=== PATIENT | female | born 1955 | race African-American/Black ===

== ENCOUNTER 2018-05-25 02:52 | Inpatient (IN) | payer OTHER ==
[2018-05-25] MEDS ORDERED: ZOFRAN IV ONE (04:35)
[2018-05-25] MEDS ORDERED: NACL 0.9% 1000 ML 1,000 ML IV ONE (04:35)
[2018-05-25 04:56] LABS: Bacteria,Urine 1+ /HPF (Negative); Bilirubin,Urine NEG (Negative); Blood,Urine SM (Negative); Color,Urine Yellow (Yellow); Mucus,Urine FEW /HPF; Urobilinogen,Urine < 2.0 mg/dL (<2.0)
[2018-05-25 05:40] LABS: Alanine Aminotransferase 21 units/L (7-56); Albumin 4.6 g/dL (3.9-5); BUN/Creatinine Ratio 38; Blood Urea Nitrogen 19 mg/dL (7-17); Calcium 9.1 mg/dL (8.4-10.2); Hemolysis Index 6
[2018-05-25 05:42] LABS: Basophils % (Auto) 0.2 % (0.0-1.8); Hematocrit 43.4 % (30.3-42.9); Hemoglobin 14.4 gm/dl (10.1-14.3); Mean Corpuscular HGB Conc 33 % (30-34); Mean Corpuscular Volume 92 fl (79-97); Monocytes # (Auto) 0.4 K/mm3 (0.0-0.8); Monocytes % (Auto) 4.5 % (0.0-7.3); Platelet Count 312 K/mm3 (140-440); Red Blood Count 4.73 M/mm3 (3.65-5.03); Red Cell Distribution Width 13.9 % (13.2-15.2)
[2018-05-25] MEDS ORDERED: NACL 0.9% 500 ML 500 ML IV ONE (06:35)
[2018-05-25] MEDS ORDERED: SUBLIMAZE IV ONE ×2 (06:35→09:30)
--- NOTE | 2018-05-25 06:36 | Emergency Department Report ---
ED General Adult HPI - General Chief complaint: Abdominal Pain Stated complaint: ABDOMINAL PAIN Time Seen by Provider: 05/25/18 06:29 Source: patient, RN notes reviewed, old records reviewed Mode of arrival: Ambulatory Limitations: No Limitations - History of Present Illness Initial comments: Primary care Dr.: Dr. Mal Hatfield This is a 63-year-old female with a history of laparotomy, small bowel obstruction, lysis of adhesions, hysterectomy, presenting to the emergency room with a complaint of abdominal pain. The abdominal pain started at 4:00 PM ye sterday. It is intermittent. It is achy. It increases with palpation. It decreases with rest. There is mild nausea. There is some vomiting. Patient denies urinary symptoms. Denies fevers, chills, other complaints. -: Gradual Radiation: abdomen Severity scale (0 -10): 10 Quality: aching Consistency: intermittent Improves with: other Worsens with: other Associated Symptoms: loss of appetite, malaise, nausea/vomiting, weakness. denies: confusion, chest pain, cough, diaphoresis, fever/chills, headaches, rash, seizure, shortness of breath, syncope - Related Data Home Medications Medication Instructions Recorded Confirmed Last Taken Alendronate Sodium 1 tab PO QWEEK 01/05/14 03/31/18 03/29/18 Mv,Francisco,Min/Iron/Folic Acid/Lut 1 tab PO DAILY 01/05/14 03/31/18 03/29/18 [Complete Multi Tablet] [place]-3 Fatty Acids/Fish Oil [Fish 1 cap PO DAILY 01/05/14 03/31/18 03/29/18 Oil] Omeprazole 1 cap PO DAILY 01/05/14 03/31/18 03/29/18 Allergies Allergy/AdvReac Type Severity Reaction Status Date / Time venlafaxine Allergy Vomiting Verified 01/05/14 09:57 ED Review of Systems ROS: Stated complaint: ABDOMINAL PAIN Other details as noted in HPI Constitutional: denies: fever Eyes: denies: vision change ENT: denies: epistaxis Respiratory: denies: cough Cardiovascular: denies: chest pain Gastrointestinal: abdominal pain, nausea, vomiting Genitourinary: denies: urgency, dysuria Musculoskeletal: denies: back pain Skin: denies: lesions Neurological: weakness Psychiatric: anxiety ED Past Medical Hx - Past Medical History Hx Arthritis: No Hx Asthma: No Hx COPD: No Hx HIV: No Additional medical history: Decreased Bone Density, Hypotension, - Surgical History Hx Appendectomy: Yes Additional Surgical History: Bilateral Mastectomy, Hysterectomy, Lumbar surgery. Small Bowel Resection, Lysis of Adhesions ([facility] 09/2016) - Social History Smoking Status: Never Smoker Substance Use Type: None - Medications Home Medications: Home Medications Medication Instructions Recorded Confirmed Last Taken Type Alendronate Sodium 1 tab PO QWEEK 01/05/14 03/31/18 03/29/18 History Mv,Francisco,Min/Iron/Folic Acid/Lut 1 tab PO DAILY 01/05/14 03/31/18 03/29/18 History [Complete Multi Tablet] [place]-3 Fatty Acids/Fish Oil [Fish 1 cap PO DAILY 01/05/14 03/31/18 03/29/18 History Oil] Omeprazole 1 cap PO DAILY 01/05/14 03/31/18 03/29/18 History ED Physical Exam - General Limitations: No Limitations General appearance: alert, in no apparent distress - Head Head exam: Present: atraumatic, normocephalic - Eye Eye exam: Present: normal appearance, EOMI. Absent: nystagmus - ENT ENT exam: Present: normal exam, normal orophraynx, mucous membranes moist, normal external ear exam - Neck Neck exam: Present: normal inspection, full ROM. Absent: tenderness, meningismus - Respiratory Respiratory exam: Present: normal lung sounds bilaterally. Absent: respiratory distress, chest wall tenderness, accessory muscle use, decreased breath sounds, prolonged expiratory - Cardiovascular Cardiovascular Exam: Present: regular rate, normal rhythm, normal heart sounds. Absent: bradycardia, tachycardia, irregular rhythm, systolic murmur, diastolic murmur, rubs, gallop - GI/Abdominal GI/Abdominal exam: Present: soft, distended. Absent: tenderness, guarding, rebound, rigid, pulsatile mass - Extremities Exam Extremities exam: Present: normal inspection, full ROM, other (2+ pulses noted in the bilateral upper, lower extremities. Compartments soft. No long bony tenderness. The pelvis is stable.). Absent: pedal edema, joint swelling, calf tenderness - Back Exam Back exam: Present: normal inspection, full ROM. Absent: tenderness, CVA tenderness (R), paraspinal tenderness, vertebral tenderness - Neurological Exam Neurological exam: Present: alert, CN II-XII intact, normal gait, other (Extraocular movements intact. Tongue midline. No facial droop. Facial sensation intact to light touch in the V1, V2, V3 distribution bilaterally. 5 and 5 strength in 4 extremities.. Sensation is intact to light touch in 4 extremities.). Absent: motor sensory deficit - Psychiatric Psychiatric exam: Present: anxious - Skin Skin exam: Present: warm, dry, intact, normal color. Absent: rash ED Course Vital Signs 05/25/18 05/25/18 05/25/18 03:04 04:17 04:30 Temperature 97.7 F Pulse Rate 78 Respiratory 14 Rate Blood Pressure 155/75 119/60 O2 Sat by Pulse 99 93 99 Oximetry 05/25/18 05/25/18 05/25/18 04:45 05:00 05:15 Temperature Pulse Rate Respiratory Rate Blood Pressure 115/51 120/59 128/65 O2 Sat by Pulse 100 100 100 Oximetry 05/25/18 05/25/18 05/25/18 05:30 05:45 06:00 Temperature Pulse Rate Respiratory Rate Blood Pressure 120/65 118/68 115/58 O2 Sat by Pulse 99 99 100 Oximetry 05/25/18 05/25/18 05/25/18 06:15 06:30 07:05 Temperature Pulse Rate Respiratory 20 Rate Blood Pressure 113/60 117/61 O2 Sat by Pulse 99 99 98 Oximetry - Reevaluation(s) Reevaluation #1: 05/25/18 08:16 Differential diagnosis, including not limited to: Colitis, diverticulitis, ileus, constipation, urinary tract infection, renal colic, bowel obstruction Assessment and plan: 63-year-old female with left-sided abdominal pain, no tachycardia, no hypoxia, question distended abdomen, we will treat her symptoms, obtain CT scan of the abdomen and pelvis with IV contrast, and then reassess after her CT scan has resulted. Reevaluation #2: 05/25/18 09:32 CT scan suggests recurrent small bowel obstruction. Nasogastric tube ordered. Gen. surgery consultation requested. Hospital physician, Dr. Sullivan to admit the patient to the medical service. - Consultations Consultation #1: 05/25/18 09:37 Discussed with general surgeon, Dr. Pineda, who will follow in consultation. ED Medical Decision Making - Lab Data Result diagrams: 05/25/18 03:44 05/25/18 03:44 Vital Signs 05/25/18 05/25/18 05/25/18 03:04 04:17 04:30 Temperature 97.7 F Pulse Rate 78 Respiratory 14 Rate Blood Pressure 155/75 119/60 O2 Sat by Pulse 99 93 99 Oximetry 05/25/18 05/25/18 05/25/18 04:45 05:00 05:15 Temperature Pulse Rate Respiratory Rate Blood Pressure 115/51 120/59 128/65 O2 Sat by Pulse 100 100 100 Oximetry 05/25/18 05/25/18 05/25/18 05:30 05:45 06:00 Temperature Pulse Rate Respiratory Rate Blood Pressure 120/65 118/68 115/58 O2 Sat by Pulse 99 99 100 Oximetry 05/25/18 05/25/18 05/25/18 06:15 06:30 07:05 Temperature Pulse Rate Respiratory 20 Rate Blood Pressure 113/60 117/61 O2 Sat by Pulse 99 99 98 Oximetry Lab Results 05/25/18 05/25/18 05/25/18 Range/Units 03:44 03:44 03:44 WBC 9.8 (4.5-11.0) K/mm3 RBC 4.73 (3.65-5.03) M/mm3 Hgb 14.4 H (10.1-14.3) gm/dl Hct 43.4 H (30.3-42.9) % MCV 92 (79-97) fl MCH 30 (28-32) pg MCHC 33 (30-34) % RDW 13.9 (13.2-15.2) % Plt Count 312 (140-440) K/mm3 Lymph % (Auto) 10.0 L (13.4-35.0) % Garza % (Auto) 4.5 (0.0-7.3) % Eos % (Auto) 0.0 (0.0-4.3) % Baso % (Auto) 0.2 (0.0-1.8) % Lymph # 1.0 L (1.2-5.4) K/mm3 Garza # 0.4 (0.0-0.8) K/mm3 Eos # 0.0 (0.0-0.4) K/mm3 Baso # 0.0 (0.0-0.1) K/mm3 Seg Neutrophils % 85.3 H (40.0-70.0) % Seg Neutrophils # 8.4 H (1.8-7.7) K/mm3 Sodium 142 (137-145) mmol/L Potassium 3.4 L (3.6-5.0) mmol/L Chloride 99.5 (98-107) mmol/L Carbon Dioxide 29 (22-30) mmol/L Anion Gap 17 mmol/L BUN 19 H (7-17) mg/dL Creatinine 0.5 L (0.7-1.2) mg/dL Estimated GFR > 60 ml/min BUN/Creatinine Ratio 38 % Glucose 125 H (65-100) mg/dL Lactic Acid (0.7-2.0) mmol/L Calcium 9.1 (8.4-10.2) mg/dL Magnesium 1.90 (1.7-2.3) mg/dL Total Bilirubin 0.80 (0.1-1.2) mg/dL AST 29 (5-40) units/L ALT 21 (7-56) units/L Alkaline Phosphatase 67 (35-129) units/L Total Creatine Kinase 99 (30-135) units/L Total Protein 7.2 (6.3-8.2) g/dL Albumin 4.6 (3.9-5) g/dL Albumin/Globulin Ratio 1.8 % Lipase 33 (13-60) units/L Urine Color (Yellow) Urine Turbidity (Clear) Urine pH (5.0-7.0) Ur Specific [place] (1.003-1.030) Urine Protein (Negative) mg/dL Urine Glucose (UA) (Negative) mg/dL Urine Ketones (Negative) mg/dL Urine Blood (Negative) Urine Nitrite (Negative) Urine Bilirubin (Negative) Urine Urobilinogen (<2.0) mg/dL Ur Leukocyte Esterase (Negative) Urine WBC (Auto) (0.0-6.0) /HPF Urine RBC (Auto) (0.0-6.0) /HPF Urine Bacteria (Auto) (Negative) /HPF Urine Mucus /HPF 05/25/18 05/25/18 Range/Units 04:00 07:04 WBC (4.5-11.0) K/mm3 RBC (3.65-5.03) M/mm3 Hgb (10.1-14.3) gm/dl Hct (30.3-42.9) % MCV (79-97) fl MCH (28-32) pg MCHC (30-34) % RDW (13.2-15.2) % Plt Count (140-440) K/mm3 Lymph % (Auto) (13.4-35.0) % Garza % (Auto) (0.0-7.3) % Eos % (Auto) (0.0-4.3) % Baso % (Auto) (0.0-1.8) % Lymph # (1.2-5.4) K/mm3 Garza # (0.0-0.8) K/mm3 Eos # (0.0-0.4) K/mm3 Baso # (0.0-0.1) K/mm3 Seg Neutrophils % (40.0-70.0) % Seg Neutrophils # (1.8-7.7) K/mm3 Sodium (137-145) mmol/L Potassium (3.6-5.0) mmol/L Chloride (98-107) mmol/L Carbon Dioxide (22-30) mmol/L Anion Gap mmol/L BUN (7-17) mg/dL Creatinine (0.7-1.2) mg/dL Estimated GFR ml/min BUN/Creatinine Ratio % Glucose (65-100) mg/dL Lactic Acid 1.20 (0.7-2.0) mmol/L Calcium (8.4-10.2) mg/dL Magnesium (1.7-2.3) mg/dL Total Bilirubin (0.1-1.2) mg/dL AST (5-40) units/L ALT (7-56) units/L Alkaline Phosphatase (35-129) units/L Total Creatine Kinase (30-135) units/L Total Protein (6.3-8.2) g/dL Albumin (3.9-5) g/dL Albumin/Globulin Ratio % Lipase (13-60) units/L Urine Color Yellow (Yellow) Urine Turbidity Slightly-cloudy (Clear) Urine pH 7.0 (5.0-7.0) Ur Specific [place] 1.025 (1.003-1.030) Urine Protein 100 mg/dl (Negative) mg/dL Urine Glucose (UA) Neg (Negative) mg/dL Urine Ketones 20 (Negative) mg/dL Urine Blood Sm (Negative) Urine Nitrite Neg (Negative) Urine Bilirubin Neg (Negative) Urine Urobilinogen < 2.0 (<2.0) mg/dL Ur Leukocyte Esterase Neg (Negative) Urine WBC (Auto) 4.0 (0.0-6.0) /HPF Urine RBC (Auto) 47.0 (0.0-6.0) /HPF Urine Bacteria (Auto) 1+ (Negative) /HPF Urine Mucus Few /HPF - Radiology Data Radiology results: pending, report reviewed, image reviewed Print Report Referring Physician: OBED BRUNNER Patient Name: OSCAR DEGROOT Date of : 1955 Sex: Female Report Date: 2018-05-25 Report Status: Finalized Findings [facility] [address] [place] [address] Cat Scan Report Signed Patient: OSCAR DEGROOT MR#: [id number] : 1955 Acct:[id number] Age/Sex: 63 / F ADM Date: 05/25/18 Loc: ED Attending Dr: Ordering Physician: OBED BRUNNER MD Date of Service: 05/25/18 Procedure(s): CT abdomen pelvis w con Accession Number(s): [id number] cc: OBED BRUNNER MD CT ABDOMEN PELVIS WITH CONTRAST: HISTORY: Nausea vomiting abdominal pain. COMPARISON: The 03/31/18. TECHNIQUE: Helical CT in 1.25mm intervals following IV contrast. Sagittal and coronal reconstructions. FINDINGS: Lung bases: Normal. Calcified granuloma at the right lung base is noted. Liver: Normal. Biliary system: Normal. Pancreas: Normal. Spleen: Normal. Kidneys/ureters/bladder: There are a few scattered small cysts in both kidneys. The largest cyst measures 1.5 cm in the mid left kidney. No evidence for mass or hydronephrosis. The ureters and bladder are unremarkable. Adrenal glands: Normal. Aorta: Normal. Intestines: There are a few moderately dilated loops of small bowel in the left abdomen measuring up to 4 cm in diameter. The distal small bowel loops and colon are decompressed. Appendix: Not confidently identified, correlate with surgical history. Pelvic viscera: Hysterectomy changes are suspected. Ascites: Small pelvic ascites Adenopathy: None. Musculoskeletal: Osteopenia is suspected. Mild degenerative changes in the spine. No fracture or suspicious bony lesion. IMPRESSION: Findings consistent with a partial small bowel obstruction. Surgical changes as described. Transcribed By: TTR Dictated By: LUCA BOWLES JR, MD Electronically Authenticated By: LUCA BOWLES JR, MD Signed Date/Time: 05/25/18912 DD/ 8 TD/TT: 05/25/18912 Critical care attestation.: If time is entered above; I have spent that time in minutes in the direct care of this critically ill patient, excluding procedure time. ED Disposition Clinical Impression: Small bowel obstruction Disposition: OP ADMIT IP TO THIS HOSP Is pt being admited?: Yes Condition: Good Instructions: Abdominal Pain (ED) Referrals: YELENA VASQUEZ MD [Primary Care Provider] - 3-5 Days
[2018-05-25] MEDS: KCL 10MEQ/100ML 10 MEQ/100 ML BAG IV SCH ×2 (08:00→09:50)
--- NOTE | 2018-05-25 09:16 | Cat Scan Report ---
CT ABDOMEN PELVIS WITH CONTRAST: HISTORY: Nausea vomiting abdominal pain. COMPARISON: The 03/31/18. TECHNIQUE: Helical CT in 1.25mm intervals following IV contrast. Sagittal and coronal reconstructions. FINDINGS: Lung bases: Normal. Calcified granuloma at the right lung base is noted. Liver: Normal. Biliary system: Normal. Pancreas: Normal. Spleen: Normal. Kidneys/ureters/bladder: There are a few scattered small cysts in both kidneys. The largest cyst measures 1.5 cm in the mid left kidney. No evidence for mass or hydronephrosis. The ureters and bladder are unremarkable. Adrenal glands: Normal. Aorta: Normal. Intestines: There are a few moderately dilated loops of small bowel in the left abdomen measuring up to 4 cm in diameter. The distal small bowel loops and colon are decompressed. Appendix: Not confidently identified, correlate with surgical history. Pelvic viscera: Hysterectomy changes are suspected. Ascites: Small pelvic ascites Adenopathy: None. Musculoskeletal: Osteopenia is suspected. Mild degenerative changes in the spine. No fracture or suspicious bony lesion. IMPRESSION: Findings consistent with a partial small bowel obstruction. Surgical changes as described.
[2018-05-25] MEDS ORDERED: LIDOCAINE VISCOUS 2% PO ONE (09:30)
[2018-05-25] MEDS ORDERED: XYLOCAINE TOPICAL 4% TP ONE (09:30)
[2018-05-25] MEDS ORDERED: SUBLIMAZE ONE (10:30)
--- NOTE | 2018-05-25 13:31 | Progress Note ---
Assessment and Plan Full consult dictated. Pt was seen previously approximately 2 months ago with symptoms of sbo vs fecal impaction. Rx with NG suction and resolved. was doing very well until this am when experienced + N&V Abd - 2+ distended (especially lower abd) but non tender CT consistent with partial sbo rec NPO Mineral oil per NG IVF hydration f/u abd series in am will follow Selected Entries 05/25/18 12:11 Temperature 98.5 F Pulse Rate 72 Respiratory 18 Rate Blood Pressure 119/62 Laboratory Tests 05/25/18 05/25/18 03:44 03:44 WBC 9.8 Hgb 14.4 H Hct 43.4 H Sodium 142 Potassium 3.4 L Chloride 99.5 Carbon Dioxide 29 Anion Gap 17 BUN 19 H Creatinine 0.5 L Total Bilirubin 0.80 AST 29 ALT 21 Alkaline Phosphatase 67 Lipase 33 Objective Vital Signs - 12hr 05/25/18 05/25/18 05/25/18 03:04 04:17 04:30 Temperature 97.7 F Pulse Rate 78 Respiratory 14 Rate Blood Pressure 155/75 119/60 O2 Sat by Pulse 99 93 99 Oximetry 05/25/18 05/25/18 05/25/18 04:45 05:00 05:15 Temperature Pulse Rate Respiratory Rate Blood Pressure 115/51 120/59 128/65 O2 Sat by Pulse 100 100 100 Oximetry 05/25/18 05/25/18 05/25/18 05:30 05:45 06:00 Temperature Pulse Rate Respiratory Rate Blood Pressure 120/65 118/68 115/58 O2 Sat by Pulse 99 99 100 Oximetry 05/25/18 05/25/18 05/25/18 06:15 06:30 07:05 Temperature Pulse Rate Respiratory 20 Rate Blood Pressure 113/60 117/61 O2 Sat by Pulse 99 99 98 Oximetry 05/25/18 05/25/18 05/25/18 07:49 08:00 08:15 Temperature Pulse Rate 68 66 Respiratory 12 13 Rate Blood Pressure 117/61 129/70 121/67 O2 Sat by Pulse 100 99 100 Oximetry 05/25/18 05/25/18 05/25/18 08:30 08:45 09:00 Temperature Pulse Rate 67 66 66 Respiratory 13 12 12 Rate Blood Pressure 127/66 121/65 117/67 O2 Sat by Pulse 100 98 100 Oximetry 05/25/18 05/25/18 05/25/18 09:15 09:47 10:00 Temperature Pulse Rate 75 74 67 Respiratory 15 23 13 Rate Blood Pressure 125/69 125/69 105/62 O2 Sat by Pulse 99 100 100 Oximetry 05/25/18 05/25/18 05/25/18 10:15 10:30 10:45 Temperature Pulse Rate 66 79 73 Respiratory 12 15 14 Rate Blood Pressure 122/66 121/70 119/67 O2 Sat by Pulse 100 99 99 Oximetry 05/25/18 05/25/18 05/25/18 11:00 11:11 11:21 Temperature Pulse Rate 75 74 74 Respiratory 12 13 12 Rate Blood Pressure 119/67 123/73 122/63 O2 Sat by Pulse 99 98 98 Oximetry 05/25/18 05/25/18 05/25/18 11:30 11:41 11:50 Temperature Pulse Rate 69 69 78 Respiratory 12 12 20 Rate Blood Pressure 114/62 114/62 121/62 O2 Sat by Pulse 99 99 Oximetry 05/25/18 12:11 Temperature 98.5 F Pulse Rate 72 Respiratory 18 Rate Blood Pressure 119/62 O2 Sat by Pulse 100 Oximetry - Labs 05/25/18 03:44 05/25/18 03:44 Diabetes panel 05/25/18 Range/Units 03:44 Sodium 142 (137-145) mmol/L Potassium 3.4 L (3.6-5.0) mmol/L Chloride 99.5 (98-107) mmol/L Carbon Dioxide 29 (22-30) mmol/L BUN 19 H (7-17) mg/dL Creatinine 0.5 L (0.7-1.2) mg/dL Glucose 125 H (65-100) mg/dL Calcium 9.1 (8.4-10.2) mg/dL AST 29 (5-40) units/L ALT 21 (7-56) units/L Alkaline Phosphatase 67 (35-129) units/L Total Protein 7.2 (6.3-8.2) g/dL Albumin 4.6 (3.9-5) g/dL Calcium panel 05/25/18 Range/Units 03:44 Calcium 9.1 (8.4-10.2) mg/dL Albumin 4.6 (3.9-5) g/dL Pituitary panel 05/25/18 Range/Units 03:44 Sodium 142 (137-145) mmol/L Potassium 3.4 L (3.6-5.0) mmol/L Chloride 99.5 (98-107) mmol/L Carbon Dioxide 29 (22-30) mmol/L BUN 19 H (7-17) mg/dL Creatinine 0.5 L (0.7-1.2) mg/dL Glucose 125 H (65-100) mg/dL Calcium 9.1 (8.4-10.2) mg/dL Adrenal panel 05/25/18 Range/Units 03:44 Sodium 142 (137-145) mmol/L Potassium 3.4 L (3.6-5.0) mmol/L Chloride 99.5 (98-107) mmol/L Carbon Dioxide 29 (22-30) mmol/L BUN 19 H (7-17) mg/dL Creatinine 0.5 L (0.7-1.2) mg/dL Glucose 125 H (65-100) mg/dL Calcium 9.1 (8.4-10.2) mg/dL Total Bilirubin 0.80 (0.1-1.2) mg/dL AST 29 (5-40) units/L ALT 21 (7-56) units/L Alkaline Phosphatase 67 (35-129) units/L Total Protein 7.2 (6.3-8.2) g/dL Albumin 4.6 (3.9-5) g/dL
[2018-05-25] MEDS ORDERED: MORPHINE IV PRN (13:45)
[2018-05-25] MEDS ORDERED: TYLENOL PO PRN (13:45)
[2018-05-25] MEDS ORDERED: ZOFRAN IV PRN (13:45)
[2018-05-25] MEDS ORDERED: SODIUM CHLORIDE FLUSH SYRINGE 10 ML IV PRN (13:45)
--- NOTE | 2018-05-25 13:53 | History and Physical Report ---
History of Present Illness Date of examination: 05/25/18 Date of admission: 05/25/18 09:33 Chief complaint: Worsening abdominal pain since yesterday History of present illness: 63-year-old partially Thai-speaking [place] female with history of osteoporosis presented to the ED with complaints of worsening abdominal pain since yesterday evening, and associated with nausea and vomiting 2. She denies any constipation diarrhea or melena. She denies any fever or chills. Denies any chest pain or shortness of breath. Patient the was noted to have partial sm all bowel obstruction, CT of the abdomen and pelvis and she is being admitted for further management Past History Past Medical History: cancer (breast cancer), other (osteoporosis) Past Surgical History: hysterectomy, mastectomy ((), Other (every 2-4 laminectomy and laparotomy) Social history: no significant social history Family history: no significant family history Medications and Allergies Allergies Allergy/AdvReac Type Severity Reaction Status Date / Time venlafaxine Allergy Vomiting Verified 01/05/14 09:57 Home Medications Medication Instructions Recorded Confirmed Last Taken Type Alendronate Sodium 1 tab PO QWEEK 01/05/14 05/25/18 03/29/18 History Active Meds: Active Medications Acetaminophen (Tylenol) 650 mg PO Q4H PRN PRN Reason: Pain MILD(1-3)/Fever >100.5/LONG Famotidine (Pepcid) 20 mg IV BID [facility] Potassium Chloride/Dextrose/Sod Cl (D5w/0.45% Nacl/Kcl 20 Meq) 20 meq in 1,000 mls @ 125 mls/hr IV DIRECT SILVIANO Mineral Oil (Mineral Oil) 30 ml FEEDTUBE Q4H [facility] Morphine Sulfate (Morphine) 1 mg IV Q4H PRN PRN Reason: Pain, Moderate (4-6) Ondansetron HCl (Zofran) 4 mg IV Q8H PRN PRN Reason: Nausea And Vomiting Sodium Chloride (Sodium Chloride Flush Syringe 10 Ml) 10 ml IV BID SILVIANO Sodium Chloride (Sodium Chloride Flush Syringe 10 Ml) 10 ml IV PRN PRN PRN Reason: LINE FLUSH Review of Systems Constitutional: no weight loss, no fever, no chills, no fatigue Ears, nose, mouth and throat: no ear pain, no nasal congestion, no sore throat Cardiovascular: no chest pain, no syncope, no shortness of breath Respiratory: no cough, no shortness of breath Gastrointestinal: abdominal pain, nausea, vomiting, no diarrhea, no constipation, no melena Genitourinary Female: no dysuria Menstruation: postmenopausal Rectal: no pain Musculoskeletal: no neck stiffness, no neck pain Integumentary: no rash Neurological: no vertigo, no headaches Psychiatric: no anxiety, no depression Exam - Constitutional Vitals: Temp Pulse Resp BP Pulse Ox 98.5 F 72 18 119/62 100 05/25/18 12:11 05/25/18 12:11 05/25/18 12:11 05/25/18 12:11 05/25/18 12:11 General appearance: Present: no acute distress, well-nourished - EENT Eyes: Present: PERRL, EOM intact ENT: hearing intact - Neck Neck: Present: supple, normal ROM - Respiratory Respiratory effort: normal Respiratory: bilateral: CTA - Cardiovascular Rhythm: regular Heart Sounds: Present: S1 & S2 - Extremities Extremities: No edema - Abdominal General gastrointestinal: Present: soft, tender (mild tenderness in the epigastric area and mid abdomen). Absent: hepatomegaly, splenomegaly - Rectal Rectal Exam: deferred - Musculoskeletal Musculoskeletal: strength equal bilaterally - Psychiatric Psychiatric: appropriate mood/affect - Neurologic Neurologic: no focal deficits Results - Labs CBC & Chem 7: 05/25/18 03:44 05/25/18 03:44 Labs: Abnormal lab results 05/25/18 05/25/18 Range/Units 03:44 03:44 Hgb 14.4 H (10.1-14.3) gm/dl Hct 43.4 H (30.3-42.9) % Lymph % (Auto) 10.0 L (13.4-35.0) % Lymph # 1.0 L (1.2-5.4) K/mm3 Seg Neutrophils % 85.3 H (40.0-70.0) % Seg Neutrophils # 8.4 H (1.8-7.7) K/mm3 Potassium 3.4 L (3.6-5.0) mmol/L BUN 19 H (7-17) mg/dL Creatinine 0.5 L (0.7-1.2) mg/dL Glucose 125 H (65-100) mg/dL Assessment and Plan - Patient Problems (1) Small bowel obstruction Current Visit: Yes Status: Acute Plan to address problem: Admit patient to medical floor Keep patient nothing by mouth IV fluids NG tube with low intermittent suction Pain control Gen. surgery note reviewed and appreciated (2) Hypokalemia Current Visit: Yes Status: Acute Plan to address problem: IV potassium supplement Monitor electrolytes
[2018-05-25] MEDS ORDERED: CHLORASEPTIC MM PRN (13:54)
[2018-05-25] MEDS ORDERED: D5W/0.45% NACL/KCL 20 MEQ 20 MEQ/1,000 ML BAG IV SCH (14:00)
[2018-05-25] MEDS: MINERAL OIL FEEDTUBE SCH ×3 (15:47→22:02)
[2018-05-25] MEDS: PEPCID IV SCH ×2 (15:48→22:02)
[2018-05-25] MEDS: D5W/0.45% NACL/KCL 30 MEQ 30 MEQ/1,000 ML BAG IV SCH (16:59)
[2018-05-25] MEDS: CEPACOL X STRENGTH MM PRN (17:00)
--- NOTE | 2018-05-25 17:04 | Consultation ---
REASON FOR CONSULTATION: Rule out partial small bowel obstruction. HISTORY OF PRESENT ILLNESS: The patient is a very pleasant 63-year-old female who I actually last saw here at the hospital approximately 2 months ago. At that time, the patient was admitted with symptoms of possible fecal impaction versus partial small-bowel obstruction. The patient was treated with NG suction and IV fluid hydration and her symptoms completely resolved. She has been doing well ever since. She was actually seen in my office approximately a week or two after her discharge and was doing fine and discharged from our care back to her PCP. As mentioned previously, the patient was doing quite well until this morning when she began experiencing episodes of nausea and vomiting. PAST MEDICAL AND SURGICAL HISTORY: Pertinent for multiple previous surgeries including modified radical mastectomies and lumbar laminectomy. From an abdominal perspective, she also had a diagnostic laparoscopy and lysis of adhesions and also subsequent exploratory laparotomy and small bowel resection, which appeared to have been done at [facility] back in 2017. PHYSICAL EXAMINATION: GENERAL: At this time reveals the patient to be awake, alert, cooperative, in no acute distress. VITAL SIGNS: Show her to be afebrile with a temperature 98.5, blood pressure 119/62, pulse is 72, respirations of 18. ABDOMEN: Examination of the abdomen reveals some 2+ distention, especially more so in the lower abdomen. The abdomen itself, however, is nontender. Bowel sounds are hypoactive. LABORATORY DATA: Lab work at present includes a CBC, which shows a white count of 9.8, H and H are 14 and 43. Electrolytes are essentially normal except for slightly low potassium of 3.4. Glucose is 125. LFTs were all essentially normal including total bilirubin of 0.8, AST of 29, ALT of 21, alkaline phosphatase of 67 and total bilirubin is 0.8. DIAGNOSTIC DATA: A CT scan of the abdomen has been performed, which is consistent with a partial small-bowel obstruction. IMPRESSION: At this time is that of a 63-year-old female, rule out partial small-bowel obstruction. RECOMMENDATIONS: At this time is to keep the patient n.p.o., on IV fluid hydration. We will also begin mineral oil insertion through the NG tube and repeat the abdominal series in the morning. I will follow closely with you. Thank you very much for consultation. JOB# [id number] FP/NTS
[2018-05-25] MEDS: SODIUM CHLORIDE FLUSH SYRINGE 10 ML IV SCH (22:03)
[2018-05-26] MEDS: D5W/0.45% NACL/KCL 30 MEQ 30 MEQ/1,000 ML BAG IV SCH ×3 (01:28→23:54)
[2018-05-26] MEDS: MINERAL OIL FEEDTUBE SCH ×6 (01:28→22:40)
[2018-05-26 06:44] LABS: Basophils % (Auto) 0.5 % (0.0-1.8); Eosinophils # (Auto) 0.1 K/mm3 (0.0-0.4); Eosinophils % (Auto) 1.6 % (0.0-4.3); Hematocrit 38.2 % (30.3-42.9); Hemoglobin 12.7 gm/dl (10.1-14.3); Lymphocytes # (Auto) 1.2 K/mm3 (1.2-5.4); Lymphocytes % (Auto) 17.9 % (13.4-35.0); Mean Corpuscular HGB Conc 33 % (30-34); Mean Corpuscular Volume 92 fl (79-97); Monocytes # (Auto) 0.7 K/mm3 (0.0-0.8); Monocytes % (Auto) 10.2 % (0.0-7.3); Platelet Count 250 K/mm3 (140-440); Red Blood Count 4.17 M/mm3 (3.65-5.03); Red Cell Distribution Width 13.9 % (13.2-15.2)
[2018-05-26 06:59] LABS: BUN/Creatinine Ratio 13; Blood Urea Nitrogen 4 mg/dL (7-17); Calcium 8.4 mg/dL (8.4-10.2); Hemolysis Index 4
--- NOTE | 2018-05-26 10:17 | XRay Report ---
ABDOMINAL SERIES: History: SBO. Erect chest film shows hyperinflated lungs and borderline heart size. A nasogastric tube is coiled in the fundus of the stomach. There is no evidence of free air beneath the diaphragms. The gas pattern within the abdomen is unremarkable. There is no evidence of bowel dilatation, significant air-fluid levels, or masses. Organ shadows are unremarkable. IMPRESSION: Abdominal series within normal limits.
--- NOTE | 2018-05-26 11:00 | Progress Note ---
Assessment and Plan Assessment and plan: --Possible small bowel obstruction; Surgery following, abdominal series is no evidence of obstruction Intermittent suction, continue nothing by mouth status Scheduled for small bowel series tomorrow Consider clear liquids if significant improvement --Hypokalemia; corrected --DVT prophylaxis; SCDs, Lovenox Closely monitor the patient and adjust the management as needed Follow-up surgery evaluation and recommendations Plan of care reviewed with the patient her and the nurse History Interval history: Patient was admitted with small bowel obstruction, nothing by mouth status NG tube intermittent suction, surgical evaluation and recommendations noted Patient feels slightly better, had flatus no bowel movements Vital signs reviewed No new complaints Hospitalist Physical - Constitutional Vitals: Temp Pulse Resp BP Pulse Ox 97.8 F 62 20 112/62 98 05/26/18 04:25 05/26/18 04:25 05/26/18 04:25 05/26/18 04:25 05/26/18 04:25 General appearance: Present: no acute distress, well-nourished - EENT Eyes: Present: PERRL, EOM intact - Neck Neck: Present: supple, normal ROM - Respiratory Respiratory effort: normal Respiratory: bilateral: diminished, rales, negative: rhonchi, wheezing - Cardiovascular Rhythm: regular Heart Sounds: Present: S1 & S2 - Extremities Extremities: no ischemia, No edema - Abdominal General gastrointestinal: soft, non-tender, distended (mild), normal bowel sounds - Integumentary Integumentary: Present: clear, warm - Psychiatric Psychiatric: appropriate mood/affect, cooperative - Neurologic Neurologic: CNII-XII intact, moves all extremities Results - Labs CBC & Chem 7: 05/26/18 05:55 05/26/18 05:55 Labs: Laboratory Last Values WBC 6.8 K/mm3 (4.5-11.0) 05/26/18 05:55 RBC 4.17 M/mm3 (3.65-5.03) 05/26/18 05:55 Hgb 12.7 gm/dl (10.1-14.3) 05/26/18 05:55 Hct 38.2 % (30.3-42.9) 05/26/18 05:55 MCV 92 fl (79-97) 05/26/18 05:55 MCH 30 pg (28-32) 05/26/18 05:55 MCHC 33 % (30-34) 05/26/18 05:55 RDW 13.9 % (13.2-15.2) 05/26/18 05:55 Plt Count 250 K/mm3 (140-440) 05/26/18 05:55 Lymph % (Auto) 17.9 % (13.4-35.0) 05/26/18 05:55 [place] % (Auto) 10.2 % (0.0-7.3) H 05/26/18 05:55 Eos % (Auto) 1.6 % (0.0-4.3) 05/26/18 05:55 Baso % (Auto) 0.5 % (0.0-1.8) 05/26/18 05:55 Lymph # 1.2 K/mm3 (1.2-5.4) 05/26/18 05:55 [place] # 0.7 K/mm3 (0.0-0.8) 05/26/18 05:55 Eos # 0.1 K/mm3 (0.0-0.4) 05/26/18 05:55 Baso # 0.0 K/mm3 (0.0-0.1) 05/26/18 05:55 Seg Neutrophils % 69.8 % (40.0-70.0) 05/26/18 05:55 Seg Neutrophils # 4.7 K/mm3 (1.8-7.7) 05/26/18 05:55 Sodium 142 mmol/L (137-145) 05/26/18 05:55 Potassium 4.1 mmol/L (3.6-5.0) D 05/26/18 05:55 Chloride 107.3 mmol/L (98-107) H 05/26/18 05:55 Carbon Dioxide 28 mmol/L (22-30) 05/26/18 05:55 Anion Gap 11 mmol/L 05/26/18 05:55 BUN 4 mg/dL (7-17) L 05/26/18 05:55 Creatinine 0.3 mg/dL (0.7-1.2) L 05/26/18 05:55 Estimated GFR > 60 ml/min 05/26/18 05:55 BUN/Creatinine Ratio 13 % 05/26/18 05:55 Glucose 109 mg/dL (65-100) H 05/26/18 05:55 Lactic Acid 1.20 mmol/L (0.7-2.0) 05/25/18 07:04 Calcium 8.4 mg/dL (8.4-10.2) 05/26/18 05:55 Magnesium 1.90 mg/dL (1.7-2.3) 05/25/18 03:44 Total Bilirubin 0.80 mg/dL (0.1-1.2) 05/25/18 03:44 AST 29 units/L (5-40) 05/25/18 03:44 ALT 21 units/L (7-56) 05/25/18 03:44 Alkaline Phosphatase 67 units/L (35-129) 05/25/18 03:44 Total Creatine Kinase 99 units/L (30-135) 05/25/18 03:44 Total Protein 7.2 g/dL (6.3-8.2) 05/25/18 03:44 Albumin 4.6 g/dL (3.9-5) 05/25/18 03:44 Albumin/Globulin Ratio 1.8 % 05/25/18 03:44 Lipase 33 units/L (13-60) 05/25/18 03:44 Urine Color Yellow (Yellow) 05/25/18 04:00 Urine Turbidity Slightly-cloudy (Clear) 05/25/18 04:00 Urine pH 7.0 (5.0-7.0) 05/25/18 04:00 Ur Specific [place] 1.025 (1.003-1.030) 05/25/18 04:00 Urine Protein 100 mg/dl mg/dL (Negative) 05/25/18 04:00 Urine Glucose (UA) Neg mg/dL (Negative) 05/25/18 04:00 Urine Ketones 20 mg/dL (Negative) 05/25/18 04:00 Urine Blood Sm (Negative) 05/25/18 04:00 Urine Nitrite Neg (Negative) 05/25/18 04:00 Urine Bilirubin Neg (Negative) 05/25/18 04:00 Urine Urobilinogen < 2.0 mg/dL (<2.0) 05/25/18 04:00 Ur Leukocyte Esterase Neg (Negative) 05/25/18 04:00 Urine WBC (Auto) 4.0 /HPF (0.0-6.0) 05/25/18 04:00 Urine RBC (Auto) 47.0 /HPF (0.0-6.0) 05/25/18 04:00 Urine Bacteria (Auto) 1+ /HPF (Negative) 05/25/18 04:00 Urine Mucus Few /HPF 05/25/18 04:00
[2018-05-26] MEDS: SODIUM CHLORIDE FLUSH SYRINGE 10 ML IV SCH ×2 (12:06→22:41)
[2018-05-26] MEDS: PEPCID IV SCH ×2 (12:20→22:41)
--- NOTE | 2018-05-26 14:15 | Progress Note ---
Assessment and Plan Pt feeling well + flatus Abd soft, non tender. + BS Abd series - wnl resolving partial sbo SBFT study in am d/c ng in am and begin cl liq if SBFT study wnl Selected Entries 05/26/18 11:57 Temperature 99.0 F Pulse Rate 64 Respiratory 16 Rate Blood Pressure 108/64 Laboratory Tests 05/26/18 05/26/18 05:55 05:55 WBC 6.8 Hgb 12.7 Hct 38.2 Sodium 142 Potassium 4.1 D Chloride 107.3 H Carbon Dioxide 28 Anion Gap 11 BUN 4 L Creatinine 0.3 L Glucose 109 H Objective Vital Signs - 12hr 05/26/18 05/26/18 04:25 11:57 Temperature 97.8 F 99.0 F Pulse Rate 62 64 Respiratory 20 16 Rate Blood Pressure 112/62 108/64 O2 Sat by Pulse 98 98 Oximetry - Labs 05/26/18 05:55 05/26/18 05:55 Diabetes panel 05/26/18 Range/Units 05:55 Sodium 142 (137-145) mmol/L Potassium 4.1 D (3.6-5.0) mmol/L Chloride 107.3 H (98-107) mmol/L Carbon Dioxide 28 (22-30) mmol/L BUN 4 L (7-17) mg/dL Creatinine 0.3 L (0.7-1.2) mg/dL Glucose 109 H (65-100) mg/dL Calcium 8.4 (8.4-10.2) mg/dL Calcium panel 05/26/18 Range/Units 05:55 Calcium 8.4 (8.4-10.2) mg/dL Pituitary panel 05/26/18 Range/Units 05:55 Sodium 142 (137-145) mmol/L Potassium 4.1 D (3.6-5.0) mmol/L Chloride 107.3 H (98-107) mmol/L Carbon Dioxide 28 (22-30) mmol/L BUN 4 L (7-17) mg/dL Creatinine 0.3 L (0.7-1.2) mg/dL Glucose 109 H (65-100) mg/dL Calcium 8.4 (8.4-10.2) mg/dL Adrenal panel 05/26/18 Range/Units 05:55 Sodium 142 (137-145) mmol/L Potassium 4.1 D (3.6-5.0) mmol/L Chloride 107.3 H (98-107) mmol/L Carbon Dioxide 28 (22-30) mmol/L BUN 4 L (7-17) mg/dL Creatinine 0.3 L (0.7-1.2) mg/dL Glucose 109 H (65-100) mg/dL Calcium 8.4 (8.4-10.2) mg/dL
[2018-05-26] MEDS: CEPACOL X STRENGTH MM PRN (18:18)
[2018-05-26] MEDS: LOVENOX SUB-Q SCH (22:39)
[2018-05-27] MEDS: MINERAL OIL FEEDTUBE SCH ×2 (02:07→06:03)
[2018-05-27] MEDS: CEPACOL X STRENGTH MM PRN (06:03)
[2018-05-27] MEDS: D5W/0.45% NACL/KCL 30 MEQ 30 MEQ/1,000 ML BAG IV SCH ×2 (10:34→22:06)
[2018-05-27] MEDS: PEPCID IV SCH ×2 (12:19→22:05)
[2018-05-27] MEDS: SODIUM CHLORIDE FLUSH SYRINGE 10 ML IV SCH ×2 (12:20→22:05)
--- NOTE | 2018-05-27 13:03 | Fluoroscopy Report ---
SMALL BOWEL SERIES: History: Partial small bowel obstruction. Barium passes through the small bowel in a normal transit time. There is a normal mucosal pattern with no contour abnormalities identified. IMPRESSION: Normal study.
--- NOTE | 2018-05-27 18:31 | Progress Note ---
Assessment and Plan Assessment and plan: --Possible small bowel obstruction; resolved Small bowel series, no acute abnormality, normal study Dobbhoff removed, clear liquids advance as tolerated Surgery following --Hypokalemia; corrected --Tgkh-is-ocofeoav malnutrition; BMI 16.6 Nutrition supplements, nutrition consult --DVT prophylaxis; SCDs, Lovenox Closely monitor the patient and adjust the management as needed Advance the diet as tolerated Possible discharge tomorrow if stable and cleared by surgery Plan of care reviewed with the patient her and the nurse History Interval history: Patient seen and examined medical records reviewed Patient feels better Dobbhoff tube is removed Started on clear liquids, patient had BM No new complaints Vital signs noted Hospitalist Physical - Constitutional Vitals: Temp Pulse Resp BP Pulse Ox 98.6 F 76 20 122/90 99 05/27/18 16:20 05/27/18 16:15 05/27/18 16:20 05/27/18 16:20 05/27/18 16:15 General appearance: Present: no acute distress, well-nourished - EENT Eyes: Present: PERRL, EOM intact - Neck Neck: Present: supple, normal ROM - Respiratory Respiratory effort: normal Respiratory: bilateral: diminished, negative: rales, rhonchi, wheezing - Cardiovascular Rhythm: regular Heart Sounds: Present: S1 & S2 - Extremities Extremities: no ischemia, No edema - Abdominal General gastrointestinal: soft, non-tender, non-distended, normal bowel sounds - Integumentary Integumentary: Present: clear, warm - Psychiatric Psychiatric: appropriate mood/affect, cooperative - Neurologic Neurologic: CNII-XII intact, moves all extremities Results - Labs CBC & Chem 7: 05/26/18 05:55 05/26/18 05:55 Labs: Laboratory Last Values WBC 6.8 K/mm3 (4.5-11.0) 05/26/18 05:55 RBC 4.17 M/mm3 (3.65-5.03) 05/26/18 05:55 Hgb 12.7 gm/dl (10.1-14.3) 05/26/18 05:55 Hct 38.2 % (30.3-42.9) 05/26/18 05:55 MCV 92 fl (79-97) 05/26/18 05:55 MCH 30 pg (28-32) 05/26/18 05:55 MCHC 33 % (30-34) 05/26/18 05:55 RDW 13.9 % (13.2-15.2) 05/26/18 05:55 Plt Count 250 K/mm3 (140-440) 05/26/18 05:55 Lymph % (Auto) 17.9 % (13.4-35.0) 05/26/18 05:55 [place] % (Auto) 10.2 % (0.0-7.3) H 05/26/18 05:55 Eos % (Auto) 1.6 % (0.0-4.3) 05/26/18 05:55 Baso % (Auto) 0.5 % (0.0-1.8) 05/26/18 05:55 Lymph # 1.2 K/mm3 (1.2-5.4) 05/26/18 05:55 [place] # 0.7 K/mm3 (0.0-0.8) 05/26/18 05:55 Eos # 0.1 K/mm3 (0.0-0.4) 05/26/18 05:55 Baso # 0.0 K/mm3 (0.0-0.1) 05/26/18 05:55 Seg Neutrophils % 69.8 % (40.0-70.0) 05/26/18 05:55 Seg Neutrophils # 4.7 K/mm3 (1.8-7.7) 05/26/18 05:55 Sodium 142 mmol/L (137-145) 05/26/18 05:55 Potassium 4.1 mmol/L (3.6-5.0) D 05/26/18 05:55 Chloride 107.3 mmol/L (98-107) H 05/26/18 05:55 Carbon Dioxide 28 mmol/L (22-30) 05/26/18 05:55 Anion Gap 11 mmol/L 05/26/18 05:55 BUN 4 mg/dL (7-17) L 05/26/18 05:55 Creatinine 0.3 mg/dL (0.7-1.2) L 05/26/18 05:55 Estimated GFR > 60 ml/min 05/26/18 05:55 BUN/Creatinine Ratio 13 % 05/26/18 05:55 Glucose 109 mg/dL (65-100) H 05/26/18 05:55 Lactic Acid 1.20 mmol/L (0.7-2.0) 05/25/18 07:04 Calcium 8.4 mg/dL (8.4-10.2) 05/26/18 05:55 Magnesium 1.90 mg/dL (1.7-2.3) 05/25/18 03:44 Total Bilirubin 0.80 mg/dL (0.1-1.2) 05/25/18 03:44 AST 29 units/L (5-40) 05/25/18 03:44 ALT 21 units/L (7-56) 05/25/18 03:44 Alkaline Phosphatase 67 units/L (35-129) 05/25/18 03:44 Total Creatine Kinase 99 units/L (30-135) 05/25/18 03:44 Total Protein 7.2 g/dL (6.3-8.2) 05/25/18 03:44 Albumin 4.6 g/dL (3.9-5) 05/25/18 03:44 Albumin/Globulin Ratio 1.8 % 05/25/18 03:44 Lipase 33 units/L (13-60) 05/25/18 03:44 Urine Color Yellow (Yellow) 05/25/18 04:00 Urine Turbidity Slightly-cloudy (Clear) 05/25/18 04:00 Urine pH 7.0 (5.0-7.0) 05/25/18 04:00 Ur Specific [place] 1.025 (1.003-1.030) 05/25/18 04:00 Urine Protein 100 mg/dl mg/dL (Negative) 05/25/18 04:00 Urine Glucose (UA) Neg mg/dL (Negative) 05/25/18 04:00 Urine Ketones 20 mg/dL (Negative) 05/25/18 04:00 Urine Blood Sm (Negative) 05/25/18 04:00 Urine Nitrite Neg (Negative) 05/25/18 04:00 Urine Bilirubin Neg (Negative) 05/25/18 04:00 Urine Urobilinogen < 2.0 mg/dL (<2.0) 05/25/18 04:00 Ur Leukocyte Esterase Neg (Negative) 05/25/18 04:00 Urine WBC (Auto) 4.0 /HPF (0.0-6.0) 05/25/18 04:00 Urine RBC (Auto) 47.0 /HPF (0.0-6.0) 05/25/18 04:00 Urine Bacteria (Auto) 1+ /HPF (Negative) 05/25/18 04:00 Urine Mucus Few /HPF 05/25/18 04:00 Nutrition/Malnutrition Assess - Dietary Evaluation Nutrition/Malnutrition Findings: Nutrition Notes Start: 05/26/18 12:40 Freq: Status: Active Protocol: Document 05/26/18 12:40 SA (Rec: 05/26/18 13:25 SA [id number]) Co-Sign 05/26/18 12:40 RM Nutrition Notes Need for Assessment generated from: Low BMI Initial or Follow up Assessment Current Diagnosis Small Bowel Obstruction Other Pertinent Diagnosis Osteoporosis, hx: breast cancer, hysterectomy, mastectomy, hypokalemia Current Diet NPO Labs/Tests BUN: 4 Cr: 0.3 Glu: 109 Pertinent Medications Reviewed Height 4 ft 8 in Weight 35.2 kg [place] Body Weight (kg) 36.36 BMI 17.4 Weight Status Underweight Subjective/Other Information Screened for low BMI. Patient states always been small. NG tube placed and performed low intermitted suction yesterday. Per patient nurse, doctor waiting to feed patient. Patient shows no physical signs of malnutrition. Burn Absent Trauma Absent #1 Nutrition Diagnosis Inadequate oral intake Etiology SBO and NG tube As Evidenced by Signs and Symptoms NPO Is patient on ventilator? No Is Patient Ambulatory and/or Out of Bed Yes REE-([place]-St. Jeor-ambulatory/OOB) [ 988.000 NUTR.[id number]] Kcal/Kg value to use for calculation 40 Approximate Energy Requirements Using 1408 kcal/Kg Calculation Used for Recommendations Kcal/kg Additional Notes Protein: 35-42 g (1-1.2 g/kg) Fluid: 1 ml/kcal Nutrition Intervention Change Diet Order: Advance as medically feasible Add Supplement/Snack (indicate name/kcal Ensure Clear one daily (once /protein ) diet advanced) Provides kCal: 240 Provides Protein (gm) 8 Goal #1 diet advancement Anticipated Discharge Needs: Unable to determine at this time Follow-Up By: 05/29/18 Additional Comments F/U: diet advancement
--- NOTE | 2018-05-27 19:29 | Progress Note ---
Assessment and Plan Pt feeling well without compl + BM's Abd soft, non tender + BS SBFT - wnl d/c ng begin cl liq diet f/u abd series in am july d/c from surg perspective tomorrow if carlyle cl liq and abd series wnl continue on cl liq no carbonated x 48 hrs. rto this Fri Objective Vital Signs - 12hr 05/27/18 05/27/18 16:15 16:20 Temperature 98.1 F 98.6 F Pulse Rate 76 Respiratory 18 20 Rate Blood Pressure 109/57 122/90 O2 Sat by Pulse 99 Oximetry - Labs 05/26/18 05:55 05/26/18 05:55
[2018-05-27] MEDS: LOVENOX SUB-Q SCH (22:05)
[2018-05-28] MEDS: D5W/0.45% NACL/KCL 30 MEQ 30 MEQ/1,000 ML BAG IV SCH (05:26)
[2018-05-28] MEDS: PEPCID IV SCH (09:33)
[2018-05-28] MEDS: SODIUM CHLORIDE FLUSH SYRINGE 10 ML IV SCH (09:34)
--- NOTE | 2018-05-28 11:00 | XRay Report ---
ABDOMINAL SERIES: History: Small bowel obstruction. Erect chest film shows no acute or significant changes involving the heart or lung [place]. There is no evidence of free air beneath the diaphragms. The gas pattern within the abdomen is unremarkable. Oral contrast from recent small bowel series has passed into the colon. There is no evidence of bowel dilatation, significant air-fluid levels, or masses. Organ shadows are unremarkable. IMPRESSION: Abdominal series within normal limits.
[2018-05-28 12:36] VITALS: BP 117/56
--- NOTE | 2018-05-28 13:08 | Progress Note ---
Assessment and Plan Pt sitting up by bedside. carlyle cl liq. feeling well Abd soft, non tender Abd series this am - wnl surgically stable may d/c today on cl liq and po Ensure supplementation rto in am Selected Entries 05/27/18 05/27/18 05/28/18 16:15 16:20 12:35 Temperature 98.6 F 97.5 F L Pulse Rate 76 61 Respiratory 20 20 Rate Blood Pressure 122/90 117/56 Objective Vital Signs - 12hr 05/28/18 12:35 Temperature 97.5 F L Pulse Rate 61 Respiratory 20 Rate Blood Pressure 117/56 O2 Sat by Pulse 100 Oximetry - Labs 05/26/18 05:55 05/26/18 05:55
--- NOTE | 2018-05-28 15:03 | Discharge Summary ---
Providers - Providers Date of Admission: 05/25/18 09:33 Date of discharge: 05/28/18 Attending physician: GAMALIEL MAXWELL 05/25/18 09:30 Consult to Physician [CONS] Urgent Comment: Consulting Provider: EASTON CHERRY Physician Instructions: Reason For Exam: sbo 05/27/18 18:31 Consult to Dietitian/Nutrition [CONS] Routine Physician Instructions: Reason For Exam: Reason for Consult: Malnutrition [facility] Reason for admission: abdominal pain/small bowel obstruction Condition: Good Pertinent studies: CT abdomen and pelvis; consistent with partial small bowel obstruction surgical changes noted Abdominal series; within normal limits Small bowel series; normal study Abdominal series; 05/28/2018; normal study Hospital course: 63-year-old female patient was admitted through emergency room with worsening abdominal pain of one-day duration Patient was initially evaluated and noted to have small bowel obstruction,Evaluated by surgery, admitted to the hospital, placed NG tube intermittent suction, Nothing by mouth status, serial abdominal x-rays were taken Small bowel obstruction slowly but gradually improved, surgery followed the patient throughout the hospital stay Diet was started with clear liquids and advanced as tolerated, Today patient is comfortable NG tube is removed patient had bowel movement, tolerating a full liquid diet, electrolyte abnormalities corrected Vital signs stable physical exam unremarkable, Surgical history for discharge and follow up with him in the office for further evaluation and management Patient is hemodynamically and clinically stable at discharge Discharge diagnosis; --Possible small bowel obstruction; resolved Small bowel series, no acute abnormality, normal study Dobbhoff removed, clear liquids advance as tolerated Surgery following --Hypokalemia; corrected --Pzug-ll-wgtthkyg malnutrition; BMI 16.6 Nutrition supplements, nutrition consult Disposition: - TO HOME OR SELFCARE Time spent for discharge: 32 min Core Measure Documentation - Palliative Care Palliative Care/ Comfort Measures: Not Applicable - Core Measures Any of the following diagnoses?: none Exam - Constitutional Vitals: Temp Pulse Resp BP Pulse Ox 97.5 F L 61 20 117/56 100 05/28/18 12:35 05/28/18 12:35 05/28/18 12:35 05/28/18 12:35 05/28/18 12:35 General appearance: Present: no acute distress, well-nourished - EENT Eyes: Present: PERRL, EOM intact - Neck Neck: Present: supple, normal ROM - Respiratory Respiratory effort: normal Respiratory: bilateral: diminished, negative: rales, rhonchi, wheezing - Cardiovascular Rhythm: regular Heart Sounds: Present: S1 & S2 - Extremities Extremities: no ischemia, No edema - Abdominal General gastrointestinal: Present: soft, non-tender, non-distended, normal bowel sounds - Integumentary Integumentary: Present: clear, warm - Musculoskeletal Musculoskeletal: strength equal bilaterally - Psychiatric Psychiatric: appropriate mood/affect, cooperative - Neurologic Neurologic: CNII-XII intact, moves all extremities Plan Activity: advance as tolerated Diet: clear liquids Additional Instructions: Ensure Plus 1 can 3 times a day Follow up with: EASTON CHERRY MD [Staff Physician] - 05/29/18 10:30 am AU TRAIN YELENA STOKES MD [Primary Care Provider] - 3-5 Days Prescriptions: Famotidine [Pepcid] 10 mg PO BID #30 tablet
== END 2018-05-28 16:00 | disposition home or self-care (01) | DRG 389 ==
LOC: ED 02:52 → 3A 09:33
PROVIDERS: ADMIT Internal Medicine; ATTEND Internal Medicine
PROC: 0D9670Z Drainage of Stomach with Drainage Device, Via Natural or Artificial Opening (ICD-10-PCS; principal; 2018-05-25)
DX: K56.600 Partial intestinal obstruction, unspecified as to cause (principal); Z68.1 Body mass index [BMI] 19.9 or less, adult; E44.1 Mild protein-calorie malnutrition; E87.6 Hypokalemia; Z90.710 Acquired absence of both cervix and uterus; Z88.8 Allergy status to other drugs, medicaments and biological substances; Z90.13 Acquired absence of bilateral breasts and nipples
CPT/HCPCS: 36415; 74022; 74177; 74250; 80048; 80053; 81001; 82140; 82550; 83690; 83735; 85025; G0378; J1650; J2270; J2405; J3010; J3480; J7030; Q9963; Q9967

== ENCOUNTER 2018-06-26 09:16 | Inpatient (IN) | payer OTHER ==
[2018-06-26 10:00] LABS: Basophils % (Auto) 0.3 % (0.0-1.8); Hematocrit 44.1 % (30.3-42.9); Hemoglobin 14.7 gm/dl (10.1-14.3); Lymphocytes # (Auto) 0.6 K/mm3 (1.2-5.4); Lymphocytes % (Auto) 5.9 % (13.4-35.0); Mean Corpuscular HGB Conc 33 % (30-34); Mean Corpuscular Volume 92 fl (79-97); Monocytes # (Auto) 0.6 K/mm3 (0.0-0.8); Monocytes % (Auto) 5.4 % (0.0-7.3); Platelet Count 260 K/mm3 (140-440); Red Blood Count 4.83 M/mm3 (3.65-5.03); Red Cell Distribution Width 13.9 % (13.2-15.2)
[2018-06-26 10:16] LABS: Alanine Aminotransferase 21 units/L (7-56); Albumin 4.6 g/dL (3.9-5); BUN/Creatinine Ratio 45; Blood Urea Nitrogen 18 mg/dL (7-17); Calcium 9.5 mg/dL (8.4-10.2); Hemolysis Index 13
[2018-06-26 10:18] LABS: Bilirubin,Urine NEG (Negative); Blood,Urine SM (Negative); Color,Urine Yellow (Yellow); Mucus,Urine FEW /HPF; Urobilinogen,Urine < 2.0 mg/dL (<2.0)
[2018-06-26] MEDS ORDERED: ZOFRAN IV ONE (12:50)
[2018-06-26] MEDS ORDERED: TORADOL IV ONE (12:50)
[2018-06-26] MEDS ORDERED: NACL 0.9% 1000 ML 1,000 ML IV ONE (12:50)
--- NOTE | 2018-06-26 13:29 | Emergency Department Report ---
ED Abdominal Pain HPI - General Chief Complaint: Abdominal Pain Stated Complaint: STOMACH PAIN Time Seen by Provider: 06/26/18 12:33 Source: patient Mode of arrival: Ambulatory Limitations: No Limitations - History of Present Illness Initial Comments: 63-year-old female presents to the ED with abdominal pain since last night. Patient states pain is located in the periumbilical region. Reports 2 episodes of emesis since yesterday. States had a bowel movement at 4 AM this morning. Denies fever, urinary symptoms. History of small bowel obstruction and bowel resection in the past. Patient states pain is much improved from last night. MD Complaint: abdominal pain -: Last night Location: periumbilical Radiation: none Migration to: no migration Severity: moderate Severity scale (0 -10): 8 Quality: sharp Consistency: intermittent Improves With: nothing Worsens With: nothing Associated Symptoms: nausea, vomiting. denies: diarrhea, fever, constipation - Related Data Home Medications Medication Instructions Recorded Confirmed Last Taken Alendronate Sodium 1 tab PO QWEEK 01/05/14 05/25/18 03/29/18 Previous Rx's Medication Instructions Recorded Last Taken Type Famotidine [Pepcid] 10 mg PO BID #30 tablet 05/28/18 Unknown Rx Allergies Allergy/AdvReac Type Severity Reaction Status Date / Time venlafaxine Allergy Vomiting Verified 06/26/18 09:17 ED Review of Systems ROS: Stated complaint: STOMACH PAIN Other details as noted in HPI Comment: All other systems reviewed and negative Constitutional: denies: chills, fever Gastrointestinal: abdominal pain, nausea, vomiting. denies: diarrhea, constipation Genitourinary: denies: dysuria, frequency ED Past Medical Hx - Past Medical History Hx Arthritis: No Hx Asthma: No Hx COPD: No Hx HIV: No Additional medical history: Decreased Bone Density, Hypotension, - Surgical History Hx Appendectomy: Yes Additional Surgical History: Bilateral Mastectomy, Hysterectomy, Lumbar surgery. Small Bowel Resection, Lysis of Adhesions ([facility] 09/2016) - Social History Smoking Status: Never Smoker Substance Use Type: None - Medications Home Medications: Home Medications Medication Instructions Recorded Confirmed Last Taken Type Alendronate Sodium 1 tab PO QWEEK 01/05/14 05/25/18 03/29/18 History Famotidine [Pepcid] 10 mg PO BID #30 tablet 05/28/18 Unknown Rx ED Physical Exam - General Limitations: No Limitations General appearance: alert, in no apparent distress - Head Head exam: Present: atraumatic, normocephalic - Eye Eye exam: Present: normal appearance - ENT ENT exam: Present: mucous membranes moist - Neck Neck exam: Present: normal inspection - Respiratory Respiratory exam: Present: normal lung sounds bilaterally. Absent: respiratory distress - Cardiovascular Cardiovascular Exam: Present: regular rate, normal rhythm - GI/Abdominal GI/Abdominal exam: Present: soft, tenderness (mild periumbilical tenderness), other (midline suprapubic scar present). Absent: distended - Extremities Exam Extremities exam: Present: normal inspection - Neurological Exam Neurological exam: Present: alert, oriented X3 - Psychiatric Psychiatric exam: Present: normal affect, normal mood - Skin Skin exam: Present: warm, dry, intact, normal color ED Course Vital Signs 06/26/18 09:25 Temperature 97.9 F Pulse Rate 14 L Respiratory 14 Rate Blood Pressure 123/65 O2 Sat by Pulse 97 Oximetry - Consultations Consultation #1: 06/26/18 17:01 Spoke w/ Dr Cherry. IV fluids, NPO, NG tube ED Medical Decision Making - Lab Data Result diagrams: 06/26/18 09:49 06/26/18 09:49 - Radiology Data Radiology results: report reviewed, image reviewed - Medical Decision Making - CT consistent w/ partial SBO, NGT ordered - labs normal - vitals stable - Dr Cherry aware of pt - spoke w/ hospitalist, Dr Spangler, for admission - Differential Diagnosis bowel obstruction, UTI, diverticulitis Critical care attestation.: If time is entered above; I have spent that time in minutes in the direct care of this critically ill patient, excluding procedure time. ED Disposition Clinical Impression: Small bowel obstruction Disposition: OP ADMIT IP TO THIS HOSP Is pt being admited?: Yes Condition: Stable Instructions: Abdominal Pain (ED) Referrals: EASTON CHERRY MD [Primary Care Provider] - 3-5 Days Time of Disposition: 17:17
--- NOTE | 2018-06-26 16:44 | Cat Scan Report ---
PROCEDURE: CT ABDOMEN PELVIS W CON TECHNIQUE: Computerized axial tomography of the abdomen and pelvis was performed after the IV inject ion of iodinated nonionic contrast. Coronal and sagittal reconstruction was also performed. CONTRAST: 100 mL Isovue 300 given IV. Readi-Cat given as oral. CT DOSE LENGTH PRODUCT: 380.7 mGycm HISTORY: abd pain COMPARISONS: CT A/P 03/31/2018 . FINDINGS: There are dilated fluid-filled loops of proximal small bowel. This measures up to 3.5 cm in diameter. The distal small bowel is collapsed. No definite transition zone, mass, or inflammatory change is id entified. No wall thickening or pneumatosis is seen. Ascites is noted in the abdomen or pelvis. Findi ngs were seen on the prior study. Within the abdomen, the liver, spleen, pancreas, gallbladder, adrenal glands, and right kidney are un remarkable. There is a upper pole peripelvic cyst in the left kidney measuring 1.3 cm, stable. No chance dence for retroperitoneal or pelvic lymphadenopathy is seen. No soft tissue mass, loculated fluid col lection, inflammatory change, or free air is seen within the abdomen or pelvis. Within the pelvis, the bladder is unremarkable. The uterus has been surgically removed. No evidence f or mass or lymphadenopathy is seen in the pelvis. Images through the upper abdomen include the lung bases which are expanded and clear. Calcified granu christopher in the right base is seen. Bony structures show significant hypertrophic facet joint changes at L4-L5. Prior laminectomy at L1 a nd L2 is seen. IMPRESSION: Findings consistent with with recurrent partial small bowel obstruction in a similar distribution to the prior study. No definite etiology is identified. This document is electronically signed by Radha Carpio MD., June 26 2018 04:42:55 PM ET
--- NOTE | 2018-06-26 20:44 | History and Physical Report ---
History of Present Illness Date of examination: 06/26/18 Date of admission: 06/26/18 17:19 Chief complaint: Abd pain since last night History of present illness: 63-year-old female presents to the ED with abdominal pain since last night. Patient states pain is located in the periumbilical region. Reports 2 episodes of emesis since yesterday. States had a bowel movement at 4 AM this morning. Denies fever, urinary symptoms. History of small bowel obstruction and bowel resection in the past. Patient states pain is much improved from last night. Past Medical History Decreased Bone Density, Hypotension, Surgical History Appendectomy: Yes Bilateral Mastectomy, Hysterectomy, Lumbar surgery. Small Bowel Resection, Lysis of Adhesions ([facility] 09/2016) Social History Smoking Status: Never Smoker Substance Use Type: None Medications Home Medications: Home Medications Medication Instructions Recorded Confirmed Last Taken Type Alendronate Sodium 1 tab PO QWEEK 01/05/14 05/25/18 03/29/18 History Famotidine [Pepcid] 10 mg PO BID #30 tablet 05/28/18 Unknown Rx Review of Systems ROS: Stated complaint: STOMACH PAIN Other details as noted in HPI Comment: All other systems reviewed and negative Constitutional: denies: chills, fever Gastrointestinal: abdominal pain, nausea, vomiting. denies: diarrhea, constipation Genitourinary: denies: dysuria, frequency Medications and Allergies Allergies Allergy/AdvReac Type Severity Reaction Status Date / Time venlafaxine Allergy Vomiting Verified 06/26/18 09:17 Home Medications Medication Instructions Recorded Confirmed Last Taken Type Alendronate Sodium 1 tab PO QWEEK 01/05/14 05/25/18 03/29/18 History Famotidine [Pepcid] 10 mg PO BID #30 tablet 05/28/18 Unknown Rx Exam - Constitutional Vitals: Temp Pulse Resp BP Pulse Ox 98.7 F 62 16 113/61 97 06/26/18 19:34 06/26/18 19:34 06/26/18 19:34 06/26/18 19:34 06/26/18 19:34 General appearance: Present: no acute distress, well-nourished - EENT Eyes: Present: PERRL ENT: hearing intact, clear oral mucosa - Neck Neck: Present: supple, normal ROM - Respiratory Respiratory effort: normal Respiratory: bilateral: CTA - Cardiovascular Heart rate: 80 Rhythm: regular Heart Sounds: Present: S1 & S2. Absent: rub, click - Extremities Extremities: pulses symmetrical, No edema Peripheral Pulses: within normal limits - Abdominal General gastrointestinal: Present: soft, tender, distended, hypoactive bowel sounds Localized gastrointestinal: tender: diffuse Female genitourinary: Present: normal - Rectal Rectal Exam: deferred - Integumentary Integumentary: Present: clear, warm, dry - Musculoskeletal Musculoskeletal: gait normal, strength equal bilaterally - Psychiatric Psychiatric: appropriate mood/affect, intact judgment & insight - Neurologic Neurologic: CNII-XII intact, moves all extremities - Allied Health Allied health notes reviewed: nursing, case management Results - Labs CBC & Chem 7: 06/27/18 05:16 06/26/18 09:49 Labs: Laboratory Last Values WBC 10.7 K/mm3 (4.5-11.0) 06/26/18 09:49 RBC 4.83 M/mm3 (3.65-5.03) 06/26/18 09:49 Hgb 14.7 gm/dl (10.1-14.3) H 06/26/18 09:49 Hct 44.1 % (30.3-42.9) H 06/26/18 09:49 MCV 92 fl (79-97) 06/26/18 09:49 MCH 31 pg (28-32) 06/26/18 09:49 MCHC 33 % (30-34) 06/26/18 09:49 RDW 13.9 % (13.2-15.2) 06/26/18 09:49 Plt Count 260 K/mm3 (140-440) 06/26/18 09:49 Lymph % (Auto) 5.9 % (13.4-35.0) L 06/26/18 09:49 Parker % (Auto) 5.4 % (0.0-7.3) 06/26/18 09:49 Eos % (Auto) 0.0 % (0.0-4.3) 06/26/18 09:49 Baso % (Auto) 0.3 % (0.0-1.8) 06/26/18 09:49 Lymph # 0.6 K/mm3 (1.2-5.4) L 06/26/18 09:49 Parker # 0.6 K/mm3 (0.0-0.8) 06/26/18 09:49 Eos # 0.0 K/mm3 (0.0-0.4) 06/26/18 09:49 Baso # 0.0 K/mm3 (0.0-0.1) 06/26/18 09:49 Seg Neutrophils % 88.4 % (40.0-70.0) H 06/26/18 09:49 Seg Neutrophils # 9.5 K/mm3 (1.8-7.7) H 06/26/18 09:49 Sodium 142 mmol/L (137-145) 06/26/18 09:49 Potassium 3.8 mmol/L (3.6-5.0) 06/26/18 09:49 Chloride 102.1 mmol/L (98-107) 06/26/18 09:49 Carbon Dioxide 30 mmol/L (22-30) 06/26/18 09:49 Anion Gap 14 mmol/L 06/26/18 09:49 BUN 18 mg/dL (7-17) H 06/26/18 09:49 Creatinine 0.4 mg/dL (0.7-1.2) L 06/26/18 09:49 Estimated GFR > 60 ml/min 06/26/18 09:49 BUN/Creatinine Ratio 45 % 06/26/18 09:49 Glucose 115 mg/dL (65-100) H 06/26/18 09:49 Calcium 9.5 mg/dL (8.4-10.2) 06/26/18 09:49 Total Bilirubin 0.70 mg/dL (0.1-1.2) 06/26/18 09:49 AST 29 units/L (5-40) 06/26/18 09:49 ALT 21 units/L (7-56) 06/26/18 09:49 Alkaline Phosphatase 59 units/L (35-129) 06/26/18 09:49 Total Protein 7.5 g/dL (6.3-8.2) 06/26/18 09:49 Albumin 4.6 g/dL (3.9-5) 06/26/18 09:49 Albumin/Globulin Ratio 1.6 % 06/26/18 09:49 Urine Color Yellow (Yellow) 06/26/18 09:59 Urine Turbidity Slightly-cloudy (Clear) 06/26/18 09:59 Urine pH 7.0 (5.0-7.0) 06/26/18 09:59 Ur Specific [place] 1.026 (1.003-1.030) 06/26/18 09:59 Urine Protein 30 mg/dl mg/dL (Negative) 06/26/18 09:59 Urine Glucose (UA) Neg mg/dL (Negative) 06/26/18 09:59 Urine Ketones 20 mg/dL (Negative) 06/26/18 09:59 Urine Blood Sm (Negative) 06/26/18 09:59 Urine Nitrite Neg (Negative) 06/26/18 09:59 Urine Bilirubin Neg (Negative) 06/26/18 09:59 Urine Urobilinogen < 2.0 mg/dL (<2.0) 06/26/18 09:59 Ur Leukocyte Esterase Neg (Negative) 06/26/18 09:59 Urine WBC (Auto) 3.0 /HPF (0.0-6.0) 06/26/18 09:59 Urine RBC (Auto) 43.0 /HPF (0.0-6.0) 06/26/18 09:59 Urine Mucus Few /HPF 06/26/18 09:59 - Imaging and Cardiology EKG: report reviewed Imaging and Cardiology: Abd CT IMPRESSION: Findings consistent with with recurrent partial small bowel obstruction in a similar distribution to the prior study. No definite etiology is identified. Assessment and Plan Advance Directives: Yes (FC) VTE prophylaxis?: Chemical Plan of care discussed with patient/family: Yes - Patient Problems (1) Small bowel obstruction Current Visit: Yes Status: Acute Plan to address problem: Patient has Adhesions in the past NGT tube for now Low suction Surgery consult requested (2) Hypokalemia Current Visit: No Status: Acute Plan to address problem: Supplemented (3) Age related osteoporosis Current Visit: Yes Status: Chronic Plan to address problem: Hold Fosamax (4) DVT prophylaxis Current Visit: Yes Status: Acute Plan to address problem: On Lovenox and GI rophylaxis
[2018-06-27] MEDS ORDERED: ZOFRAN IV PRN (01:16)
[2018-06-27] MEDS ORDERED: DILAUDID IV PRN (01:16)
[2018-06-27] MEDS ORDERED: SODIUM CHLORIDE FLUSH SYRINGE 10 ML IV PRN (01:16)
[2018-06-27] MEDS ORDERED: TYLENOL PO PRN (01:16)
[2018-06-27] MEDS ORDERED: MORPHINE IV PRN (01:16)
[2018-06-27] MEDS: D5NS 1,000 ML IV SCH ×2 (01:51→12:38)
[2018-06-27] MEDS: PEPCID IV SCH ×3 (01:51→21:56)
[2018-06-27 06:38] LABS: Basophils % (Auto) 0.4 % (0.0-1.8); Eosinophils # (Auto) 0.1 K/mm3 (0.0-0.4); Hemoglobin 12.3 gm/dl (10.1-14.3); Lymphocytes # (Auto) 0.9 K/mm3 (1.2-5.4); Lymphocytes % (Auto) 14.4 % (13.4-35.0); Mean Corpuscular HGB Conc 33 % (30-34); Mean Corpuscular Volume 92 fl (79-97); Monocytes # (Auto) 0.5 K/mm3 (0.0-0.8); Monocytes % (Auto) 7.8 % (0.0-7.3); Platelet Count 213 K/mm3 (140-440); Red Blood Count 4.02 M/mm3 (3.65-5.03)
[2018-06-27 06:56] LABS: Alanine Aminotransferase 18 units/L (7-56); Albumin 3.5 g/dL (3.9-5); BUN/Creatinine Ratio 45; Blood Urea Nitrogen 18 mg/dL (7-17); Calcium 8.3 mg/dL (8.4-10.2); Hemolysis Index 7
[2018-06-27] MEDS: KCL 10MEQ/100ML 10 MEQ/100 ML BAG IV SCH ×3 (10:08→12:38)
--- NOTE | 2018-06-27 10:10 | XRay Report ---
PROCEDURE: XR ABD SERIES W CXR 1V TECHNIQUE: Acute abdominal series including chest and 2 views of the abdomen HISTORY: small bowel obstruction. COMPARISON: 05/28/2018 FINDINGS: Chest radiograph demonstrates no acute infiltrate or pleural effusion. There is a calcified granuloma lower right lung. There is no vascular vascular congestion or pneumothorax. The gas pattern is nonspecific and nonobstructive. There is air and stool in nondilated colon. There is some nonspecific calcification in the right side of the abdomen unenhanced etiology is no re nal calculi were seen on recent CT. IMPRESSION: Nonspecific, nonobstructive gas pattern. Previously seen findings of bowel obstruction ar e not evident. This document is electronically signed by Yumiko Chávez MD., June 27 2018 10:08:40 AM ET
[2018-06-27] MEDS: SODIUM CHLORIDE FLUSH SYRINGE 10 ML IV SCH ×2 (10:33→21:58)
--- NOTE | 2018-06-27 11:06 | Progress Note ---
Assessment and Plan Full consult dictated Pt well known to me. Very pleasant 63 y/o female admitted last month with partial sbo which resolved with NG suction. Pt was doing well, without compl, until yesterday when began experiencing vomiting and abd distention. Admitted yest evening thru ER. has passed "a lot" of gas since. Abd soft, non tender this am. + BS Abd series this am - wnl d/c ng attempt cl liqs no carbonated. will follow Selected Entries 06/27/18 05:55 Temperature 98.9 F Pulse Rate 70 Respiratory 16 Rate Blood Pressure 95/53 Laboratory Tests 06/26/18 06/27/18 06/27/18 09:49 05:16 05:16 WBC 10.7 5.9 Hgb 12.3 Hct 37.0 D Sodium 145 Potassium 3.3 L Chloride 109.6 H BUN 18 H Creatinine 0.4 L Glucose 91 Objective Vital Signs - 12hr 06/27/18 06/27/18 06/27/18 00:14 01:52 02:22 Temperature 98.8 F Pulse Rate 70 Respiratory 15 17 17 Rate Blood Pressure 113/61 O2 Sat by Pulse 97 Oximetry 06/27/18 05:55 Temperature 98.9 F Pulse Rate 70 Respiratory 16 Rate Blood Pressure 95/53 O2 Sat by Pulse 97 Oximetry - Labs 06/27/18 05:16 06/27/18 05:16 Diabetes panel 06/27/18 Range/Units 05:16 Sodium 145 (137-145) mmol/L Potassium 3.3 L (3.6-5.0) mmol/L Chloride 109.6 H (98-107) mmol/L Carbon Dioxide 27 (22-30) mmol/L BUN 18 H (7-17) mg/dL Creatinine 0.4 L (0.7-1.2) mg/dL Glucose 91 (65-100) mg/dL Calcium 8.3 L (8.4-10.2) mg/dL AST 21 (5-40) units/L ALT 18 (7-56) units/L Alkaline Phosphatase 50 (35-129) units/L Total Protein 5.5 L D (6.3-8.2) g/dL Albumin 3.5 L (3.9-5) g/dL Calcium panel 06/27/18 Range/Units 05:16 Calcium 8.3 L (8.4-10.2) mg/dL Albumin 3.5 L (3.9-5) g/dL Pituitary panel 06/27/18 Range/Units 05:16 Sodium 145 (137-145) mmol/L Potassium 3.3 L (3.6-5.0) mmol/L Chloride 109.6 H (98-107) mmol/L Carbon Dioxide 27 (22-30) mmol/L BUN 18 H (7-17) mg/dL Creatinine 0.4 L (0.7-1.2) mg/dL Glucose 91 (65-100) mg/dL Calcium 8.3 L (8.4-10.2) mg/dL Adrenal panel 06/27/18 Range/Units 05:16 Sodium 145 (137-145) mmol/L Potassium 3.3 L (3.6-5.0) mmol/L Chloride 109.6 H (98-107) mmol/L Carbon Dioxide 27 (22-30) mmol/L BUN 18 H (7-17) mg/dL Creatinine 0.4 L (0.7-1.2) mg/dL Glucose 91 (65-100) mg/dL Calcium 8.3 L (8.4-10.2) mg/dL Total Bilirubin 1.00 (0.1-1.2) mg/dL AST 21 (5-40) units/L ALT 18 (7-56) units/L Alkaline Phosphatase 50 (35-129) units/L Total Protein 5.5 L D (6.3-8.2) g/dL Albumin 3.5 L (3.9-5) g/dL
--- NOTE | 2018-06-27 12:06 | Consultation ---
REASON FOR CONSULTATION: Recurrent partial small bowel obstruction. HISTORY OF PRESENT ILLNESS: The patient is a very pleasant 63-year-old female who was last admitted here last month with a partial small bowel obstruction. PAST SURGICAL HISTORY: Pertinent for a hysterectomy as well as small bowel resection, lysis of adhesions back in 2013. Last admission, the patient was admitted with abdominal distention, nausea, and a partial small bowel obstruction. The small bowel obstruction resolved with NG suction, IV fluid hydration. The patient eventually was started on a diet and discharged. The patient states she has been doing fine without any complaints since her discharge until yesterday. At that point, the patient began experiencing some abdominal cramps and distention as well as an episode of vomiting. The patient was then seen in the ER where a CT scan was performed and was consistent with a recurrent partial small bowel obstruction. The patient since then has passed lot of gas. Her NG tube is in place and had put out around 350 mL since its insertion, but very little over this morning. Her abdomen is soft and nontender. Bowel sounds are present and normal. Abdominal series repeated this morning is essentially within normal limits. IMPRESSION: At this time is that of a resolving recurrent partial small bowel obstruction. RECOMMENDATION: We will discontinue the patient's NG tube and attempt a trial of clear liquid diet with no carbonated drinks. We will monitor closely with you. Thank you very much for the consultation. JOB# [id number] CELINE/BEHZAD
--- NOTE | 2018-06-27 15:06 | Progress Note ---
Assessment and Plan Assessment and plan: Patient is a 63 yo Bel[place]ian speaking American woman with a history of GERD, Breast Cancer s/p mastectomy, Osteoporosis and SBO who was just discharged from here on 05/28/2018 with the same presentation of abdominal caused by SBO. Small bowel obstruction, partial, resolving after with NGT suctioning: GS is following, bowel rest, NGT removal Hypokalemia, severe: replete and monitor bmp closely Severe Malnutrition, bmi only 16.4: consult Cigarette Maker after starting diet, use IVF Age related osteoporosis: hold Fosamax GERD: use iv ppi if needed DVT prophylaxis reviewed History Interval history: Patient was seen and examined. Follow-up on current diagnosis of SBO. Overnight uneventful. Patient denies any chest pain, shortness breath, nausea/vomiting or severe headaches. Imaging, nursing note, chart, labs and old chart reviewed. Discussed with patient. Hospitalist Physical - Physical exam Narrative exam: GEN: thin frail, bmi 16.4, NAD, Awake, Alert, Orientated HEENT: NCAT, EOMI, PERRL, OP Clear NECK: supple, no adenopathy, no thyromegaly, no JVD CVS/HEART: RRR, normal S1S2, pulses present bilaterally CHEST/LUNGS: CTA B, Symmetrical chest expansion, good air entry bilaterally GI/Abdomen: soft, NTND, good bowel sounds, no guarding or rebound /Bladder: no suprapubic tenderness, no CVA or paraspinal tenderness EXT/Skin: no c/c/e, no obvious rash MSK: FROM x 4 Neuro: CN 2-12 grossly intact, no new focal deficits Psych: calm - Constitutional Vitals: Temp Pulse Resp BP Pulse Ox 97.9 F 75 20 100/62 99 06/27/18 12:39 06/27/18 12:39 06/27/18 12:39 06/27/18 12:39 06/27/18 12:39 General appearance: Present: no acute distress, well-nourished Results - Labs CBC & Chem 7: 06/27/18 05:16 06/27/18 05:16 Labs: Laboratory Last Values WBC 5.9 K/mm3 (4.5-11.0) 06/27/18 05:16 RBC 4.02 M/mm3 (3.65-5.03) 06/27/18 05:16 Hgb 12.3 gm/dl (10.1-14.3) 06/27/18 05:16 Hct 37.0 % (30.3-42.9) D 06/27/18 05:16 MCV 92 fl (79-97) 06/27/18 05:16 MCH 31 pg (28-32) 06/27/18 05:16 MCHC 33 % (30-34) 06/27/18 05:16 RDW 14.0 % (13.2-15.2) 06/27/18 05:16 Plt Count 213 K/mm3 (140-440) 06/27/18 05:16 Lymph % (Auto) 14.4 % (13.4-35.0) 06/27/18 05:16 [place] % (Auto) 7.8 % (0.0-7.3) H 06/27/18 05:16 Eos % (Auto) 1.0 % (0.0-4.3) 06/27/18 05:16 Baso % (Auto) 0.4 % (0.0-1.8) 06/27/18 05:16 Lymph # 0.9 K/mm3 (1.2-5.4) L 06/27/18 05:16 [place] # 0.5 K/mm3 (0.0-0.8) 06/27/18 05:16 Eos # 0.1 K/mm3 (0.0-0.4) 06/27/18 05:16 Baso # 0.0 K/mm3 (0.0-0.1) 06/27/18 05:16 Seg Neutrophils % 76.4 % (40.0-70.0) H 06/27/18 05:16 Seg Neutrophils # 4.5 K/mm3 (1.8-7.7) 06/27/18 05:16 Sodium 145 mmol/L (137-145) 06/27/18 05:16 Potassium 3.3 mmol/L (3.6-5.0) L 06/27/18 05:16 Chloride 109.6 mmol/L (98-107) H 06/27/18 05:16 Carbon Dioxide 27 mmol/L (22-30) 06/27/18 05:16 Anion Gap 12 mmol/L 06/27/18 05:16 BUN 18 mg/dL (7-17) H 06/27/18 05:16 Creatinine 0.4 mg/dL (0.7-1.2) L 06/27/18 05:16 Estimated GFR > 60 ml/min 06/27/18 05:16 BUN/Creatinine Ratio 45 % 06/27/18 05:16 Glucose 91 mg/dL (65-100) 06/27/18 05:16 Calcium 8.3 mg/dL (8.4-10.2) L 06/27/18 05:16 Total Bilirubin 1.00 mg/dL (0.1-1.2) 06/27/18 05:16 AST 21 units/L (5-40) 06/27/18 05:16 ALT 18 units/L (7-56) 06/27/18 05:16 Alkaline Phosphatase 50 units/L (35-129) 06/27/18 05:16 Total Protein 5.5 g/dL (6.3-8.2) L D 06/27/18 05:16 Albumin 3.5 g/dL (3.9-5) L 06/27/18 05:16 Albumin/Globulin Ratio 1.8 % 06/27/18 05:16 Urine Color Yellow (Yellow) 06/26/18 09:59 Urine Turbidity Slightly-cloudy (Clear) 06/26/18 09:59 Urine pH 7.0 (5.0-7.0) 06/26/18 09:59 Ur Specific [place] 1.026 (1.003-1.030) 06/26/18 09:59 Urine Protein 30 mg/dl mg/dL (Negative) 06/26/18 09:59 Urine Glucose (UA) Neg mg/dL (Negative) 06/26/18 09:59 Urine Ketones 20 mg/dL (Negative) 06/26/18 09:59 Urine Blood Sm (Negative) 06/26/18 09:59 Urine Nitrite Neg (Negative) 06/26/18 09:59 Urine Bilirubin Neg (Negative) 06/26/18 09:59 Urine Urobilinogen < 2.0 mg/dL (<2.0) 06/26/18 09:59 Ur Leukocyte Esterase Neg (Negative) 06/26/18 09:59 Urine WBC (Auto) 3.0 /HPF (0.0-6.0) 06/26/18 09:59 Urine RBC (Auto) 43.0 /HPF (0.0-6.0) 06/26/18 09:59 Urine Mucus Few /HPF 06/26/18 09:59 Active Medications - Current Medications Current Medications: Generic Name Dose Route Start Last Admin Trade Name Freq PRN Reason Stop Dose Admin Acetaminophen 650 mg 06/27/18 01:16 Tylenol PO Q4H PRN Pain MILD(1-3)/Fever >100.5/LONG Enoxaparin Sodium 40 mg 06/27/18 22:00 Lovenox SUB-Q QDAY@2200 SILVIANO Famotidine 10 mg 06/27/18 02:00 06/27/18 10:27 Pepcid IV 10 mg BID SILVIANO Administration Hydromorphone HCl 0.5 mg 06/27/18 01:16 06/27/18 01:52 Dilaudid IV 0.5 mg Q3H PRN Administration Pain , Severe (7-10) Dextrose/Sodium Chloride 1,000 mls @ 100 mls/hr 06/27/18 02:00 06/27/18 12:38 D5ns IV 100 mls/hr DIRECT SILVIANO Administration Morphine Sulfate 2 mg 06/27/18 01:16 Morphine IV Q4H PRN Pain, Moderate (4-6) Ondansetron HCl 4 mg 06/27/18 01:16 Zofran IV Q8H PRN Nausea And Vomiting Sodium Chloride 10 ml 06/27/18 10:00 06/27/18 10:33 Sodium Chloride Flush Syringe 10 Ml IV 10 ml BID SILVIANO Administration Sodium Chloride 10 ml 06/27/18 01:16 06/27/18 01:56 Sodium Chloride Flush Syringe 10 Ml IV 10 ml PRN PRN Administration LINE FLUSH Nutrition/Malnutrition Assess - Dietary Evaluation Nutrition/Malnutrition Findings: Nutrition Notes Start: 06/27/18 13:52 Freq: Status: Active Protocol: Document 06/27/18 13:52 OL (Rec: 06/27/18 13:56 OL [id number]) Nutrition Notes Need for Assessment generated from: loss control consultant,MST Initial or Follow up Assessment Current Diagnosis Small Bowel Obstruction Current Diet Clear liquid Labs/Tests K 3.3 BUN 18 Cr 0.4 Pertinent Medications KCl Height 4 ft 8 in Weight 33.2 kg [place] Body Weight (kg) 36.36 BMI 16.4 Subjective/Other Information RD screen for malnutrition risk. Pt. admitted with partial SBO. Diet advanced to clear liquids today. Pt. with UBW of 78# 3 months ago. She has been drinking Ensure 2-3 times daily at home. #1 Nutrition Diagnosis Altered GI function Etiology partial SBO As Evidenced by Signs and Symptoms 6.4% body wt. loss in three months, decrease PO tolerance Is patient on ventilator? No Is Patient Ambulatory and/or Out of Bed No REE-([facility]-confined to bed) 893.748 Kcal/Kg value to use for calculation 40 Approximate Energy Requirements Using 1328 kcal/Kg Calculation Used for Recommendations Kcal/kg Additional Notes protein (1.2-1.5gm/kg): 40-50g fluid: 1mL/kcal or per MD Nutrition Intervention Change Diet Order: Continue clear, advance as tolerated Add Supplement/Snack (indicate name/kcal Ensure Clear daily /protein ) Provides kCal: 240 Provides Protein (gm) 8 Goal #1 PO tolerance Follow-Up By: 06/29/18 Additional Comments f/u: PO tolerance, intakes
[2018-06-27] MEDS: D5NS IV SCH (18:04)
[2018-06-27] MEDS: KCL IV SCH (18:04)
[2018-06-27] MEDS: LOVENOX SUB-Q SCH (21:54)
[2018-06-28] MEDS: D5NS IV SCH ×2 (04:14→15:07)
[2018-06-28] MEDS: KCL IV SCH ×2 (04:14→15:07)
[2018-06-28 06:16] LABS: BUN/Creatinine Ratio 13; Blood Urea Nitrogen 5 mg/dL (7-17); Calcium 8.1 mg/dL (8.4-10.2); Hemolysis Index 3
--- NOTE | 2018-06-28 10:23 | Progress Note ---
Assessment and Plan Pt c/o "bloating" +BM Abd now 1+ distended. non tender. very hypoactive BS recurring partial sbo NPO ambulation SBFT study in am Selected Entries 06/28/18 05:28 Temperature 98.2 F Pulse Rate 65 Respiratory 16 Rate Blood Pressure 95/54 Laboratory Tests 06/28/18 05:22 Potassium 4.1 D Objective Vital Signs - 12hr 06/27/18 06/28/18 23:21 05:28 Temperature 98.4 F 98.2 F Pulse Rate 65 65 Respiratory 16 16 Rate Blood Pressure 90/53 95/54 O2 Sat by Pulse 98 98 Oximetry - Labs 06/27/18 05:16 06/28/18 05:22 Diabetes panel 06/28/18 Range/Units 05:22 Sodium 143 (137-145) mmol/L Potassium 4.1 D (3.6-5.0) mmol/L Chloride 112.8 H (98-107) mmol/L Carbon Dioxide 26 (22-30) mmol/L BUN 5 L (7-17) mg/dL Creatinine 0.4 L (0.7-1.2) mg/dL Glucose 98 (65-100) mg/dL Calcium 8.1 L (8.4-10.2) mg/dL Calcium panel 06/28/18 Range/Units 05:22 Calcium 8.1 L (8.4-10.2) mg/dL Pituitary panel 06/28/18 Range/Units 05:22 Sodium 143 (137-145) mmol/L Potassium 4.1 D (3.6-5.0) mmol/L Chloride 112.8 H (98-107) mmol/L Carbon Dioxide 26 (22-30) mmol/L BUN 5 L (7-17) mg/dL Creatinine 0.4 L (0.7-1.2) mg/dL Glucose 98 (65-100) mg/dL Calcium 8.1 L (8.4-10.2) mg/dL Adrenal panel 06/28/18 Range/Units 05:22 Sodium 143 (137-145) mmol/L Potassium 4.1 D (3.6-5.0) mmol/L Chloride 112.8 H (98-107) mmol/L Carbon Dioxide 26 (22-30) mmol/L BUN 5 L (7-17) mg/dL Creatinine 0.4 L (0.7-1.2) mg/dL Glucose 98 (65-100) mg/dL Calcium 8.1 L (8.4-10.2) mg/dL
[2018-06-28] MEDS: PEPCID IV SCH ×2 (11:52→21:31)
--- NOTE | 2018-06-28 11:56 | Progress Note ---
Assessment and Plan Assessment and plan: Patient is a 63 yo Welsh speaking [place] woman with a history of GERD, Breast Cancer s/p mastectomy, Osteoporosis and SBO who was just discharged from here on 05/28/2018 with the same presentation of abdominal caused by SBO. Small bowel obstruction, partial, resolving after with NGT suctioning: GS is following, bowel rest, NGT removal, +bm this morning 06/28/2018 Hypokalemia, severe: replete and monitor bmp closely Severe Malnutrition, bmi only 16.4: consult Food Scientist after starting diet, use IVF Age related osteoporosis: hold Fosamax GERD: use iv ppi if needed DVT prophylaxis reviewed still npo, SBFT tomorrow History Interval history: Patient was seen and examined. Follow-up on current diagnosis of SBO. Overnight uneventful. Patient denies any chest pain, shortness breath, nausea/vomiting or severe headaches. Imaging, nursing note, chart, labs and old chart reviewed. Discussed with patient. Hospitalist Physical - Physical exam Narrative exam: GEN: thin frail, bmi 16.4, NAD, Awake, Alert, Orientated HEENT: NCAT, EOMI, PERRL, OP Clear NECK: supple, no adenopathy, no thyromegaly, no JVD CVS/HEART: RRR, normal S1S2, pulses present bilaterally CHEST/LUNGS: CTA B, Symmetrical chest expansion, good air entry bilaterally GI/Abdomen: soft, NTND, good bowel sounds, no guarding or rebound /Bladder: no suprapubic tenderness, no CVA or paraspinal tenderness EXT/Skin: no c/c/e, no obvious rash MSK: FROM x 4 Neuro: CN 2-12 grossly intact, no new focal deficits Psych: calm - Constitutional Vitals: Temp Pulse Resp BP Pulse Ox 97.4 F L 60 16 117/51 99 06/28/18 11:46 06/28/18 11:46 06/28/18 11:46 06/28/18 11:46 06/28/18 11:46 General appearance: Present: no acute distress, well-nourished Results - Labs CBC & Chem 7: 06/27/18 05:16 06/28/18 05:22 Labs: Laboratory Last Values WBC 5.9 K/mm3 (4.5-11.0) 06/27/18 05:16 RBC 4.02 M/mm3 (3.65-5.03) 06/27/18 05:16 Hgb 12.3 gm/dl (10.1-14.3) 06/27/18 05:16 Hct 37.0 % (30.3-42.9) D 06/27/18 05:16 MCV 92 fl (79-97) 06/27/18 05:16 MCH 31 pg (28-32) 06/27/18 05:16 MCHC 33 % (30-34) 06/27/18 05:16 RDW 14.0 % (13.2-15.2) 06/27/18 05:16 Plt Count 213 K/mm3 (140-440) 06/27/18 05:16 Lymph % (Auto) 14.4 % (13.4-35.0) 06/27/18 05:16 [place] % (Auto) 7.8 % (0.0-7.3) H 06/27/18 05:16 Eos % (Auto) 1.0 % (0.0-4.3) 06/27/18 05:16 Baso % (Auto) 0.4 % (0.0-1.8) 06/27/18 05:16 Lymph # 0.9 K/mm3 (1.2-5.4) L 06/27/18 05:16 [place] # 0.5 K/mm3 (0.0-0.8) 06/27/18 05:16 Eos # 0.1 K/mm3 (0.0-0.4) 06/27/18 05:16 Baso # 0.0 K/mm3 (0.0-0.1) 06/27/18 05:16 Seg Neutrophils % 76.4 % (40.0-70.0) H 06/27/18 05:16 Seg Neutrophils # 4.5 K/mm3 (1.8-7.7) 06/27/18 05:16 Sodium 143 mmol/L (137-145) 06/28/18 05:22 Potassium 4.1 mmol/L (3.6-5.0) D 06/28/18 05:22 Chloride 112.8 mmol/L (98-107) H 06/28/18 05:22 Carbon Dioxide 26 mmol/L (22-30) 06/28/18 05:22 Anion Gap 8 mmol/L 06/28/18 05:22 BUN 5 mg/dL (7-17) L 06/28/18 05:22 Creatinine 0.4 mg/dL (0.7-1.2) L 06/28/18 05:22 Estimated GFR > 60 ml/min 06/28/18 05:22 BUN/Creatinine Ratio 13 % 06/28/18 05:22 Glucose 98 mg/dL (65-100) 06/28/18 05:22 Calcium 8.1 mg/dL (8.4-10.2) L 06/28/18 05:22 Magnesium 1.90 mg/dL (1.7-2.3) 06/28/18 05:22 Total Bilirubin 1.00 mg/dL (0.1-1.2) 06/27/18 05:16 AST 21 units/L (5-40) 06/27/18 05:16 ALT 18 units/L (7-56) 06/27/18 05:16 Alkaline Phosphatase 50 units/L (35-129) 06/27/18 05:16 Total Protein 5.5 g/dL (6.3-8.2) L D 06/27/18 05:16 Albumin 3.5 g/dL (3.9-5) L 06/27/18 05:16 Albumin/Globulin Ratio 1.8 % 06/27/18 05:16 Urine Color Yellow (Yellow) 06/26/18 09:59 Urine Turbidity Slightly-cloudy (Clear) 06/26/18 09:59 Urine pH 7.0 (5.0-7.0) 06/26/18 09:59 Ur Specific [place] 1.026 (1.003-1.030) 06/26/18 09:59 Urine Protein 30 mg/dl mg/dL (Negative) 06/26/18 09:59 Urine Glucose (UA) Neg mg/dL (Negative) 06/26/18 09:59 Urine Ketones 20 mg/dL (Negative) 06/26/18 09:59 Urine Blood Sm (Negative) 06/26/18 09:59 Urine Nitrite Neg (Negative) 06/26/18 09:59 Urine Bilirubin Neg (Negative) 06/26/18 09:59 Urine Urobilinogen < 2.0 mg/dL (<2.0) 06/26/18 09:59 Ur Leukocyte Esterase Neg (Negative) 06/26/18 09:59 Urine WBC (Auto) 3.0 /HPF (0.0-6.0) 06/26/18 09:59 Urine RBC (Auto) 43.0 /HPF (0.0-6.0) 06/26/18 09:59 Urine Mucus Few /HPF 06/26/18 09:59 Active Medications - Current Medications Current Medications: Generic Name Dose Route Start Last Admin Trade Name Freq PRN Reason Stop Dose Admin Acetaminophen 650 mg 06/27/18 01:16 Tylenol PO Q4H PRN Pain MILD(1-3)/Fever >100.5/LONG Enoxaparin Sodium 40 mg 06/27/18 22:00 06/27/18 21:54 Lovenox SUB-Q 40 mg QDAY@2200 SILVIANO Administration Famotidine 10 mg 06/27/18 02:00 06/28/18 11:52 Pepcid IV 10 mg BID SILVIANO Administration Hydromorphone HCl 0.5 mg 06/27/18 01:16 06/27/18 01:52 Dilaudid IV 0.5 mg Q3H PRN Administration Pain , Severe (7-10) Potassium Chloride 40 meq/ 1,020 mls @ 100 mls/hr 06/27/18 15:07 06/28/18 04:14 Dextrose/Sodium Chloride IV 100 mls/hr DIRECT SILVIANO Administration Morphine Sulfate 2 mg 06/27/18 01:16 Morphine IV Q4H PRN Pain, Moderate (4-6) Ondansetron HCl 4 mg 06/27/18 01:16 Zofran IV Q8H PRN Nausea And Vomiting Sodium Chloride 10 ml 06/27/18 10:00 06/27/18 21:58 Sodium Chloride Flush Syringe 10 Ml IV 10 ml BID SILVIANO Administration Sodium Chloride 10 ml 06/27/18 01:16 06/27/18 01:56 Sodium Chloride Flush Syringe 10 Ml IV 10 ml PRN PRN Administration LINE FLUSH Nutrition/Malnutrition Assess - Dietary Evaluation Nutrition/Malnutrition Findings: Nutrition Notes Start: 06/27/18 13:52 Freq: Status: Active Protocol: Document 06/27/18 13:52 OL (Rec: 06/27/18 13:56 OL [id number]) Nutrition Notes Need for Assessment generated from: electronics maintenance technician,MST Initial or Follow up Assessment Current Diagnosis Small Bowel Obstruction Current Diet Clear liquid Labs/Tests K 3.3 BUN 18 Cr 0.4 Pertinent Medications KCl Height 4 ft 8 in Weight 33.2 kg [place] Body Weight (kg) 36.36 BMI 16.4 Subjective/Other Information RD screen for malnutrition risk. Pt. admitted with partial SBO. Diet advanced to clear liquids today. Pt. with UBW of 78# 3 months ago. She has been drinking Ensure 2-3 times daily at home. #1 Nutrition Diagnosis Altered GI function Etiology partial SBO As Evidenced by Signs and Symptoms 6.4% body wt. loss in three months, decrease PO tolerance Is patient on ventilator? No Is Patient Ambulatory and/or Out of Bed No REE-([facility]-confined to bed) 893.748 Kcal/Kg value to use for calculation 40 Approximate Energy Requirements Using 1328 kcal/Kg Calculation Used for Recommendations Kcal/kg Additional Notes protein (1.2-1.5gm/kg): 40-50g fluid: 1mL/kcal or per MD Nutrition Intervention Change Diet Order: Continue clear, advance as tolerated Add Supplement/Snack (indicate name/kcal [place] Clear daily /protein ) Provides kCal: 240 Provides Protein (gm) 8 Goal #1 PO tolerance Follow-Up By: 06/29/18 Additional Comments f/u: PO tolerance, intakes
[2018-06-28] MEDS: SODIUM CHLORIDE FLUSH SYRINGE 10 ML IV SCH ×2 (13:28→21:32)
[2018-06-28] MEDS: LOVENOX SUB-Q SCH (21:31)
[2018-06-29] MEDS: D5NS IV SCH (02:29)
[2018-06-29] MEDS: KCL IV SCH (02:29)
[2018-06-29] MEDS ORDERED: TYLENOL PR PRN (02:34)
[2018-06-29 07:51] LABS: Hematocrit 38.5 % (30.3-42.9); Hemoglobin 12.8 gm/dl (10.1-14.3); Mean Corpuscular HGB Conc 33 % (30-34); Mean Corpuscular Volume 91 fl (79-97); Platelet Count 252 K/mm3 (140-440); Red Blood Count 4.26 M/mm3 (3.65-5.03); Red Cell Distribution Width 13.8 % (13.2-15.2)
[2018-06-29 08:05] LABS: BUN/Creatinine Ratio 8; Blood Urea Nitrogen 3 mg/dL (7-17); Calcium 8.6 mg/dL (8.4-10.2); Hemolysis Index 7
--- NOTE | 2018-06-29 11:09 | Progress Note ---
Assessment and Plan Pt feeling well this am. Abd flat, soft, non tender. +BS SBFT - wnl. transit time around 1 hr "from mouth to anus" stable resolved partial sbo attempt re-attempt cl liq diet no carbonated may d/c in am on cl liq and Ensure supplementation if diet carlyle over next 24 hrs. will f/u in office this Fri Selected Entries 06/29/18 05:13 Temperature 99.6 F Pulse Rate 71 Blood Pressure 107/56 Laboratory Tests 06/29/18 06:00 Potassium 3.7 Objective Vital Signs - 12hr 06/29/18 05:13 Temperature 99.6 F Pulse Rate 71 Respiratory 16 Rate Blood Pressure 107/56 O2 Sat by Pulse 97 Oximetry - Labs 06/29/18 06:00 06/29/18 06:00 Diabetes panel 06/29/18 Range/Units 06:00 Sodium 144 (137-145) mmol/L Potassium 3.7 (3.6-5.0) mmol/L Chloride 106.0 (98-107) mmol/L Carbon Dioxide 29 (22-30) mmol/L BUN 3 L (7-17) mg/dL Creatinine 0.4 L (0.7-1.2) mg/dL Glucose 97 (65-100) mg/dL Calcium 8.6 (8.4-10.2) mg/dL Calcium panel 06/29/18 Range/Units 06:00 Calcium 8.6 (8.4-10.2) mg/dL Pituitary panel 06/29/18 Range/Units 06:00 Sodium 144 (137-145) mmol/L Potassium 3.7 (3.6-5.0) mmol/L Chloride 106.0 (98-107) mmol/L Carbon Dioxide 29 (22-30) mmol/L BUN 3 L (7-17) mg/dL Creatinine 0.4 L (0.7-1.2) mg/dL Glucose 97 (65-100) mg/dL Calcium 8.6 (8.4-10.2) mg/dL Adrenal panel 06/29/18 Range/Units 06:00 Sodium 144 (137-145) mmol/L Potassium 3.7 (3.6-5.0) mmol/L Chloride 106.0 (98-107) mmol/L Carbon Dioxide 29 (22-30) mmol/L BUN 3 L (7-17) mg/dL Creatinine 0.4 L (0.7-1.2) mg/dL Glucose 97 (65-100) mg/dL Calcium 8.6 (8.4-10.2) mg/dL
[2018-06-29] MEDS: PEPCID IV SCH ×2 (11:43→22:09)
[2018-06-29] MEDS: SODIUM CHLORIDE FLUSH SYRINGE 10 ML IV SCH ×2 (11:44→22:12)
[2018-06-29] MEDS ORDERED: KCL 40 MEQ in D5NS 1,000 ML IV SCH (12:00)
[2018-06-29] MEDS: D5W/NS W/KCL 40MEQ 40 MEQ/1,000 ML BAG IV SCH ×2 (12:10→22:11)
--- NOTE | 2018-06-29 13:40 | Progress Note ---
Assessment and Plan Assessment and plan: Patient is a 63 yo Croatian speaking [place] woman with a history of GERD, Breast Cancer s/p mastectomy, Osteoporosis and SBO who was just discharged from here on 05/28/2018 with the same presentation of abdominal caused by SBO. Small bowel obstruction, partial, resolving after with NGT suctioning: GS is following, bowel rest, NGT removal, +bm this morning 06/28/2018 Hypokalemia, severe: replete and monitor bmp closely Severe Malnutrition, bmi only 16.4: consult Saxophone Teacher after starting diet, use IVF Age related osteoporosis: hold Fosamax GERD: use iv ppi if needed DVT prophylaxis reviewed SBFT normal, advance diet today and if tolerates then d/c in am per GS, Dr. Pineda History Interval history: Patient was seen and examined. Follow-up on current diagnosis of SBO. Overnight uneventful. Patient denies any chest pain, shortness breath, nausea/vomiting or severe headaches. Imaging, nursing note, chart, labs and old chart reviewed. Discussed with patient. Hospitalist Physical - Physical exam Narrative exam: GEN: thin frail, bmi 16.4, NAD, Awake, Alert, Orientated HEENT: NCAT, EOMI, PERRL, OP Clear NECK: supple, no adenopathy, no thyromegaly, no JVD CVS/HEART: RRR, normal S1S2, pulses present bilaterally CHEST/LUNGS: CTA B, Symmetrical chest expansion, good air entry bilaterally GI/Abdomen: soft, NTND, good bowel sounds, no guarding or rebound /Bladder: no suprapubic tenderness, no CVA or paraspinal tenderness EXT/Skin: no c/c/e, no obvious rash MSK: FROM x 4 Neuro: CN 2-12 grossly intact, no new focal deficits Psych: calm - Constitutional Vitals: Temp Pulse Resp BP Pulse Ox 98.7 F 79 16 118/60 91 06/29/18 12:10 06/29/18 12:10 06/29/18 12:10 06/29/18 12:10 06/29/18 12:10 General appearance: Present: no acute distress, well-nourished Results - Labs CBC & Chem 7: 06/29/18 06:00 06/29/18 06:00 Labs: Laboratory Last Values WBC 5.0 K/mm3 (4.5-11.0) 06/29/18 06:00 RBC 4.26 M/mm3 (3.65-5.03) 06/29/18 06:00 Hgb 12.8 gm/dl (10.1-14.3) 06/29/18 06:00 Hct 38.5 % (30.3-42.9) 06/29/18 06:00 MCV 91 fl (79-97) 06/29/18 06:00 MCH 30 pg (28-32) 06/29/18 06:00 MCHC 33 % (30-34) 06/29/18 06:00 RDW 13.8 % (13.2-15.2) 06/29/18 06:00 Plt Count 252 K/mm3 (140-440) 06/29/18 06:00 Lymph % (Auto) 14.4 % (13.4-35.0) 06/27/18 05:16 [place] % (Auto) 7.8 % (0.0-7.3) H 06/27/18 05:16 Eos % (Auto) 1.0 % (0.0-4.3) 06/27/18 05:16 Baso % (Auto) 0.4 % (0.0-1.8) 06/27/18 05:16 Lymph # 0.9 K/mm3 (1.2-5.4) L 06/27/18 05:16 [place] # 0.5 K/mm3 (0.0-0.8) 06/27/18 05:16 Eos # 0.1 K/mm3 (0.0-0.4) 06/27/18 05:16 Baso # 0.0 K/mm3 (0.0-0.1) 06/27/18 05:16 Seg Neutrophils % 76.4 % (40.0-70.0) H 06/27/18 05:16 Seg Neutrophils # 4.5 K/mm3 (1.8-7.7) 06/27/18 05:16 Sodium 144 mmol/L (137-145) 06/29/18 06:00 Potassium 3.7 mmol/L (3.6-5.0) 06/29/18 06:00 Chloride 106.0 mmol/L (98-107) 06/29/18 06:00 Carbon Dioxide 29 mmol/L (22-30) 06/29/18 06:00 Anion Gap 13 mmol/L 06/29/18 06:00 BUN 3 mg/dL (7-17) L 06/29/18 06:00 Creatinine 0.4 mg/dL (0.7-1.2) L 06/29/18 06:00 Estimated GFR > 60 ml/min 06/29/18 06:00 BUN/Creatinine Ratio 8 % 06/29/18 06:00 Glucose 97 mg/dL (65-100) 06/29/18 06:00 Calcium 8.6 mg/dL (8.4-10.2) 06/29/18 06:00 Magnesium 1.90 mg/dL (1.7-2.3) 06/28/18 05:22 Total Bilirubin 1.00 mg/dL (0.1-1.2) 06/27/18 05:16 AST 21 units/L (5-40) 06/27/18 05:16 ALT 18 units/L (7-56) 06/27/18 05:16 Alkaline Phosphatase 50 units/L (35-129) 06/27/18 05:16 Total Protein 5.5 g/dL (6.3-8.2) L D 06/27/18 05:16 Albumin 3.5 g/dL (3.9-5) L 06/27/18 05:16 Albumin/Globulin Ratio 1.8 % 06/27/18 05:16 Urine Color Yellow (Yellow) 06/26/18 09:59 Urine Turbidity Slightly-cloudy (Clear) 06/26/18 09:59 Urine pH 7.0 (5.0-7.0) 06/26/18 09:59 Ur Specific [place] 1.026 (1.003-1.030) 06/26/18 09:59 Urine Protein 30 mg/dl mg/dL (Negative) 06/26/18 09:59 Urine Glucose (UA) Neg mg/dL (Negative) 06/26/18 09:59 Urine Ketones 20 mg/dL (Negative) 06/26/18 09:59 Urine Blood Sm (Negative) 06/26/18 09:59 Urine Nitrite Neg (Negative) 06/26/18 09:59 Urine Bilirubin Neg (Negative) 06/26/18 09:59 Urine Urobilinogen < 2.0 mg/dL (<2.0) 06/26/18 09:59 Ur Leukocyte Esterase Neg (Negative) 06/26/18 09:59 Urine WBC (Auto) 3.0 /HPF (0.0-6.0) 06/26/18 09:59 Urine RBC (Auto) 43.0 /HPF (0.0-6.0) 06/26/18 09:59 Urine Mucus Few /HPF 06/26/18 09:59 Active Medications - Current Medications Current Medications: Generic Name Dose Route Start Last Admin Trade Name Freq PRN Reason Stop Dose Admin Acetaminophen 650 mg 06/27/18 01:16 Tylenol PO Q4H PRN Pain MILD(1-3)/Fever >100.5/LONG Acetaminophen 650 mg 06/29/18 02:34 06/29/18 02:46 Tylenol WI 650 mg Q4H PRN Administration Pain, Mild (1-3) Enoxaparin Sodium 40 mg 06/27/18 22:00 06/28/18 21:31 Lovenox SUB-Q 40 mg QDAY@2200 SILVIANO Administration Famotidine 10 mg 06/27/18 02:00 06/29/18 11:43 Pepcid IV 10 mg BID SILVIANO Administration Hydromorphone HCl 0.5 mg 06/27/18 01:16 06/27/18 01:52 Dilaudid IV 0.5 mg Q3H PRN Administration Pain , Severe (7-10) Potassium Chloride/Dextrose/Sod Cl 40 meq in 1,000 mls @ 100 mls/hr 06/29/18 12:00 06/29/18 12:10 D5w/Ns W/Kcl 40meq IV 100 mls/hr DIRECT SILVIANO Administration Morphine Sulfate 2 mg 06/27/18 01:16 Morphine IV Q4H PRN Pain, Moderate (4-6) Ondansetron HCl 4 mg 06/27/18 01:16 Zofran IV Q8H PRN Nausea And Vomiting Sodium Chloride 10 ml 06/27/18 10:00 06/29/18 11:44 Sodium Chloride Flush Syringe 10 Ml IV 10 ml BID SILVIANO Administration Sodium Chloride 10 ml 06/27/18 01:16 06/27/18 01:56 Sodium Chloride Flush Syringe 10 Ml IV 10 ml PRN PRN Administration LINE FLUSH Nutrition/Malnutrition Assess - Dietary Evaluation Nutrition/Malnutrition Findings: Nutrition Notes Start: 06/27/18 13:52 Freq: Status: Active Protocol: Document 06/27/18 13:52 OL (Rec: 06/27/18 13:56 OL [id number]) Nutrition Notes Need for Assessment generated from: net maker,MST Initial or Follow up Assessment Current Diagnosis Small Bowel Obstruction Current Diet Clear liquid Labs/Tests K 3.3 BUN 18 Cr 0.4 Pertinent Medications KCl Height 4 ft 8 in Weight 33.2 kg Boomer Body Weight (kg) 36.36 BMI 16.4 Subjective/Other Information RD screen for malnutrition risk. Pt. admitted with partial SBO. Diet advanced to clear liquids today. Pt. with UBW of 78# 3 months ago. She has been drinking Ensure 2-3 times daily at home. #1 Nutrition Diagnosis Altered GI function Etiology partial SBO As Evidenced by Signs and Symptoms 6.4% body wt. loss in three months, decrease PO tolerance Is patient on ventilator? No Is Patient Ambulatory and/or Out of Bed No REE-([facility]-confined to bed) 893.748 Kcal/Kg value to use for calculation 40 Approximate Energy Requirements Using 1328 kcal/Kg Calculation Used for Recommendations Kcal/kg Additional Notes protein (1.2-1.5gm/kg): 40-50g fluid: 1mL/kcal or per MD Nutrition Intervention Change Diet Order: Continue clear, advance as tolerated Add Supplement/Snack (indicate name/kcal Ensure Clear daily /protein ) Provides kCal: 240 Provides Protein (gm) 8 Goal #1 PO tolerance Follow-Up By: 06/29/18 Additional Comments f/u: PO tolerance, intakes
[2018-06-29] MEDS: LOVENOX SUB-Q SCH (22:10)
[2018-06-30] MEDS: D5W/NS W/KCL 40MEQ 40 MEQ/1,000 ML BAG IV SCH (07:51)
[2018-06-30 09:53] LABS: Hemoglobin 12.9 gm/dl (10.1-14.3); Mean Corpuscular HGB Conc 33 % (30-34); Mean Corpuscular Volume 91 fl (79-97); Platelet Count 209 K/mm3 (140-440); Red Blood Count 4.27 M/mm3 (3.65-5.03); Red Cell Distribution Width 13.8 % (13.2-15.2)
[2018-06-30] MEDS: PEPCID IV SCH (10:09)
[2018-06-30] MEDS: SODIUM CHLORIDE FLUSH SYRINGE 10 ML IV SCH (10:09)
[2018-06-30 10:12] LABS: BUN/Creatinine Ratio 10; Blood Urea Nitrogen 4 mg/dL (7-17); Calcium 8.5 mg/dL (8.4-10.2); Hemolysis Index 27
[2018-06-30 11:54] VITALS: BP 110/60
--- NOTE | 2018-06-30 13:08 | Progress Note ---
Assessment and Plan Pt feeling well without compl. carlyle cl liq diet Abd soft, non tender surgically stable may d/c on cl liq and protein shakes from surg perspective rto this Fri Selected Entries 06/30/18 11:16 Temperature 98.6 F Pulse Rate 69 Respiratory 16 Rate Blood Pressure 110/60 Laboratory Tests 06/30/18 06/30/18 09:24 09:24 WBC 5.1 Hgb 12.9 Hct 39.0 Sodium 141 Potassium 4.1 Chloride 105.1 Carbon Dioxide 25 Anion Gap 15 BUN 4 L Creatinine 0.4 L Objective Vital Signs - 12hr 06/30/18 06/30/18 06:31 11:16 Temperature 97.9 F 98.6 F Pulse Rate 79 69 Respiratory 18 16 Rate Blood Pressure 112/63 110/60 O2 Sat by Pulse 99 100 Oximetry - Labs 06/30/18 09:24 06/30/18 09:24 Diabetes panel 06/30/18 Range/Units 09:24 Sodium 141 (137-145) mmol/L Potassium 4.1 (3.6-5.0) mmol/L Chloride 105.1 (98-107) mmol/L Carbon Dioxide 25 (22-30) mmol/L BUN 4 L (7-17) mg/dL Creatinine 0.4 L (0.7-1.2) mg/dL Glucose 99 (65-100) mg/dL Calcium 8.5 (8.4-10.2) mg/dL Calcium panel 06/30/18 Range/Units 09:24 Calcium 8.5 (8.4-10.2) mg/dL Pituitary panel 06/30/18 Range/Units 09:24 Sodium 141 (137-145) mmol/L Potassium 4.1 (3.6-5.0) mmol/L Chloride 105.1 (98-107) mmol/L Carbon Dioxide 25 (22-30) mmol/L BUN 4 L (7-17) mg/dL Creatinine 0.4 L (0.7-1.2) mg/dL Glucose 99 (65-100) mg/dL Calcium 8.5 (8.4-10.2) mg/dL Adrenal panel 06/30/18 Range/Units 09:24 Sodium 141 (137-145) mmol/L Potassium 4.1 (3.6-5.0) mmol/L Chloride 105.1 (98-107) mmol/L Carbon Dioxide 25 (22-30) mmol/L BUN 4 L (7-17) mg/dL Creatinine 0.4 L (0.7-1.2) mg/dL Glucose 99 (65-100) mg/dL Calcium 8.5 (8.4-10.2) mg/dL
--- NOTE | 2018-06-30 15:46 | Discharge Summary ---
Providers - Providers Date of Admission: 06/26/18 17:19 Date of discharge: 06/30/18 Attending physician: SHAHNAZ DOUGLAS 06/26/18 17:01 Consult to Physician [CONS] Stat Comment: DR CHERRY NOTIFIED 1700 Consulting Provider: EASTON CHERRY Physician Instructions: Reason For Exam: SBO Primary care physician: EASTON CHERRY Hospitalization Condition: Stable Pertinent studies: Abdomen/pelvis CT Abdomen xry Small bowel XR Hospital course: Brief history: Patient is a 63 yo Dominican speaking [place] woman with a history of GERD, Breast Cancer s/p mastectomy, Osteoporosis and SBO who was just discharged from here on 05/28/2018 with the same presentation of abdominal caused by SBO, r eadmitted again this time for partial SB obstruction. Discharge diagnosis and management: /Small bowel obstruction, partial, resolved after with NGT suctioning: GS was following, s/p bowel rest, NGT removal, +bm since 06/28/2018, tolerating clear liquid, GS cleared for discharge, will f/u GS outpt /Hypokalemia, severe: repleted and monitored bmp closely /Severe Malnutrition, BMI only 16.4: provided dietary recommendation /Age related osteoporosis: held Fosamax, will do outpt follow up /GERD: used iv ppi if needed /DVT prophylaxis reviewed Hospitalist Physical GEN: thin frail, bmi 16.4, NAD, Awake, Alert, Orientated HEENT: NCAT, EOMI, PERRL, OP Clear NECK: supple, no adenopathy, no thyromegaly, no JVD CVS/HEART: RRR, normal S1S2, pulses present bilaterally CHEST/LUNGS: CTA B, Symmetrical chest expansion, good air entry bilaterally GI/Abdomen: soft, NTND, good bowel sounds, no guarding or rebound /Bladder: no suprapubic tenderness, no CVA or paraspinal tenderness EXT/Skin: no c/c/e, no obvious rash MSK: FROM x 4 Neuro: CN 2-12 grossly intact, no new focal deficits Psych: calm Disposition: DC-01 TO HOME OR SELFCARE Time spent for discharge: 34 minutes Core Measure Documentation - Palliative Care Palliative Care/ Comfort Measures: Not Applicable - Core Measures Any of the following diagnoses?: none Exam - Constitutional Vitals: Temp Pulse Resp BP Pulse Ox 98.6 F 69 16 110/60 100 06/30/18 11:16 06/30/18 11:16 06/30/18 11:16 06/30/18 11:16 06/30/18 11:16 Plan Activity: advance as tolerated Weight Bearing Status: Weight Bear as Tolerated Diet: clear liquids (with nutrition boost) Additional Instructions: Clear liquid diet till f/u with GS Follow up with: EASTON CHERRY MD [Primary Care Provider] - 07/03/18 Prescriptions: Ondansetron (Nf) [Zofran TAB] 8 mg PO Q8HR PRN #10 tablet PRN Reason: Nausea
== END 2018-06-30 17:00 | disposition home or self-care (01) | DRG 388 ==
LOC: ED 09:16 → 3A 17:19
PROVIDERS: ADMIT Internal Medicine; ATTEND Internal Medicine
PROC: 0D9670Z Drainage of Stomach with Drainage Device, Via Natural or Artificial Opening (ICD-10-PCS; principal; 2018-06-26)
DX: K56.600 Partial intestinal obstruction, unspecified as to cause (principal); E43 Unspecified severe protein-calorie malnutrition; Z68.1 Body mass index [BMI] 19.9 or less, adult; K21.9 Gastro-esophageal reflux disease without esophagitis; M81.0 Age-related osteoporosis without current pathological fracture; E87.6 Hypokalemia; Z90.13 Acquired absence of bilateral breasts and nipples; Z90.49 Acquired absence of other specified parts of digestive tract; Z90.710 Acquired absence of both cervix and uterus
CPT/HCPCS: 36415; 74022; 74177; 74250; 80048; 80053; 81001; 83735; 85025; 85027; 96361; 96374; 96375; G0378; J1170; J1650; J1885; J2405; J3480; J7030; J7042; Q9963; Q9967

== ENCOUNTER 2018-08-09 17:30 | Inpatient (IN) | payer OTHER ==
--- NOTE | 2018-08-09 17:50 | Emergency Department Report ---
Chief Complaint: Abdominal Pain Stated Complaint: BELLY PAIN TOO MUCH Time Seen by Provider: 08/09/18 17:47 - HPI History of Present Illness: pt presents with epigastric abd pain that began at 11 AM no diarrhea, vomiting +nausea no fever allergy to venlafaxine PMHx of SBO non drinker non smoker no drug use MSE screening note: Focused history and physical exam performed. Due to findings the following was ordered: labs, UA ED Disposition for MSE Condition: Stable Instructions: Abdominal Pain (ED)
[2018-08-09] MEDS ORDERED: DILAUDID IV ONE ×2 (18:08→20:39)
[2018-08-09] MEDS ORDERED: NACL 0.9% 1000 ML 1,000 ML IV ONE (18:08)
[2018-08-09] MEDS ORDERED: ZOFRAN IV ONE (18:08)
[2018-08-09 18:43] LABS: Bilirubin,Urine NEG (Negative); Blood,Urine MOD (Negative); Color,Urine Yellow (Yellow); Mucus,Urine FEW /HPF; Protein,Urine <15 mg/dL mg/dL (Negative); Urobilinogen,Urine < 2.0 mg/dL (<2.0)
[2018-08-09 18:45] LABS: Hematocrit 42.8 % (30.3-42.9); Hemoglobin 14.2 gm/dl (10.1-14.3); Mean Corpuscular HGB Conc 33 % (30-34); Mean Corpuscular Volume 91 fl (79-97); Platelet Count 305 K/mm3 (140-440); Red Cell Distribution Width 14.4 % (13.2-15.2)
--- NOTE | 2018-08-09 18:52 | Emergency Department Report ---
ED Abdominal Pain HPI - General Chief Complaint: Abdominal Pain Stated Complaint: BELLY PAIN TOO MUCH Time Seen by Provider: 08/09/18 17:47 Source: patient Mode of arrival: Ambulatory Limitations: No Limitations - History of Present Illness Initial Comments: 63-year-old female with past medical history of small bowel obstruction, adhesions, appendectomy, hysterectomy, and breast cancer treated with bilateral mastectomy for breast cancer complains of epigastric pain that started about noon today. Last bowel movement was 3 hours prior to arrival. Patient had nausea and vomiting. No complaints of fever. Recently Admitted here over the last 2 months for recurrent bowel obstruction. Severity scale (0 -10): 5 - Related Data Previous Rx's Medication Instructions Recorded Last Taken Type Famotidine [Pepcid] 10 mg PO BID #30 tablet 05/28/18 Unknown Rx Ondansetron (Nf) [Zofran TAB] 8 mg PO Q8HR PRN #10 tablet 06/30/18 Unknown Rx Allergies Allergy/AdvReac Type Severity Reaction Status Date / Time venlafaxine Allergy Vomiting Verified 06/26/18 09:17 ED Review of Systems ROS: Stated complaint: BELLY PAIN TOO MUCH Other details as noted in HPI Comment: All other systems reviewed and negative ED Past Medical Hx - Past Medical History Previous Medical History?: Yes Hx Arthritis: No Hx Asthma: No Hx COPD: No Hx HIV: No Additional medical history: Decreased Bone Density, Hypotension, SBO - Surgical History Past Surgical History?: Yes Hx Appendectomy: Yes Additional Surgical History: Bilateral Mastectomy, Hysterectomy, Lumbar surgery. Small Bowel Resection, Lysis of Adhesions ([facility] 09/2016) - Social History Smoking Status: Never Smoker Substance Use Type: Prescribed - Medications Home Medications: Home Medications Medication Instructions Recorded Confirmed Last Taken Type Famotidine [Pepcid] 10 mg PO BID #30 tablet 05/28/18 06/29/18 Unknown Rx Ondansetron (Nf) [Zofran TAB] 8 mg PO Q8HR PRN #10 tablet 06/30/18 Unknown Rx ED Physical Exam - General Limitations: No Limitations - Other Other exam information: General: No limitations, patient is alert in no acute distress Head exam: Atraumatic, normocephalic Eyes exam: Normal appearance, nonicteric sclera ENT: Moist mucous membrane Neck exam: Normal inspection, full range of motion, no meningismus nontender Respiratory exam: Clear to auscultation bilateral, no wheezes, rales, crackles Cardiovascular: Normal rate and rhythm, normal heart sounds Abdomen: Soft, nondistended, epigastric tenderness, with normal bowel sounds, no rebound, or guarding. Lower midline vertical abdominal scar Extremity: Full range of motion normal inspection no deformity Back: Normal Inspection, full range of motion, no tenderness Neurologic: Alert, oriented x3, cranial nerves intact, no motor or sensory def icit Psychiatric: normal affect, normal mood Skin: Warm, dry, intact ED Course Vital Signs 08/09/18 08/09/18 08/09/18 17:50 18:10 18:11 Temperature 97.9 F 97.8 F Pulse Rate 67 66 Respiratory 16 14 14 Rate Blood Pressure 113/69 Blood Pressure 142/68 [Left] O2 Sat by Pulse 97 100 100 Oximetry 08/09/18 08/09/18 08/09/18 18:15 20:00 21:16 Temperature Pulse Rate 64 55 L 70 Respiratory 18 14 15 Rate Blood Pressure Blood Pressure 123/66 115/83 113/59 [Left] O2 Sat by Pulse 98 97 97 Oximetry - Consultations Consultation #1: 08/09/18 22:16 case d/w Dr castillo, Requests abd series in am, npo, ivf, will consult ED Medical Decision Making - Lab Data Result diagrams: 08/09/18 17:55 08/09/18 17:55 Lab Results 08/09/18 08/09/18 08/09/18 Range/Units 17:55 17:55 18:25 WBC 9.8 (4.5-11.0) K/mm3 RBC 4.70 (3.65-5.03) M/mm3 Hgb 14.2 (10.1-14.3) gm/dl Hct 42.8 (30.3-42.9) % MCV 91 (79-97) fl MCH 30 (28-32) pg MCHC 33 (30-34) % RDW 14.4 (13.2-15.2) % Plt Count 305 (140-440) K/mm3 Lymph % (Auto) Ui Developer With [employer] [place] % (Auto) Ui Developer With [employer] Eos % (Auto) Ui Developer With [employer] Baso % (Auto) Ui Developer With [employer] Lymph # Ui Developer With [employer] [place] # Ui Developer With [employer] Eos # Ui Developer With [employer] Baso # Ui Developer With [employer] Seg Neutrophils % Ui Developer With [employer] Seg Neutrophils # Ui Developer With [employer] Sodium 146 H (137-145) mmol/L Potassium 3.8 (3.6-5.0) mmol/L Chloride 102.2 (98-107) mmol/L Carbon Dioxide 29 (22-30) mmol/L Anion Gap 19 mmol/L BUN 21 H (7-17) mg/dL Creatinine 0.4 L (0.7-1.2) mg/dL Estimated GFR > 60 ml/min BUN/Creatinine Ratio 53 % Glucose 130 H (65-100) mg/dL Calcium 9.5 (8.4-10.2) mg/dL Total Bilirubin 0.80 (0.1-1.2) mg/dL AST 34 (5-40) units/L ALT 24 (7-56) units/L Alkaline Phosphatase 48 (35-129) units/L Total Protein 6.9 (6.3-8.2) g/dL Albumin 4.5 (3.9-5) g/dL Albumin/Globulin Ratio 1.9 % Lipase 22 (13-60) units/L Urine Color Yellow (Yellow) Urine Turbidity Cloudy (Clear) Urine pH 7.0 (5.0-7.0) Ur Specific [place] 1.015 (1.003-1.030) Urine Protein <15 mg/dl (Negative) mg/dL Urine Glucose (UA) Neg (Negative) mg/dL Urine Ketones 20 (Negative) mg/dL Urine Blood Mod (Negative) Urine Nitrite Neg (Negative) Urine Bilirubin Neg (Negative) Urine Urobilinogen < 2.0 (<2.0) mg/dL Ur Leukocyte Esterase Neg (Negative) Urine WBC (Auto) 1.0 (0.0-6.0) /HPF Urine RBC (Auto) 29.0 (0.0-6.0) /HPF Urine Mucus Few /HPF Urine Yeast (Budding) 3+ /HPF - Radiology Data Radiology results: report reviewed PROCEDURE: XR ABD SERIES W CXR 1V TECHNIQUE: 3 views HISTORY: abd pain hx of sbo COMPARISONS: 06/27/2018 FINDINGS: Right lower lobe calcified granuloma reidentified. No infiltrate, pleural effusion, or pneumothorax seen. The cardiomediastinal silhouette is normal. No free air or air-fluid levels. No abno rmal bowel dilatation. Mild gas seen in the bowel. IMPRESSION: No acute intrath oracic abnormality. Nonspecific, nonobstructive bowel gas pattern.. PROCEDURE: CT ABDOMEN PELVIS W CON TECHNIQUE: Following administration of GI and IV contrast axial helical imaging was performed through the abdomen and pelvis with sagittal and coronal reformatted images obtained. Delayed axial helical imaging was also performed to the abdomen and pelvis. HISTORY: epigastric abd pain, SBO in May 2018 COMPARISONS: X-ray abdomen also performed today and CT abdomen and pelvis dated June 26, 2018. FINDINGS: The stomach is normal caliber and contains GI contrast. The duodenum and proximal jejunum are normal caliber. Again noted is a long segment of distended (3.6 cm) of small bowel with air- fluid levels that appears to be a segment of distal jejunum or proximal ileum. There appears to be a transition at either end of this long segment of distended small bowel. The caliber of the small bowel proximal to the distended segment measures 1.3 cm in the caliber of the small bowel distal to the distended segment measures 0.9 cm. The remainder of the small bowel is normal caliber to decompressed. The colon is normal caliber to decompressed and contains some stool. A small amount of free fluid is demonstrated in the abdomen and pelvis. There is no evidence of pneumoperitoneum. There is evidence of fatty infiltrati on of the liver. The spleen, pancreas, kidneys and adrenal glands are unremarkable. The gallbladder is moderately distended and unremarkable. The abdominal aorta is normal caliber. The urinary bladder is moderately distended and unremarkable. The bony structures are notable for previous multiple level lumbar spine laminectomy in the upper and mid lumbar spine. The heart appears to be enlarged. IMPRESSION: 1. Findings suggestive of a closed loop small bowel obstruction in the region of the distal jejunum or proximal ileum. This is similar in appearance to the previous CT abdomen and pelvis dated June 26, 2018. This finding was discussed with Dr. Cheatham at 9:55 PM August 09, 2018. 2. Free fluid is demonstrated in the abdomen and pelvis. 3. Fatty infiltration of the liver. 4. Multiple level lumbar spine laminectomy. 5. Cardiomegaly. - Medical Decision Making CT shows recurrent bowel obstruction. NG tube, pain medications, and IV fluids the ED. Surgery consultation. Hospitalist informed for admission. - Differential Diagnosis obstruction, adhesions, diverticulitis, infectious, PUD Critical Care Time: No Critical care attestation.: If time is entered above; I have spent that time in minutes in the direct care of this critically ill patient, excluding procedure time. ED Disposition Clinical Impression: Small bowel obstruction Disposition: DC-09 OP ADMIT IP TO THIS HOSP Is pt being admited?: Yes Condition: Stable Time of Disposition: 22:18 (Dr Cook/hosp)
[2018-08-09 19:03] LABS: Alanine Aminotransferase 24 units/L (7-56); Albumin 4.5 g/dL (3.9-5); BUN/Creatinine Ratio 53; Blood Urea Nitrogen 21 mg/dL (7-17); Calcium 9.5 mg/dL (8.4-10.2); Hemolysis Index 7
--- NOTE | 2018-08-09 19:38 | XRay Report ---
PROCEDURE: XR ABD SERIES W CXR 1V TECHNIQUE: 3 views HISTORY: abd pain hx of sbo COMPARISONS: 06/27/2018 FINDINGS: Right lower lobe calcified granuloma reidentified. No infiltrate, pleural effusion, or pneumothorax seen. The cardiomediastinal silhouette is normal. No free air or air-fluid levels. No abnormal bowel dilatation. Mild gas seen in the bowel. IMPRESSION: No acute intrathoracic abnormality. Nonspecific, nonobstructive bowel gas pattern.. This document is electronically signed by Jamaal Vazquez MD., Aug 09 2018 07:36:05 PM ET
[2018-08-09] MEDS ORDERED: LIDOCAINE VISCOUS 2% PO ONE (21:55)
--- NOTE | 2018-08-09 22:01 | Cat Scan Report ---
PROCEDURE: CT ABDOMEN PELVIS W CON TECHNIQUE: Following administration of GI and IV contrast axial helical imaging was performed throug h the abdomen and pelvis with sagittal and coronal reformatted images obtained. Delayed axial helical imaging was also performed to the abdomen and pelvis. HISTORY: epigastric abd pain, SBO in May 2018 COMPARISONS: X-ray abdomen also performed today and CT abdomen and pelvis dated June 26, 2018. FINDINGS: The stomach is normal caliber and contains GI contrast. The duodenum and proximal jejunum are normal caliber. Again noted is a long segment of distended (3.6 cm) of small bowel with air-fluid levels that appears to be a segment of distal jejunum or proximal ileum. There appears to be a transition at either end of this long segment of distended small bowel. The keven iber of the small bowel proximal to the distended segment measures 1.3 cm in the caliber of the small bowel distal to the distended segment measures 0.9 cm. The remainder of the small bowel is normal caliber to decompressed. The colon is normal caliber to decompressed and contains some stool. A small amount of free fluid is demonstrated in the abdomen and pelvis. There is no evidence of pneumoperitoneum. There is evidence of fatty infiltration of the liver. The spleen, pancreas, kidneys and adrenal glands are unremarkable. The gallbladder is moderately distended and unremarkable. The abdominal aorta is normal caliber. The urinary bladder is moderately distended and unremarkable. The bony structures are notable for previous multiple level lumbar spine laminectomy in the upper and mid lumbar spine. The heart appears to be enlarged. IMPRESSION: 1. Findings suggestive of a closed loop small bowel obstruction in the region of the distal jejunum o r proximal ileum. This is similar in appearance to the previous CT abdomen and pelvis dated June 26, 2018. This finding was discussed with Dr. Cheatham at 9:55 PM August 09, 2018. 2. Free fluid is demonstrated in the abdomen and pelvis. 3. Fatty infiltration of the liver. 4. Multiple level lumbar spine laminectomy. 5. Cardiomegaly. This document is electronically signed by Jessica Stevenson MD., Aug 09 2018 09:59:22 PM ET
[2018-08-09] MEDS ORDERED: DILAUDID IV PRN (23:03)
[2018-08-09] MEDS ORDERED: TYLENOL PR PRN (23:07)
[2018-08-09] MEDS ORDERED: FLAGYL 500 MG/100 ML 500 MG/100 ML BAG IV ONE (23:38)
[2018-08-09] MEDS: FLAGYL 500 MG/100 ML 500 MG/100 ML BAG IV SCH (23:38)
--- NOTE | 2018-08-09 23:40 | XRay Report ---
PROCEDURE: XR CHEST 1V AP TECHNIQUE: Frontal portable view of the chest HISTORY: NG tube placement COMPARISONS: Chest x-ray performed earlier today at 6:30 PM FINDINGS: There has been interval placement of an esophagogastric tube. The tip is not included in the field-of -view but is well below the level of the diaphragm. There is no evidence of focal infiltrate, pneumothorax or pleural fluid collection. There is a calcified granuloma in the right lung base. The cardiac silhouette is enlarged. The thoracic aorta is mildly tortuous. The bony structures are notable for levocurvature of the thoracic spine. IMPRESSION: 1. The tip of the esophagogastric tube is not included in the [id number] but is well below the lev el of the diaphragm. 2. Otherwise no significant change since chest x-ray performed earlier in the day. This document is electronically signed by Jessica Stevenson MD., Aug 09 2018 11:38:50 PM ET
[2018-08-10] MEDS: NACL 0.9% 1000 ML 1,000 ML IV SCH ×2 (05:10→20:27)
[2018-08-10] MEDS: FLAGYL 500 MG/100 ML 500 MG/100 ML BAG IV SCH (05:10)
[2018-08-10] MEDS: ZOFRAN IV PRN ×2 (05:25→22:14)
[2018-08-10] MEDS: DILAUDID IV PRN ×2 (05:26→22:13)
--- NOTE | 2018-08-10 06:42 | History and Physical Report ---
CHIEF COMPLAINT: Abdominal pain. HISTORY OF PRESENT ILLNESS: The patient is a 63-year-old female who has had recurrent bowel obstruction in the past presenting with abdominal pain. The pain is in the epigastric area and started on 08/09/2018 in the noontime. The patient's last bowel movement was 3 hours prior to arrival and there is associated history of nausea and vomiting but no history of fever. The patient was admitted about 2 months ago for same problem and had bowel obstruction then. There is no known history of constipation. PAST MEDICAL HISTORY: Pertinent for bowel obstruction and hypotension. PAST SURGICAL HISTORY: Pertinent for appendectomy, bilateral mastectomy, hysterectomy, lumbar surgery, small bowel obstruction, small bowel resection, lysis of adhesion. FAMILY HISTORY: Noncontributory. SOCIAL HISTORY: The patient does not smoke, does not drink alcohol and does not use illicit drugs. MEDICATIONS: The patient is on Pepcid 10 mg by mouth twice daily, Zofran 8 mg by mouth every 8 hours as needed for nausea and vomiting. ALLERGIES: The patient is allergic to VENLAFAXINE. REVIEW OF SYSTEMS: CONSTITUTIONAL: There is no fever, no chills, no diaphoresis. HEENT: There is no headache or sore throat. CARDIOVASCULAR SYSTEM: There is no chest pain or orthopnea. RESPIRATORY SYSTEM: There is no shortness of breath or cough. GASTROINTESTINAL SYSTEM: Abdominal pain present. Nausea and vomiting present. No diarrhea. No constipation. No melena, hematemesis, or hematochezia. NEUROLOGICAL SYSTEM: There is no numbness, no dizziness, no altered mental status. MUSCULOSKELETAL SYSTEM: There is no joint pain or swelling. DERMATOLOGICAL SYSTEM: There is no skin rash or itching. GENITOURINARY SYSTEM: There is no dysuria, hematuria, or flank pain. Rest of system review is normal. PHYSICAL EXAMINATION: GENERAL: At the time of exam, the patient was found to be alert, oriented x 3 and not in acute distress. VITAL SIGNS: At the initial time of presentation showed temperature of 97.9 degrees Fahrenheit, pulse of 67, respirations 16, blood pressure 113/69, O2 sat of 97% on room air. HEENT: Showed pupils to be equal, round, reactive to light and accommodation. Extraocular motions are intact. NECK: Supple with no JVD or carotid bruit. CARDIOVASCULAR SYSTEM: Showed normal first and second heart sounds with no gallops or murmurs. RESPIRATORY SYSTEM: Showed good air entry on both sides of the lung with no abnormal breath sounds. GASTROINTESTINAL SYSTEM: Showed abdomen to be soft with tenderness in the epigastric area with no rebound tenderness, no rigidity, and no organomegaly was elicited. MUSCULOSKELETAL SYSTEM: Showed no joint swelling or tenderness. DERMATOLOGICAL SYSTEM: Showed no skin rash. GENITOURINARY SYSTEM: Showed no costovertebral angle tenderness. PERTINENT LABORATORY AND IMAGING STUDIES: The patient had an abdominal series done that shows no acute intrathoracic abnormality with nonspecific, nonobstructing bowel gas pattern seen. The patient has CT of the abdomen and pelvis with contrast done that shows findings suggestive of closed loop bowel obstruction in the region of the distal jejunum or proximal ileum and the radiologist said that this is similar in appearance to the previous CT abdomen and pelvis dated 06/26/2018. There is also finding of multiple level lumbar spine laminectomy. There is finding by cardiology of fatty infiltrate of the liver Lab results: The patient had CBC done that came back unremarkable. Chemistry shows slight increase in sodium level of 146 with rest of chemistry being unremarkable. Urinalysis was unremarkable except for moderate urine blood and elevated urine rbc done as well as 3+ yeast found in urine. DIAGNOSES: 1. Small bowel obstruction. 2. Yeast infection in the urine. PLAN OF CARE: 1. The patient will be admitted to medical floor. 2. The patient will continue nasogastric tube low wall suctioning intermittently started in the Emergency Room. 3. The patient will continue surgical consult with Dr. Pineda and will remain n.p.o. until seen by the surgeon. 4. The patient will be on empiric IV Levaquin 750 mg daily and will be on IV metronidazole 500 mg every 8 hours. The patient will be on IV normal saline at 75 mL an hour. 5. The patient will be on IV Dilaudid 0.5 mg every 4 hours as needed for pain. 6. The patient will be on IV Zofran 4 mg every 8 hours as needed for nausea and vomiting. 7. The patient will be on Tylenol 650 mg rectally every 4 hours as needed for fever and headache. JOB# [id number] OCN/NTS MTDD
[2018-08-10] MEDS ORDERED: LEVAQUIN 750MG/150ML 750 MG/150 ML BAG IV SCH (10:00)
--- NOTE | 2018-08-10 10:33 | XRay Report ---
ABDOMEN, 2 views: History: Small bowel obstruction. A nasogastric tube is been inserted since 08/09/18 exam. The distal tip of the feeding tube is coiled upon itself terminating near the GE junction. Mildly dilated loops of small bowel with air fluid levels are again noted in the lower abdomen which appear unchanged. There is trace gas in the proximal colon. No free air is appreciated. IMPRESSION: Findings suggestive of a partial distal small bowel obstruction.
--- NOTE | 2018-08-10 11:33 | Progress Note ---
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, history of appendectomy, hysterectomy and breast cancer that was treated with bilateral mastectomy CT abdomen and pelvis showed closed loop small bowel obstruction in the region of the distal jejunum and proximal ileum Labs reveal mild hyponatremia, sodium of 146 Diagnoses/plan small bowel obstruction Bowel rest and NG tube to suction, management per general surgery, IV fluids Antiemetics and pain medications as needed Hypernatremia/dehydration Continue IV fluids DVT prophylaxis with Lovenox History Interval history: Review of systems Constitutional: No fevers, no malaise, no joint pains CVS: No chest pain, no orthopnea, no dyspnea on exertion, no pedal edema GI: Abdominal pain Is improved, it is in the epigastrium, currently 2 out of 10, no vomiting, no constipation Respiratory: no wheezing, no coughing Hospitalist Physical - Physical exam Narrative exam: General.: Appears well, no distress, nontoxic HEENT: Moist mucous membranes, extraocular muscles intact, no lymphadenopathy Neck: supple Cardiac: S1-S2 heard Lungs: clear to auscultation bilaterally Abdomen: soft , nontender, nondistended, bowel sounds positive Extremities: no edema clubbing or cyanosis Skin: no rash or lesions Neurologic: no gross focal deficits Psych: calm, and cooperative - Constitutional Vitals: Temp Pulse Resp BP Pulse Ox 97.9 F 60 18 106/56 96 08/10/18 07:40 08/10/18 07:40 08/10/18 07:40 08/10/18 07:40 08/10/18 07:40 Results - Labs CBC & Chem 7: 08/09/18 17:55 08/09/18 17:55 Labs: Laboratory Last Values WBC 9.8 K/mm3 (4.5-11.0) 08/09/18 17:55 RBC 4.70 M/mm3 (3.65-5.03) 08/09/18 17:55 Hgb 14.2 gm/dl (10.1-14.3) 08/09/18 17:55 Hct 42.8 % (30.3-42.9) 08/09/18 17:55 MCV 91 fl (79-97) 08/09/18 17:55 MCH 30 pg (28-32) 08/09/18 17:55 MCHC 33 % (30-34) 08/09/18 17:55 RDW 14.4 % (13.2-15.2) 08/09/18 17:55 Plt Count 305 K/mm3 (140-440) 08/09/18 17:55 Lymph % (Auto) Wood Milling Machine Hand 08/09/18 17:55 [place] % (Auto) [employer]illing Machine Hand 08/09/18 17:55 Eos % (Auto) [employer]illing Machine Hand 08/09/18 17:55 Baso % (Auto) [employer]illing Machine Hand 08/09/18 17:55 Lymph # [employer] Machine Hand 08/09/18 17:55 [place] # [employer] Machine Hand 08/09/18 17:55 Eos # [employer] Milling Machine Hand 08/09/18 17:55 Baso # [employer] Milling Machine Hand 08/09/18 17:55 Seg Neutrophils % [employer] Milling Machine Hand 08/09/18 17:55 Seg Neutrophils # [employer] Milling Machine Hand 08/09/18 17:55 Sodium 146 mmol/L (137-145) H 08/09/18 17:55 Potassium 3.8 mmol/L (3.6-5.0) 08/09/18 17:55 Chloride 102.2 mmol/L (98-107) 08/09/18 17:55 Carbon Dioxide 29 mmol/L (22-30) 08/09/18 17:55 19 mmol/L 08/09/18 17:55 BUN 21 mg/dL (7-17) H 08/09/18 17:55 0.4 mg/dL (0.7-1.2) L 08/09/18 17:55 Estimated GFR > 60 ml/min 08/09/18 17:55 53 % 08/09/18 17:55 Glucose 130 mg/dL (65-100) H 08/09/18 17:55 Calcium 9.5 mg/dL (8.4-10.2) 08/09/18 17:55 0.80 mg/dL (0.1-1.2) 08/09/18 17:55 AST 34 units/L (5-40) 08/09/18 17:55 ALT 24 units/L (7-56) 08/09/18 17:55 48 units/L (35-129) 08/09/18 17:55 6.9 g/dL (6.3-8.2) 08/09/18 17:55 4.5 g/dL (3.9-5) 08/09/18 17:55 1.9 % 08/09/18 17:55 22 units/L (13-60) 08/09/18 17:55 Yellow (Yellow) 08/09/18 18:25 Cloudy (Clear) 08/09/18 18:25 7.0 (5.0-7.0) 08/09/18 18:25 Ur Specific [place] 1.015 (1.003-1.030) 08/09/18 18:25 <15 mg/dl mg/dL (Negative) 08/09/18 18:25 Neg mg/dL (Negative) 08/09/18 18:25 20 mg/dL (Negative) 08/09/18 18:25 Mod (Negative) 08/09/18 18:25 Neg (Negative) 08/09/18 18:25 Neg (Negative) 08/09/18 18:25 < 2.0 mg/dL (<2.0) 08/09/18 18:25 Ur Leukocyte Esterase Neg (Negative) 08/09/18 18:25 1.0 /HPF (0.0-6.0) 08/09/18 18:25 29.0 /HPF (0.0-6.0) 08/09/18 18:25 Few /HPF 08/09/18 18:25 3+ /HPF 08/09/18 18:25 Active Medications - Current Medications Current Medications: Generic Name Dose Route Start Last Admin Trade Name Freq PRN Reason Stop Dose Admin Acetaminophen 650 mg 08/09/18 23:07 Tylenol [place] Q4H PRN Fever >101 Enoxaparin Sodium 40 mg 08/10/18 22:00 Lovenox SUB-Q QDAY@2200 SILVIANO Hydromorphone HCl 0.5 mg 08/10/18 04:07 08/10/18 05:26 Dilaudid IV 0.5 mg Q4H PRN Administration Pain , Severe (7-10) Sodium Chloride 1,000 mls @ 75 mls/hr 08/09/18 23:45 08/10/18 05:10 Nacl 0.9% 1000 Ml IV 75 mls/hr DIRECT SILVIANO Administration Ondansetron HCl 4 mg 08/09/18 23:05 08/10/18 05:25 Zofran IV 4 mg Q8H PRN Administration Nausea And Vomiting
--- NOTE | 2018-08-10 13:37 | Progress Note ---
Assessment and Plan Pt well known to me. Admitted with partial sbo in the past. CT yesterday pm. recurrent sbo today feeling better. Abd minimally distended, non tender. + BS Abd series - gas noted throughout transverse colon. pt vomited twice this am. very small 12 fr ng tube NG replaced with size 16 fr keep npo ng suction IV fluid hydration. insert mineral oil per ng f/u abd series in am continue present care will follow Selected Entries 08/10/18 12:00 Temperature 98 F Pulse Rate 63 Respiratory 16 Rate Blood Pressure 104/54 [Left] Laboratory Tests 08/09/18 08/09/18 17:55 17:55 WBC 9.8 Hgb 14.2 Hct 42.8 Sodium 146 H Potassium 3.8 Chloride 102.2 Carbon Dioxide 29 BUN 21 H Creatinine 0.4 L Objective Vital Signs - 12hr 08/10/18 08/10/18 08/10/18 05:11 07:08 07:40 Temperature 98.5 F 97.9 F 97.9 F Pulse Rate 62 60 Respiratory 16 18 18 Rate Blood Pressure 115/62 106/56 Blood Pressure 106/56 [Left] O2 Sat by Pulse 96 96 Oximetry 08/10/18 12:00 Temperature 98 F Pulse Rate 63 Respiratory 16 Rate Blood Pressure Blood Pressure 104/54 [Left] O2 Sat by Pulse Oximetry - Labs 08/09/18 17:55 08/09/18 17:55 Diabetes panel 08/09/18 Range/Units 17:55 Sodium 146 H (137-145) mmol/L Potassium 3.8 (3.6-5.0) mmol/L Chloride 102.2 (98-107) mmol/L Carbon Dioxide 29 (22-30) mmol/L BUN 21 H (7-17) mg/dL Creatinine 0.4 L (0.7-1.2) mg/dL Glucose 130 H (65-100) mg/dL Calcium 9.5 (8.4-10.2) mg/dL AST 34 (5-40) units/L ALT 24 (7-56) units/L Alkaline Phosphatase 48 (35-129) units/L Total Protein 6.9 (6.3-8.2) g/dL Albumin 4.5 (3.9-5) g/dL Calcium panel 08/09/18 Range/Units 17:55 Calcium 9.5 (8.4-10.2) mg/dL Albumin 4.5 (3.9-5) g/dL Pituitary panel 08/09/18 Range/Units 17:55 Sodium 146 H (137-145) mmol/L Potassium 3.8 (3.6-5.0) mmol/L Chloride 102.2 (98-107) mmol/L Carbon Dioxide 29 (22-30) mmol/L BUN 21 H (7-17) mg/dL Creatinine 0.4 L (0.7-1.2) mg/dL Glucose 130 H (65-100) mg/dL Calcium 9.5 (8.4-10.2) mg/dL Adrenal panel 08/09/18 Range/Units 17:55 Sodium 146 H (137-145) mmol/L Potassium 3.8 (3.6-5.0) mmol/L Chloride 102.2 (98-107) mmol/L Carbon Dioxide 29 (22-30) mmol/L BUN 21 H (7-17) mg/dL Creatinine 0.4 L (0.7-1.2) mg/dL Glucose 130 H (65-100) mg/dL Calcium 9.5 (8.4-10.2) mg/dL Total Bilirubin 0.80 (0.1-1.2) mg/dL AST 34 (5-40) units/L ALT 24 (7-56) units/L Alkaline Phosphatase 48 (35-129) units/L Total Protein 6.9 (6.3-8.2) g/dL Albumin 4.5 (3.9-5) g/dL
[2018-08-10] MEDS: PEPCID IV SCH ×2 (16:26→22:06)
[2018-08-10] MEDS: MINERAL OIL PO SCH (20:25)
[2018-08-10] MEDS: LOVENOX SUB-Q SCH (22:06)
[2018-08-11] MEDS: MINERAL OIL PO SCH ×6 (00:39→21:07)
[2018-08-11] MEDS: DILAUDID IV PRN (03:47)
--- NOTE | 2018-08-11 08:22 | XRay Report ---
ABDOMINAL SERIES: History: Small bowel obstruction. Moderately dilated loops of proximal small bowel in the upper abdomen are unchanged since yesterday's examination. There is a small amount of gas identified in the colon. No evidence for free air. The nasogastric tube has been retracted slightly but still terminates in the fundus of the stomach. Vicarious excretion of contrast agent into the gallbladder is noted. The lungs are hyperinflated but clear. Borderline cardiomegaly is stable. IMPRESSION: No change.
[2018-08-11] MEDS: PEPCID IV SCH ×2 (09:06→21:08)
[2018-08-11 09:59] LABS: Hematocrit 39.6 % (30.3-42.9); Hemoglobin 12.9 gm/dl (10.1-14.3); Mean Corpuscular HGB Conc 33 % (30-34); Mean Corpuscular Volume 93 fl (79-97); Platelet Count 269 K/mm3 (140-440); Red Blood Count 4.26 M/mm3 (3.65-5.03); Red Cell Distribution Width 14.8 % (13.2-15.2)
[2018-08-11 10:22] LABS: BUN/Creatinine Ratio 50; Blood Urea Nitrogen 20 mg/dL (7-17); Calcium 8.4 mg/dL (8.4-10.2); Hemolysis Index 164
[2018-08-11 10:49] LABS: Total Cells Counted 100
[2018-08-11 10:50] LABS: Basophils % (Manual) 0 % (0.0-1.8); Eosinophils % (Manual) 0 % (0.0-4.3)
[2018-08-11 10:51] LABS: Anisocytosis Few; Large Platelets Rare; Platelet Estimate Consistent w Auto
[2018-08-11] MEDS: NACL 0.9% 1000 ML 1,000 ML IV SCH (10:54)
--- NOTE | 2018-08-11 11:17 | Progress Note ---
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, history of appendectomy, hysterectomy and breast cancer that was treated with bilateral mastectomy CT abdomen and pelvis showed closed loop small bowel obstruction in the region of the distal jejunum and proximal ileum Labs reveal mild hyponatremia, sodium of 146 Diagnoses/plan small bowel obstruction Bowel rest and NG tube to suction, mineral oil per ngt, management per general surgery, IV fluids Antiemetics and pain medications as needed Hypernatremia/dehydration Continue IV fluids DVT prophylaxis with Lovenox History Interval history: Review of systems Constitutional: No fevers, no malaise, no joint pains CVS: No chest pain, no orthopnea, no dyspnea on exertion, no pedal edema GI: Abdominal pain Is improved, it is in the epigastrium, currently 2 out of 10, no vomiting, no constipation Respiratory: no wheezing, no coughing Hospitalist Physical - Physical exam Narrative exam: General.: Appears well, no distress, nontoxic HEENT: Moist mucous membranes, extraocular muscles intact, no lymphadenopathy Neck: supple Cardiac: S1-S2 heard Lungs: clear to auscultation bilaterally Abdomen: soft , nontender, nondistended, bowel sounds positive Extremities: no edema clubbing or cyanosis Skin: no rash or lesions Neurologic: no gross focal deficits Psych: calm, and cooperative - Constitutional Vitals: Temp Pulse Resp BP Pulse Ox 97.7 F 52 L 18 111/54 95 08/11/18 08:23 08/11/18 08:24 08/11/18 08:23 08/11/18 08:23 08/11/18 08:24 Results - Labs CBC & Chem 7: 08/11/18 09:35 08/11/18 09:35 Labs: Laboratory Last Values WBC 8.8 K/mm3 (4.5-11.0) 08/11/18 09:35 RBC 4.26 M/mm3 (3.65-5.03) 08/11/18 09:35 Hgb 12.9 gm/dl (10.1-14.3) 08/11/18 09:35 Hct 39.6 % (30.3-42.9) 08/11/18 09:35 MCV 93 fl (79-97) 08/11/18 09:35 MCH 30 pg (28-32) 08/11/18 09:35 MCHC 33 % (30-34) 08/11/18 09:35 RDW 14.8 % (13.2-15.2) 08/11/18 09:35 Plt Count 269 K/mm3 (140-440) 08/11/18 09:35 Lymph % (Auto) Pipe Line Inspector 08/09/18 17:55 [place] % (Auto) Pipe Line Inspector 08/09/18 17:55 Eos % (Auto) Pipe Line Inspector 08/09/18 17:55 Baso % (Auto) Pipe Line Inspector 08/09/18 17:55 Lymph # Pipe Line Inspector 08/09/18 17:55 [place] # Pipe Line Inspector 08/09/18 17:55 Eos # Pipe Line Inspector 08/09/18 17:55 Baso # Pipe Line Inspector 08/09/18 17:55 Add Manual Diff Complete 08/11/18 09:35 Total Counted 100 08/11/18 09:35 Seg Neutrophils % Pipe Line Inspector 08/09/18 17:55 Seg Neuts % (Manual) 84.0 % (40.0-70.0) H 08/11/18 09:35 0 % 08/11/18 09:35 13.0 % (13.4-35.0) L 08/11/18 09:35 Reactive Lymphs % (Man) 0 % 08/11/18 09:35 3.0 % (0.0-7.3) 08/11/18 09:35 0 % (0.0-4.3) 08/11/18 09:35 0 % (0.0-1.8) 08/11/18 09:35 0 % 08/11/18 09:35 0 % 08/11/18 09:35 0 % 08/11/18 09:35 0 % 08/11/18 09:35 Nucleated RBC % Not Reportable 08/11/18 09:35 Seg Neutrophils # Pipe Line Inspector 08/09/18 17:55 Seg Neutrophils # Man 7.4 K/mm3 (1.8-7.7) 08/11/18 09:35 Band Neutrophils # 0.0 K/mm3 08/11/18 09:35 1.1 K/mm3 (1.2-5.4) L 08/11/18 09:35 Abs React Lymphs (Man) 0.0 K/mm3 08/11/18 09:35 0.3 K/mm3 (0.0-0.8) 08/11/18 09:35 0.0 K/mm3 (0.0-0.4) 08/11/18 09:35 0.0 K/mm3 (0.0-0.1) 08/11/18 09:35 0.0 K/mm3 08/11/18 09:35 0.0 K/mm3 08/11/18 09:35 0.0 K/mm3 08/11/18 09:35 Blast Cells # 0.0 K/mm3 08/11/18 09:35 WBC Morphology Not Reportable 08/11/18 09:35 Hypersegmented Neuts Not Reportable 08/11/18 09:35 Hyposegmented Neuts Not Reportable 08/11/18 09:35 Hypogranular Neuts Not Reportable 08/11/18 09:35 Not Reportable 08/11/18 09:35 Not Reportable 08/11/18 09:35 Not Reportable 08/11/18 09:35 Not Reportable 08/11/18 09:35 Not Reportable 08/11/18 09:35 Not Reportable 08/11/18 09:35 Consistent w auto 08/11/18 09:35 Not Reportable 08/11/18 09:35 Plt Clumps, EDTA Not Reportable 08/11/18 09:35 Rare 08/11/18 09:35 Not Reportable 08/11/18 09:35 Not Reportable 08/11/18 09:35 Plt Morphology Comment Not Reportable 08/11/18 09:35 RBC Morphology Not Reportable 08/11/18 09:35 Dimorphic RBCs Not Reportable 08/11/18 09:35 Not Reportable 08/11/18 09:35 Not Reportable 08/11/18 09:35 Not Reportable 08/11/18 09:35 Few 08/11/18 09:35 Not Reportable 08/11/18 09:35 Not Reportable 08/11/18 09:35 Not Reportable 08/11/18 09:35 Not Reportable 08/11/18 09:35 Not Reportable 08/11/18 09:35 Not Reportable 08/11/18 09:35 Not Reportable 08/11/18 09:35 Not Reportable 08/11/18 09:35 Not Reportable 08/11/18 09:35 Not Reportable 08/11/18 09:35 Not Reportable 08/11/18 09:35 Not Reportable 08/11/18 09:35 Not Reportable 08/11/18 09:35 Not Reportable 08/11/18 09:35 Not Reportable 08/11/18 09:35 Acanthocytes (Spur) Not Reportable 08/11/18 09:35 Rouleaux Not Reportable 08/11/18 09:35 Not Reportable 08/11/18 09:35 Not Reportable 08/11/18 09:35 Not Reportable 08/11/18 09:35 Not Reportable 08/11/18 09:35 Hem Pathologist Commnt No 08/11/18 09:35 Sodium 146 mmol/L (137-145) H 08/11/18 09:35 Potassium 4.7 mmol/L (3.6-5.0) D 08/11/18 09:35 Chloride 109.0 mmol/L (98-107) H 08/11/18 09:35 Carbon Dioxide 26 mmol/L (22-30) 08/11/18 09:35 16 mmol/L 08/11/18 09:35 BUN 20 mg/dL (7-17) H 08/11/18 09:35 0.4 mg/dL (0.7-1.2) L 08/11/18 09:35 Estimated GFR > 60 ml/min 08/11/18 09:35 50 % 08/11/18 09:35 Glucose 103 mg/dL (65-100) H 08/11/18 09:35 Calcium 8.4 mg/dL (8.4-10.2) 08/11/18 09:35 0.80 mg/dL (0.1-1.2) 08/09/18 17:55 AST 34 units/L (5-40) 08/09/18 17:55 ALT 24 units/L (7-56) 08/09/18 17:55 48 units/L (35-129) 08/09/18 17:55 6.9 g/dL (6.3-8.2) 08/09/18 17:55 4.5 g/dL (3.9-5) 08/09/18 17:55 1.9 % 08/09/18 17:55 22 units/L (13-60) 08/09/18 17:55 Yellow (Yellow) 08/09/18 18:25 Cloudy (Clear) 08/09/18 18:25 7.0 (5.0-7.0) 08/09/18 18:25 Ur Specific [place] 1.015 (1.003-1.030) 08/09/18 18:25 <15 mg/dl mg/dL (Negative) 08/09/18 18:25 Neg mg/dL (Negative) 08/09/18 18:25 20 mg/dL (Negative) 08/09/18 18:25 Mod (Negative) 08/09/18 18:25 Neg (Negative) 08/09/18 18:25 Neg (Negative) 08/09/18 18:25 < 2.0 mg/dL (<2.0) 08/09/18 18:25 Ur Leukocyte Esterase Neg (Negative) 08/09/18 18:25 1.0 /HPF (0.0-6.0) 08/09/18 18:25 29.0 /HPF (0.0-6.0) 08/09/18 18:25 Few /HPF 08/09/18 18:25 3+ /HPF 08/09/18 18:25 Active Medications - Current Medications Current Medications: Generic Name Dose Route Start Last Admin Trade Name Freq PRN Reason Stop Dose Admin Acetaminophen 650 mg 08/09/18 23:07 Tylenol ID Q4H PRN Fever >101 Enoxaparin Sodium 40 mg 08/10/18 22:00 08/10/18 22:06 Lovenox SUB-Q 40 mg QDAY@2200 SILVIANO Administration Famotidine 20 mg 08/10/18 15:00 08/11/18 09:06 Pepcid IV 20 mg BID SILVIANO Administration Hydromorphone HCl 0.5 mg 08/10/18 04:07 08/11/18 03:47 Dilaudid IV 0.5 mg Q4H PRN Administration Pain , Severe (7-10) Mineral Oil 30 ml 08/10/18 20:00 08/11/18 08:30 Mineral Oil PO 30 ml Q4H SILVIANO Administration Ondansetron HCl 4 mg 08/09/18 23:05 08/10/18 22:14 Zofran IV 4 mg Q8H PRN Administration Nausea And Vomiting Phenol 1 spray 08/10/18 13:38 Chloraseptic MM PRN PRN Sore Throat Nutrition/Malnutrition Assess - Dietary Evaluation Nutrition/Malnutrition Findings: Nutrition Notes Start: 08/10/18 16:30 Freq: Status: Active Protocol: Document 08/10/18 16:30 OH (Rec: 08/10/18 16:44 OH [id number]) Nutrition Notes Need for Assessment generated from: Low BMI Initial or Follow up Assessment Other Pertinent Diagnosis small bowel obstruction Current Diet NPO Labs/Tests GLU 130 ALB 4.5 Na 146 k+ 3.8 Pertinent Medications Lovenox Height 4 ft 8 in Weight 33.5 kg [place] Body Weight (kg) 36.36 BMI 16.5 Intake Prior to Admission Poor Weight Status Underweight Subjective/Other Information Referred for low BMI. Pt. walking halls when I went to speak w/her. Pt. indicated she weighed around 72# which as recorded in EMR. Pt. has nasogastric tube. She does have a hx of small bowel obstruction. Pt. on NPO for bowel rest per MD. Percent of energy/protein needs met: 0/0 Burn Absent Trauma Absent Current % PO Negligible #2 Nutrition Diagnosis Altered GI function Etiology inability to take in adequate kcals/PRO to meet nutritional needs As Evidenced by Signs and Symptoms low bmi #1 Nutrition Diagnosis Inadequate oral intake Etiology pain associated w/small bowel obstruction As Evidenced by Signs and Symptoms n/v; unable to keep anything down Is patient on ventilator? No Is Patient Ambulatory and/or Out of Bed Yes REE-([facility]-ambulatory/OOB) [ 965.900 NUTR.[id number]] Kcal/Kg value to use for calculation 40 Approximate Energy Requirements Using 1340 kcal/Kg Calculation Used for Recommendations Kcal/kg Additional Notes FLUID: 1 ml/kcal PRO: 0.8-1.2 G/KG/IBW 30-44 g /day Nutrition Intervention Change Diet Order: advance diet per MD Goal #1 monitor for diet advancement/ TF-TPN MD referral Anticipated Discharge Needs: unable to determine at this time Follow-Up By: 08/12/18 Additional Comments diet advancement; TF/TPN MD referral
--- NOTE | 2018-08-11 11:31 | Consultation ---
REASON FOR CONSULTATION: Recurrent partial bowel obstruction. HISTORY OF PRESENT ILLNESS: The patient is very pleasant 63-year-old female well known to me. She has been admitted here in the past for previous episodes of partial small-bowel obstruction, which have fortunately resolved with NG suction. At this time, the patient once again was noted to be complaining of some abdominal pain and distention as well as vomiting. On arrival to the ER and evaluation revealed a CT scan consistent with partial small-bowel obstruction. Vital signs essentially were normal. Lab work also was normal including a white count of 9.8, H and H of 14.2 and 42.8. Electrolytes are essentially within normal limits as well as LFTs. Lipase was normal at 22. PAST MEDICAL HISTORY: Please review previous admission. PAST SURGICAL HISTORY: Please review previous admission. PHYSICAL EXAMINATION: GENERAL APPERANCE: This morning the patient is feeling better. She has passed some gas and states she has less abdominal distention. She did, however, have 2 episodes of small emesis this morning. The patient is awake, alert, cooperative and resting comfortably. VITAL SIGNS: This a.m. showed to be stable with a temperature of 98, blood pressure 104/54, pulse of 63, respirations 16. GASTROINTESTINAL: A very small NG is noted to be in place approximately 12-Micronesian. I went ahead and replaced this NG with a 16-Micronesian. Examination of the abdomen reveals it to be minimally distended and nontender at present. Bowel sounds are audible, but slightly hypoactive. LABORATORY DATA: Includes a CBC, which shows white count of 9.8 and electrolytes as mentioned were essentially normal. Abdominal series this morning shows improvement of this small bowel obstructive pattern. Gas is noted throughout the transverse colon. IMPRESSION: At this time is a 63-year-old female, rule out recurrent partial small bowel obstruction. PLAN: Plan is to replace NG tube to larger Micronesian size, which I have done. I will continue present care of n.p.o., NG suction and IV fluid hydration. Also, we will begin inserting mineral oil through the NG tube q.4h. I have ordered repeat labs in the morning as well as a followup abdominal series. We will follow closely with you. Thank you very much for consultation. JOB# [id number] FP/NTS
[2018-08-11] MEDS: ZOFRAN IV PRN (12:23)
--- NOTE | 2018-08-11 14:41 | Progress Note ---
Assessment and Plan Pt status quo. minimal flatus Abd exam - unchanged Abd series - unchanged partial sbo. clinically stable but minimal improvement will Rx I more day with ng suction and repeat abd series in am proceed with expl lap, lysis of adhesions, possible bowel resection in am if no improvement. already discussed with pt Selected Entries 08/11/18 08/11/18 08:23 08:24 Temperature 97.7 F Pulse Rate 52 L Respiratory 18 Rate O2 Sat by Pulse 95 Oximetry Laboratory Tests 08/09/18 08/11/18 08/11/18 17:55 09:35 09:35 WBC 9.8 8.8 Sodium 146 H Potassium 4.7 D Chloride 109.0 H Carbon Dioxide 26 BUN 20 H Creatinine 0.4 L Objective Vital Signs - 12hr 08/11/18 08/11/18 08/11/18 04:33 08:23 08:24 Temperature 98.7 F 97.7 F Pulse Rate 53 L 54 L 52 L Respiratory 16 18 Rate Blood Pressure 112/57 111/54 O2 Sat by Pulse 95 95 95 Oximetry - Labs 08/11/18 09:35 08/11/18 09:35 Diabetes panel 08/11/18 Range/Units 09:35 Sodium 146 H (137-145) mmol/L Potassium 4.7 D (3.6-5.0) mmol/L Chloride 109.0 H (98-107) mmol/L Carbon Dioxide 26 (22-30) mmol/L BUN 20 H (7-17) mg/dL Creatinine 0.4 L (0.7-1.2) mg/dL Glucose 103 H (65-100) mg/dL Calcium 8.4 (8.4-10.2) mg/dL Calcium panel 08/11/18 Range/Units 09:35 Calcium 8.4 (8.4-10.2) mg/dL Pituitary panel 08/11/18 Range/Units 09:35 Sodium 146 H (137-145) mmol/L Potassium 4.7 D (3.6-5.0) mmol/L Chloride 109.0 H (98-107) mmol/L Carbon Dioxide 26 (22-30) mmol/L BUN 20 H (7-17) mg/dL Creatinine 0.4 L (0.7-1.2) mg/dL Glucose 103 H (65-100) mg/dL Calcium 8.4 (8.4-10.2) mg/dL Adrenal panel 08/11/18 Range/Units 09:35 Sodium 146 H (137-145) mmol/L Potassium 4.7 D (3.6-5.0) mmol/L Chloride 109.0 H (98-107) mmol/L Carbon Dioxide 26 (22-30) mmol/L BUN 20 H (7-17) mg/dL Creatinine 0.4 L (0.7-1.2) mg/dL Glucose 103 H (65-100) mg/dL Calcium 8.4 (8.4-10.2) mg/dL
[2018-08-11] MEDS: CHLORASEPTIC MM PRN (16:08)
[2018-08-11] MEDS: NACL 0.45% 1000 ML 1,000 ML IV SCH (16:10)
[2018-08-11] MEDS: LOVENOX SUB-Q SCH (21:14)
[2018-08-12] MEDS: MINERAL OIL PO SCH ×2 (01:51→05:40)
[2018-08-12] MEDS: NACL 0.45% 1000 ML 1,000 ML IV SCH ×3 (01:51→18:13)
--- NOTE | 2018-08-12 08:50 | XRay Report ---
ABDOMINAL SERIES: History: Small bowel obstruction. A few moderately dilated loops of small bowel with large air-fluid levels are essentially unchanged over the past 2 examinations. There is trace gas in the colon and rectum. No free air is identified. GI tube terminates in the distal stomach. The lungs are clear. IMPRESSION: No change.
[2018-08-12] MEDS ORDERED: SUBLIMAZE ONE (09:31)
[2018-08-12] MEDS ORDERED: DIPRIVAN 10 MG/ML IV ONE (09:32)
[2018-08-12] MEDS ORDERED: LACTATED RINGERS 1,000 ML ONE (10:00)
[2018-08-12] MEDS ORDERED: ANCEF/STERILE WATER 2 GM/20 ML 2 GM/20 ML SYRINGE IV ONE (10:07)
[2018-08-12] MEDS ORDERED: ANCEF/STERILE WATER 2 GM/20 ML IV NR (10:30)
[2018-08-12] MEDS ORDERED: DECADRON ONE (10:35)
[2018-08-12] MEDS ORDERED: ROBINUL ONE (10:35)
[2018-08-12] MEDS ORDERED: BLOXIVERZ ONE (10:35)
[2018-08-12] MEDS ORDERED: VERSED ONE (10:42)
[2018-08-12] MEDS ORDERED: DILAUDID ONE ×2 (11:00→16:22)
[2018-08-12] MEDS ORDERED: NACL 0.9% IR ONE ×2 (11:02)
[2018-08-12] MEDS ORDERED: FLAGYL 500 MG/100 ML 500 MG/100 ML BAG IV ONE (11:34)
[2018-08-12] MEDS ORDERED: NACL 0.9% 500 ML 500 ML IV NR (12:44)
[2018-08-12] MEDS ORDERED: WATER FOR IRRIG STERILE IR ONE (13:11)
--- NOTE | 2018-08-12 13:29 | Progress Note ---
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, history of appendectomy, hysterectomy and breast cancer that was treated with bilateral mastectomy CT abdomen and pelvis showed closed loop small bowel obstruction in the region of the distal jejunum and proximal ileum Labs reveal mild hyponatremia, sodium of 146 Diagnoses/plan small bowel obstruction Conservative measures did not lead to resolution, she is going to or for exploratory laparoscopy later today Severe malnutrition We'll obtain dietitian consult on patient is no longer nothing by mouth Hypernatremia/dehydration Continue IV fluids DVT prophylaxis with Lovenox History Interval history: Review of systems Constitutional: No fevers, no malaise, no joint pains CVS: No chest pain, no orthopnea, no dyspnea on exertion, no pedal edema GI: Abdominal pain Is improved, it is in the epigastrium, currently 2 out of 10, no vomiting, no constipation Respiratory: no wheezing, no coughing Hospitalist Physical - Physical exam Narrative exam: General.: Appears well, no distress, nontoxic HEENT: Moist mucous membranes, extraocular muscles intact, no lymphadenopathy Neck: supple Cardiac: S1-S2 heard Lungs: clear to auscultation bilaterally Abdomen: soft , nontender, nondistended, bowel sounds positive Extremities: no edema clubbing or cyanosis Skin: no rash or lesions Neurologic: no gross focal deficits Psych: calm, and cooperative - Constitutional Vitals: Temp Pulse Resp BP Pulse Ox 98.8 F 58 L 14 119/52 99 08/12/18 10:16 08/12/18 10:16 08/12/18 10:16 08/12/18 10:16 08/12/18 10:16 Results - Labs CBC & Chem 7: 08/13/18 06:02 08/13/18 06:02 Labs: Laboratory Last Values WBC 8.8 K/mm3 (4.5-11.0) 08/11/18 09:35 RBC 4.26 M/mm3 (3.65-5.03) 08/11/18 09:35 Hgb 12.9 gm/dl (10.1-14.3) 08/11/18 09:35 Hct 39.6 % (30.3-42.9) 08/11/18 09:35 MCV 93 fl (79-97) 08/11/18 09:35 MCH 30 pg (28-32) 08/11/18 09:35 MCHC 33 % (30-34) 08/11/18 09:35 RDW 14.8 % (13.2-15.2) 08/11/18 09:35 Plt Count 269 K/mm3 (140-440) 08/11/18 09:35 Lymph % (Auto) [employer] 08/09/18 17:55 [place] % (Auto) [employer] 08/09/18 17:55 Eos % (Auto) [employer] 08/09/18 17:55 Baso % (Auto) [employer] 08/09/18 17:55 Lymph # [employer] 08/09/18 17:55 [place] # [employer] 08/09/18 17:55 Eos # [employer] 08/09/18 17:55 Baso # [employer] 08/09/18 17:55 Add Manual Diff Complete 08/11/18 09:35 Total Counted 100 08/11/18 09:35 Seg Neutrophils % [employer] 08/09/18 17:55 Seg Neuts % (Manual) 84.0 % (40.0-70.0) H 08/11/18 09:35 0 % 08/11/18 09:35 13.0 % (13.4-35.0) L 08/11/18 09:35 Reactive Lymphs % (Man) 0 % 08/11/18 09:35 3.0 % (0.0-7.3) 08/11/18 09:35 0 % (0.0-4.3) 08/11/18 09:35 0 % (0.0-1.8) 08/11/18 09:35 0 % 08/11/18 09:35 0 % 08/11/18 09:35 0 % 08/11/18 09:35 0 % 08/11/18 09:35 Nucleated RBC % Not Reportable 08/11/18 09:35 Seg Neutrophils # [employer] 08/09/18 17:55 Seg Neutrophils # Man 7.4 K/mm3 (1.8-7.7) 08/11/18 09:35 Band Neutrophils # 0.0 K/mm3 08/11/18 09:35 1.1 K/mm3 (1.2-5.4) L 08/11/18 09:35 Abs React Lymphs (Man) 0.0 K/mm3 08/11/18 09:35 0.3 K/mm3 (0.0-0.8) 08/11/18 09:35 0.0 K/mm3 (0.0-0.4) 08/11/18 09:35 0.0 K/mm3 (0.0-0.1) 08/11/18 09:35 0.0 K/mm3 08/11/18 09:35 0.0 K/mm3 08/11/18 09:35 0.0 K/mm3 08/11/18 09:35 Blast Cells # 0.0 K/mm3 08/11/18 09:35 WBC Morphology Not Reportable 08/11/18 09:35 Hypersegmented Neuts Not Reportable 08/11/18 09:35 Hyposegmented Neuts Not Reportable 08/11/18 09:35 Hypogranular Neuts Not Reportable 08/11/18 09:35 Not Reportable 08/11/18 09:35 Not Reportable 08/11/18 09:35 Not Reportable 08/11/18 09:35 Not Reportable 08/11/18 09:35 Not Reportable 08/11/18 09:35 Not Reportable 08/11/18 09:35 Consistent w auto 08/11/18 09:35 Not Reportable 08/11/18 09:35 Plt Clumps, EDTA Not Reportable 08/11/18 09:35 Rare 08/11/18 09:35 Not Reportable 08/11/18 09:35 Not Reportable 08/11/18 09:35 Plt Morphology Comment Not Reportable 08/11/18 09:35 RBC Morphology Not Reportable 08/11/18 09:35 Dimorphic RBCs Not Reportable 08/11/18 09:35 Not Reportable 08/11/18 09:35 Not Reportable 08/11/18 09:35 Not Reportable 08/11/18 09:35 Few 08/11/18 09:35 Not Reportable 08/11/18 09:35 Not Reportable 08/11/18 09:35 Not Reportable 08/11/18 09:35 Not Reportable 08/11/18 09:35 Not Reportable 08/11/18 09:35 Not Reportable 08/11/18 09:35 Not Reportable 08/11/18 09:35 Not Reportable 08/11/18 09:35 Not Reportable 08/11/18 09:35 Not Reportable 08/11/18 09:35 Not Reportable 08/11/18 09:35 Not Reportable 08/11/18 09:35 Not Reportable 08/11/18 09:35 Not Reportable 08/11/18 09:35 Not Reportable 08/11/18 09:35 Acanthocytes (Spur) Not Reportable 08/11/18 09:35 Rouleaux Not Reportable 08/11/18 09:35 Not Reportable 08/11/18 09:35 Not Reportable 08/11/18 09:35 Not Reportable 08/11/18 09:35 Not Reportable 08/11/18 09:35 Hem Pathologist Commnt No 08/11/18 09:35 Sodium 146 mmol/L (137-145) H 08/11/18 09:35 Potassium 4.7 mmol/L (3.6-5.0) D 08/11/18 09:35 Chloride 109.0 mmol/L (98-107) H 08/11/18 09:35 Carbon Dioxide 26 mmol/L (22-30) 08/11/18 09:35 16 mmol/L 08/11/18 09:35 BUN 20 mg/dL (7-17) H 08/11/18 09:35 0.4 mg/dL (0.7-1.2) L 08/11/18 09:35 Estimated GFR > 60 ml/min 08/11/18 09:35 50 % 08/11/18 09:35 Glucose 103 mg/dL (65-100) H 08/11/18 09:35 Calcium 8.4 mg/dL (8.4-10.2) 08/11/18 09:35 Magnesium 2.10 mg/dL (1.7-2.3) 08/11/18 09:35 0.80 mg/dL (0.1-1.2) 08/09/18 17:55 AST 34 units/L (5-40) 08/09/18 17:55 ALT 24 units/L (7-56) 08/09/18 17:55 48 units/L (35-129) 08/09/18 17:55 6.9 g/dL (6.3-8.2) 08/09/18 17:55 4.5 g/dL (3.9-5) 08/09/18 17:55 1.9 % 08/09/18 17:55 22 units/L (13-60) 08/09/18 17:55 Yellow (Yellow) 08/09/18 18:25 Cloudy (Clear) 08/09/18 18:25 7.0 (5.0-7.0) 08/09/18 18:25 Ur Specific [place] 1.015 (1.003-1.030) 08/09/18 18:25 <15 mg/dl mg/dL (Negative) 08/09/18 18:25 Neg mg/dL (Negative) 08/09/18 18:25 20 mg/dL (Negative) 08/09/18 18:25 Mod (Negative) 08/09/18 18:25 Neg (Negative) 08/09/18 18:25 Neg (Negative) 08/09/18 18:25 < 2.0 mg/dL (<2.0) 08/09/18 18:25 Ur Leukocyte Esterase Neg (Negative) 08/09/18 18:25 1.0 /HPF (0.0-6.0) 08/09/18 18:25 29.0 /HPF (0.0-6.0) 08/09/18 18:25 Few /HPF 08/09/18 18:25 3+ /HPF 08/09/18 18:25 Active Medications - Current Medications Current Medications: Generic Name Dose Route Start Last Admin Trade Name Freq PRN Reason Stop Dose Admin Acetaminophen 650 mg 08/09/18 23:07 Tylenol ME Q4H PRN Fever >101 Cefazolin Sodium 2 gm 08/12/18 10:30 Ancef/Sterile Water 2 Gm/20 Ml IV 08/12/18 15:00 PREOP NR Enoxaparin Sodium 40 mg 08/10/18 22:00 08/11/18 21:14 Lovenox SUB-Q Not Given QDAY@2200 SILVIANO Famotidine 20 mg 08/10/18 15:00 08/11/18 21:08 Pepcid IV 20 mg BID SILVIANO Administration Hydromorphone HCl 0.5 mg 08/10/18 04:07 08/11/18 03:47 Dilaudid IV 0.5 mg Q4H PRN Administration Pain , Severe (7-10) Sodium Chloride 1,000 mls @ 125 mls/hr 08/11/18 12:00 08/12/18 05:39 Nacl 0.45% 1000 Ml IV 125 mls/hr DIRECT SILVIANO Administration Sodium Chloride 500 mls @ 0 mls/hr 08/12/18 12:44 Nacl 0.9% 500 Ml IV 08/12/18 23:59 ONCE NR As Directed Mineral Oil 30 ml 08/10/18 20:00 08/12/18 05:40 Mineral Oil PO 30 ml Q4H SILVIANO Administration Ondansetron HCl 4 mg 08/09/18 23:05 08/11/18 12:23 Zofran IV 4 mg Q8H PRN Administration Nausea And Vomiting Phenol 1 spray 08/10/18 13:38 08/11/18 16:08 Chloraseptic MM 1 spray PRN PRN Administration Sore Throat Nutrition/Malnutrition Assess - Dietary Evaluation Nutrition/Malnutrition Findings: Nutrition Notes Start: 08/10/18 16:30 Freq: Status: Active Protocol: Document 08/12/18 08:48 ALEXI (Rec: 08/12/18 08:52 ALEXI [id number] [email or web address]) Nutrition Notes Initial or Follow up Reassessment Other Pertinent Diagnosis Partial SBO Current Diet NPO Labs/Tests Reviewed Pertinent Medications Pepcid, Mineral oil, 1/2NS at 125ml/hr Height 4 ft 8 in Weight 33.5 kg [place] Body Weight (kg) 36.36 BMI 16.5 Subjective/Other Information Pt remains NPO (Day 4) with NGT to LIS. She may undergo exp lap with lysis of adhesions and possible bowel resection if no improvement. Burn Absent Trauma Absent #2 Nutrition Diagnosis Altered GI function Etiology partial bowel obstruction As Evidenced by Signs and Symptoms pt is NPO #1 Nutrition Diagnosis Inadequate oral intake Etiology partial bowel obstruction As Evidenced by Signs and Symptoms pt is NPO Is patient on ventilator? No Is Patient Ambulatory and/or Out of Bed Yes [facility] [ 965.900 NUTR.MSJOOB] Kcal/Kg value to use for calculation 40 Approximate Energy Requirements Using 1340 kcal/Kg Calculation Used for Recommendations Kcal/kg Additional Notes Pro needs 1.2-1.5g/k-50g/ day Fluid needs 1ml/kcal Nutrition Intervention Change Diet Order: Diet advancement when medically feasible Goal #1 Either diet advancement or initiation of PN to meet nutrient needs Goal #2 Wt maintenance and/or gain Follow-Up By: 08/14/18 Additional Comments F/U: diet advancement, POC
[2018-08-12] MEDS ORDERED: GELFOAM TP ONE (13:49)
[2018-08-12 14:26] LABS: Hematocrit 42.1 % (30.3-42.9); Hemoglobin 13.8 gm/dl (10.1-14.3); Mean Corpuscular HGB Conc 33 % (30-34); Mean Corpuscular Volume 92 fl (79-97); Red Blood Count 4.58 M/mm3 (3.65-5.03); Red Cell Distribution Width 14.8 % (13.2-15.2)
[2018-08-12 15:43] LABS: Basophils % (Manual) 0 % (0.0-1.8); Eosinophils % (Manual) 0 % (0.0-4.3); Total Cells Counted 50
[2018-08-12 15:45] LABS: Hematocrit 32.7 % (30.3-42.9); Hemoglobin 10.7 gm/dl (10.1-14.3); Mean Corpuscular HGB Conc 33 % (30-34); Mean Corpuscular Volume 93 fl (79-97); Platelet Count 191 K/mm3 (140-440); Red Blood Count 3.51 M/mm3 (3.65-5.03); Red Cell Distribution Width 14.3 % (13.2-15.2)
[2018-08-12 15:45] LABS: Platelet Estimate Consistent w Auto
[2018-08-12 15:46] LABS: Anisocytosis Few; Platelet Clumps Rare; Poikilocytosis Few
[2018-08-12 15:47] LABS: Platelet Count 275 K/mm3 (140-440)
[2018-08-12] MEDS ORDERED: ZOFRAN IV PRN (16:00)
[2018-08-12] MEDS ORDERED: DILAUDID IV PRN (16:00)
[2018-08-12 16:04] LABS: Alanine Aminotransferase 11 units/L (7-56); Albumin 1.7 g/dL (3.9-5); BUN/Creatinine Ratio 53; Blood Urea Nitrogen 21 mg/dL (7-17); Calcium 6.1 mg/dL (8.4-10.2); Hemolysis Index 2
[2018-08-12 16:24] LABS: Basophils % (Manual) 0 % (0.0-1.8); Eosinophils % (Manual) 0 % (0.0-4.3); Total Cells Counted 100
[2018-08-12 16:25] LABS: Anisocytosis Few; Large Platelets Few; Platelet Estimate Consistent w Auto; Poikilocytosis Few
--- NOTE | 2018-08-12 16:34 | XRay Report ---
PROCEDURE: XR CHEST 1V AP TECHNIQUE: Chest radiograph single view. HISTORY: post central line placement COMPARISONS: Chest x-ray August 09, 2018 . FINDINGS: Right internal jugular line with tip SVC. No pneumothorax. NG tube with tip below diaphragm Stable cardiomegaly. Trachea midline No sizable effusion or acute airspace disease Old granulomatous disease IMPRESSION: Right internal jugular line placed with tip SVC. No pneumothorax.. This document is electronically signed by Amor Limon MD., Aug 12 2018 04:32:41 PM ET
--- NOTE | 2018-08-12 16:59 | Anesthesia Consultation ---
Anesthesia Consult and Med Hx - Airway Anesthetic Teeth Evaluation: Poor ROM Head & Neck: Adequate Mental/Hyoid Distance: Adequate Mallampati Class: Class II Intubation Access Assessment: Good - Pulmonary Exam CTA: Yes - Cardiac Exam Cardiac Exam: RRR - Pre-Operative Health Status ASA Pre-Surgery Classification: ASA4 Proposed Anesthetic Plan: General (Acute abdomen for GA) - Pulmonary Hx Smoking: No Hx Asthma: No COPD: No Hx Pneumonia: No Hx Sleep Apnea: No - Cardiovascular System Hx Valvular Heart Disease: Yes (MVP) - Central Nervous System Hx Psychiatric Problems: No - Hematic Hx Anemia: No - Other Systems Hx Alcohol Use: No Hx Substance Use: No Hx Cancer: Yes (breast s/p mastectomy)
[2018-08-12] MEDS ORDERED: KCL 40 MEQ in NACL 0.45% 500 ML IV SCH (17:00)
--- NOTE | 2018-08-12 17:00 | Anesthesia Day of Surgery ---
Anesthesia Day of Surgery - Day of Surgery Patient Examined: Yes Patient H&P Reviewed: Yes Patient is NPO: Yes
--- NOTE | 2018-08-12 17:01 | Post Anesthesia Evaluation ---
- Post Anesthesia Evaluation Patient Participated: Yes Airway Patent: Yes Stable Respiratory Function: Yes Nausea/Vomiting: No Temp > 96.8F: Yes Pain Manageable: Yes Adequeate Hydration: Yes Anesthesia Complications: No Block Receding Appropriately: Not Applicable Patient on Ventilator: No
--- NOTE | 2018-08-12 17:25 | Operative Report ---
PREOPERATIVE DIAGNOSIS: Small-bowel obstruction. POSTOPERATIVE DIAGNOSES: Small-bowel obstruction with extensive intra-abdominal adhesions. PROCEDURES: 1. Exploratory laparotomy. 2. Lysis of extensive intraabdominal adhesions. 3. Segmental small bowel resection with primary anastomosis. SURGEON: Jared Pineda MD THERMOSTAT REPAIRER: Dr. Hughes. ANESTHESIA: General. ESTIMATED BLOOD LOSS: 300 mL. DRAINS: None. COMPLICATIONS: None. PROCEDURE IN DETAIL: The patient is a pleasant 63-year-old female who has been admitted here multiple times previously with partial small-bowel obstruction, which resolved with NG suction. At this time, unfortunately she did not clinically resolve and thus required exploratory laparotomy. The patient was taken to the operating room, prepped and draped in usual sterile fashion. Midline incision was made and abdomen entered. Upon entrance into the abdomen, extensive and very thick adhesions were noted throughout the entire small bowel. The small bowel was also plastered to the peritoneal surface, undersurface and also adhered to the pelvis. Very extensive slow and tedious dissection had to be carried out to free the small bowel, especially from the area where it was adhered to the pelvic floor. Some of the small bowel was noted to be denuded and thus required resection. Dissection was carried out along the entire small bowel until it was freed and anatomically able to be identified. The area of the distal ileum was identified entering the cecum. The area of dilatation transition to collapsed bowel was noted in the region where the bowel was adhered to the pelvic floor. This entire area was mobilized and resected. A primary end-to-end anastomosis was performed with a MELANIE and a TA-55. Area was irrigated copiously and dried. Checked for hemostasis and noted to be dry. Some oozing was noted in the pelvic floor. This was controlled with [id number] sutures, but again oozing continued. No real bleeding site was able to be identified. Kena was used throughout the pelvic floor. Lovenox has also been discontinued. The entire small bowel was then once again run and more adhesions lysed. No other source of a transition point was noted. No enterotomies noted. The anastomoses were noted to be intact. The entire abdomen was then copiously irrigated and suctioned dry. Checked for hemostasis and noted to be dry. The fascia was closed with interrupted #1 Vicryl suture. Subcutaneous tissues irrigated and skin closed loosely with asher. A Betadine with Telfa mushtaq were also applied. Abdominal binder will also be placed. The patient tolerated the procedure well, but is in guarded condition. I will transfer to ICU for further resuscitation and management. The patient will probably be n.p.o. for quite a while due to the extensive dissection and adhesions as well as bowel resection. Anesthesia will insert a central line. Again, we will transfer the patient to the unit. JOB# [id number] FP/NTS
[2018-08-12] MEDS: LEVAQUIN 500MG/100ML 500 MG/100 ML BAG IV SCH (18:12)
[2018-08-12] MEDS: PEPCID IV SCH (21:57)
[2018-08-12] MEDS: FLAGYL 500 MG/100 ML 500 MG/100 ML BAG IV SCH (21:57)
[2018-08-13 06:14] LABS: Hematocrit 37.9 % (30.3-42.9); Hemoglobin 12.4 gm/dl (10.1-14.3); Mean Corpuscular HGB Conc 33 % (30-34); Mean Corpuscular Volume 93 fl (79-97); Platelet Count 174 K/mm3 (140-440); Red Blood Count 4.07 M/mm3 (3.65-5.03); Red Cell Distribution Width 14.3 % (13.2-15.2)
[2018-08-13] MEDS: FLAGYL 500 MG/100 ML 500 MG/100 ML BAG IV SCH ×3 (06:21→22:18)
[2018-08-13] MEDS: NACL 0.45% 1000 ML 1,000 ML IV SCH ×3 (06:22→20:13)
[2018-08-13 06:28] LABS: Monocytes # (Auto) 0.4 K/mm3 (0.0-0.8); Monocytes % (Auto) 4.9 % (0.0-7.3)
[2018-08-13 06:41] LABS: Alanine Aminotransferase 13 units/L (7-56); Albumin 1.8 g/dL (3.9-5); BUN/Creatinine Ratio 60; Blood Urea Nitrogen 24 mg/dL (7-17); Hemolysis Index 57
[2018-08-13 08:31] LABS: Eosinophils % (Manual) 0 % (0.0-4.3); Myelocytes # (Manual) 0.1 K/mm3; Total Cells Counted 100
[2018-08-13 08:33] LABS: Anisocytosis Few; Dohle Bodies Few; Large Platelets Rare; Platelet Estimate Cons; Poikilocytosis Few
[2018-08-13] MEDS ORDERED: KCL 40 MEQ in NACL 0.45% 500 ML IV SCH (09:00)
[2018-08-13] MEDS ORDERED: MAGNESIUM SULFATE 3 GM in NACL 0.9% 100 ML IV ONE (09:00)
[2018-08-13] MEDS: PEPCID IV SCH ×3 (09:01→22:18)
[2018-08-13] MEDS: MINERAL OIL PO SCH (09:11)
[2018-08-13] MEDS: LEVAQUIN 500MG/100ML 500 MG/100 ML BAG IV SCH (09:55)
--- NOTE | 2018-08-13 12:10 | Progress Note ---
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, history of appendectomy, hysterectomy and breast cancer that was treated with bilateral mastectomy CT abdomen and pelvis showed closed loop small bowel obstruction in the region of the distal jejunum and proximal ileum Labs reveal mild hyponatremia, sodium of 146 Diagnoses/plan small bowel obstruction Conservative measures did not lead to resolution, -08/12 exploratory laparoscopy with lysis of adhesions, segmental small bowel resection with primary anastomosis, -08/13 started on TPN per Severe malnutrition cont TPN, label drier consult appreciated Hypernatremia/dehydration Continue IV fluids Hypokalemia/hypomagnesemia -repleted IV DVT prophylaxis with Lovenox History Interval history: Review of systems Constitutional: No fevers, no malaise, no joint pains CVS: No chest pain, no orthopnea, no dyspnea on exertion, no pedal edema GI: Abdominal pain Is improved, it is in the epigastrium, currently 2 out of 10, no vomiting, no constipation Respiratory: no wheezing, no coughing Hospitalist Physical - Physical exam Narrative exam: General.: Appears well, no distress, nontoxic HEENT: Moist mucous membranes, extraocular muscles intact, no lymphadenopathy Neck: supple Cardiac: S1-S2 heard Lungs: clear to auscultation bilaterally Abdomen: soft , nontender, nondistended, bowel sounds positive Extremities: no edema clubbing or cyanosis Skin: no rash or lesions Neurologic: no gross focal deficits Psych: calm, and cooperative - Constitutional Vitals: Temp Pulse Resp BP Pulse Ox 98.0 F 73 11 L 120/56 100 08/13/18 08:00 08/13/18 08:51 08/13/18 08:51 08/13/18 08:51 08/13/18 08:51 Results - Labs CBC & Chem 7: 08/14/18 06:50 08/14/18 06:50 Labs: Laboratory Last Values WBC 9.2 K/mm3 (4.5-11.0) 08/13/18 06:02 RBC 4.07 M/mm3 (3.65-5.03) 08/13/18 06:02 Hgb 12.4 gm/dl (10.1-14.3) 08/13/18 06:02 POC Hgb 14.3 (12-17) 08/12/18 14:37 Hct 37.9 % (30.3-42.9) 08/13/18 06:02 POC Hct 42 (38-51) 08/12/18 14:37 MCV 93 fl (79-97) 08/13/18 06:02 MCH 31 pg (28-32) 08/13/18 06:02 MCHC 33 % (30-34) 08/13/18 06:02 RDW 14.3 % (13.2-15.2) 08/13/18 06:02 Plt Count 174 K/mm3 (140-440) 08/13/18 06:02 Lymph % (Auto) [employer] 08/09/18 17:55 [place] % (Auto) 4.9 % (0.0-7.3) 08/13/18 06:02 Eos % (Auto) 0.0 % (0.0-4.3) 08/13/18 06:02 Baso % (Auto) [employer] 08/09/18 17:55 Lymph # Store Clerk 08/09/18 17:55 [place] # 0.4 K/mm3 (0.0-0.8) 08/13/18 06:02 Eos # 0.0 K/mm3 (0.0-0.4) 08/13/18 06:02 Baso # 0.0 K/mm3 (0.0-0.1) 08/13/18 06:02 Add Manual Diff Complete 08/13/18 06:02 Total Counted 100 08/13/18 06:02 Seg Neutrophils % Store Clerk 08/09/18 17:55 Seg Neuts % (Manual) 93.0 % (40.0-70.0) H 08/13/18 06:02 0 % 08/13/18 06:02 3.0 % (13.4-35.0) L 08/13/18 06:02 Reactive Lymphs % (Man) 0 % 08/13/18 06:02 2.0 % (0.0-7.3) 08/13/18 06:02 0 % (0.0-4.3) 08/13/18 06:02 1.0 % (0.0-1.8) 08/13/18 06:02 0 % 08/13/18 06:02 1.0 % 08/13/18 06:02 0 % 08/13/18 06:02 0 % 08/13/18 06:02 Nucleated RBC % Not Reportable 08/13/18 06:02 Seg Neutrophils # 8.4 K/mm3 (1.8-7.7) H 08/13/18 06:02 Seg Neutrophils # Man 8.6 K/mm3 (1.8-7.7) H 08/13/18 06:02 Band Neutrophils # 0.0 K/mm3 08/13/18 06:02 0.3 K/mm3 (1.2-5.4) L 08/13/18 06:02 Abs React Lymphs (Man) 0.0 K/mm3 08/13/18 06:02 0.2 K/mm3 (0.0-0.8) 08/13/18 06:02 0.0 K/mm3 (0.0-0.4) 08/13/18 06:02 0.1 K/mm3 (0.0-0.1) 08/13/18 06:02 0.0 K/mm3 08/13/18 06:02 0.1 K/mm3 08/13/18 06:02 0.0 K/mm3 08/13/18 06:02 Blast Cells # 0.0 K/mm3 08/13/18 06:02 WBC Morphology Not Reportable 08/13/18 06:02 Hypersegmented Neuts Not Reportable 08/13/18 06:02 Hyposegmented Neuts Not Reportable 08/13/18 06:02 Hypogranular Neuts Not Reportable 08/13/18 06:02 Not Reportable 08/13/18 06:02 Not Reportable 08/13/18 06:02 Not Reportable 08/13/18 06:02 Few 08/13/18 06:02 Not Reportable 08/13/18 06:02 Not Reportable 08/13/18 06:02 Cons 08/13/18 06:02 Not Reportable 08/13/18 06:02 Plt Clumps, EDTA Not Reportable 08/13/18 06:02 Rare 08/13/18 06:02 Not Reportable 08/13/18 06:02 Not Reportable 08/13/18 06:02 Plt Morphology Comment Not Reportable 08/13/18 06:02 RBC Morphology Not Reportable 08/13/18 06:02 Dimorphic RBCs Not Reportable 08/13/18 06:02 Not Reportable 08/13/18 06:02 Not Reportable 08/13/18 06:02 Few 08/13/18 06:02 Few 08/13/18 06:02 Not Reportable 08/13/18 06:02 Not Reportable 08/13/18 06:02 Not Reportable 08/13/18 06:02 Not Reportable 08/13/18 06:02 Not Reportable 08/13/18 06:02 Not Reportable 08/13/18 06:02 Not Reportable 08/13/18 06:02 Not Reportable 08/13/18 06:02 Not Reportable 08/13/18 06:02 Not Reportable 08/13/18 06:02 Not Reportable 08/13/18 06:02 Not Reportable 08/13/18 06:02 Not Reportable 08/13/18 06:02 Not Reportable 08/13/18 06:02 Not Reportable 08/13/18 06:02 Acanthocytes (Spur) Not Reportable 08/13/18 06:02 Rouleaux Not Reportable 08/13/18 06:02 Not Reportable 08/13/18 06:02 Not Reportable 08/13/18 06:02 Not Reportable 08/13/18 06:02 Not Reportable 08/13/18 06:02 Hem Pathologist Commnt No 08/13/18 06:02 POC Sodium 135 mmol/L (138-146) L 08/12/18 14:37 POC Chloride 105 (98-109) 08/12/18 14:37 Sodium 138 mmol/L (137-145) 08/13/18 06:02 Potassium 3.3 mmol/L (3.6-5.0) L 08/13/18 06:02 Chloride 104.6 mmol/L (98-107) 08/13/18 06:02 Carbon Dioxide 20 mmol/L (22-30) L 08/13/18 06:02 17 mmol/L 08/13/18 06:02 POC BUN 30 mg/dl (8-26) H 08/12/18 14:37 BUN 24 mg/dL (7-17) H 08/13/18 06:02 0.4 mg/dL (0.7-1.2) L 08/13/18 06:02 Estimated GFR > 60 ml/min 08/13/18 06:02 60 % 08/13/18 06:02 Glucose 100 mg/dL (65-100) 08/13/18 06:02 POC Glucose 103 (70-105) 08/12/18 14:37 Calcium 7.0 mg/dL (8.4-10.2) L 08/13/18 06:02 Magnesium 1.50 mg/dL (1.7-2.3) L 08/13/18 06:02 0.80 mg/dL (0.1-1.2) 08/13/18 06:02 AST 28 units/L (5-40) 08/13/18 06:02 ALT 13 units/L (7-56) 08/13/18 06:02 24 units/L (35-129) L 08/13/18 06:02 3.5 g/dL (6.3-8.2) L D 08/13/18 06:02 1.8 g/dL (3.9-5) L 08/13/18 06:02 1.1 % 08/13/18 06:02 22 units/L (13-60) 08/09/18 17:55 Yellow (Yellow) 08/09/18 18:25 Cloudy (Clear) 08/09/18 18:25 7.0 (5.0-7.0) 08/09/18 18:25 Ur Specific [place] 1.015 (1.003-1.030) 08/09/18 18:25 <15 mg/dl mg/dL (Negative) 08/09/18 18:25 Neg mg/dL (Negative) 08/09/18 18:25 20 mg/dL (Negative) 08/09/18 18:25 Mod (Negative) 08/09/18 18:25 Neg (Negative) 08/09/18 18:25 Neg (Negative) 08/09/18 18:25 < 2.0 mg/dL (<2.0) 08/09/18 18:25 Ur Leukocyte Esterase Neg (Negative) 08/09/18 18:25 1.0 /HPF (0.0-6.0) 08/09/18 18:25 29.0 /HPF (0.0-6.0) 08/09/18 18:25 Few /HPF 08/09/18 18:25 3+ /HPF 08/09/18 18:25 Blood Type O POSITIVE 08/12/18 15:00 Antibody Screen Negative 08/12/18 15:00 Crossmatch See Detail 08/12/18 15:00 Active Medications - Current Medications Current Medications: Generic Name Dose Route Start Last Admin Trade Name Freq PRN Reason Stop Dose Admin Acetaminophen 650 mg 08/09/18 23:07 Tylenol NE Q4H PRN Fever >101 Famotidine 20 mg 08/10/18 15:00 08/13/18 09:55 Pepcid IV 20 mg BID SILVIANO Administration Hydromorphone HCl 0.5 mg 08/10/18 04:07 08/11/18 03:47 Dilaudid IV 0.5 mg Q4H PRN Administration Pain , Severe (7-10) Sodium Chloride 1,000 mls @ 125 mls/hr 08/11/18 12:00 08/13/18 10:17 Nacl 0.45% 1000 Ml IV 125 mls/hr DIRECT SILVIANO Administration Levofloxacin/Dextrose 500 mg in 100 mls @ 100 mls/hr 08/12/18 15:00 08/13/18 09:55 Levaquin 500mg/100ml IV 08/17/18 14:59 100 mls/hr Q24HR SILVIANO Administration Protocol Metronidazole 500 mg in 100 mls @ 100 mls/hr 08/12/18 22:00 08/13/18 06:21 Flagyl 500 Mg/100 Ml IV 08/17/18 21:59 100 mls/hr Q8HR SILVIANO Administration Protocol Potassium Chloride 40 meq/ 520 mls @ 125 mls/hr 08/13/18 09:00 08/13/18 09:22 Sodium Chloride IV 08/13/18 13:10 125 mls/hr DIRECT SILVIANO Administration Ondansetron HCl 4 mg 08/09/18 23:05 08/11/18 12:23 Zofran IV 4 mg Q8H PRN Administration Nausea And Vomiting Phenol 1 spray 08/10/18 13:38 08/11/18 16:08 Chloraseptic MM 1 spray PRN PRN Administration Sore Throat Nutrition/Malnutrition Assess - Dietary Evaluation Nutrition/Malnutrition Findings: Nutrition Notes Start: 08/10/18 16:30 Freq: Status: Active Protocol: Document 08/12/18 08:48 ALEXI (Rec: 08/12/18 08:52 ALEXI [id number] [email or web address]) Nutrition Notes Initial or Follow up Reassessment Other Pertinent Diagnosis Partial SBO Current Diet NPO Labs/Tests Reviewed Pertinent Medications Pepcid, Mineral oil, 1/2NS at 125ml/hr Height 4 ft 8 in Weight 33.5 kg [place] Body Weight (kg) 36.36 BMI 16.5 Subjective/Other Information Pt remains NPO (Day 4) with NGT to LIS. She may undergo exp lap with lysis of adhesions and possible bowel resection if no improvement. Burn Absent Trauma Absent #2 Nutrition Diagnosis Altered GI function Etiology partial bowel obstruction As Evidenced by Signs and Symptoms pt is NPO #1 Nutrition Diagnosis Inadequate oral intake Etiology partial bowel obstruction As Evidenced by Signs and Symptoms pt is NPO Is patient on ventilator? No Is Patient Ambulatory and/or Out of Bed Yes REE-([place]-[facility]-ambulatory/OOB) [ 965.900 NUTR.MSJOOB] Kcal/Kg value to use for calculation 40 Approximate Energy Requirements Using 1340 kcal/Kg Calculation Used for Recommendations Kcal/kg Additional Notes Pro needs 1.2-1.5g/k-50g/ day Fluid needs 1ml/kcal Nutrition Intervention Change Diet Order: Diet advancement when medically feasible Goal #1 Either diet advancement or initiation of PN to meet nutrient needs Goal #2 Wt maintenance and/or gain Follow-Up By: 08/14/18 Additional Comments F/U: diet advancement, POC
--- NOTE | 2018-08-13 12:48 | Progress Note ---
Assessment and Plan POD # 1 Pt awake and alert. comfortable Abd soft. non tender wbc back up? h/h stable surgically stable will begin TPN f/u labs in am Selected Entries 08/13/18 08/13/18 08/13/18 08:40 08:51 12:00 Temperature 97.9 F Pulse Rate 73 Respiratory 13 Rate Blood Pressure 120/56 Laboratory Tests 08/13/18 08/13/18 06:02 06:02 WBC 9.2 Hgb 12.4 Hct 37.9 Sodium 138 Potassium 3.3 L Chloride 104.6 Carbon Dioxide 20 L Anion Gap 17 BUN 24 H Creatinine 0.4 L Objective Vital Signs - 12hr 08/13/18 08/13/18 08/13/18 00:51 01:00 01:11 Temperature Pulse Rate 84 82 85 Respiratory 12 12 12 Rate Blood Pressure 98/60 100/61 103/64 O2 Sat by Pulse 100 100 100 Oximetry 08/13/18 08/13/18 08/13/18 01:21 01:30 01:41 Temperature Pulse Rate 91 H 81 96 H Respiratory 11 L 11 L 13 Rate Blood Pressure 103/64 110/60 100/61 O2 Sat by Pulse 100 100 100 Oximetry 08/13/18 08/13/18 08/13/18 01:50 02:00 02:11 Temperature Pulse Rate 87 81 81 Respiratory 12 11 L 10 L Rate Blood Pressure 110/60 105/64 110/60 O2 Sat by Pulse 100 100 100 Oximetry 08/13/18 08/13/18 08/13/18 02:21 02:30 02:40 Temperature Pulse Rate 79 83 92 H Respiratory 12 13 15 Rate Blood Pressure 110/60 109/66 109/66 O2 Sat by Pulse 100 100 100 Oximetry 08/13/18 08/13/18 08/13/18 02:51 03:00 03:11 Temperature Pulse Rate 76 76 79 Respiratory 11 L 11 L 12 Rate Blood Pressure 105/64 112/65 112/65 O2 Sat by Pulse 100 100 100 Oximetry 08/13/18 08/13/18 08/13/18 03:21 03:30 03:41 Temperature Pulse Rate 88 78 78 Respiratory 15 12 12 Rate Blood Pressure 109/66 111/64 111/64 O2 Sat by Pulse 100 100 100 Oximetry 08/13/18 08/13/18 08/13/18 03:50 04:00 04:10 Temperature 98.0 F Pulse Rate 88 82 77 Respiratory 19 18 12 Rate Blood Pressure 111/64 109/64 109/64 O2 Sat by Pulse 100 100 100 Oximetry 08/13/18 08/13/18 08/13/18 04:21 04:30 04:41 Temperature Pulse Rate 82 79 75 Respiratory 17 17 12 Rate Blood Pressure 109/64 113/65 113/65 O2 Sat by Pulse 100 100 100 Oximetry 08/13/18 08/13/18 08/13/18 04:51 05:00 05:11 Temperature Pulse Rate 76 72 75 Respiratory 11 L 12 13 Rate Blood Pressure 109/64 120/61 120/61 O2 Sat by Pulse 100 100 100 Oximetry 08/13/18 08/13/18 08/13/18 05:21 05:30 05:41 Temperature Pulse Rate 74 84 71 Respiratory 12 17 12 Rate Blood Pressure 120/61 115/61 115/61 O2 Sat by Pulse 100 100 100 Oximetry 08/13/18 08/13/18 08/13/18 05:51 06:01 06:11 Temperature Pulse Rate 72 81 75 Respiratory 12 16 12 Rate Blood Pressure 115/61 98/60 98/60 O2 Sat by Pulse 100 100 100 Oximetry 08/13/18 08/13/18 08/13/18 06:21 06:31 06:41 Temperature Pulse Rate 70 69 72 Respiratory 12 11 L 12 Rate Blood Pressure 98/60 117/57 117/57 O2 Sat by Pulse 100 100 100 Oximetry 08/13/18 08/13/18 08/13/18 06:51 07:00 07:11 Temperature Pulse Rate 80 77 78 Respiratory 15 12 12 Rate Blood Pressure 117/57 116/61 116/61 O2 Sat by Pulse 100 100 100 Oximetry 08/13/18 08/13/18 08/13/18 07:21 07:30 07:40 Temperature Pulse Rate 75 72 72 Respiratory 12 12 13 Rate Blood Pressure 116/61 118/58 118/58 O2 Sat by Pulse 100 100 100 Oximetry 08/13/18 08/13/18 08/13/18 07:51 08:00 08:11 Temperature 98.0 F Pulse Rate 82 72 70 Respiratory 14 12 12 Rate Blood Pressure 118/58 111/59 111/59 O2 Sat by Pulse 100 100 100 Oximetry 05/16/19 05/16/19 05/16/19 08:20 08:30 08:40 Temperature Pulse Rate 73 71 74 Respiratory 12 12 13 Rate Blood Pressure 111/59 120/56 120/56 O2 Sat by Pulse 100 100 100 Oximetry 08/13/18 08/13/18 08:51 12:00 Temperature 97.9 F Pulse Rate 73 Respiratory 11 L Rate Blood Pressure 120/56 O2 Sat by Pulse 100 Oximetry - Labs 08/13/18 06:02 08/13/18 06:02 Diabetes panel 08/12/18 08/13/18 Range/Units 15:00 06:02 Sodium 139 138 (137-145) mmol/L Potassium 3.0 L D 3.3 L (3.6-5.0) mmol/L Chloride 104.8 104.6 (98-107) mmol/L Carbon Dioxide 21 L 20 L (22-30) mmol/L BUN 21 H 24 H (7-17) mg/dL Creatinine 0.4 L 0.4 L (0.7-1.2) mg/dL Glucose 117 H 100 (65-100) mg/dL Calcium 6.1 L D 7.0 L (8.4-10.2) mg/dL AST 17 28 (5-40) units/L ALT 11 13 (7-56) units/L Alkaline Phosphatase 23 L 24 L (35-129) units/L Total Protein 2.6 L D 3.5 L D (6.3-8.2) g/dL Albumin 1.7 L 1.8 L (3.9-5) g/dL Calcium panel 08/12/18 08/13/18 Range/Units 15:00 06:02 Calcium 6.1 L D 7.0 L (8.4-10.2) mg/dL Albumin 1.7 L 1.8 L (3.9-5) g/dL Pituitary panel 08/12/18 08/13/18 Range/Units 15:00 06:02 Sodium 139 138 (137-145) mmol/L Potassium 3.0 L D 3.3 L (3.6-5.0) mmol/L Chloride 104.8 104.6 (98-107) mmol/L Carbon Dioxide 21 L 20 L (22-30) mmol/L BUN 21 H 24 H (7-17) mg/dL Creatinine 0.4 L 0.4 L (0.7-1.2) mg/dL Glucose 117 H 100 (65-100) mg/dL Calcium 6.1 L D 7.0 L (8.4-10.2) mg/dL Adrenal panel 08/12/18 08/13/18 Range/Units 15:00 06:02 Sodium 139 138 (137-145) mmol/L Potassium 3.0 L D 3.3 L (3.6-5.0) mmol/L Chloride 104.8 104.6 (98-107) mmol/L Carbon Dioxide 21 L 20 L (22-30) mmol/L BUN 21 H 24 H (7-17) mg/dL Creatinine 0.4 L 0.4 L (0.7-1.2) mg/dL Glucose 117 H 100 (65-100) mg/dL Calcium 6.1 L D 7.0 L (8.4-10.2) mg/dL Total Bilirubin 0.60 0.80 (0.1-1.2) mg/dL AST 17 28 (5-40) units/L ALT 11 13 (7-56) units/L Alkaline Phosphatase 23 L 24 L (35-129) units/L Total Protein 2.6 L D 3.5 L D (6.3-8.2) g/dL Albumin 1.7 L 1.8 L (3.9-5) g/dL
--- NOTE | 2018-08-13 13:51 | Consultation ---
History of Present Illness Consult date: 08/13/18 Requesting physician: PEBBLES MANNING Reason for consult: other (SBO s/p Ex-lap and adhesiolysis) History of present illness: PULMONARY/CCM CONSULT NOTE (Full dictation # [id number]) Please see dictated notes for full details Medications and Allergies Allergies Allergy/AdvReac Type Severity Reaction Status Date / Time venlafaxine Allergy Vomiting Verified 06/26/18 09:17 Home Medications Medication Instructions Recorded Confirmed Last Taken Type Famotidine [Pepcid] 10 mg PO BID #30 tablet 05/28/18 08/11/18 Unknown Rx Ondansetron (Nf) [Zofran TAB] 8 mg PO Q8HR PRN #10 tablet 06/30/18 08/11/18 Unknown Rx Active Meds: Active Medications Acetaminophen (Tylenol) 650 mg [place] Q4H PRN PRN Reason: Fever >101 Famotidine (Pepcid) 20 mg IV BID SILVIANO Last Admin: 08/13/18 09:55 Dose: 20 mg Documented by: Hydromorphone HCl (Dilaudid) 0.5 mg IV Q4H PRN PRN Reason: Pain , Severe (7-10) Last Admin: 08/11/18 03:47 Dose: 0.5 mg Documented by: Sodium Chloride (Nacl 0.45% 1000 Ml) 1,000 mls @ 125 mls/hr IV DIRECT SILVIANO Last Admin: 08/13/18 10:17 Dose: 125 mls/hr Documented by: Levofloxacin/Dextrose (Levaquin 500mg/100ml) 500 mg in 100 mls @ 100 mls/hr IV Q24HR SILVIANO; Protocol Stop: 08/17/18 14:59 Last Admin: 08/13/18 09:55 Dose: 100 mls/hr Documented by: Metronidazole (Flagyl 500 Mg/100 Ml) 500 mg in 100 mls @ 100 mls/hr IV Q8HR SILVIANO; Protocol Stop: 08/17/18 21:59 Last Admin: 08/13/18 06:21 Dose: 100 mls/hr Documented by: Ondansetron HCl (Zofran) 4 mg IV Q8H PRN PRN Reason: Nausea And Vomiting Last Admin: 08/11/18 12:23 Dose: 4 mg Documented by: Phenol (Chloraseptic) 1 spray MM PRN PRN PRN Reason: Sore Throat Last Admin: 08/11/18 16:08 Dose: 1 spray Documented by: Physical Examination Vital signs: Vital Signs Temp Pulse Resp BP Pulse Ox 97.9 F 67 16 113/69 97 08/09/18 17:50 08/09/18 17:50 08/09/18 17:50 08/09/18 17:50 08/09/18 17:50 Results - Laboratory Findings CBC and BMP: 08/13/18 06:02 08/13/18 06:02 Abnormal lab findings: Abnormal Labs 08/09/18 08/11/18 08/11/18 17:55 09:35 09:35 WBC RBC Seg Neuts % (Manual) 84.0 H Lymphocytes % (Manual) 13.0 L Seg Neutrophils # Seg Neutrophils # Man Lymphocytes # (Manual) 1.1 L POC Sodium Sodium 146 H 146 H Potassium Chloride 109.0 H Carbon Dioxide POC BUN BUN 21 H 20 H Creatinine 0.4 L 0.4 L Glucose 130 H 103 H Calcium Magnesium Alkaline Phosphatase Total Protein Albumin Crossmatch 08/12/18 08/12/18 08/12/18 14:05 14:37 15:00 WBC 1.9 L* RBC Seg Neuts % (Manual) 72.0 H Lymphocytes % (Manual) Seg Neutrophils # Seg Neutrophils # Man 1.4 L Lymphocytes # (Manual) 0.4 L POC Sodium 135 L Sodium Potassium Chloride Carbon Dioxide POC BUN 30 H BUN Creatinine Glucose Calcium Magnesium Alkaline Phosphatase Total Protein Albumin Crossmatch See Detail 08/12/18 08/12/18 08/13/18 15:00 15:00 06:02 WBC 1.8 L* RBC 3.51 L Seg Neuts % (Manual) 81.0 H 93.0 H Lymphocytes % (Manual) 3.0 L Seg Neutrophils # 8.4 H Seg Neutrophils # Man 1.5 L 8.6 H Lymphocytes # (Manual) 0.3 L 0.3 L POC Sodium Sodium Potassium 3.0 L D Chloride Carbon Dioxide 21 L POC BUN BUN 21 H Creatinine 0.4 L Glucose 117 H Calcium 6.1 L D Magnesium Alkaline Phosphatase 23 L Total Protein 2.6 L D Albumin 1.7 L Crossmatch 08/13/18 06:02 WBC RBC Seg Neuts % (Manual) Lymphocytes % (Manual) Seg Neutrophils # Seg Neutrophils # Man Lymphocytes # (Manual) POC Sodium Sodium Potassium 3.3 L Chloride Carbon Dioxide 20 L POC BUN BUN 24 H Creatinine 0.4 L Glucose Calcium 7.0 L Magnesium 1.50 L Alkaline Phosphatase 24 L Total Protein 3.5 L D Albumin 1.8 L Crossmatch
[2018-08-13] MEDS: CHLORASEPTIC MM PRN (14:18)
--- NOTE | 2018-08-14 00:03 | Consultation ---
PULMONARY CRITICAL CARE CONSULT NOTE CONSULTING PHYSICIAN: Lluvia Baca MD REASON FOR CONSULTATION: Critical care management. CHIEF COMPLAINT AND HISTORY OF PRESENT ILLNESS: As follows: The patient is a 63-year-old female with past medical history apparently significant for a diagnosis of bowel obstruction. I believe she might have had some intra-abdominal surgery in the past. She has had a history of recurrent bowel obstruction, came into the Emergency Room complaining of epigastric pain started about a couple of days before she arrived. Last bowel movement was just a few hours prior to coming over here. She did have some nausea and vomiting. Denied any overt aspiration. Denied any fevers. She was evaluated in the Emergency Room. Repeat imaging did confirm small-bowel obstruction and Surgery evaluation was requested. After evaluation, it seems like the initial plan was conservative management; however, she did not improve, so yesterday, she was taken into the OR and she did have exploratory laparotomy with segmental small bowel resection and lysis of extensive adhesions and then primary anastomosis. Post-procedure, she was brought into the Intensive Care Unit for close monitoring. I do not have any history of significant blood loss during surgery. When I stopped by to see her, she was resting in bed, complaining mostly of thirst and pain from the nasogastric tube, but overall feeling much better. The patient denies any history of tobacco use or abuse whatsoever. That really is as much of the history of presentation as I have. PAST MEDICAL HISTORY: History of osteoporosis, history of recurrent small-bowel obstruction. PAST SURGICAL HISTORY: She has had an appendectomy. She has had bilateral mastectomy. She has had a hysterectomy and lumbar surgery as well as lysis of adhesions in 09/2016. MEDICATIONS: She was on at the time I stopped by to see her were reviewed, pertinent medications included the following: Tylenol 650 mg per rectum q. 4 hours p.r.n. fever greater than 101, Pepcid 20 mg IV b.i.d., Dilaudid 0.5 mg IV q. 4 hours p.r.n. severe pain, Levaquin 500 mg IV daily, Flagyl 500 mg IV q. 8 hours, Zofran 4 mg IV q. 8 hours p.r.n. nausea and vomiting, p.r.n. Chloraseptic Throat [place] for sore throat, half NS at 125 mL per hour. ALLERGIES: EFFEXOR. Nature of this allergy is unknown. DIET: Thin lady. She has lost a little bit of weight prior to coming into the hospital. FAMILY AND SOCIAL HISTORY: Otherwise unknown. Denies any history of tobacco, alcohol or illicit drug use or abuse. REVIEW OF SYSTEMS: No loss of consciousness. No new onset seizures. No new onset focal weakness. No gross hematochezia or melena. No gross hematuria. She had the abdominal pain at presentation. She denies any dysuria. No hematemesis. She did have the emesis at presentation. Denies polydipsia or polyuria. Denies heat or cold intolerance. Denies palpitations. Complete 13-system review of systems obtained. Pertinent positives and/or negatives as in the body of history above, otherwise, noncontributory. PHYSICAL EXAMINATION: VITAL SIGNS: At presentation, she was afebrile, temperature 97.9 degrees Fahrenheit with a pulse of 67, respiratory rate of 16, blood pressure 113/69, O2 sats were 97%. At presentation, inspired oxygen concentration at that time was not recorded. She has remained really afebrile postop with good blood pressures. Current vital signs, temperature 97.9 degrees Fahrenheit with a blood pressure of 120/56 and 100% O2 sats on 3 liters nasal cannula. GENERAL: She is a petite elderly looking female, normocephalic, atraumatic, talking to me in slightly interrupted sentences, mostly from non-respiratory distress in particular related to the nasogastric tube. HEAD, EYES, EARS, NOSE AND THROAT: She is anicteric. No conjunctival erythema. Oropharynx is moist, she is a Mallampati #2 oropharynx. NG tube is in the right nostril. No gross jugular venous distention, no thyromegaly. Grossly, no palpable lymph nodes in the supraclavicular or submandibular lymph node chains. LUNGS: Auscultation of both lung [place] unremarkable. Lungs are clear bilaterally with good bilateral air movement. HEART: Heart sounds 1 and 2 are heard at the time of my evaluation. Regular rate and rhythm without rubs or murmurs. ABDOMEN: Soft, full, bowel sounds are positive, but hypoactive. Tender around the incision site I believe, but she does have a binder in place. No obvious palpable hepatosplenomegaly. EXTREMITIES: Without overt digital clubbing or cyanosis and no pedal edema. Pedal pulses are palpable and strong bilaterally. NEUROLOGIC: Pupils are equal, round, about 4 mm, reactive to light. Extraocular muscle movements are intact. She moves all 4 extremities spontaneously. The skin is of normal turgor without overt cellulitis or rash. She does have the abdominal incision postop. LABORATORY DATA: From my review are as follows: Admission white cell count was 9800 with hemoglobin of 14.2, hematocrit of 42.8, and platelet count of 305. No band forms were reported. Serum sodium at presentation was 146, potassium 3.8, chloride 102, bicarbonate 29, BUN 21, creatinine 0.4. Glucose was 130. Liver function tests within normal limits. Urinalysis was negative for nitrites and leukocyte esterase and unremarkable. I do feel they did have some 3+ budding yeast. Serum potassium is 3.3 today, BUN 24, creatinine 0.4. Albumin is low at 1.5. Magnesium low at 1.5. White cell count is 9200. I do not have any microbiology studies for review. I do have a chest x-ray from yesterday. The chest x-ray shows that really does show cardiomegaly. She has a right IJ central line. The tip is in the distal SVC. No overt pulmonary edema, perhaps mild interstitial edema. Nasogastric tube is seen coursing through the mediastinum. No gross pneumothorax, no gross bony fractures. As mentioned, a CT of the abdomen and pelvis was done at presentation and that was reported as closed loop small-bowel obstruction in the region of the distal jejunum or proximal ileum. ASSESSMENT AND PLAN: 1. Acute small-bowel obstruction, status post resection. 2. Abdominal pain, improved. 3. Cardiomegaly. 4. History of osteoporosis. 5. [id number] protein-calorie malnutrition. PLAN: She has been hemodynamically stable since she has been in the ICU. She is progressing appropriately. I have discussed with the surgeon. The plan will be to transfer her out to step-down unit, especially if we need a bed acutely. Otherwise, aspiration precautions will be maintained. We should avoid over hydration. It is unclear what her ejection fraction is, but I do note the cardiomegaly. I have reviewed old records and I do not see any 2D echo. She will remain n.p.o. until cleared by the surgeon. P.r.n. analgesia will be continued while watching her mental status to ensure that there is no significant hypoventilation. Incentive spirometry will be ordered and the hope will be to prevent significant atelectasis, especially in her lung bases. She is appropriately on GI prophylaxis, DVT prophylaxis with SCDs. Flu and pneumonia vaccination will be addressed per protocol. Thank you very much for the consult. We will follow along and make further recommendations as picture progresses/becomes clearer. Hopefully, she can transfer to the step-down unit today. JOB# [id number] DILIP/BEHZAD HARRIS
[2018-08-14 07:21] LABS: Hematocrit 28.4 % (30.3-42.9); Hemoglobin 9.5 gm/dl (10.1-14.3); Mean Corpuscular HGB Conc 33 % (30-34); Mean Corpuscular Volume 91 fl (79-97); Platelet Count 193 K/mm3 (140-440); Red Blood Count 3.12 M/mm3 (3.65-5.03); Red Cell Distribution Width 14.4 % (13.2-15.2)
[2018-08-14 08:14] LABS: BUN/Creatinine Ratio 37; Blood Urea Nitrogen 11 mg/dL (7-17); Calcium 7.1 mg/dL (8.4-10.2); Hemolysis Index 5
[2018-08-14 08:19] LABS: Anisocytosis Few; Basophils % (Manual) 0 % (0.0-1.8); Eosinophils % (Manual) 0 % (0.0-4.3); Monocytes % (Manual) 0 % (0.0-7.3); Platelet Estimate Consistent w Auto; Poikilocytosis Few; Total Cells Counted 100
[2018-08-14] MEDS: LEVAQUIN 500MG/100ML 500 MG/100 ML BAG IV SCH (09:22)
[2018-08-14] MEDS: PEPCID IV SCH ×2 (09:22→22:40)
[2018-08-14] MEDS ORDERED: MAGNESIUM SULFATE 2GM/50ML 2 GM/50 ML BAG IV ONE (09:30)
[2018-08-14] MEDS ORDERED: KPHOS 45 MMOL in NACL 0.9% 500 ML 500 ML IV ONE ×2 (09:30→16:00)
[2018-08-14] MEDS ORDERED: KCL 40 MEQ in NACL 0.45% 500 ML IV SCH (10:00)
[2018-08-14] MEDS ORDERED: NACL 0.9% 500 ML 500 ML IV ONE (10:40)
--- NOTE | 2018-08-14 10:52 | Progress Note ---
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, history of appendectomy, hysterectomy and breast cancer that was treated with bilateral mastectomy CT abdomen and pelvis showed closed loop small bowel obstruction in the region of the distal jejunum and proximal ileum Labs reveal mild hyponatremia, sodium of 146 Diagnoses/plan small bowel obstruction Conservative measures did not lead to resolution, -08/12 exploratory laparoscopy with lysis of adhesions, segmental small bowel resection with primary anastomosis, -08/13 started on TPN per GS, keep NPO Severe malnutrition cont TPN, internet marketing assistant consult appreciated Hypernatremia/dehydration Continue IV fluids Hypokalemia/hypomagnesemia/hypophosphatemia -repleted IV DVT prophylaxis with Lovenox History Interval history: Review of systems Constitutional: No fevers, no malaise, no joint pains CVS: No chest pain, no orthopnea, no dyspnea on exertion, no pedal edema GI: Abdominal pain Is improved, it is in the epigastrium, currently 2 out of 10, no vomiting, no constipation Respiratory: no wheezing, no coughing Hospitalist Physical - Physical exam Narrative exam: General.: Appears well, no distress, nontoxic HEENT: Moist mucous membranes, extraocular muscles intact, no lymphadenopathy Neck: supple Cardiac: S1-S2 heard Lungs: clear to auscultation bilaterally Abdomen: soft , nontender, nondistended, bowel sounds positive Extremities: no edema clubbing or cyanosis Skin: no rash or lesions Neurologic: no gross focal deficits Psych: calm, and cooperative - Constitutional Vitals: Temp Pulse Resp BP Pulse Ox 98.0 F 82 18 103/61 100 08/14/18 08:00 08/14/18 08:00 08/14/18 08:00 08/14/18 08:00 08/14/18 08:00 Results - Labs CBC & Chem 7: 08/14/18 06:50 08/14/18 06:50 Labs: Laboratory Last Values WBC 13.1 K/mm3 (4.5-11.0) H 08/14/18 06:50 RBC 3.12 M/mm3 (3.65-5.03) L 08/14/18 06:50 Hgb 9.5 gm/dl (10.1-14.3) L 08/14/18 06:50 POC Hgb 14.3 (12-17) 08/12/18 14:37 Hct 28.4 % (30.3-42.9) L D 08/14/18 06:50 POC Hct 42 (38-51) 08/12/18 14:37 MCV 91 fl (79-97) 08/14/18 06:50 MCH 30 pg (28-32) 08/14/18 06:50 MCHC 33 % (30-34) 08/14/18 06:50 RDW 14.4 % (13.2-15.2) 08/14/18 06:50 Plt Count 193 K/mm3 (140-440) 08/14/18 06:50 Lymph % (Auto) Supervisor Testing 08/09/18 17:55 [place] % (Auto) 4.9 % (0.0-7.3) 08/13/18 06:02 Eos % (Auto) 0.0 % (0.0-4.3) 08/13/18 06:02 Baso % (Auto) Supervisor Testing 08/09/18 17:55 Lymph # Supervisor Testing 08/09/18 17:55 [place] # 0.4 K/mm3 (0.0-0.8) 08/13/18 06:02 Eos # 0.0 K/mm3 (0.0-0.4) 08/13/18 06:02 Baso # 0.0 K/mm3 (0.0-0.1) 08/13/18 06:02 Add Manual Diff Complete 08/14/18 06:50 Total Counted 100 08/14/18 06:50 Seg Neutrophils % Supervisor Testing 08/14/18 06:50 Seg Neuts % (Manual) 98.0 % (40.0-70.0) H 08/14/18 06:50 0 % 08/14/18 06:50 2.0 % (13.4-35.0) L 08/14/18 06:50 Reactive Lymphs % (Man) 0 % 08/14/18 06:50 0 % (0.0-7.3) 08/14/18 06:50 0 % (0.0-4.3) 08/14/18 06:50 0 % (0.0-1.8) 08/14/18 06:50 0 % 08/14/18 06:50 0 % 08/14/18 06:50 0 % 08/14/18 06:50 0 % 08/14/18 06:50 Nucleated RBC % Not Reportable 08/14/18 06:50 Seg Neutrophils # 8.4 K/mm3 (1.8-7.7) H 08/13/18 06:02 Seg Neutrophils # Man 12.8 K/mm3 (1.8-7.7) H 08/14/18 06:50 Band Neutrophils # 0.0 K/mm3 08/14/18 06:50 0.3 K/mm3 (1.2-5.4) L 08/14/18 06:50 Abs React Lymphs (Man) 0.0 K/mm3 08/14/18 06:50 0.0 K/mm3 (0.0-0.8) 08/14/18 06:50 0.0 K/mm3 (0.0-0.4) 08/14/18 06:50 0.0 K/mm3 (0.0-0.1) 08/14/18 06:50 0.0 K/mm3 08/14/18 06:50 0.0 K/mm3 08/14/18 06:50 0.0 K/mm3 08/14/18 06:50 Blast Cells # 0.0 K/mm3 08/14/18 06:50 WBC Morphology Not Reportable 08/14/18 06:50 Hypersegmented Neuts Not Reportable 08/14/18 06:50 Hyposegmented Neuts Not Reportable 08/14/18 06:50 Hypogranular Neuts Not Reportable 08/14/18 06:50 Not Reportable 08/14/18 06:50 Not Reportable 08/14/18 06:50 Not Reportable 08/14/18 06:50 Not Reportable 08/14/18 06:50 Not Reportable 08/14/18 06:50 Not Reportable 08/14/18 06:50 Consistent w auto 08/14/18 06:50 Not Reportable 08/14/18 06:50 Plt Clumps, EDTA Not Reportable 08/14/18 06:50 Not Reportable 08/14/18 06:50 Not Reportable 08/14/18 06:50 Not Reportable 08/14/18 06:50 Plt Morphology Comment Not Reportable 08/14/18 06:50 RBC Morphology Not Reportable 08/14/18 06:50 Dimorphic RBCs Not Reportable 08/14/18 06:50 Not Reportable 08/14/18 06:50 Not Reportable 08/14/18 06:50 Few 08/14/18 06:50 Few 08/14/18 06:50 Not Reportable 08/14/18 06:50 Not Reportable 08/14/18 06:50 Not Reportable 08/14/18 06:50 Not Reportable 08/14/18 06:50 Not Reportable 08/14/18 06:50 Not Reportable 08/14/18 06:50 Not Reportable 08/14/18 06:50 Not Reportable 08/14/18 06:50 Not Reportable 08/14/18 06:50 Not Reportable 08/14/18 06:50 Not Reportable 08/14/18 06:50 Not Reportable 08/14/18 06:50 Not Reportable 08/14/18 06:50 Not Reportable 08/14/18 06:50 Not Reportable 08/14/18 06:50 Acanthocytes (Spur) Not Reportable 08/14/18 06:50 Rouleaux Not Reportable 08/14/18 06:50 Not Reportable 08/14/18 06:50 Not Reportable 08/14/18 06:50 Not Reportable 08/14/18 06:50 Not Reportable 08/14/18 06:50 Hem Pathologist Commnt No 08/14/18 06:50 POC Sodium 135 mmol/L (138-146) L 08/12/18 14:37 POC Chloride 105 (98-109) 08/12/18 14:37 Sodium 137 mmol/L (137-145) 08/14/18 06:50 Potassium 2.3 mmol/L (3.6-5.0) L* D 08/14/18 06:50 Chloride 99.9 mmol/L (98-107) 08/14/18 06:50 Carbon Dioxide 21 mmol/L (22-30) L 08/14/18 06:50 18 mmol/L 08/14/18 06:50 POC BUN 30 mg/dl (8-26) H 08/12/18 14:37 BUN 11 mg/dL (7-17) 08/14/18 06:50 0.3 mg/dL (0.7-1.2) L 08/14/18 06:50 Estimated GFR > 60 ml/min 08/14/18 06:50 37 % 08/14/18 06:50 Glucose 65 mg/dL (65-100) 08/14/18 06:50 POC Glucose 103 (70-105) 08/12/18 14:37 Calcium 7.1 mg/dL (8.4-10.2) L 08/14/18 06:50 Phosphorus 1.60 mg/dL (2.5-4.5) L 08/14/18 06:50 Magnesium 1.70 mg/dL (1.7-2.3) 08/14/18 06:50 0.80 mg/dL (0.1-1.2) 08/13/18 06:02 AST 28 units/L (5-40) 08/13/18 06:02 ALT 13 units/L (7-56) 08/13/18 06:02 24 units/L (35-129) L 08/13/18 06:02 3.5 g/dL (6.3-8.2) L D 08/13/18 06:02 1.8 g/dL (3.9-5) L 08/13/18 06:02 1.1 % 08/13/18 06:02 22 units/L (13-60) 08/09/18 17:55 Yellow (Yellow) 08/09/18 18:25 Cloudy (Clear) 08/09/18 18:25 7.0 (5.0-7.0) 08/09/18 18:25 Ur Specific [place] 1.015 (1.003-1.030) 08/09/18 18:25 <15 mg/dl mg/dL (Negative) 08/09/18 18:25 Neg mg/dL (Negative) 08/09/18 18:25 20 mg/dL (Negative) 08/09/18 18:25 Mod (Negative) 08/09/18 18:25 Neg (Negative) 08/09/18 18:25 Neg (Negative) 08/09/18 18:25 < 2.0 mg/dL (<2.0) 08/09/18 18:25 Ur Leukocyte Esterase Neg (Negative) 08/09/18 18:25 1.0 /HPF (0.0-6.0) 08/09/18 18:25 29.0 /HPF (0.0-6.0) 08/09/18 18:25 Few /HPF 08/09/18 18:25 3+ /HPF 08/09/18 18:25 Blood Type O POSITIVE 08/12/18 15:00 Antibody Screen Negative 08/12/18 15:00 Crossmatch See Detail 08/12/18 15:00 Active Medications - Current Medications Current Medications: Generic Name Dose Route Start Last Admin Trade Name Freq PRN Reason Stop Dose Admin Acetaminophen 650 mg 08/09/18 23:07 Tylenol [place] Q4H PRN Fever >101 Famotidine 20 mg 08/10/18 15:00 08/14/18 09:22 Pepcid IV 20 mg BID SILVIANO Administration Hydromorphone HCl 0.5 mg 08/10/18 04:07 08/11/18 03:47 Dilaudid IV 0.5 mg Q4H PRN Administration Pain , Severe (7-10) Sodium Chloride 1,000 mls @ 125 mls/hr 08/11/18 12:00 08/13/18 20:13 Nacl 0.45% 1000 Ml IV 125 mls/hr DIRECT SILVIANO Administration Levofloxacin/Dextrose 500 mg in 100 mls @ 100 mls/hr 08/12/18 15:00 08/14/18 09:22 Levaquin 500mg/100ml IV 08/17/18 14:59 100 mls/hr Q24HR SILVIANO Administration Protocol Metronidazole 500 mg in 100 mls @ 100 mls/hr 08/12/18 22:00 08/13/18 22:18 Flagyl 500 Mg/100 Ml IV 08/17/18 21:59 100 mls/hr Q8HR SILVIANO Administration Protocol Potassium Phosphate 45 mmol/ 515 mls @ 85 mls/hr 08/14/18 09:30 08/14/18 10:02 Sodium Chloride IV 08/14/18 15:33 85 mls/hr ONCE ONE Administration Potassium Chloride 40 meq/ 520 mls @ 125 mls/hr 08/14/18 10:00 Sodium Chloride IV 08/16/18 14:10 DIRECT SILVIANO Magnesium Sulfate 2 gm in 50 mls @ 25 mls/hr 08/14/18 09:30 08/14/18 10:28 Magnesium Sulfate 2gm/50ml IV 08/14/18 11:29 25 mls/hr ONCE ONE Administration Ondansetron HCl 4 mg 08/09/18 23:05 08/11/18 12:23 Zofran IV 4 mg Q8H PRN Administration Nausea And Vomiting Phenol 1 spray 08/10/18 13:38 08/13/18 14:18 Chloraseptic MM 1 spray PRN PRN Administration Sore Throat Nutrition/Malnutrition Assess - Dietary Evaluation Nutrition/Malnutrition Findings: Nutrition Notes Start: 08/10/18 16:30 Freq: Status: Active Protocol: Document 08/13/18 15:58 RM (Rec: 08/13/18 16:06 RM [id number]) Nutrition Notes Initial or Follow up Reassessment Other Pertinent Diagnosis Partial SBO Current Diet NPO Labs/Tests K 3.3 Pertinent Medications Reviewed Height 4 ft 8 in Weight 33.5 kg [place] Body Weight (kg) 36.36 BMI 16.5 Subjective/Other Information Consulted for TPN. Will start TPN tomorrow. Not appropriate to order Clinimix d/t low potassium. Burn Absent Trauma Absent #2 Nutrition Diagnosis Altered GI function Diagnosis Progress(for reassessment Continues documentation) #1 Nutrition Diagnosis Inadequate oral intake Diagnosis Progress(for reassessment Continues documentation) Is patient on ventilator? No Is Patient Ambulatory and/or Out of Bed Yes REE-([place]-ambulatory/OOB) [ 965.900 [id number]] Kcal/Kg value to use for calculation 40 Approximate Energy Requirements Using 1340 kcal/Kg Calculation Used for Recommendations Kcal/kg Additional Notes Pro needs 1.2-2g/k-67g/ day Fluid needs 1ml/kcal Nutrition Intervention Goal #1 Will start TPN tomorrow. Follow-Up By: 08/14/18 Additional Comments Follow for labs in am: BMP, Mag, Phos
--- NOTE | 2018-08-14 11:07 | Progress Note ---
Assessment and Plan POD # 2 Pt feeling well Abd soft, dressings dry lowering h/h very low K OOB as carlyle transf I unit prbc's replenish K begin TPN post transfusion f/u cbc & K begin local wd care as per ETN d/c fito today Selected Entries 08/14/18 08:00 Temperature 98.0 F Pulse Rate 75 Respiratory 17 Rate Blood Pressure 103/61 Laboratory Tests 08/13/18 08/14/18 08/14/18 06:02 06:50 06:50 WBC 13.1 H Hgb 12.4 9.5 L Hct 37.9 28.4 L D Potassium 2.3 L* D Objective Vital Signs - 12hr 08/13/18 08/13/18 08/13/18 23:11 23:21 23:30 Temperature Pulse Rate 80 82 81 Pulse Rate [ From Monitor] Respiratory 13 16 14 Rate Blood Pressure 102/49 102/49 103/55 O2 Sat by Pulse 100 100 100 Oximetry 08/13/18 08/13/18 08/14/18 23:41 23:51 00:00 Temperature Pulse Rate 77 75 79 Pulse Rate [ From Monitor] Respiratory 12 12 12 Rate Blood Pressure 103/55 102/49 109/55 O2 Sat by Pulse 100 100 100 Oximetry 08/14/18 08/14/18 08/14/18 00:11 00:21 00:30 Temperature Pulse Rate 77 80 76 Pulse Rate [ From Monitor] Respiratory 13 12 13 Rate Blood Pressure 109/55 109/55 111/52 O2 Sat by Pulse 100 100 100 Oximetry 08/14/18 08/14/18 08/14/18 00:41 00:50 01:00 Temperature Pulse Rate 92 H 82 87 Pulse Rate [ From Monitor] Respiratory 14 14 17 Rate Blood Pressure 111/52 111/52 109/56 O2 Sat by Pulse 100 100 100 Oximetry 08/14/18 08/14/18 08/14/18 01:11 01:21 01:31 Temperature Pulse Rate 84 84 83 Pulse Rate [ From Monitor] Respiratory 17 17 13 Rate Blood Pressure 109/56 109/56 92/45 O2 Sat by Pulse 100 100 100 Oximetry 08/14/18 08/14/18 08/14/18 01:41 01:51 02:00 Temperature Pulse Rate 81 82 81 Pulse Rate [ From Monitor] Respiratory 13 14 13 Rate Blood Pressure 92/45 92/45 93/48 O2 Sat by Pulse 100 99 100 Oximetry 08/14/18 08/14/18 08/14/18 02:11 02:21 02:30 Temperature Pulse Rate 85 94 H 77 Pulse Rate [ From Monitor] Respiratory 14 15 14 Rate Blood Pressure 93/48 93/48 106/55 O2 Sat by Pulse 100 100 100 Oximetry 08/14/18 08/14/18 08/14/18 02:41 02:51 03:00 Temperature Pulse Rate 80 78 77 Pulse Rate [ From Monitor] Respiratory 12 11 L 12 Rate Blood Pressure 106/55 106/55 110/54 O2 Sat by Pulse 100 100 99 Oximetry 08/14/18 08/14/18 08/14/18 03:11 03:21 03:30 Temperature Pulse Rate 79 84 77 Pulse Rate [ From Monitor] Respiratory 12 12 12 Rate Blood Pressure 110/54 110/54 113/53 O2 Sat by Pulse 100 99 99 Oximetry 08/14/18 08/14/18 08/14/18 03:31 03:41 03:51 Temperature 98.8 F Pulse Rate 86 82 Pulse Rate [ From Monitor] Respiratory 15 12 Rate Blood Pressure 113/53 113/53 O2 Sat by Pulse 99 100 Oximetry 08/14/18 08/14/18 08/14/18 04:00 04:11 04:21 Temperature Pulse Rate 87 75 79 Pulse Rate [ From Monitor] Respiratory 15 13 12 Rate Blood Pressure 101/62 101/62 101/62 O2 Sat by Pulse 100 100 100 Oximetry 08/14/18 08/14/18 08/14/18 04:30 04:41 04:51 Temperature Pulse Rate 77 76 77 Pulse Rate [ From Monitor] Respiratory 12 12 12 Rate Blood Pressure 119/54 119/54 119/54 O2 Sat by Pulse 99 99 100 Oximetry 08/14/18 08/14/18 08/14/18 05:00 05:11 05:21 Temperature Pulse Rate 79 78 77 Pulse Rate [ From Monitor] Respiratory 12 13 12 Rate Blood Pressure 111/57 111/57 111/57 O2 Sat by Pulse 100 100 100 Oximetry 08/14/18 08/14/18 08/14/18 05:31 05:41 05:51 Temperature Pulse Rate 82 86 95 H Pulse Rate [ From Monitor] Respiratory 15 22 22 Rate Blood Pressure 111/57 111/57 111/57 O2 Sat by Pulse 100 100 99 Oximetry 08/14/18 08/14/18 08/14/18 06:00 06:11 06:21 Temperature Pulse Rate 88 75 76 Pulse Rate [ From Monitor] Respiratory 35 H 16 14 Rate Blood Pressure 100/55 100/55 100/55 O2 Sat by Pulse 96 100 100 Oximetry 08/14/18 08/14/18 08/14/18 06:30 06:40 06:50 Temperature Pulse Rate 73 76 76 Pulse Rate [ From Monitor] Respiratory 12 12 16 Rate Blood Pressure 97/58 97/58 97/58 O2 Sat by Pulse 100 100 100 Oximetry 08/14/18 08/14/18 08/14/18 07:00 07:11 07:21 Temperature Pulse Rate 83 80 78 Pulse Rate [ From Monitor] Respiratory 13 7 L 14 Rate Blood Pressure 88/52 112/58 112/58 O2 Sat by Pulse 100 100 100 Oximetry 08/14/18 08/14/18 08/14/18 07:31 07:41 07:51 Temperature Pulse Rate 79 76 84 Pulse Rate [ From Monitor] Respiratory 18 14 18 Rate Blood Pressure 110/59 112/58 112/58 O2 Sat by Pulse 99 100 100 Oximetry 08/14/18 08:00 Temperature 98.0 F Pulse Rate 75 Pulse Rate [ 82 From Monitor] Respiratory 17 Rate Blood Pressure 103/61 O2 Sat by Pulse 100 Oximetry - Labs 08/14/18 06:50 08/14/18 06:50 Diabetes panel 08/14/18 Range/Units 06:50 Sodium 137 (137-145) mmol/L Potassium 2.3 L* D (3.6-5.0) mmol/L Chloride 99.9 (98-107) mmol/L Carbon Dioxide 21 L (22-30) mmol/L BUN 11 (7-17) mg/dL Creatinine 0.3 L (0.7-1.2) mg/dL Glucose 65 (65-100) mg/dL Calcium 7.1 L (8.4-10.2) mg/dL Calcium panel 08/14/18 Range/Units 06:50 Calcium 7.1 L (8.4-10.2) mg/dL Phosphorus 1.60 L (2.5-4.5) mg/dL Pituitary panel 08/14/18 Range/Units 06:50 Sodium 137 (137-145) mmol/L Potassium 2.3 L* D (3.6-5.0) mmol/L Chloride 99.9 (98-107) mmol/L Carbon Dioxide 21 L (22-30) mmol/L BUN 11 (7-17) mg/dL Creatinine 0.3 L (0.7-1.2) mg/dL Glucose 65 (65-100) mg/dL Calcium 7.1 L (8.4-10.2) mg/dL Adrenal panel 08/14/18 Range/Units 06:50 Sodium 137 (137-145) mmol/L Potassium 2.3 L* D (3.6-5.0) mmol/L Chloride 99.9 (98-107) mmol/L Carbon Dioxide 21 L (22-30) mmol/L BUN 11 (7-17) mg/dL Creatinine 0.3 L (0.7-1.2) mg/dL Glucose 65 (65-100) mg/dL Calcium 7.1 L (8.4-10.2) mg/dL
--- NOTE | 2018-08-14 11:20 | Progress Note ---
Assessment and Plan Acute small-bowel obstruction, status post resection. Abdominal pain, improved. Cardiomegaly. History of osteoporosis. [id number] protein-calorie malnutrition. - potassium replaced - no acute GI or other bleeding - H&H holding - replaced magnesium and phosphorus - gentle hydration - advance diet per surgeon - PT/OT/ mobility protocol - GI & VTE prophylaxis Subjective Date of service: 08/14/18 Principal diagnosis: Acute SBO s/p resection; Abdominal pain; Cardiomegaly; osteoporosis. Interval history: Patient is seen today for: Acute small-bowel obstruction, status post resection; Abdominal pain, improved; Cardiomegaly; History of osteoporosis; [id number] protein-calorie malnutrition. Seen and examined at bedside; 24hour events reviewed; nursing and respiratory care staff consulted; no adverse overnight events reported to me; doing better; no gross GI or other bleeding; no N/V/F/C Objective Vital Signs - 12hr 08/13/18 08/13/18 08/13/18 23:21 23:30 23:41 Temperature Pulse Rate 82 81 77 Pulse Rate [ From Monitor] Respiratory 16 14 12 Rate Blood Pressure 102/49 103/55 103/55 O2 Sat by Pulse 100 100 100 Oximetry 08/13/18 08/14/18 08/14/18 23:51 00:00 00:11 Temperature Pulse Rate 75 79 77 Pulse Rate [ From Monitor] Respiratory 12 12 13 Rate Blood Pressure 102/49 109/55 109/55 O2 Sat by Pulse 100 100 100 Oximetry 08/14/18 08/14/18 08/14/18 00:21 00:30 00:41 Temperature Pulse Rate 80 76 92 H Pulse Rate [ From Monitor] Respiratory 12 13 14 Rate Blood Pressure 109/55 111/52 111/52 O2 Sat by Pulse 100 100 100 Oximetry 08/14/18 08/14/18 08/14/18 00:50 01:00 01:11 Temperature Pulse Rate 82 87 84 Pulse Rate [ From Monitor] Respiratory 14 17 17 Rate Blood Pressure 111/52 109/56 109/56 O2 Sat by Pulse 100 100 100 Oximetry 08/14/18 08/14/18 08/14/18 01:21 01:31 01:41 Temperature Pulse Rate 84 83 81 Pulse Rate [ From Monitor] Respiratory 17 13 13 Rate Blood Pressure 109/56 92/45 92/45 O2 Sat by Pulse 100 100 100 Oximetry 08/14/18 08/14/18 08/14/18 01:51 02:00 02:11 Temperature Pulse Rate 82 81 85 Pulse Rate [ From Monitor] Respiratory 14 13 14 Rate Blood Pressure 92/45 93/48 93/48 O2 Sat by Pulse 99 100 100 Oximetry 08/14/18 08/14/18 08/14/18 02:21 02:30 02:41 Temperature Pulse Rate 94 H 77 80 Pulse Rate [ From Monitor] Respiratory 15 14 12 Rate Blood Pressure 93/48 106/55 106/55 O2 Sat by Pulse 100 100 100 Oximetry 08/14/18 08/14/18 08/14/18 02:51 03:00 03:11 Temperature Pulse Rate 78 77 79 Pulse Rate [ From Monitor] Respiratory 11 L 12 12 Rate Blood Pressure 106/55 110/54 110/54 O2 Sat by Pulse 100 99 100 Oximetry 08/14/18 08/14/18 08/14/18 03:21 03:30 03:31 Temperature 98.8 F Pulse Rate 84 77 Pulse Rate [ From Monitor] Respiratory 12 12 Rate Blood Pressure 110/54 113/53 O2 Sat by Pulse 99 99 Oximetry 08/14/18 08/14/18 08/14/18 03:41 03:51 04:00 Temperature Pulse Rate 86 82 87 Pulse Rate [ From Monitor] Respiratory 15 12 15 Rate Blood Pressure 113/53 113/53 101/62 O2 Sat by Pulse 99 100 100 Oximetry 08/14/18 08/14/18 08/14/18 04:11 04:21 04:30 Temperature Pulse Rate 75 79 77 Pulse Rate [ From Monitor] Respiratory 13 12 12 Rate Blood Pressure 101/62 101/62 119/54 O2 Sat by Pulse 100 100 99 Oximetry 08/14/18 08/14/18 08/14/18 04:41 04:51 05:00 Temperature Pulse Rate 76 77 79 Pulse Rate [ From Monitor] Respiratory 12 12 12 Rate Blood Pressure 119/54 119/54 111/57 O2 Sat by Pulse 99 100 100 Oximetry 08/14/18 08/14/18 08/14/18 05:11 05:21 05:31 Temperature Pulse Rate 78 77 82 Pulse Rate [ From Monitor] Respiratory 13 12 15 Rate Blood Pressure 111/57 111/57 111/57 O2 Sat by Pulse 100 100 100 Oximetry 08/14/18 08/14/18 08/14/18 05:41 05:51 06:00 Temperature Pulse Rate 86 95 H 88 Pulse Rate [ From Monitor] Respiratory 22 22 35 H Rate Blood Pressure 111/57 111/57 100/55 O2 Sat by Pulse 100 99 96 Oximetry 08/14/18 08/14/18 08/14/18 06:11 06:21 06:30 Temperature Pulse Rate 75 76 73 Pulse Rate [ From Monitor] Respiratory 16 14 12 Rate Blood Pressure 100/55 100/55 97/58 O2 Sat by Pulse 100 100 100 Oximetry 08/14/18 08/14/18 08/14/18 06:40 06:50 07:00 Temperature Pulse Rate 76 76 83 Pulse Rate [ From Monitor] Respiratory 12 16 13 Rate Blood Pressure 97/58 97/58 88/52 O2 Sat by Pulse 100 100 100 Oximetry 08/14/18 08/14/18 08/14/18 07:11 07:21 07:31 Temperature Pulse Rate 80 78 79 Pulse Rate [ From Monitor] Respiratory 7 L 14 18 Rate Blood Pressure 112/58 112/58 110/59 O2 Sat by Pulse 100 100 99 Oximetry 08/14/18 08/14/18 08/14/18 07:41 07:51 08:00 Temperature 98.0 F Pulse Rate 76 84 75 Pulse Rate [ 82 From Monitor] Respiratory 14 18 17 Rate Blood Pressure 112/58 112/58 103/61 O2 Sat by Pulse 100 100 100 Oximetry Constitutional: no acute distress Eyes: non-icteric ENT: oropharynx moist Neck: supple, no lymphadenopathy, JVD Effort: mildly labored Ascultation: Bilateral: diminished breath sounds, rhonchi Percussion: Bilateral: not dull Cardiovascular: regular rate and rhythm Gastrointestinal: normoactive bowel sounds, soft, non-tender, non-distended Integumentary: normal Extremities: no cyanosis, no edema, pink and warm, pulses normal, no ischemia or petechiae Neurologic: normal mental status, non-focal exam, pupils equal and round, CN II- XII normal Psychiatric: mood appropriate, affect normal CBC and BMP: 08/21/18 08:09 08/21/18 08:09 Abnormal lab findings: Abnormal Labs 08/09/18 08/11/18 08/11/18 17:55 09:35 09:35 WBC RBC Hgb Hct Seg Neuts % (Manual) 84.0 H Lymphocytes % (Manual) 13.0 L Seg Neutrophils # Seg Neutrophils # Man Lymphocytes # (Manual) 1.1 L POC Sodium Sodium 146 H 146 H Potassium Chloride 109.0 H Carbon Dioxide POC BUN BUN 21 H 20 H Creatinine 0.4 L 0.4 L Glucose 130 H 103 H Calcium Phosphorus Magnesium Alkaline Phosphatase Total Protein Albumin Crossmatch 08/12/18 08/12/18 08/12/18 14:05 14:37 15:00 WBC 1.9 L* RBC Hgb Hct Seg Neuts % (Manual) 72.0 H Lymphocytes % (Manual) Seg Neutrophils # Seg Neutrophils # Man 1.4 L Lymphocytes # (Manual) 0.4 L POC Sodium 135 L Sodium Potassium Chloride Carbon Dioxide POC BUN 30 H BUN Creatinine Glucose Calcium Phosphorus Magnesium Alkaline Phosphatase Total Protein Albumin Crossmatch See Detail 08/12/18 08/12/18 08/13/18 15:00 15:00 06:02 WBC 1.8 L* RBC 3.51 L Hgb Hct Seg Neuts % (Manual) 81.0 H 93.0 H Lymphocytes % (Manual) 3.0 L Seg Neutrophils # 8.4 H Seg Neutrophils # Man 1.5 L 8.6 H Lymphocytes # (Manual) 0.3 L 0.3 L POC Sodium Sodium Potassium 3.0 L D Chloride Carbon Dioxide 21 L POC BUN BUN 21 H Creatinine 0.4 L Glucose 117 H Calcium 6.1 L D Phosphorus Magnesium Alkaline Phosphatase 23 L Total Protein 2.6 L D Albumin 1.7 L Crossmatch 08/13/18 08/14/18 08/14/18 06:02 06:50 06:50 WBC 13.1 H RBC 3.12 L Hgb 9.5 L Hct 28.4 L D Seg Neuts % (Manual) 98.0 H Lymphocytes % (Manual) 2.0 L Seg Neutrophils # Seg Neutrophils # Man 12.8 H Lymphocytes # (Manual) 0.3 L POC Sodium Sodium Potassium 3.3 L 2.3 L* D Chloride Carbon Dioxide 20 L 21 L POC BUN BUN 24 H Creatinine 0.4 L 0.3 L Glucose Calcium 7.0 L 7.1 L Phosphorus 1.60 L Magnesium 1.50 L Alkaline Phosphatase 24 L Total Protein 3.5 L D Albumin 1.8 L Crossmatch Chest x-ray: image reviewed Allied health notes reviewed: nursing
[2018-08-14 11:45] LABS: Bilirubin,Urine NEG (Negative); Color,Urine Yellow (Yellow)
[2018-08-14 11:46] LABS: Bacteria,Urine 1+ /HPF (Negative); Blood,Urine MOD (Negative); Mucus,Urine 1+ /HPF; Protein,Urine <15 mg/dL mg/dL (Negative); Urobilinogen,Urine < 2.0 mg/dL (<2.0)
[2018-08-14] MEDS: FLAGYL 500 MG/100 ML 500 MG/100 ML BAG IV SCH ×3 (13:16→22:36)
[2018-08-14] MEDS: NACL 0.45% 1000 ML 1,000 ML IV SCH (15:31)
[2018-08-15] MEDS: FLAGYL 500 MG/100 ML 500 MG/100 ML BAG IV SCH ×3 (05:55→21:19)
[2018-08-15 06:14] LABS: BUN/Creatinine Ratio 40; Blood Urea Nitrogen 8 mg/dL (7-17); Calcium 7.4 mg/dL (8.4-10.2); Hemolysis Index 37
[2018-08-15 06:20] LABS: Hematocrit 27.4 % (30.3-42.9); Hemoglobin 9.2 gm/dl (10.1-14.3); Mean Corpuscular HGB Conc 33 % (30-34); Mean Corpuscular Volume 91 fl (79-97); Platelet Count 191 K/mm3 (140-440); Red Blood Count 3.01 M/mm3 (3.65-5.03); Red Cell Distribution Width 14.6 % (13.2-15.2)
[2018-08-15] MEDS ORDERED: NACL 0.9% 500 ML 500 ML IV ONE (09:00)
[2018-08-15] MEDS ORDERED: MAGNESIUM SULFATE 1 GM in WATER FOR INJ (PF) 23 ML IV ONE (09:00)
[2018-08-15] MEDS ORDERED: KPHOS 45 MMOL in NACL 0.9% 500 ML 500 ML IV ONE (09:00)
[2018-08-15] MEDS ORDERED: MAGNESIUM SULFATE 1 GM in NACL 0.9% 50 ML IV ONE (09:30)
[2018-08-15] MEDS: PEPCID IV SCH ×2 (10:35→21:20)
[2018-08-15 12:15] LABS: Basophils % (Manual) 0 % (0.0-1.8); Eosinophils % (Manual) 0 % (0.0-4.3); Total Cells Counted 100
[2018-08-15 12:16] LABS: Platelet Estimate Consistent w Auto; RBC Morphology Normal
[2018-08-15] MEDS: LEVAQUIN 500MG/100ML 500 MG/100 ML BAG IV SCH (12:45)
--- NOTE | 2018-08-15 12:48 | Progress Note ---
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, history of appendectomy, hysterectomy and breast cancer that was treated with bilateral mastectomy CT abdomen and pelvis showed closed loop small bowel obstruction in the region of the distal jejunum and proximal ileum Labs reveal mild hyponatremia, sodium of 146 Diagnoses/plan small bowel obstruction Conservative measures did not lead to resolution, -08/12 exploratory laparoscopy with lysis of adhesions, segmental small bowel resection with primary anastomosis, -08/13 started on TPN per GS, keep NPO, ngt to LIS Severe malnutrition cont TPN, dish maker consult appreciated Hypernatremia/dehydration Continue IV fluids Hypokalemia/hypomagnesemia/hypophosphatemia -repleted IV DVT prophylaxis with Lovenox History Interval history: Review of systems Constitutional: No fevers, no malaise, no joint pains CVS: No chest pain, no orthopnea, no dyspnea on exertion, no pedal edema GI: Abdominal pain Is improved, it is in the epigastrium, currently 2 out of 10, no vomiting, no constipation Respiratory: no wheezing, no coughing Hospitalist Physical - Physical exam Narrative exam: General.: Appears well, no distress, nontoxic HEENT: Moist mucous membranes, extraocular muscles intact, no lymphadenopathy Neck: supple Cardiac: S1-S2 heard Lungs: clear to auscultation bilaterally Abdomen: soft , nontender, nondistended, bowel sounds positive Extremities: no edema clubbing or cyanosis Skin: no rash or lesions Neurologic: no gross focal deficits Psych: calm, and cooperative - Constitutional Vitals: Temp Pulse Resp BP Pulse Ox 98.1 F 80 18 112/56 98 08/15/18 12:01 08/15/18 12:01 08/15/18 12:01 08/15/18 12:01 08/15/18 12:01 Results - Labs CBC & Chem 7: 08/15/18 05:00 08/16/18 15:39 Labs: Laboratory Last Values WBC 13.9 K/mm3 (4.5-11.0) H 08/15/18 05:00 RBC 3.01 M/mm3 (3.65-5.03) L 08/15/18 05:00 Hgb 9.2 gm/dl (10.1-14.3) L 08/15/18 05:00 POC Hgb 14.3 (12-17) 08/12/18 14:37 Hct 27.4 % (30.3-42.9) L 08/15/18 05:00 POC Hct 42 (38-51) 08/12/18 14:37 MCV 91 fl (79-97) 08/15/18 05:00 MCH 30 pg (28-32) 08/15/18 05:00 MCHC 33 % (30-34) 08/15/18 05:00 RDW 14.6 % (13.2-15.2) 08/15/18 05:00 Plt Count 191 K/mm3 (140-440) 08/15/18 05:00 Lymph % (Auto) Software Manager 08/09/18 17:55 [place] % (Auto) 4.9 % (0.0-7.3) 08/13/18 06:02 Eos % (Auto) 0.0 % (0.0-4.3) 08/13/18 06:02 Baso % (Auto) Software Manager 08/09/18 17:55 Lymph # Software Manager 08/09/18 17:55 [place] # 0.4 K/mm3 (0.0-0.8) 08/13/18 06:02 Eos # 0.0 K/mm3 (0.0-0.4) 08/13/18 06:02 Baso # 0.0 K/mm3 (0.0-0.1) 08/13/18 06:02 Add Manual Diff Complete 08/15/18 05:00 Total Counted 100 08/15/18 05:00 Seg Neutrophils % Software Manager 08/15/18 05:00 Seg Neuts % (Manual) 90.0 % (40.0-70.0) H 08/15/18 05:00 0 % 08/15/18 05:00 7.0 % (13.4-35.0) L 08/15/18 05:00 Reactive Lymphs % (Man) 1.0 % 08/15/18 05:00 2.0 % (0.0-7.3) 08/15/18 05:00 0 % (0.0-4.3) 08/15/18 05:00 0 % (0.0-1.8) 08/15/18 05:00 0 % 08/15/18 05:00 0 % 08/15/18 05:00 0 % 08/15/18 05:00 0 % 08/15/18 05:00 Nucleated RBC % Not Reportable 08/15/18 05:00 Seg Neutrophils # 8.4 K/mm3 (1.8-7.7) H 08/13/18 06:02 Seg Neutrophils # Man 12.5 K/mm3 (1.8-7.7) H 08/15/18 05:00 Band Neutrophils # 0.0 K/mm3 08/15/18 05:00 1.0 K/mm3 (1.2-5.4) L 08/15/18 05:00 Abs React Lymphs (Man) 0.1 K/mm3 08/15/18 05:00 0.3 K/mm3 (0.0-0.8) 08/15/18 05:00 0.0 K/mm3 (0.0-0.4) 08/15/18 05:00 0.0 K/mm3 (0.0-0.1) 08/15/18 05:00 0.0 K/mm3 08/15/18 05:00 0.0 K/mm3 08/15/18 05:00 0.0 K/mm3 08/15/18 05:00 Blast Cells # 0.0 K/mm3 08/15/18 05:00 WBC Morphology Not Reportable 08/15/18 05:00 Hypersegmented Neuts Not Reportable 08/15/18 05:00 Hyposegmented Neuts Not Reportable 08/15/18 05:00 Hypogranular Neuts Not Reportable 08/15/18 05:00 Not Reportable 08/15/18 05:00 Not Reportable 08/15/18 05:00 Not Reportable 08/15/18 05:00 Not Reportable 08/15/18 05:00 Not Reportable 08/15/18 05:00 Not Reportable 08/15/18 05:00 Consistent w auto 08/15/18 05:00 Not Reportable 08/15/18 05:00 Plt Clumps, EDTA Not Reportable 08/15/18 05:00 Not Reportable 08/15/18 05:00 Not Reportable 08/15/18 05:00 Not Reportable 08/15/18 05:00 Plt Morphology Comment Not Reportable 08/15/18 05:00 RBC Morphology Normal 08/15/18 05:00 Dimorphic RBCs Not Reportable 08/15/18 05:00 Not Reportable 08/15/18 05:00 Not Reportable 08/15/18 05:00 Not Reportable 08/15/18 05:00 Not Reportable 08/15/18 05:00 Not Reportable 08/15/18 05:00 Not Reportable 08/15/18 05:00 Not Reportable 08/15/18 05:00 Not Reportable 08/15/18 05:00 Not Reportable 08/15/18 05:00 Not Reportable 08/15/18 05:00 Not Reportable 08/15/18 05:00 Not Reportable 08/15/18 05:00 Not Reportable 08/15/18 05:00 Not Reportable 08/15/18 05:00 Not Reportable 08/15/18 05:00 Not Reportable 08/15/18 05:00 Not Reportable 08/15/18 05:00 Not Reportable 08/15/18 05:00 Not Reportable 08/15/18 05:00 Acanthocytes (Spur) Not Reportable 08/15/18 05:00 Rouleaux Not Reportable 08/15/18 05:00 Not Reportable 08/15/18 05:00 Not Reportable 08/15/18 05:00 Not Reportable 08/15/18 05:00 Not Reportable 08/15/18 05:00 Hem Pathologist Commnt No 08/15/18 05:00 POC Sodium 135 mmol/L (138-146) L 08/12/18 14:37 POC Chloride 105 (98-109) 08/12/18 14:37 Sodium 140 mmol/L (137-145) 08/15/18 05:00 Potassium 3.3 mmol/L (3.6-5.0) L D 08/15/18 05:00 Chloride 102.5 mmol/L (98-107) 08/15/18 05:00 Carbon Dioxide 21 mmol/L (22-30) L 08/15/18 05:00 20 mmol/L 08/15/18 05:00 POC BUN 30 mg/dl (8-26) H 08/12/18 14:37 BUN 8 mg/dL (7-17) 08/15/18 05:00 0.2 mg/dL (0.7-1.2) L 08/15/18 05:00 Estimated GFR > 60 ml/min 08/15/18 05:00 40 % 08/15/18 05:00 Glucose 69 mg/dL (65-100) 08/15/18 05:00 POC Glucose 72 (70-105) 08/15/18 12:36 Calcium 7.4 mg/dL (8.4-10.2) L 08/15/18 05:00 Phosphorus 2.10 mg/dL (2.5-4.5) L D 08/15/18 05:00 Magnesium 1.70 mg/dL (1.7-2.3) 08/15/18 05:00 0.80 mg/dL (0.1-1.2) 08/13/18 06:02 AST 28 units/L (5-40) 08/13/18 06:02 ALT 13 units/L (7-56) 08/13/18 06:02 24 units/L (35-129) L 08/13/18 06:02 3.5 g/dL (6.3-8.2) L D 08/13/18 06:02 1.8 g/dL (3.9-5) L 08/13/18 06:02 1.1 % 08/13/18 06:02 22 units/L (13-60) 08/09/18 17:55 Yellow (Yellow) 08/14/18 10:58 Clear (Clear) 08/14/18 10:58 5.0 (5.0-7.0) 08/14/18 10:58 Ur Specific [place] 1.014 (1.003-1.030) 08/14/18 10:58 <15 mg/dl mg/dL (Negative) 08/14/18 10:58 Neg mg/dL (Negative) 08/14/18 10:58 80 mg/dL (Negative) 08/14/18 10:58 Mod (Negative) 08/14/18 10:58 Neg (Negative) 08/14/18 10:58 Neg (Negative) 08/14/18 10:58 < 2.0 mg/dL (<2.0) 08/14/18 10:58 Ur Leukocyte Esterase Tr (Negative) 08/14/18 10:58 5.0 /HPF (0.0-6.0) 08/14/18 10:58 7.0 /HPF (0.0-6.0) 08/14/18 10:58 1+ /HPF (Negative) 08/14/18 10:58 1+ /HPF 08/14/18 10:58 3+ /HPF 08/09/18 18:25 Blood Type O POSITIVE 08/12/18 15:00 Antibody Screen Negative 08/12/18 15:00 Crossmatch See Detail 08/12/18 15:00 Active Medications - Current Medications Current Medications: Generic Name Dose Route Start Last Admin Trade Name Freq PRN Reason Stop Dose Admin Acetaminophen 650 mg 08/09/18 23:07 Tylenol RI Q4H PRN Fever >101 Famotidine 20 mg 08/10/18 15:00 08/15/18 10:35 Pepcid IV 20 mg BID SILVIANO Administration Hydromorphone HCl 0.5 mg 08/10/18 04:07 08/11/18 03:47 Dilaudid IV 0.5 mg Q4H PRN Administration Pain , Severe (7-10) Sodium Chloride 1,000 mls @ 125 mls/hr 08/11/18 12:00 08/14/18 15:31 Nacl 0.45% 1000 Ml IV 125 mls/hr DIRECT SILVIANO Administration Levofloxacin/Dextrose 500 mg in 100 mls @ 100 mls/hr 08/12/18 15:00 08/14/18 09:22 Levaquin 500mg/100ml IV 08/17/18 14:59 100 mls/hr Q24HR SILVIANO Administration Protocol Metronidazole 500 mg in 100 mls @ 100 mls/hr 08/12/18 22:00 08/15/18 05:55 Flagyl 500 Mg/100 Ml IV 08/17/18 21:59 100 mls/hr Q8HR SILVIANO Administration Protocol Potassium Phosphate 45 mmol/ 515 mls @ 85 mls/hr 08/15/18 09:00 08/15/18 10:34 Sodium Chloride IV 08/15/18 15:03 85 mls/hr ONCE ONE Administration Amino Acids/Electrolytes/Dextrose 1,800 mls @ 75 mls/hr 08/15/18 20:00 Tpn Adult IV 08/16/18 19:59 DAILY@1999 SILVIANO Protocol Ondansetron HCl 4 mg 08/09/18 23:05 08/11/18 12:23 Zofran IV 4 mg Q8H PRN Administration Nausea And Vomiting Phenol 1 spray 08/10/18 13:38 08/13/18 14:18 Chloraseptic MM 1 spray PRN PRN Administration Sore Throat Nutrition/Malnutrition Assess - Dietary Evaluation Nutrition/Malnutrition Findings: Nutrition Notes Start: 08/10/18 16:30 Freq: Status: Active Protocol: Document 08/14/18 15:18 RM (Rec: 08/14/18 15:24 RM [id number]) Nutrition Notes Initial or Follow up Reassessment Other Pertinent Diagnosis Partial SBO Current Diet NPO Labs/Tests Reviewed Pertinent Medications Nacl 0.45% 1000 ml at 125 ml/ hr, KCl 40 meq, Magnesium sulfate Height 4 ft 8 in Weight 33.5 kg [place] Body Weight (kg) 36.36 BMI 16.5 Subjective/Other Information TPN not being started today to avoid refeeding syndrome and allow MD to replenish K and P. Burn Absent Trauma Absent #2 Nutrition Diagnosis Altered GI function Diagnosis Progress(for reassessment Continues documentation) #1 Nutrition Diagnosis Inadequate oral intake Diagnosis Progress(for reassessment Continues documentation) Is patient on ventilator? No Is Patient Ambulatory and/or Out of Bed Yes REE-([facility]-ambulatory/OOB) [ 965.900 [id number]] Kcal/Kg value to use for calculation 40 Approximate Energy Requirements Using 1340 kcal/Kg Calculation Used for Recommendations Kcal/kg Additional Notes Pro needs 1.2-2g/k-67g/ day Fluid needs 1ml/kcal Nutrition Intervention Change Diet Order: Diet advancement when medically feasible Goal #1 Replenish K and P Anticipated Discharge Needs: unable to determine at this time Follow-Up By: 08/15/18 Additional Comments Follow for labs in am: BMP, Mag, Phos
--- NOTE | 2018-08-15 19:47 | Progress Note ---
Assessment and Plan Patient resting on room air. No acute respiratory distress.O2 saturation 97% on room air.Complaining some abdominal discomfort.Patient undergone exploratory laporotomy and lysis of adhesions and sub segmental resection of small bowel and anastamosis. - Patient Problems (1) Small bowel obstruction Current Visit: Yes Status: Acute Plan to address problem: Patient undergone exploratory laporotomy and lysis of adhesions and sub seg mental resection of small bowel and anastamosis. Recommend incentive spirometry Recommend DVt Prophylaxis. Continue famotidine. Continue Levaquin and metronidazole. Subjective Date of service: 08/15/18 Interval history: Patient resting on room air. No acute respiratory distress.O2 saturation 97% on room air.Complaining some abdominal discomfort.Patient undergone exploratory laporotomy and lysis of adhesions and sub segmental resection of small bowel and anastamosis. Objective Vital Signs - 12hr 08/15/18 08/15/18 08/15/18 08:30 12:01 15:40 Temperature 98.1 F 98.0 F Pulse Rate 80 58 L Pulse Rate [ 66 From Monitor] Respiratory 18 18 18 Rate Blood Pressure Blood Pressure 112/56 119/58 [Left] O2 Sat by Pulse 100 98 97 Oximetry 08/15/18 19:30 Temperature 97.6 F Pulse Rate 100 H Pulse Rate [ From Monitor] Respiratory 18 Rate Blood Pressure 119/65 Blood Pressure [Left] O2 Sat by Pulse 97 Oximetry Constitutional: no acute distress, alert Eyes: non-icteric Ascultation: Bilateral: diminished breath sounds Cardiovascular: regular rate and rhythm Gastrointestinal: hypoactive bowel sounds, tender Integumentary: normal Extremities: no cyanosis, no edema Neurologic: normal mental status, non-focal exam, pupils equal and round, CN II- XII normal Psychiatric: mood appropriate CBC and BMP: 08/15/18 05:00 08/15/18 05:00 Abnormal lab findings: Abnormal Labs 08/09/18 08/11/18 08/11/18 17:55 09:35 09:35 WBC RBC Hgb Hct Seg Neuts % (Manual) 84.0 H Lymphocytes % (Manual) 13.0 L Seg Neutrophils # Seg Neutrophils # Man Lymphocytes # (Manual) 1.1 L POC Sodium Sodium 146 H 146 H Potassium Chloride 109.0 H Carbon Dioxide POC BUN BUN 21 H 20 H Creatinine 0.4 L 0.4 L Glucose 130 H 103 H Calcium Phosphorus Magnesium Alkaline Phosphatase Total Protein Albumin Crossmatch 08/12/18 08/12/18 08/12/18 14:05 14:37 15:00 WBC 1.9 L* RBC Hgb Hct Seg Neuts % (Manual) 72.0 H Lymphocytes % (Manual) Seg Neutrophils # Seg Neutrophils # Man 1.4 L Lymphocytes # (Manual) 0.4 L POC Sodium 135 L Sodium Potassium Chloride Carbon Dioxide POC BUN 30 H BUN Creatinine Glucose Calcium Phosphorus Magnesium Alkaline Phosphatase Total Protein Albumin Crossmatch See Detail 08/12/18 08/12/18 08/13/18 15:00 15:00 06:02 WBC 1.8 L* RBC 3.51 L Hgb Hct Seg Neuts % (Manual) 81.0 H 93.0 H Lymphocytes % (Manual) 3.0 L Seg Neutrophils # 8.4 H Seg Neutrophils # Man 1.5 L 8.6 H Lymphocytes # (Manual) 0.3 L 0.3 L POC Sodium Sodium Potassium 3.0 L D Chloride Carbon Dioxide 21 L POC BUN BUN 21 H Creatinine 0.4 L Glucose 117 H Calcium 6.1 L D Phosphorus Magnesium Alkaline Phosphatase 23 L Total Protein 2.6 L D Albumin 1.7 L Crossmatch 08/13/18 08/14/18 08/14/18 06:02 06:50 06:50 WBC 13.1 H RBC 3.12 L Hgb 9.5 L Hct 28.4 L D Seg Neuts % (Manual) 98.0 H Lymphocytes % (Manual) 2.0 L Seg Neutrophils # Seg Neutrophils # Man 12.8 H Lymphocytes # (Manual) 0.3 L POC Sodium Sodium Potassium 3.3 L 2.3 L* D Chloride Carbon Dioxide 20 L 21 L POC BUN BUN 24 H Creatinine 0.4 L 0.3 L Glucose Calcium 7.0 L 7.1 L Phosphorus 1.60 L Magnesium 1.50 L Alkaline Phosphatase 24 L Total Protein 3.5 L D Albumin 1.8 L Crossmatch 08/15/18 08/15/18 05:00 05:00 WBC 13.9 H RBC 3.01 L Hgb 9.2 L Hct 27.4 L Seg Neuts % (Manual) 90.0 H Lymphocytes % (Manual) 7.0 L Seg Neutrophils # Seg Neutrophils # Man 12.5 H Lymphocytes # (Manual) 1.0 L POC Sodium Sodium Potassium 3.3 L D Chloride Carbon Dioxide 21 L POC BUN BUN Creatinine 0.2 L Glucose Calcium 7.4 L Phosphorus 2.10 L D Magnesium Alkaline Phosphatase Total Protein Albumin Crossmatch Chest x-ray: report reviewed (Reported stable cardiomegaly. No acute air space disease.), image reviewed
[2018-08-15] MEDS ORDERED: TPN ADULT 1,800 ML IV SCH (20:00)
[2018-08-15] MEDS: NACL 0.45% 1000 ML 1,000 ML IV SCH (21:20)
[2018-08-16] MEDS: FLAGYL 500 MG/100 ML 500 MG/100 ML BAG IV SCH ×3 (06:10→21:25)
[2018-08-16 07:51] LABS: BUN/Creatinine Ratio 25; Blood Urea Nitrogen 5 mg/dL (7-17); Calcium 7.1 mg/dL (8.4-10.2); Hemolysis Index 4
[2018-08-16] MEDS: PEPCID IV SCH ×3 (08:50→21:33)
[2018-08-16] MEDS: LEVAQUIN 500MG/100ML 500 MG/100 ML BAG IV SCH (09:01)
[2018-08-16] MEDS ORDERED: MAGNESIUM SULFATE 4GM/100ML 4 GM/100 ML BAG IV ONE (14:10)
--- NOTE | 2018-08-16 14:11 | Progress Note ---
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, history of appendectomy, hysterectomy and breast cancer that was treated with bilateral mastectomy CT abdomen and pelvis showed closed loop small bowel obstruction in the region of the distal jejunum and proximal ileum Labs reveal mild hyponatremia, sodium of 146 Diagnoses/plan small bowel obstruction Conservative measures did not lead to resolution, -08/12 exploratory laparoscopy with lysis of adhesions, segmental small bowel resection with primary anastomosis, -08/13 started on TPN per GS, keep NPO, ngt to LIS Severe malnutrition cont TPN, coding validator consult appreciated Hypernatremia/dehydration Continue IV fluids Hypokalemia/hypomagnesemia/hypophosphatemia -repleted IV DVT prophylaxis with Lovenox History Interval history: Review of systems Constitutional: No fevers, no malaise, no joint pains CVS: No chest pain, no orthopnea, no dyspnea on exertion, no pedal edema GI: denies Abdominal pain, she is passing gas and has had a bm. no vomiting, no constipation Respiratory: no wheezing, no coughing Hospitalist Physical - Physical exam Narrative exam: General.: Appears well, no distress, nontoxic HEENT: Moist mucous membranes, extraocular muscles intact, no lymphadenopathy Neck: supple Cardiac: S1-S2 heard Lungs: clear to auscultation bilaterally Abdomen: soft , nontender, nondistended, bowel sounds positive Extremities: no edema clubbing or cyanosis Skin: no rash or lesions Neurologic: no gross focal deficits Psych: calm, and cooperative - Constitutional Vitals: Temp Pulse Resp BP Pulse Ox 98.5 F 71 18 110/68 95 08/16/18 12:00 08/16/18 12:00 08/16/18 12:00 08/16/18 12:00 08/16/18 12:00 Results - Labs CBC & Chem 7: 08/15/18 05:00 08/16/18 15:39 Labs: Laboratory Last Values WBC 13.9 K/mm3 (4.5-11.0) H 08/15/18 05:00 RBC 3.01 M/mm3 (3.65-5.03) L 08/15/18 05:00 Hgb 9.2 gm/dl (10.1-14.3) L 08/15/18 05:00 POC Hgb 14.3 (12-17) 08/12/18 14:37 Hct 27.4 % (30.3-42.9) L 08/15/18 05:00 POC Hct 42 (38-51) 08/12/18 14:37 MCV 91 fl (79-97) 08/15/18 05:00 MCH 30 pg (28-32) 08/15/18 05:00 MCHC 33 % (30-34) 08/15/18 05:00 RDW 14.6 % (13.2-15.2) 08/15/18 05:00 Plt Count 191 K/mm3 (140-440) 08/15/18 05:00 Lymph % (Auto) Canteen Attendant 08/09/18 17:55 [place] % (Auto) 4.9 % (0.0-7.3) 08/13/18 06:02 Eos % (Auto) 0.0 % (0.0-4.3) 08/13/18 06:02 Baso % (Auto) Canteen Attendant 08/09/18 17:55 Lymph # Canteen Attendant 08/09/18 17:55 [place] # 0.4 K/mm3 (0.0-0.8) 08/13/18 06:02 Eos # 0.0 K/mm3 (0.0-0.4) 08/13/18 06:02 Baso # 0.0 K/mm3 (0.0-0.1) 08/13/18 06:02 Add Manual Diff Complete 08/15/18 05:00 Total Counted 100 08/15/18 05:00 Seg Neutrophils % Canteen Attendant 08/15/18 05:00 Seg Neuts % (Manual) 90.0 % (40.0-70.0) H 08/15/18 05:00 0 % 08/15/18 05:00 7.0 % (13.4-35.0) L 08/15/18 05:00 Reactive Lymphs % (Man) 1.0 % 08/15/18 05:00 2.0 % (0.0-7.3) 08/15/18 05:00 0 % (0.0-4.3) 08/15/18 05:00 0 % (0.0-1.8) 08/15/18 05:00 0 % 08/15/18 05:00 0 % 08/15/18 05:00 0 % 08/15/18 05:00 0 % 08/15/18 05:00 Nucleated RBC % Not Reportable 08/15/18 05:00 Seg Neutrophils # 8.4 K/mm3 (1.8-7.7) H 08/13/18 06:02 Seg Neutrophils # Man 12.5 K/mm3 (1.8-7.7) H 08/15/18 05:00 Band Neutrophils # 0.0 K/mm3 08/15/18 05:00 1.0 K/mm3 (1.2-5.4) L 08/15/18 05:00 Abs React Lymphs (Man) 0.1 K/mm3 08/15/18 05:00 0.3 K/mm3 (0.0-0.8) 08/15/18 05:00 0.0 K/mm3 (0.0-0.4) 08/15/18 05:00 0.0 K/mm3 (0.0-0.1) 08/15/18 05:00 0.0 K/mm3 08/15/18 05:00 0.0 K/mm3 08/15/18 05:00 0.0 K/mm3 08/15/18 05:00 Blast Cells # 0.0 K/mm3 08/15/18 05:00 WBC Morphology Not Reportable 08/15/18 05:00 Hypersegmented Neuts Not Reportable 08/15/18 05:00 Hyposegmented Neuts Not Reportable 08/15/18 05:00 Hypogranular Neuts Not Reportable 08/15/18 05:00 Not Reportable 08/15/18 05:00 Not Reportable 08/15/18 05:00 Not Reportable 08/15/18 05:00 Not Reportable 08/15/18 05:00 Not Reportable 08/15/18 05:00 Not Reportable 08/15/18 05:00 Consistent w auto 08/15/18 05:00 Not Reportable 08/15/18 05:00 Plt Clumps, EDTA Not Reportable 08/15/18 05:00 Not Reportable 08/15/18 05:00 Not Reportable 08/15/18 05:00 Not Reportable 08/15/18 05:00 Plt Morphology Comment Not Reportable 08/15/18 05:00 RBC Morphology Normal 08/15/18 05:00 Dimorphic RBCs Not Reportable 08/15/18 05:00 Not Reportable 08/15/18 05:00 Not Reportable 08/15/18 05:00 Not Reportable 08/15/18 05:00 Not Reportable 08/15/18 05:00 Not Reportable 08/15/18 05:00 Not Reportable 08/15/18 05:00 Not Reportable 08/15/18 05:00 Not Reportable 08/15/18 05:00 Not Reportable 08/15/18 05:00 Not Reportable 08/15/18 05:00 Not Reportable 08/15/18 05:00 Not Reportable 08/15/18 05:00 Not Reportable 08/15/18 05:00 Not Reportable 08/15/18 05:00 Not Reportable 08/15/18 05:00 Not Reportable 08/15/18 05:00 Not Reportable 08/15/18 05:00 Not Reportable 08/15/18 05:00 Not Reportable 08/15/18 05:00 Acanthocytes (Spur) Not Reportable 08/15/18 05:00 Rouleaux Not Reportable 08/15/18 05:00 Not Reportable 08/15/18 05:00 Not Reportable 08/15/18 05:00 Not Reportable 08/15/18 05:00 Not Reportable 08/15/18 05:00 Hem Pathologist Commnt No 08/15/18 05:00 POC Sodium 135 mmol/L (138-146) L 08/12/18 14:37 POC Chloride 105 (98-109) 08/12/18 14:37 Sodium 141 mmol/L (137-145) 08/16/18 06:43 Potassium 3.0 mmol/L (3.6-5.0) L 08/16/18 06:43 Chloride 98.6 mmol/L (98-107) 08/16/18 06:43 Carbon Dioxide 29 mmol/L (22-30) D 08/16/18 06:43 16 mmol/L 08/16/18 06:43 POC BUN 30 mg/dl (8-26) H 08/12/18 14:37 BUN 5 mg/dL (7-17) L 08/16/18 06:43 0.2 mg/dL (0.7-1.2) L 08/16/18 06:43 Estimated GFR > 60 ml/min 08/16/18 06:43 25 % 08/16/18 06:43 Glucose 151 mg/dL (65-100) H 08/16/18 06:43 POC Glucose 146 (70-105) H 08/16/18 05:39 Calcium 7.1 mg/dL (8.4-10.2) L 08/16/18 06:43 Phosphorus 1.70 mg/dL (2.5-4.5) L 08/16/18 06:43 Magnesium 1.50 mg/dL (1.7-2.3) L 08/16/18 06:43 0.80 mg/dL (0.1-1.2) 08/13/18 06:02 AST 28 units/L (5-40) 08/13/18 06:02 ALT 13 units/L (7-56) 08/13/18 06:02 24 units/L (35-129) L 08/13/18 06:02 3.5 g/dL (6.3-8.2) L D 08/13/18 06:02 1.8 g/dL (3.9-5) L 08/13/18 06:02 1.1 % 08/13/18 06:02 22 units/L (13-60) 08/09/18 17:55 Yellow (Yellow) 08/14/18 10:58 Clear (Clear) 08/14/18 10:58 5.0 (5.0-7.0) 08/14/18 10:58 Ur Specific Jamul 1.014 (1.003-1.030) 08/14/18 10:58 <15 mg/dl mg/dL (Negative) 08/14/18 10:58 Neg mg/dL (Negative) 08/14/18 10:58 80 mg/dL (Negative) 08/14/18 10:58 Mod (Negative) 08/14/18 10:58 Neg (Negative) 08/14/18 10:58 Neg (Negative) 08/14/18 10:58 < 2.0 mg/dL (<2.0) 08/14/18 10:58 Ur Leukocyte Esterase Tr (Negative) 08/14/18 10:58 5.0 /HPF (0.0-6.0) 08/14/18 10:58 7.0 /HPF (0.0-6.0) 08/14/18 10:58 1+ /HPF (Negative) 08/14/18 10:58 1+ /HPF 08/14/18 10:58 3+ /HPF 08/09/18 18:25 Blood Type O POSITIVE 08/12/18 15:00 Antibody Screen Negative 08/12/18 15:00 Crossmatch See Detail 08/12/18 15:00 Active Medications - Current Medications Current Medications: Generic Name Dose Route Start Last Admin Trade Name Freq PRN Reason Stop Dose Admin Acetaminophen 650 mg 08/09/18 23:07 Tylenol CO Q4H PRN Fever >101 Famotidine 20 mg 08/10/18 15:00 08/16/18 10:18 Pepcid IV Not Given BID SILVIANO Hydromorphone HCl 0.5 mg 08/10/18 04:07 08/11/18 03:47 Dilaudid IV 0.5 mg Q4H PRN Administration Pain , Severe (7-10) Levofloxacin/Dextrose 500 mg in 100 mls @ 100 mls/hr 08/12/18 15:00 08/16/18 09:01 Levaquin 500mg/100ml IV 08/17/18 14:59 100 mls/hr Q24HR SILVIANO Administration Protocol Metronidazole 500 mg in 100 mls @ 100 mls/hr 08/12/18 22:00 08/16/18 13:06 Flagyl 500 Mg/100 Ml IV 08/17/18 21:59 100 mls/hr Q8HR SILVIANO Administration Protocol Amino Acids/Electrolytes/Dextrose 1,800 mls @ 75 mls/hr 08/15/18 20:00 08/15/18 20:50 Tpn Adult IV 08/16/18 19:59 75 mls/hr DAILY@[email or web address] [facility] Administration Protocol Amino Acids/Electrolytes/Dextrose 1,800 mls @ 75 mls/hr 08/16/18 20:00 Tpn Adult IV 08/17/18 19:59 DAILY@1999 [facility] Protocol Magnesium Sulfate 4 gm in 100 mls @ 25 mls/hr 08/16/18 14:10 Magnesium Sulfate 4gm/100ml IV 08/16/18 18:09 ONCE ONE Potassium Phosphate 45 mmol/ 515 mls @ 85 mls/hr 08/16/18 14:10 Sodium Chloride IV 08/16/18 20:13 ONCE ONE Potassium Chloride 40 meq/ 520 mls @ 125 mls/hr 08/16/18 14:15 Sodium Chloride IV 08/16/18 18:25 DIRECT SILVIANO Ondansetron HCl 4 mg 08/09/18 23:05 08/11/18 12:23 Zofran IV 4 mg Q8H PRN Administration Nausea And Vomiting Phenol 1 spray 08/10/18 13:38 08/13/18 14:18 Chloraseptic MM 1 spray PRN PRN Administration Sore Throat Nutrition/Malnutrition Assess - Dietary Evaluation Nutrition/Malnutrition Findings: Nutrition Notes Start: 08/10/18 16:30 Freq: Status: Active Protocol: Document 08/15/18 14:51 RM (Rec: 08/15/18 14:57 RM [id number]) Nutrition Notes Initial or Follow up Reassessment Other Pertinent Diagnosis Partial SBO, abdominal pain Current Diet TPN/PPN Labs/Tests K 3.3 P 2.1 Pertinent Medications KCl 40 meq, Kphos 45 mmol X 2 Height 4 ft 8 in Weight 33.5 kg [place] Body Weight (kg) 36.36 BMI 16.5 Subjective/Other Information Consulted for TPN/PPN. Burn Absent Trauma Absent #2 Nutrition Diagnosis Altered GI function Diagnosis Progress(for reassessment Continues documentation) #1 Nutrition Diagnosis Inadequate oral intake Diagnosis Progress(for reassessment Continues documentation) Is patient on ventilator? No Is Patient Ambulatory and/or Out of Bed Yes REE-([facility]-ambulatory/OOB) [ 965.900 [id number]] Kcal/Kg value to use for calculation 40 Approximate Energy Requirements Using 1340 kcal/Kg Calculation Used for Recommendations Kcal/kg Additional Notes Pro needs 1.2-1.5g/k-50g/ day Fluid needs 1ml/kcal Nutrition Intervention Change Diet Order: Diet advancement when medically feasible Nutrition Support: PPN at 75 ml/hr: 6% Dextrose, 2.2% AA, MVI, Thiamine, 150 mEq Na, 80 mEq K, 5 mEq Ca, 20 mmol P, 5 mEq Mg Kcal 500 Protein (gm) 40 Carbohydrates (gm) 100 Fat (gm) 0 Fluid (mL) 1,800 Fiber (gm) 0 Goal #1 PPN to meet nutritional needs as best possible Anticipated Discharge Needs: unable to determine at this time Follow-Up By: 08/16/18 Additional Comments Follow for labs in am: BMP, Mag, Phos
[2018-08-16] MEDS ORDERED: KPHOS 45 MMOL in NACL 0.9% 500 ML 500 ML IV ONE ×2 (15:00→20:17)
--- NOTE | 2018-08-16 15:40 | Progress Note ---
Assessment and Plan POD # 4 Pt status quo. feeling well. just had small bowel movement. soft stool Abd soft, wd clean and dry labs as below h/h 9.2/27.4 low K at 3 my blood transfusion order was cancelled monitor h/h replenish K continue ng suction, ambulation, TPN and antibiotics repeat labs in am Selected Entries 08/16/18 12:00 Temperature 98.5 F Pulse Rate 71 Respiratory 18 Rate Blood Pressure 110/68 [Left] Laboratory Tests 08/14/18 08/15/18 08/16/18 06:50 05:00 06:43 WBC 13.9 H Hgb 9.5 L 9.2 L Hct 28.4 L D 27.4 L Potassium 3.0 L Objective Vital Signs - 12hr 08/16/18 08/16/18 08/16/18 04:05 07:11 11:22 Temperature 98.1 F 98.0 F 98.5 F Pulse Rate 72 86 Respiratory 18 16 18 Rate Blood Pressure 114/65 123/65 110/60 Blood Pressure [Left] O2 Sat by Pulse 97 96 Oximetry 08/16/18 12:00 Temperature 98.5 F Pulse Rate 71 Respiratory 18 Rate Blood Pressure Blood Pressure 110/68 [Left] O2 Sat by Pulse 95 Oximetry - Labs 08/15/18 05:00 08/16/18 06:43 Diabetes panel 08/16/18 Range/Units 06:43 Sodium 141 (137-145) mmol/L Potassium 3.0 L (3.6-5.0) mmol/L Chloride 98.6 (98-107) mmol/L Carbon Dioxide 29 D (22-30) mmol/L BUN 5 L (7-17) mg/dL Creatinine 0.2 L (0.7-1.2) mg/dL Glucose 151 H (65-100) mg/dL Calcium 7.1 L (8.4-10.2) mg/dL Calcium panel 08/16/18 Range/Units 06:43 Calcium 7.1 L (8.4-10.2) mg/dL Phosphorus 1.70 L (2.5-4.5) mg/dL Pituitary panel 08/16/18 Range/Units 06:43 Sodium 141 (137-145) mmol/L Potassium 3.0 L (3.6-5.0) mmol/L Chloride 98.6 (98-107) mmol/L Carbon Dioxide 29 D (22-30) mmol/L BUN 5 L (7-17) mg/dL Creatinine 0.2 L (0.7-1.2) mg/dL Glucose 151 H (65-100) mg/dL Calcium 7.1 L (8.4-10.2) mg/dL Adrenal panel 08/16/18 Range/Units 06:43 Sodium 141 (137-145) mmol/L Potassium 3.0 L (3.6-5.0) mmol/L Chloride 98.6 (98-107) mmol/L Carbon Dioxide 29 D (22-30) mmol/L BUN 5 L (7-17) mg/dL Creatinine 0.2 L (0.7-1.2) mg/dL Glucose 151 H (65-100) mg/dL Calcium 7.1 L (8.4-10.2) mg/dL
[2018-08-16 16:04] LABS: BUN/Creatinine Ratio 25; Blood Urea Nitrogen 5 mg/dL (7-17); Calcium 7.4 mg/dL (8.4-10.2); Hemolysis Index 2
[2018-08-16] MEDS ORDERED: KCL 40 MEQ in NACL 0.45% 500 ML IV SCH (20:00)
[2018-08-16] MEDS ORDERED: TPN ADULT 1,800 ML IV SCH (20:00)
--- NOTE | 2018-08-16 21:36 | Progress Note ---
Assessment and Plan Patient resting on room air. No acute respiratory distress.O2 saturation 97% on room air.Complaining some abdominal discomfort.Patient undergone exploratory laporotomy and lysis of adhesions and sub segmental resection of small bowel and anastamosis. - Patient Problems (1) Small bowel obstruction Current Visit: Yes Status: Acute Plan to address problem: Patient undergone exploratory laporotomy and lysis of adhesions and sub seg mental resection of small bowel and anastamosis. Recommend incentive spirometry Recommend DVt Prophylaxis. Continue famotidine. Continue Levaquin and metronidazole. Subjective Date of service: 08/16/18 Interval history: Patient resting on room air. No acute respiratory distress.O2 saturation 94% on room air.Complaining some abdominal discomfort.Patient undergone exploratory laporotomy and lysis of adhesions and sub segmental resection of small bowel and anastamosis. Objective Vital Signs - 12hr 08/16/18 08/16/18 08/16/18 11:22 12:00 15:00 Temperature 98.5 F 98.5 F 98.9 F Pulse Rate 71 81 Respiratory 18 18 16 Rate Blood Pressure 110/60 Blood Pressure 110/68 111/55 [Left] O2 Sat by Pulse 95 96 Oximetry 08/16/18 08/16/18 15:17 19:17 Temperature 98.9 F 98.4 F Pulse Rate 101 H Respiratory 16 16 Rate Blood Pressure 111/55 102/65 Blood Pressure [Left] O2 Sat by Pulse 95 Oximetry Constitutional: no acute distress, alert Eyes: non-icteric Ascultation: Bilateral: diminished breath sounds Cardiovascular: regular rate and rhythm Gastrointestinal: hypoactive bowel sounds, tender Integumentary: normal Extremities: no cyanosis, no edema Neurologic: normal mental status, non-focal exam, pupils equal and round, CN II- XII normal Psychiatric: mood appropriate CBC and BMP: 08/15/18 05:00 08/16/18 15:39 Abnormal lab findings: Abnormal Labs 08/09/18 08/11/18 08/11/18 17:55 09:35 09:35 WBC RBC Hgb Hct Seg Neuts % (Manual) 84.0 H Lymphocytes % (Manual) 13.0 L Seg Neutrophils # Seg Neutrophils # Man Lymphocytes # (Manual) 1.1 L POC Sodium Sodium 146 H 146 H Potassium Chloride 109.0 H Carbon Dioxide POC BUN BUN 21 H 20 H Creatinine 0.4 L 0.4 L Glucose 130 H 103 H POC Glucose Calcium Phosphorus Magnesium Alkaline Phosphatase Total Protein Albumin Crossmatch 08/12/18 08/12/18 08/12/18 14:05 14:37 15:00 WBC 1.9 L* RBC Hgb Hct Seg Neuts % (Manual) 72.0 H Lymphocytes % (Manual) Seg Neutrophils # Seg Neutrophils # Man 1.4 L Lymphocytes # (Manual) 0.4 L POC Sodium 135 L Sodium Potassium Chloride Carbon Dioxide POC BUN 30 H BUN Creatinine Glucose POC Glucose Calcium Phosphorus Magnesium Alkaline Phosphatase Total Protein Albumin Crossmatch See Detail 08/12/18 08/12/18 08/13/18 15:00 15:00 06:02 WBC 1.8 L* RBC 3.51 L Hgb Hct Seg Neuts % (Manual) 81.0 H 93.0 H Lymphocytes % (Manual) 3.0 L Seg Neutrophils # 8.4 H Seg Neutrophils # Man 1.5 L 8.6 H Lymphocytes # (Manual) 0.3 L 0.3 L POC Sodium Sodium Potassium 3.0 L D Chloride Carbon Dioxide 21 L POC BUN BUN 21 H Creatinine 0.4 L Glucose 117 H POC Glucose Calcium 6.1 L D Phosphorus Magnesium Alkaline Phosphatase 23 L Total Protein 2.6 L D Albumin 1.7 L Crossmatch 08/13/18 08/14/18 08/14/18 06:02 06:50 06:50 WBC 13.1 H RBC 3.12 L Hgb 9.5 L Hct 28.4 L D Seg Neuts % (Manual) 98.0 H Lymphocytes % (Manual) 2.0 L Seg Neutrophils # Seg Neutrophils # Man 12.8 H Lymphocytes # (Manual) 0.3 L POC Sodium Sodium Potassium 3.3 L 2.3 L* D Chloride Carbon Dioxide 20 L 21 L POC BUN BUN 24 H Creatinine 0.4 L 0.3 L Glucose POC Glucose Calcium 7.0 L 7.1 L Phosphorus 1.60 L Magnesium 1.50 L Alkaline Phosphatase 24 L Total Protein 3.5 L D Albumin 1.8 L Crossmatch 08/15/18 08/15/18 08/16/18 05:00 05:00 00:03 WBC 13.9 H RBC 3.01 L Hgb 9.2 L Hct 27.4 L Seg Neuts % (Manual) 90.0 H Lymphocytes % (Manual) 7.0 L Seg Neutrophils # Seg Neutrophils # Man 12.5 H Lymphocytes # (Manual) 1.0 L POC Sodium Sodium Potassium 3.3 L D Chloride Carbon Dioxide 21 L POC BUN BUN Creatinine 0.2 L Glucose POC Glucose 118 H Calcium 7.4 L Phosphorus 2.10 L D Magnesium Alkaline Phosphatase Total Protein Albumin Crossmatch 08/16/18 08/16/18 08/16/18 05:39 06:43 15:39 WBC RBC Hgb Hct Seg Neuts % (Manual) Lymphocytes % (Manual) Seg Neutrophils # Seg Neutrophils # Man Lymphocytes # (Manual) POC Sodium Sodium Potassium 3.0 L 2.3 L* D Chloride 94.6 L Carbon Dioxide 37 H D POC BUN BUN 5 L 5 L Creatinine 0.2 L 0.2 L Glucose 151 H 154 H POC Glucose 146 H Calcium 7.1 L 7.4 L Phosphorus 1.70 L Magnesium 1.50 L Alkaline Phosphatase Total Protein Albumin Crossmatch 08/16/18 18:14 WBC RBC Hgb Hct Seg Neuts % (Manual) Lymphocytes % (Manual) Seg Neutrophils # Seg Neutrophils # Man Lymphocytes # (Manual) POC Sodium Sodium Potassium Chloride Carbon Dioxide POC BUN BUN Creatinine Glucose POC Glucose 148 H Calcium Phosphorus Magnesium Alkaline Phosphatase Total Protein Albumin Crossmatch
[2018-08-17 06:47] LABS: BUN/Creatinine Ratio 25; Blood Urea Nitrogen 5 mg/dL (7-17); Calcium 6.8 mg/dL (8.4-10.2); Hemolysis Index 33
[2018-08-17 06:59] LABS: Basophils % (Auto) 0.1 % (0.0-1.8); Eosinophils % (Auto) 0.2 % (0.0-4.3); Hematocrit 26.6 % (30.3-42.9); Hemoglobin 8.9 gm/dl (10.1-14.3); Lymphocytes # (Auto) 0.7 K/mm3 (1.2-5.4); Lymphocytes % (Auto) 9.6 % (13.4-35.0); Mean Corpuscular HGB Conc 34 % (30-34); Mean Corpuscular Volume 90 fl (79-97); Monocytes # (Auto) 0.9 K/mm3 (0.0-0.8); Monocytes % (Auto) 12.7 % (0.0-7.3); Platelet Count 273 K/mm3 (140-440); Red Blood Count 2.97 M/mm3 (3.65-5.03); Red Cell Distribution Width 13.7 % (13.2-15.2)
[2018-08-17] MEDS: FLAGYL 500 MG/100 ML 500 MG/100 ML BAG IV SCH ×2 (07:15→13:39)
--- NOTE | 2018-08-17 07:55 | Progress Note ---
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, history of appendectomy, hysterectomy and breast cancer that was treated with bilateral mastectomy CT abdomen and pelvis showed closed loop small bowel obstruction in the region of the distal jejunum and proximal ileum Labs reveal mild hyponatremia, sodium of 146 Diagnoses/plan small bowel obstruction Conservative measures did not lead to resolution, -08/12 exploratory laparoscopy with lysis of adhesions, segmental small bowel resection with primary anastomosis, -08/13 started on TPN per GS, keep NPO, ngt to LIS Severe malnutrition cont TPN, dampproofer consult appreciated Hypernatremia/dehydration Continue IV fluids Hypokalemia/hypomagnesemia/hypophosphatemia -repleted IV DVT prophylaxis with Lovenox History Interval history: Review of systems Constitutional: No fevers, no malaise, no joint pains CVS: No chest pain, no orthopnea, no dyspnea on exertion, no pedal edema GI: denies Abdominal pain, she is passing gas and has had a bm. no vomiting, no constipation Respiratory: no wheezing, no coughing Hospitalist Physical - Physical exam Narrative exam: General.: Appears well, no distress, nontoxic HEENT: Moist mucous membranes, extraocular muscles intact, no lymphadenopathy Neck: supple Cardiac: S1-S2 heard Lungs: clear to auscultation bilaterally Abdomen: soft , nontender, nondistended, bowel sounds positive Extremities: no edema clubbing or cyanosis Skin: no rash or lesions Neurologic: no gross focal deficits Psych: calm, and cooperative - Constitutional Vitals: Temp Pulse Resp BP Pulse Ox 98.4 F 94 H 18 107/62 98 08/17/18 07:48 08/17/18 07:48 08/17/18 07:48 08/17/18 07:48 08/17/18 07:48 Results - Labs CBC & Chem 7: 08/17/18 05:46 08/17/18 05:46 Labs: Laboratory Last Values WBC 7.2 K/mm3 (4.5-11.0) 08/17/18 05:46 RBC 2.97 M/mm3 (3.65-5.03) L 08/17/18 05:46 Hgb 8.9 gm/dl (10.1-14.3) L 08/17/18 05:46 POC Hgb 14.3 (12-17) 08/12/18 14:37 Hct 26.6 % (30.3-42.9) L 08/17/18 05:46 POC Hct 42 (38-51) 08/12/18 14:37 MCV 90 fl (79-97) 08/17/18 05:46 MCH 30 pg (28-32) 08/17/18 05:46 MCHC 34 % (30-34) 08/17/18 05:46 RDW 13.7 % (13.2-15.2) 08/17/18 05:46 Plt Count 273 K/mm3 (140-440) 08/17/18 05:46 Lymph % (Auto) 9.6 % (13.4-35.0) L 08/17/18 05:46 [place] % (Auto) 12.7 % (0.0-7.3) H 08/17/18 05:46 Eos % (Auto) 0.2 % (0.0-4.3) 08/17/18 05:46 Baso % (Auto) 0.1 % (0.0-1.8) 08/17/18 05:46 Lymph # 0.7 K/mm3 (1.2-5.4) L 08/17/18 05:46 [place] # 0.9 K/mm3 (0.0-0.8) H 08/17/18 05:46 Eos # 0.0 K/mm3 (0.0-0.4) 08/17/18 05:46 Baso # 0.0 K/mm3 (0.0-0.1) 08/17/18 05:46 Add Manual Diff Complete 08/15/18 05:00 Total Counted 100 08/15/18 05:00 Seg Neutrophils % 77.4 % (40.0-70.0) H 08/17/18 05:46 Seg Neuts % (Manual) 90.0 % (40.0-70.0) H 08/15/18 05:00 0 % 08/15/18 05:00 7.0 % (13.4-35.0) L 08/15/18 05:00 Reactive Lymphs % (Man) 1.0 % 08/15/18 05:00 2.0 % (0.0-7.3) 08/15/18 05:00 0 % (0.0-4.3) 08/15/18 05:00 0 % (0.0-1.8) 08/15/18 05:00 0 % 08/15/18 05:00 0 % 08/15/18 05:00 0 % 08/15/18 05:00 0 % 08/15/18 05:00 Nucleated RBC % Not Reportable 08/15/18 05:00 Seg Neutrophils # 5.5 K/mm3 (1.8-7.7) 08/17/18 05:46 Seg Neutrophils # Man 12.5 K/mm3 (1.8-7.7) H 08/15/18 05:00 Band Neutrophils # 0.0 K/mm3 08/15/18 05:00 1.0 K/mm3 (1.2-5.4) L 08/15/18 05:00 Abs React Lymphs (Man) 0.1 K/mm3 08/15/18 05:00 0.3 K/mm3 (0.0-0.8) 08/15/18 05:00 0.0 K/mm3 (0.0-0.4) 08/15/18 05:00 0.0 K/mm3 (0.0-0.1) 08/15/18 05:00 0.0 K/mm3 08/15/18 05:00 0.0 K/mm3 08/15/18 05:00 0.0 K/mm3 08/15/18 05:00 Blast Cells # 0.0 K/mm3 08/15/18 05:00 WBC Morphology Not Reportable 08/15/18 05:00 Hypersegmented Neuts Not Reportable 08/15/18 05:00 Hyposegmented Neuts Not Reportable 08/15/18 05:00 Hypogranular Neuts Not Reportable 08/15/18 05:00 Not Reportable 08/15/18 05:00 Not Reportable 08/15/18 05:00 Not Reportable 08/15/18 05:00 Not Reportable 08/15/18 05:00 Not Reportable 08/15/18 05:00 Not Reportable 08/15/18 05:00 Consistent w auto 08/15/18 05:00 Not Reportable 08/15/18 05:00 Plt Clumps, EDTA Not Reportable 08/15/18 05:00 Not Reportable 08/15/18 05:00 Not Reportable 08/15/18 05:00 Not Reportable 08/15/18 05:00 Plt Morphology Comment Not Reportable 08/15/18 05:00 RBC Morphology Normal 08/15/18 05:00 Dimorphic RBCs Not Reportable 08/15/18 05:00 Not Reportable 08/15/18 05:00 Not Reportable 08/15/18 05:00 Not Reportable 08/15/18 05:00 Not Reportable 08/15/18 05:00 Not Reportable 08/15/18 05:00 Not Reportable 08/15/18 05:00 Not Reportable 08/15/18 05:00 Not Reportable 08/15/18 05:00 Not Reportable 08/15/18 05:00 Not Reportable 08/15/18 05:00 Not Reportable 08/15/18 05:00 Not Reportable 08/15/18 05:00 Not Reportable 08/15/18 05:00 Not Reportable 08/15/18 05:00 Not Reportable 08/15/18 05:00 Not Reportable 08/15/18 05:00 Not Reportable 08/15/18 05:00 Not Reportable 08/15/18 05:00 Not Reportable 08/15/18 05:00 Acanthocytes (Spur) Not Reportable 08/15/18 05:00 Rouleaux Not Reportable 08/15/18 05:00 Not Reportable 08/15/18 05:00 Not Reportable 08/15/18 05:00 Not Reportable 08/15/18 05:00 Not Reportable 08/15/18 05:00 Hem Pathologist Commnt No 08/15/18 05:00 POC Sodium 135 mmol/L (138-146) L 08/12/18 14:37 POC Chloride 105 (98-109) 08/12/18 14:37 Sodium 140 mmol/L (137-145) 08/17/18 05:46 Potassium 3.9 mmol/L (3.6-5.0) D 08/17/18 05:46 Chloride 98.4 mmol/L (98-107) 08/17/18 05:46 Carbon Dioxide 34 mmol/L (22-30) H 08/17/18 05:46 12 mmol/L 08/17/18 05:46 POC BUN 30 mg/dl (8-26) H 08/12/18 14:37 BUN 5 mg/dL (7-17) L 08/17/18 05:46 0.2 mg/dL (0.7-1.2) L 08/17/18 05:46 Estimated GFR > 60 ml/min 08/17/18 05:46 25 % 08/17/18 05:46 Glucose 141 mg/dL (65-100) H 08/17/18 05:46 POC Glucose 142 (70-105) H 08/17/18 07:10 Calcium 6.8 mg/dL (8.4-10.2) L 08/17/18 05:46 Phosphorus 4.10 mg/dL (2.5-4.5) D 08/17/18 05:46 Magnesium 2.20 mg/dL (1.7-2.3) 08/17/18 05:46 0.80 mg/dL (0.1-1.2) 08/13/18 06:02 AST 28 units/L (5-40) 08/13/18 06:02 ALT 13 units/L (7-56) 08/13/18 06:02 24 units/L (35-129) L 08/13/18 06:02 3.5 g/dL (6.3-8.2) L D 08/13/18 06:02 1.8 g/dL (3.9-5) L 08/13/18 06:02 1.1 % 08/13/18 06:02 22 units/L (13-60) 08/09/18 17:55 Yellow (Yellow) 08/14/18 10:58 Clear (Clear) 08/14/18 10:58 5.0 (5.0-7.0) 08/14/18 10:58 Ur Specific [place] 1.014 (1.003-1.030) 08/14/18 10:58 <15 mg/dl mg/dL (Negative) 08/14/18 10:58 Neg mg/dL (Negative) 08/14/18 10:58 80 mg/dL (Negative) 08/14/18 10:58 Mod (Negative) 08/14/18 10:58 Neg (Negative) 08/14/18 10:58 Neg (Negative) 08/14/18 10:58 < 2.0 mg/dL (<2.0) 08/14/18 10:58 Ur Leukocyte Esterase Tr (Negative) 08/14/18 10:58 5.0 /HPF (0.0-6.0) 08/14/18 10:58 7.0 /HPF (0.0-6.0) 08/14/18 10:58 1+ /HPF (Negative) 08/14/18 10:58 1+ /HPF 08/14/18 10:58 3+ /HPF 08/09/18 18:25 Blood Type O POSITIVE 08/12/18 15:00 Antibody Screen Negative 08/12/18 15:00 Crossmatch See Detail 08/12/18 15:00 Active Medications - Current Medications Current Medications: Generic Name Dose Route Start Last Admin Trade Name Freq PRN Reason Stop Dose Admin Acetaminophen 650 mg 08/09/18 23:07 Tylenol IL Q4H PRN Fever >101 Famotidine 20 mg 08/10/18 15:00 08/16/18 21:33 Pepcid IV 20 mg BID SILVIANO Administration Hydromorphone HCl 0.5 mg 08/10/18 04:07 08/11/18 03:47 Dilaudid IV 0.5 mg Q4H PRN Administration Pain , Severe (7-10) Levofloxacin/Dextrose 500 mg in 100 mls @ 100 mls/hr 08/12/18 15:00 08/16/18 09:01 Levaquin 500mg/100ml IV 08/17/18 14:59 100 mls/hr Q24HR SILVIANO Administration Protocol Metronidazole 500 mg in 100 mls @ 100 mls/hr 08/12/18 22:00 08/17/18 07:15 Flagyl 500 Mg/100 Ml IV 08/17/18 21:59 100 mls/hr Q8HR SILVIANO Administration Protocol Amino Acids/Electrolytes/Dextrose 1,800 mls @ 75 mls/hr 08/16/18 20:00 08/16/18 20:44 Tpn Adult IV 08/17/18 19:59 75 mls/hr DAILY@2000 SILVIANO Administration Protocol Potassium Chloride 40 meq/ 520 mls @ 125 mls/hr 08/16/18 20:00 08/17/18 02:09 Sodium Chloride IV 08/18/18 00:10 125 mls/hr DIRECT SILVIANO Administration Ondansetron HCl 4 mg 08/09/18 23:05 08/11/18 12:23 Zofran IV 4 mg Q8H PRN Administration Nausea And Vomiting Phenol 1 spray 08/10/18 13:38 08/13/18 14:18 Chloraseptic MM 1 spray PRN PRN Administration Sore Throat Nutrition/Malnutrition Assess - Dietary Evaluation Nutrition/Malnutrition Findings: Nutrition Notes Start: 08/10/18 16:30 Freq: Status: Active Protocol: Document 08/16/18 14:54 RM (Rec: 08/16/18 15:05 RM [id number]) Nutrition Notes Initial or Follow up Reassessment Other Pertinent Diagnosis Partial SBO, abdominal pain Current Diet TPN/PPN Labs/Tests K 3 P 1.7 Mg 1.5 Pertinent Medications Magnesium sulfate 1 gm, Kphos 45 mmol Height 4 ft 8 in Weight 33.5 kg [place] Body Weight (kg) 36.36 BMI 16.5 Subjective/Other Information PPN day 2. Percent of energy/protein needs met: 37%/100% Burn Absent Trauma Absent #2 Nutrition Diagnosis Altered GI function Diagnosis Progress(for reassessment Continues documentation) #1 Nutrition Diagnosis Inadequate oral intake Diagnosis Progress(for reassessment Continues documentation) Is patient on ventilator? No Is Patient Ambulatory and/or Out of Bed Yes REE-([facility]-ambulatory/OOB) [ 965.900 [id number]] Kcal/Kg value to use for calculation 40 Approximate Energy Requirements Using 1340 kcal/Kg Calculation Used for Recommendations Kcal/kg Additional Notes Pro needs 1.2-1.5g/k-50g/ day Fluid needs 1ml/kcal Nutrition Intervention Change Diet Order: Diet advancement when medically feasible Nutrition Support: PPN at 75 ml/hr: 100 mEq K, 75 /25 Cl/Acetate, 10 mEq Mg, 35 mmol P Kcal 500 Protein (gm) 40 Carbohydrates (gm) 100 Fat (gm) 0 Fluid (mL) 1,800 Fiber (gm) 0 Goal #1 PPN to meet nutritional needs as best possible Anticipated Discharge Needs: unable to determine at this time Follow-Up By: 08/17/18 Additional Comments Follow for labs in am: BMP, Mag, Phos
[2018-08-17] MEDS: LEVAQUIN 500MG/100ML 500 MG/100 ML BAG IV SCH (09:58)
[2018-08-17] MEDS: PEPCID IV SCH (09:58)
[2018-08-17] MEDS ORDERED: NACL 0.9% 500 ML 500 ML IV NR (13:34)
--- NOTE | 2018-08-17 13:45 | Progress Note ---
Assessment and Plan POD # 5 Pt feeling well. minimal flatus since small BM yesterday. 400 cc from NG Abd 1+ distended. non tender h/h continues to slowly drop. pt somewhat pale transfuse I unit prbc continue ng suction stable continue present care f/u h/h in am stableSelected Entries 08/17/18 12:00 Temperature 98.8 F Pulse Rate 83 Respiratory 20 Rate Blood Pressure 107/58 [Left] Laboratory Tests 08/17/18 08/17/18 05:46 05:46 WBC 7.2 Hgb 8.9 L Hct 26.6 L Potassium 3.9 D Objective Vital Signs - 12hr 08/17/18 08/17/18 08/17/18 04:29 07:48 12:00 Temperature 98.6 F 98.4 F 98.8 F Pulse Rate 89 94 H 83 Respiratory 16 18 20 Rate Blood Pressure 107/58 Blood Pressure 107/62 107/58 [Left] O2 Sat by Pulse 98 98 Oximetry - Labs 08/17/18 05:46 08/17/18 05:46 Diabetes panel 08/16/18 08/17/18 Range/Units 15:39 05:46 Sodium 141 140 (137-145) mmol/L Potassium 2.3 L* D 3.9 D (3.6-5.0) mmol/L Chloride 94.6 L 98.4 (98-107) mmol/L Carbon Dioxide 37 H D 34 H (22-30) mmol/L BUN 5 L 5 L (7-17) mg/dL Creatinine 0.2 L 0.2 L (0.7-1.2) mg/dL Glucose 154 H 141 H (65-100) mg/dL Calcium 7.4 L 6.8 L (8.4-10.2) mg/dL Calcium panel 08/16/18 08/17/18 Range/Units 15:39 05:46 Calcium 7.4 L 6.8 L (8.4-10.2) mg/dL Phosphorus 4.10 D (2.5-4.5) mg/dL Pituitary panel 08/16/18 08/17/18 Range/Units 15:39 05:46 Sodium 141 140 (137-145) mmol/L Potassium 2.3 L* D 3.9 D (3.6-5.0) mmol/L Chloride 94.6 L 98.4 (98-107) mmol/L Carbon Dioxide 37 H D 34 H (22-30) mmol/L BUN 5 L 5 L (7-17) mg/dL Creatinine 0.2 L 0.2 L (0.7-1.2) mg/dL Glucose 154 H 141 H (65-100) mg/dL Calcium 7.4 L 6.8 L (8.4-10.2) mg/dL Adrenal panel 08/16/18 08/17/18 Range/Units 15:39 05:46 Sodium 141 140 (137-145) mmol/L Potassium 2.3 L* D 3.9 D (3.6-5.0) mmol/L Chloride 94.6 L 98.4 (98-107) mmol/L Carbon Dioxide 37 H D 34 H (22-30) mmol/L BUN 5 L 5 L (7-17) mg/dL Creatinine 0.2 L 0.2 L (0.7-1.2) mg/dL Glucose 154 H 141 H (65-100) mg/dL Calcium 7.4 L 6.8 L (8.4-10.2) mg/dL
--- NOTE | 2018-08-17 19:22 | Progress Note ---
Assessment and Plan Patient resting on room air. No acute respiratory distress.O2 saturation 98% on room air.Patient undergone exploratory laporotomy and lysis of adhesions and sub segmental resection of small bowel and anastamosis.Patient says abdominal pain better. Nursing staff told me she is walking in thorpe ways. - Patient Problems (1) Small bowel obstruction Current Visit: Yes Status: Acute Plan to address problem: Patient undergone exploratory laporotomy and lysis of adhesions and sub segmental resection of small bowel and anastamosis. Recommend incentive spirometry Recommend DVt Prophylaxis. Continue famotidine. Continue metronidazole. Subjective Date of service: 08/17/18 Interval history: Patient resting on room air. No acute respiratory distress.O2 saturation 98% on room air.Patient undergone exploratory laporotomy and lysis of adhesions and sub segmental resection of small bowel and anastamosis.Patient says abdominal pain better. Nursing staff told me she is walking in thor[place] ways. Objective Vital Signs - 12hr 08/17/18 08/17/18 08/17/18 07:48 12:00 16:00 Temperature 98.4 F 98.8 F 97.7 F Pulse Rate 94 H 83 95 H Respiratory 18 20 16 Rate Blood Pressure Blood Pressure 107/62 107/58 109/64 [Left] O2 Sat by Pulse 98 96 Oximetry 08/17/18 08/17/18 18:35 18:50 Temperature 98.5 F 98.2 F Pulse Rate 90 87 Respiratory 20 20 Rate Blood Pressure 110/63 110/61 Blood Pressure [Left] O2 Sat by Pulse 97 98 Oximetry Constitutional: no acute distress, alert Eyes: non-icteric Ascultation: Bilateral: diminished breath sounds Cardiovascular: regular rate and rhythm Gastrointestinal: hypoactive bowel sounds, soft Integumentary: normal Extremities: no cyanosis, no edema Neurologic: normal mental status, non-focal exam, pupils equal and round, CN II- XII normal Psychiatric: mood appropriate CBC and BMP: 08/17/18 05:46 08/17/18 05:46 Abnormal lab findings: Abnormal Labs 08/09/18 08/11/18 08/11/18 17:55 09:35 09:35 WBC RBC Hgb Hct Lymph % (Auto) [place] % (Auto) Lymph # [place] # Seg Neutrophils % Seg Neuts % (Manual) 84.0 H Lymphocytes % (Manual) 13.0 L Seg Neutrophils # Seg Neutrophils # Man Lymphocytes # (Manual) 1.1 L POC Sodium Sodium 146 H 146 H Potassium Chloride 109.0 H Carbon Dioxide POC BUN BUN 21 H 20 H Creatinine 0.4 L 0.4 L Glucose 130 H 103 H POC Glucose Calcium Phosphorus Magnesium Alkaline Phosphatase Total Protein Albumin Crossmatch 08/12/18 08/12/18 08/12/18 14:05 14:37 15:00 WBC 1.9 L* RBC Hgb Hct Lymph % (Auto) [place] % (Auto) Lymph # [place] # Seg Neutrophils % Seg Neuts % (Manual) 72.0 H Lymphocytes % (Manual) Seg Neutrophils # Seg Neutrophils # Man 1.4 L Lymphocytes # (Manual) 0.4 L POC Sodium 135 L Sodium Potassium Chloride Carbon Dioxide POC BUN 30 H BUN Creatinine Glucose POC Glucose Calcium Phosphorus Magnesium Alkaline Phosphatase Total Protein Albumin Crossmatch See Detail 08/12/18 08/12/18 08/13/18 15:00 15:00 06:02 WBC 1.8 L* RBC 3.51 L Hgb Hct Lymph % (Auto) [place] % (Auto) Lymph # [place] # Seg Neutrophils % Seg Neuts % (Manual) 81.0 H 93.0 H Lymphocytes % (Manual) 3.0 L Seg Neutrophils # 8.4 H Seg Neutrophils # Man 1.5 L 8.6 H Lymphocytes # (Manual) 0.3 L 0.3 L POC Sodium Sodium Potassium 3.0 L D Chloride Carbon Dioxide 21 L POC BUN BUN 21 H Creatinine 0.4 L Glucose 117 H POC Glucose Calcium 6.1 L D Phosphorus Magnesium Alkaline Phosphatase 23 L Total Protein 2.6 L D Albumin 1.7 L Crossmatch 08/13/18 08/14/18 08/14/18 06:02 06:50 06:50 WBC 13.1 H RBC 3.12 L Hgb 9.5 L Hct 28.4 L D Lymph % (Auto) [place] % (Auto) Lymph # [place] # Seg Neutrophils % Seg Neuts % (Manual) 98.0 H Lymphocytes % (Manual) 2.0 L Seg Neutrophils # Seg Neutrophils # Man 12.8 H Lymphocytes # (Manual) 0.3 L POC Sodium Sodium Potassium 3.3 L 2.3 L* D Chloride Carbon Dioxide 20 L 21 L POC BUN BUN 24 H Creatinine 0.4 L 0.3 L Glucose POC Glucose Calcium 7.0 L 7.1 L Phosphorus 1.60 L Magnesium 1.50 L Alkaline Phosphatase 24 L Total Protein 3.5 L D Albumin 1.8 L Crossmatch 08/15/18 08/15/18 08/16/18 05:00 05:00 00:03 WBC 13.9 H RBC 3.01 L Hgb 9.2 L Hct 27.4 L Lymph % (Auto) [place] % (Auto) Lymph # [place] # Seg Neutrophils % Seg Neuts % (Manual) 90.0 H Lymphocytes % (Manual) 7.0 L Seg Neutrophils # Seg Neutrophils # Man 12.5 H Lymphocytes # (Manual) 1.0 L POC Sodium Sodium Potassium 3.3 L D Chloride Carbon Dioxide 21 L POC BUN BUN Creatinine 0.2 L Glucose POC Glucose 118 H Calcium 7.4 L Phosphorus 2.10 L D Magnesium Alkaline Phosphatase Total Protein Albumin Crossmatch 08/16/18 08/16/18 08/16/18 05:39 06:43 15:39 WBC RBC Hgb Hct Lymph % (Auto) [place] % (Auto) Lymph # [place] # Seg Neutrophils % Seg Neuts % (Manual) Lymphocytes % (Manual) Seg Neutrophils # Seg Neutrophils # Man Lymphocytes # (Manual) POC Sodium Sodium Potassium 3.0 L 2.3 L* D Chloride 94.6 L Carbon Dioxide 37 H D POC BUN BUN 5 L 5 L Creatinine 0.2 L 0.2 L Glucose 151 H 154 H POC Glucose 146 H Calcium 7.1 L 7.4 L Phosphorus 1.70 L Magnesium 1.50 L Alkaline Phosphatase Total Protein Albumin Crossmatch 08/16/18 08/17/18 08/17/18 18:14 00:11 05:46 WBC RBC Hgb Hct Lymph % (Auto) [place] % (Auto) Lymph # [place] # Seg Neutrophils % Seg Neuts % (Manual) Lymphocytes % (Manual) Seg Neutrophils # Seg Neutrophils # Man Lymphocytes # (Manual) POC Sodium Sodium Potassium Chloride Carbon Dioxide 34 H POC BUN BUN 5 L Creatinine 0.2 L Glucose 141 H POC Glucose 148 H 178 H Calcium 6.8 L Phosphorus Magnesium Alkaline Phosphatase Total Protein Albumin Crossmatch 08/17/18 08/17/18 08/17/18 05:46 05:57 07:10 WBC RBC 2.97 L Hgb 8.9 L Hct 26.6 L Lymph % (Auto) 9.6 L [place] % (Auto) 12.7 H Lymph # 0.7 L [place] # 0.9 H Seg Neutrophils % 77.4 H Seg Neuts % (Manual) Lymphocytes % (Manual) Seg Neutrophils # Seg Neutrophils # Man Lymphocytes # (Manual) POC Sodium Sodium Potassium Chloride Carbon Dioxide POC BUN BUN Creatinine Glucose POC Glucose 158 H 142 H Calcium Phosphorus Magnesium Alkaline Phosphatase Total Protein Albumin Crossmatch 08/17/18 08/17/18 08/17/18 11:49 14:12 16:21 WBC RBC Hgb Hct Lymph % (Auto) [place] % (Auto) Lymph # [place] # Seg Neutrophils % Seg Neuts % (Manual) Lymphocytes % (Manual) Seg Neutrophils # Seg Neutrophils # Man Lymphocytes # (Manual) POC Sodium Sodium Potassium Chloride Carbon Dioxide POC BUN BUN Creatinine Glucose POC Glucose 142 H 133 H Calcium Phosphorus Magnesium Alkaline Phosphatase Total Protein Albumin Crossmatch See Detail
[2018-08-17] MEDS ORDERED: TPN ADULT 1,800 ML IV SCH (20:00)
[2018-08-18] MEDS: PEPCID IV SCH ×3 (00:47→21:07)
[2018-08-18 05:22] LABS: Basophils % (Auto) 0.1 % (0.0-1.8); Eosinophils # (Auto) 0.1 K/mm3 (0.0-0.4); Eosinophils % (Auto) 1.6 % (0.0-4.3); Hematocrit 32.1 % (30.3-42.9); Hemoglobin 11.1 gm/dl (10.1-14.3); Lymphocytes # (Auto) 0.9 K/mm3 (1.2-5.4); Lymphocytes % (Auto) 10.6 % (13.4-35.0); Mean Corpuscular HGB Conc 35 % (30-34); Mean Corpuscular Volume 90 fl (79-97); Monocytes # (Auto) 0.9 K/mm3 (0.0-0.8); Monocytes % (Auto) 10.4 % (0.0-7.3); Platelet Count 316 K/mm3 (140-440); Red Blood Count 3.57 M/mm3 (3.65-5.03); Red Cell Distribution Width 13.8 % (13.2-15.2)
[2018-08-18 05:47] LABS: BUN/Creatinine Ratio 40; Blood Urea Nitrogen 8 mg/dL (7-17); Hemolysis Index 14
--- NOTE | 2018-08-18 12:37 | Progress Note ---
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 discontinue NG tube -Likely start clear liquid tomorrow Severe malnutrition cont TPN, utility plant operative consult appreciated Hypernatremia/dehydration Continue IV fluids Hypokalemia/hypomagnesemia/hypophosphatemia -repleted IV DVT prophylaxis with [place] Hospitalist Physical - Physical exam Narrative exam: Gen: Not in acute distress, lying in bed,malnourished HEENT: Normocephalic, atraumatic Neck: supple, no JVD Heart: S1 and S2 reg, no murmurs, rubs or gallop Lungs: Clear, no crackles, no wheeze Abd: soft, non tender, mild distended, Ext:No edema, no clubbing, no cyanosis Neuro: Awake,alert, oriented x 3, moves all ext, non focal Psych:Normal mood - Constitutional Vitals: Temp Pulse Resp BP Pulse Ox 98 F 87 18 114/67 99 08/18/18 08:00 08/18/18 08:00 08/18/18 08:00 08/18/18 08:00 08/18/18 04:48 Results - Labs CBC & Chem 7: 08/18/18 04:33 08/18/18 04:33 Labs: Laboratory Last Values WBC 8.3 K/mm3 (4.5-11.0) 08/18/18 04:33 RBC 3.57 M/mm3 (3.65-5.03) L 08/18/18 04:33 Hgb 11.1 gm/dl (10.1-14.3) 08/18/18 04:33 POC Hgb 14.3 (12-17) 08/12/18 14:37 Hct 32.1 % (30.3-42.9) 08/18/18 04:33 POC Hct 42 (38-51) 08/12/18 14:37 MCV 90 fl (79-97) 08/18/18 04:33 MCH 31 pg (28-32) 08/18/18 04:33 MCHC 35 % (30-34) H 08/18/18 04:33 RDW 13.8 % (13.2-15.2) 08/18/18 04:33 Plt Count 316 K/mm3 (140-440) 08/18/18 04:33 Lymph % (Auto) 10.6 % (13.4-35.0) L 08/18/18 04:33 [place] % (Auto) 10.4 % (0.0-7.3) H 08/18/18 04:33 Eos % (Auto) 1.6 % (0.0-4.3) 08/18/18 04:33 Baso % (Auto) 0.1 % (0.0-1.8) 08/18/18 04:33 Lymph # 0.9 K/mm3 (1.2-5.4) L 08/18/18 04:33 [place] # 0.9 K/mm3 (0.0-0.8) H 08/18/18 04:33 Eos # 0.1 K/mm3 (0.0-0.4) 08/18/18 04:33 Baso # 0.0 K/mm3 (0.0-0.1) 08/18/18 04:33 Add Manual Diff Complete 08/15/18 05:00 Total Counted 100 08/15/18 05:00 Seg Neutrophils % 77.3 % (40.0-70.0) H 08/18/18 04:33 Seg Neuts % (Manual) 90.0 % (40.0-70.0) H 08/15/18 05:00 0 % 08/15/18 05:00 7.0 % (13.4-35.0) L 08/15/18 05:00 Reactive Lymphs % (Man) 1.0 % 08/15/18 05:00 2.0 % (0.0-7.3) 08/15/18 05:00 0 % (0.0-4.3) 08/15/18 05:00 0 % (0.0-1.8) 08/15/18 05:00 0 % 08/15/18 05:00 0 % 08/15/18 05:00 0 % 08/15/18 05:00 0 % 08/15/18 05:00 Nucleated RBC % Not Reportable 08/15/18 05:00 Seg Neutrophils # 6.4 K/mm3 (1.8-7.7) 08/18/18 04:33 Seg Neutrophils # Man 12.5 K/mm3 (1.8-7.7) H 08/15/18 05:00 Band Neutrophils # 0.0 K/mm3 08/15/18 05:00 1.0 K/mm3 (1.2-5.4) L 08/15/18 05:00 Abs React Lymphs (Man) 0.1 K/mm3 08/15/18 05:00 0.3 K/mm3 (0.0-0.8) 08/15/18 05:00 0.0 K/mm3 (0.0-0.4) 08/15/18 05:00 0.0 K/mm3 (0.0-0.1) 08/15/18 05:00 0.0 K/mm3 08/15/18 05:00 0.0 K/mm3 08/15/18 05:00 0.0 K/mm3 08/15/18 05:00 Blast Cells # 0.0 K/mm3 08/15/18 05:00 WBC Morphology Not Reportable 08/15/18 05:00 Hypersegmented Neuts Not Reportable 08/15/18 05:00 Hyposegmented Neuts Not Reportable 08/15/18 05:00 Hypogranular Neuts Not Reportable 08/15/18 05:00 Not Reportable 08/15/18 05:00 Not Reportable 08/15/18 05:00 Not Reportable 08/15/18 05:00 Not Reportable 08/15/18 05:00 Not Reportable 08/15/18 05:00 Not Reportable 08/15/18 05:00 Consistent w auto 08/15/18 05:00 Not Reportable 08/15/18 05:00 Plt Clumps, EDTA Not Reportable 08/15/18 05:00 Not Reportable 08/15/18 05:00 Not Reportable 08/15/18 05:00 Not Reportable 08/15/18 05:00 Plt Morphology Comment Not Reportable 08/15/18 05:00 RBC Morphology Normal 08/15/18 05:00 Dimorphic RBCs Not Reportable 08/15/18 05:00 Not Reportable 08/15/18 05:00 Not Reportable 08/15/18 05:00 Not Reportable 08/15/18 05:00 Not Reportable 08/15/18 05:00 Not Reportable 08/15/18 05:00 Not Reportable 08/15/18 05:00 Not Reportable 08/15/18 05:00 Not Reportable 08/15/18 05:00 Not Reportable 08/15/18 05:00 Not Reportable 08/15/18 05:00 Not Reportable 08/15/18 05:00 Not Reportable 08/15/18 05:00 Not Reportable 08/15/18 05:00 Not Reportable 08/15/18 05:00 Not Reportable 08/15/18 05:00 Not Reportable 08/15/18 05:00 Not Reportable 08/15/18 05:00 Not Reportable 08/15/18 05:00 Not Reportable 08/15/18 05:00 Acanthocytes (Spur) Not Reportable 08/15/18 05:00 Rouleaux Not Reportable 08/15/18 05:00 Not Reportable 08/15/18 05:00 Not Reportable 08/15/18 05:00 Not Reportable 08/15/18 05:00 Not Reportable 08/15/18 05:00 Hem Pathologist Commnt No 08/15/18 05:00 POC Sodium 135 mmol/L (138-146) L 08/12/18 14:37 POC Chloride 105 (98-109) 08/12/18 14:37 Sodium 142 mmol/L (137-145) 08/18/18 04:33 Potassium 4.2 mmol/L (3.6-5.0) 08/18/18 04:33 Chloride 104.7 mmol/L (98-107) 08/18/18 04:33 Carbon Dioxide 30 mmol/L (22-30) 08/18/18 04:33 12 mmol/L 08/18/18 04:33 POC BUN 30 mg/dl (8-26) H 08/12/18 14:37 BUN 8 mg/dL (7-17) 08/18/18 04:33 0.2 mg/dL (0.7-1.2) L 08/18/18 04:33 Estimated GFR > 60 ml/min 08/18/18 04:33 40 % 08/18/18 04:33 Glucose 119 mg/dL (65-100) H 08/18/18 04:33 POC Glucose 108 (70-105) H 08/18/18 06:42 Calcium 8.0 mg/dL (8.4-10.2) L D 08/18/18 04:33 Phosphorus 2.80 mg/dL (2.5-4.5) D 08/18/18 04:33 Magnesium 2.10 mg/dL (1.7-2.3) 08/18/18 04:33 0.80 mg/dL (0.1-1.2) 08/13/18 06:02 AST 28 units/L (5-40) 08/13/18 06:02 ALT 13 units/L (7-56) 08/13/18 06:02 24 units/L (35-129) L 08/13/18 06:02 3.5 g/dL (6.3-8.2) L D 08/13/18 06:02 1.8 g/dL (3.9-5) L 08/13/18 06:02 1.1 % 08/13/18 06:02 Triglycerides 63 mg/dL (2-149) 08/18/18 04:33 22 units/L (13-60) 08/09/18 17:55 Yellow (Yellow) 08/14/18 10:58 Clear (Clear) 08/14/18 10:58 5.0 (5.0-7.0) 08/14/18 10:58 Ur Specific [place] 1.014 (1.003-1.030) 08/14/18 10:58 <15 mg/dl mg/dL (Negative) 08/14/18 10:58 Neg mg/dL (Negative) 08/14/18 10:58 80 mg/dL (Negative) 08/14/18 10:58 Mod (Negative) 08/14/18 10:58 Neg (Negative) 08/14/18 10:58 Neg (Negative) 08/14/18 10:58 < 2.0 mg/dL (<2.0) 08/14/18 10:58 Ur Leukocyte Esterase Tr (Negative) 08/14/18 10:58 5.0 /HPF (0.0-6.0) 08/14/18 10:58 7.0 /HPF (0.0-6.0) 08/14/18 10:58 1+ /HPF (Negative) 08/14/18 10:58 1+ /HPF 08/14/18 10:58 3+ /HPF 08/09/18 18:25 Blood Type O POSITIVE 08/17/18 14:12 Antibody Screen Negative 08/17/18 14:12 Crossmatch See Detail 08/17/18 14:12 Active Medications - Current Medications Current Medications: Generic Name Dose Route Start Last Admin Trade Name Freq PRN Reason Stop Dose Admin Acetaminophen 650 mg 08/09/18 23:07 Tylenol [place] Q4H PRN Fever >101 Famotidine 20 mg 08/10/18 15:00 08/18/18 10:14 Pepcid IV 20 mg BID SILVIANO Administration Hydromorphone HCl 0.5 mg 08/10/18 04:07 08/11/18 03:47 Dilaudid IV 0.5 mg Q4H PRN Administration Pain , Severe (7-10) Amino Acids/Electrolytes/Dextrose 1,800 mls @ 75 mls/hr 08/17/18 20:00 08/17/18 20:49 Tpn Adult IV 08/18/18 19:59 75 mls/hr DAILY@2000 SILVIANO Administration Protocol Ondansetron HCl 4 mg 08/09/18 23:05 08/11/18 12:23 Zofran IV 4 mg Q8H PRN Administration Nausea And Vomiting Phenol 1 spray 08/10/18 13:38 08/13/18 14:18 Chloraseptic MM 1 spray PRN PRN Administration Sore Throat Nutrition/Malnutrition Assess - Dietary Evaluation Nutrition/Malnutrition Findings: Nutrition Notes Start: 08/10/18 16:30 Freq: Status: Active Protocol: Document 08/17/18 15:58 RM (Rec: 08/17/18 16:04 RM [id number]) Nutrition Notes Initial or Follow up Reassessment Other Pertinent Diagnosis Partial SBO, abdominal pain Current Diet TPN/PPN Labs/Tests K 3.9 P 4.1 Mg 2.2 Ca 6.8 Pertinent Medications 08/16/18: 45 mmol Kphos 08/17/18: 40 mEq KCl Height 4 ft 8 in Weight 33.8 kg [place] Body Weight (kg) 36.36 BMI 16.7 Weight change and time frame Current wt obtained from [facility]. Previous wt likely d /t human error. Subjective/Other Information PPN day 3. Pt stated she has never developed vomiting or rash in reaction to any foods. Percent of energy/protein needs met: 37%/100% Burn Absent Trauma Absent #2 Nutrition Diagnosis Altered GI function Diagnosis Progress(for reassessment Continues documentation) #1 Nutrition Diagnosis Inadequate oral intake Diagnosis Progress(for reassessment Continues documentation) Is patient on ventilator? No Is Patient Ambulatory and/or Out of Bed Yes REE-([place] [facility]-ambulatory/OOB) [ 969.800 NUTR.MSJOOB] Kcal/Kg value to use for calculation 40 Approximate Energy Requirements Using 1352 kcal/Kg Calculation Used for Recommendations Kcal/kg Additional Notes Pro needs 1.2-1.5g/k-50g/ day Fluid needs 1ml/kcal Nutrition Intervention Change Diet Order: Diet advancement when medically feasible Nutrition Support: PPN at 75 ml/hr: 10 mEq Ca, Thiamine Kcal 500 Protein (gm) 40 Carbohydrates (gm) 100 Fat (gm) 0 Fluid (mL) 1,800 Fiber (gm) 0 Goal #1 PPN to meet nutritional needs as best possible Anticipated Discharge Needs: unable to determine at this time Follow-Up By: 08/18/18 Additional Comments Follow for labs in am: BMP, Mag, Phos, TG - Attestation Statement I have reviewed and agreed w/ Malnutrition eval & tx plan: Yes
--- NOTE | 2018-08-18 13:20 | Progress Note ---
Assessment and Plan POD # 6 Pt feeling better. small amt of flatus. 200 cc from NG Abd flat, soft, non tender. hypoactive BS stable d/c ng keep NPO except for ice chips and po meds Selected Entries 08/18/18 08:00 Temperature 98 F Pulse Rate 87 Respiratory 18 Rate Blood Pressure 114/67 [Left] Laboratory Tests 08/18/18 08/18/18 04:33 04:33 WBC 8.3 Hgb 11.1 Hct 32.1 Potassium 4.2 Objective Vital Signs - 12hr 08/18/18 08/18/18 04:48 08:00 Temperature 97.8 F 98 F Pulse Rate 79 87 Respiratory 16 18 Rate Blood Pressure 128/70 Blood Pressure 114/67 [Left] O2 Sat by Pulse 99 Oximetry - Labs 08/18/18 04:33 08/18/18 04:33 Diabetes panel 08/18/18 Range/Units 04:33 Sodium 142 (137-145) mmol/L Potassium 4.2 (3.6-5.0) mmol/L Chloride 104.7 (98-107) mmol/L Carbon Dioxide 30 (22-30) mmol/L BUN 8 (7-17) mg/dL Creatinine 0.2 L (0.7-1.2) mg/dL Glucose 119 H (65-100) mg/dL Calcium 8.0 L D (8.4-10.2) mg/dL Triglycerides 63 (2-149) mg/dL Calcium panel 08/18/18 Range/Units 04:33 Calcium 8.0 L D (8.4-10.2) mg/dL Phosphorus 2.80 D (2.5-4.5) mg/dL Pituitary panel 08/18/18 Range/Units 04:33 Sodium 142 (137-145) mmol/L Potassium 4.2 (3.6-5.0) mmol/L Chloride 104.7 (98-107) mmol/L Carbon Dioxide 30 (22-30) mmol/L BUN 8 (7-17) mg/dL Creatinine 0.2 L (0.7-1.2) mg/dL Glucose 119 H (65-100) mg/dL Calcium 8.0 L D (8.4-10.2) mg/dL Adrenal panel 08/18/18 Range/Units 04:33 Sodium 142 (137-145) mmol/L Potassium 4.2 (3.6-5.0) mmol/L Chloride 104.7 (98-107) mmol/L Carbon Dioxide 30 (22-30) mmol/L BUN 8 (7-17) mg/dL Creatinine 0.2 L (0.7-1.2) mg/dL Glucose 119 H (65-100) mg/dL Calcium 8.0 L D (8.4-10.2) mg/dL
[2018-08-18] MEDS ORDERED: NORCO 5/325 PO PRN (13:30)
[2018-08-18] MEDS ORDERED: TPN ADULT 1,800 ML IV SCH (20:00)
[2018-08-19] MEDS: PEPCID IV SCH ×2 (09:24→21:10)
[2018-08-19 10:28] LABS: BUN/Creatinine Ratio 60; Blood Urea Nitrogen 12 mg/dL (7-17); Calcium 8.2 mg/dL (8.4-10.2); Hemolysis Index 9
--- NOTE | 2018-08-19 16:38 | Progress Note ---
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 discontinued NG tube 08/18 -Start clear liquid today-discussed with Dr. Pineda Severe malnutrition cont TPN, hot tamale man consult appreciated Hypernatremia/dehydration Continue IV fluids Hypokalemia/hypomagnesemia/hypophosphatemia -repleted IV DVT prophylaxis with Lovenox History Interval history: Less abd pain Hospitalist Physical - Physical exam Narrative exam: Gen: Not in acute distress, lying in bed,malnourished HEENT: Normocephalic, atraumatic Neck: supple, no JVD Heart: S1 and S2 reg, no murmurs, rubs or gallop Lungs: Clear, no crackles, no wheeze Abd: soft, non tender, mild distended, Ext:No edema, no clubbing, no cyanosis Neuro: Awake,alert, oriented x 3, moves all ext, non focal Psych:Normal mood - Constitutional Vitals: Temp Pulse Resp BP Pulse Ox 97.9 F 73 16 110/53 98 08/19/18 04:14 08/19/18 04:14 08/19/18 04:14 08/19/18 04:14 08/19/18 04:14 Results - Labs CBC & Chem 7: 08/18/18 04:33 08/19/18 09:18 Labs: Laboratory Last Values WBC 8.3 K/mm3 (4.5-11.0) 08/18/18 04:33 RBC 3.57 M/mm3 (3.65-5.03) L 08/18/18 04:33 Hgb 11.1 gm/dl (10.1-14.3) 08/18/18 04:33 POC Hgb 14.3 (12-17) 08/12/18 14:37 Hct 32.1 % (30.3-42.9) 08/18/18 04:33 POC Hct 42 (38-51) 08/12/18 14:37 MCV 90 fl (79-97) 08/18/18 04:33 MCH 31 pg (28-32) 08/18/18 04:33 MCHC 35 % (30-34) H 08/18/18 04:33 RDW 13.8 % (13.2-15.2) 08/18/18 04:33 Plt Count 316 K/mm3 (140-440) 08/18/18 04:33 Lymph % (Auto) 10.6 % (13.4-35.0) L 08/18/18 04:33 [place] % (Auto) 10.4 % (0.0-7.3) H 08/18/18 04:33 Eos % (Auto) 1.6 % (0.0-4.3) 08/18/18 04:33 Baso % (Auto) 0.1 % (0.0-1.8) 08/18/18 04:33 Lymph # 0.9 K/mm3 (1.2-5.4) L 08/18/18 04:33 [place] # 0.9 K/mm3 (0.0-0.8) H 08/18/18 04:33 Eos # 0.1 K/mm3 (0.0-0.4) 08/18/18 04:33 Baso # 0.0 K/mm3 (0.0-0.1) 08/18/18 04:33 Add Manual Diff Complete 08/15/18 05:00 Total Counted 100 08/15/18 05:00 Seg Neutrophils % 77.3 % (40.0-70.0) H 08/18/18 04:33 Seg Neuts % (Manual) 90.0 % (40.0-70.0) H 08/15/18 05:00 0 % 08/15/18 05:00 7.0 % (13.4-35.0) L 08/15/18 05:00 Reactive Lymphs % (Man) 1.0 % 08/15/18 05:00 2.0 % (0.0-7.3) 08/15/18 05:00 0 % (0.0-4.3) 08/15/18 05:00 0 % (0.0-1.8) 08/15/18 05:00 0 % 08/15/18 05:00 0 % 08/15/18 05:00 0 % 08/15/18 05:00 0 % 08/15/18 05:00 Nucleated RBC % Not Reportable 08/15/18 05:00 Seg Neutrophils # 6.4 K/mm3 (1.8-7.7) 08/18/18 04:33 Seg Neutrophils # Man 12.5 K/mm3 (1.8-7.7) H 08/15/18 05:00 Band Neutrophils # 0.0 K/mm3 08/15/18 05:00 1.0 K/mm3 (1.2-5.4) L 08/15/18 05:00 Abs React Lymphs (Man) 0.1 K/mm3 08/15/18 05:00 0.3 K/mm3 (0.0-0.8) 08/15/18 05:00 0.0 K/mm3 (0.0-0.4) 08/15/18 05:00 0.0 K/mm3 (0.0-0.1) 08/15/18 05:00 0.0 K/mm3 08/15/18 05:00 0.0 K/mm3 08/15/18 05:00 0.0 K/mm3 08/15/18 05:00 Blast Cells # 0.0 K/mm3 08/15/18 05:00 WBC Morphology Not Reportable 08/15/18 05:00 Hypersegmented Neuts Not Reportable 08/15/18 05:00 Hyposegmented Neuts Not Reportable 08/15/18 05:00 Hypogranular Neuts Not Reportable 08/15/18 05:00 Not Reportable 08/15/18 05:00 Not Reportable 08/15/18 05:00 Not Reportable 08/15/18 05:00 Not Reportable 08/15/18 05:00 Not Reportable 08/15/18 05:00 Not Reportable 08/15/18 05:00 Consistent w auto 08/15/18 05:00 Not Reportable 08/15/18 05:00 Plt Clumps, EDTA Not Reportable 08/15/18 05:00 Not Reportable 08/15/18 05:00 Not Reportable 08/15/18 05:00 Not Reportable 08/15/18 05:00 Plt Morphology Comment Not Reportable 08/15/18 05:00 RBC Morphology Normal 08/15/18 05:00 Dimorphic RBCs Not Reportable 08/15/18 05:00 Not Reportable 08/15/18 05:00 Not Reportable 08/15/18 05:00 Not Reportable 08/15/18 05:00 Not Reportable 08/15/18 05:00 Not Reportable 08/15/18 05:00 Not Reportable 08/15/18 05:00 Not Reportable 08/15/18 05:00 Not Reportable 08/15/18 05:00 Not Reportable 08/15/18 05:00 Not Reportable 08/15/18 05:00 Not Reportable 08/15/18 05:00 Not Reportable 08/15/18 05:00 Not Reportable 08/15/18 05:00 Not Reportable 08/15/18 05:00 Not Reportable 08/15/18 05:00 Not Reportable 08/15/18 05:00 Not Reportable 08/15/18 05:00 Not Reportable 08/15/18 05:00 Not Reportable 08/15/18 05:00 Acanthocytes (Spur) Not Reportable 08/15/18 05:00 Rouleaux Not Reportable 08/15/18 05:00 Not Reportable 08/15/18 05:00 Not Reportable 08/15/18 05:00 Not Reportable 08/15/18 05:00 Not Reportable 08/15/18 05:00 Hem Pathologist Commnt No 08/15/18 05:00 POC Sodium 135 mmol/L (138-146) L 08/12/18 14:37 POC Chloride 105 (98-109) 08/12/18 14:37 Sodium 137 mmol/L (137-145) 08/19/18 09:18 Potassium 4.5 mmol/L (3.6-5.0) 08/19/18 09:18 Chloride 102.0 mmol/L (98-107) 08/19/18 09:18 Carbon Dioxide 25 mmol/L (22-30) 08/19/18 09:18 15 mmol/L 08/19/18 09:18 POC BUN 30 mg/dl (8-26) H 08/12/18 14:37 BUN 12 mg/dL (7-17) 08/19/18 09:18 0.2 mg/dL (0.7-1.2) L 08/19/18 09:18 Estimated GFR > 60 ml/min 08/19/18 09:18 60 % 08/19/18 09:18 Glucose 116 mg/dL (65-100) H 08/19/18 09:18 POC Glucose 110 (70-105) H 08/19/18 06:33 Calcium 8.2 mg/dL (8.4-10.2) L 08/19/18 09:18 Phosphorus 3.70 mg/dL (2.5-4.5) D 08/19/18 09:18 Magnesium 2.20 mg/dL (1.7-2.3) 08/19/18 09:18 0.80 mg/dL (0.1-1.2) 08/13/18 06:02 AST 28 units/L (5-40) 08/13/18 06:02 ALT 13 units/L (7-56) 08/13/18 06:02 24 units/L (35-129) L 08/13/18 06:02 3.5 g/dL (6.3-8.2) L D 08/13/18 06:02 1.8 g/dL (3.9-5) L 08/13/18 06:02 1.1 % 08/13/18 06:02 Triglycerides 63 mg/dL (2-149) 08/18/18 04:33 22 units/L (13-60) 08/09/18 17:55 Yellow (Yellow) 08/14/18 10:58 Clear (Clear) 08/14/18 10:58 5.0 (5.0-7.0) 08/14/18 10:58 Ur Specific [place] 1.014 (1.003-1.030) 08/14/18 10:58 <15 mg/dl mg/dL (Negative) 08/14/18 10:58 Neg mg/dL (Negative) 08/14/18 10:58 80 mg/dL (Negative) 08/14/18 10:58 Mod (Negative) 08/14/18 10:58 Neg (Negative) 08/14/18 10:58 Neg (Negative) 08/14/18 10:58 < 2.0 mg/dL (<2.0) 08/14/18 10:58 Ur Leukocyte Esterase Tr (Negative) 08/14/18 10:58 5.0 /HPF (0.0-6.0) 08/14/18 10:58 7.0 /HPF (0.0-6.0) 08/14/18 10:58 1+ /HPF (Negative) 08/14/18 10:58 1+ /HPF 08/14/18 10:58 3+ /HPF 08/09/18 18:25 Blood Type O POSITIVE 08/17/18 14:12 Antibody Screen Negative 08/17/18 14:12 Crossmatch See Detail 08/17/18 14:12 Active Medications - Current Medications Current Medications: Generic Name Dose Route Start Last Admin Trade Name Freq PRN Reason Stop Dose Admin Acetaminophen 650 mg 08/09/18 23:07 Tylenol [place] Q4H PRN Fever >101 Acetaminophen/Hydrocodone Bit[place] 1 each 08/18/18 13:30 [place] 5/325 PO Q4H PRN Pain, Moderate (4-6) Famotidine 20 mg 08/10/18 15:00 08/19/18 09:24 Pepcid IV 20 mg BID SILVIANO Administration Hydromorphone HCl 0.5 mg 08/10/18 04:07 08/11/18 03:47 Dilaudid IV 0.5 mg Q4H PRN Administration Pain , Severe (7-10) Amino Acids/Electrolytes/Dextrose 1,800 mls @ 75 mls/hr 08/18/18 20:00 08/18/18 21:06 Tpn Adult IV 08/19/18 19:59 75 mls/hr DAILY@1999 [facility] Administration Protocol Amino Acids/Electrolytes/Dextrose 1,800 mls @ 75 mls/hr 08/19/18 20:00 Tpn Adult IV 08/20/18 19:59 DAILY@1999 [facility] Protocol Fat Emulsion Intravenous 250 mls @ 21 mls/hr 08/19/18 20:00 Intralipid 20% IV 08/20/18 08:00 DAILY@1999 [facility] Ondansetron HCl 4 mg 08/09/18 23:05 08/11/18 12:23 Zofran IV 4 mg Q8H PRN Administration Nausea And Vomiting Phenol 1 spray 08/10/18 13:38 08/13/18 14:18 Chloraseptic MM 1 spray PRN PRN Administration Sore Throat Nutrition/Malnutrition Assess - Dietary Evaluation Nutrition/Malnutrition Findings: Nutrition Notes Start: 08/10/18 16:30 Freq: Status: Active Protocol: Document 08/18/18 16:55 RM (Rec: 08/18/18 16:58 RM [id number]) Nutrition Notes Initial or Follow up Reassessment Other Pertinent Diagnosis Partial SBO, abdominal pain Current Diet TPN/PPN Labs/Tests K 4.2 P 2.8 Ca 8 Pertinent Medications Reviewed Height 4 ft 8 in Weight 32.205 kg [place] Body Weight (kg) 36.36 BMI 15.9 Subjective/Other Information PPN day 4. Percent of energy/protein needs met: 37%/100% Burn Absent Trauma Absent #2 Nutrition Diagnosis Altered GI function Diagnosis Progress(for reassessment Continues documentation) #1 Nutrition Diagnosis Inadequate oral intake Diagnosis Progress(for reassessment Continues documentation) Is patient on ventilator? No Is Patient Ambulatory and/or Out of Bed Yes REE-([facility]-ambulatory/OOB) [ 949.065 NUTR.MSJOOB] Kcal/Kg value to use for calculation 40 Approximate Energy Requirements Using 1288 kcal/Kg Calculation Used for Recommendations Kcal/kg Additional Notes Pro needs 1.2-1.5g/k-50g/ day Fluid needs 1ml/kcal Nutrition Intervention Change Diet Order: Diet advancement when medically feasible Nutrition Support: PPN at 75 ml/hr: 40 mmol P Kcal 500 Protein (gm) 40 Carbohydrates (gm) 100 Fat (gm) 0 Fluid (mL) 1,800 Fiber (gm) 0 Goal #1 PPN to meet nutritional needs as best possible Anticipated Discharge Needs: unable to determine at this time Follow-Up By: 08/19/18 Additional Comments Follow for labs in am: BMP, Mag, Phos
--- NOTE | 2018-08-19 17:51 | Progress Note ---
Assessment and Plan Patient alert, awake. No acute respiratory distress.O2 saturation 98% on room air.Patient undergone exploratory laporotomy and lysis of adhesions and sub segmental resection of small bowel and anastamosis.Patient says abdominal pain better. Nursing staff told me she is walking in thorpe ways.Patient taking liquids by mouth. - Patient Problems (1) Small bowel obstruction Current Visit: Yes Status: Acute Plan to address problem: Patient undergone exploratory laporotomy and lysis of adhesions and sub segmental resection of small bowel and anastamosis. Recommend incentive spirometry Recommend DVt Prophylaxis. Continue famotidine. Continue metronidazole. Subjective Date of service: 08/19/18 Interval history: Patient alert, awake. No acute respiratory distress.O2 saturation 98% on room air.Patient undergone exploratory laporotomy and lysis of adhesions and sub segmental resection of small bowel and anastamosis.Patient says abdominal pain better. Nursing staff told me she is walking in thorpe ways.Patient taking liquids by mouth. Objective Vital Signs - 12hr 08/19/18 08/19/18 08/19/18 08:33 12:14 12:15 Temperature 98.1 F Pulse Rate 83 84 83 Respiratory 18 Rate Blood Pressure 96/53 106/60 Blood Pressure [Left] O2 Sat by Pulse 100 99 100 Oximetry 08/19/18 08/19/18 15:32 16:00 Temperature 98.6 F Pulse Rate 94 H 91 H Respiratory 18 Rate Blood Pressure Blood Pressure 103/57 [Left] O2 Sat by Pulse 98 Oximetry Constitutional: no acute distress, alert Eyes: non-icteric Ascultation: Bilateral: diminished breath sounds Cardiovascular: regular rate and rhythm Gastrointestinal: hypoactive bowel sounds, soft Integumentary: normal Extremities: no cyanosis, no edema Neurologic: normal mental status, non-focal exam, pupils equal and round, CN II- XII normal Psychiatric: mood appropriate CBC and BMP: 08/18/18 04:33 08/19/18 09:18 Abnormal lab findings: Abnormal Labs 08/09/18 08/11/18 08/11/18 17:55 09:35 09:35 WBC RBC Hgb Hct MCHC Lymph % (Auto) [place] % (Auto) Lymph # [place] # Seg Neutrophils % Seg Neuts % (Manual) 84.0 H Lymphocytes % (Manual) 13.0 L Seg Neutrophils # Seg Neutrophils # Man Lymphocytes # (Manual) 1.1 L POC Sodium Sodium 146 H 146 H Potassium Chloride 109.0 H Carbon Dioxide POC BUN BUN 21 H 20 H Creatinine 0.4 L 0.4 L Glucose 130 H 103 H POC Glucose Calcium Phosphorus Magnesium Alkaline Phosphatase Total Protein Albumin Crossmatch 08/12/18 08/12/18 08/12/18 14:05 14:37 15:00 WBC 1.9 L* RBC Hgb Hct MCHC Lymph % (Auto) [place] % (Auto) Lymph # [place] # Seg Neutrophils % Seg Neuts % (Manual) 72.0 H Lymphocytes % (Manual) Seg Neutrophils # Seg Neutrophils # Man 1.4 L Lymphocytes # (Manual) 0.4 L POC Sodium 135 L Sodium Potassium Chloride Carbon Dioxide POC BUN 30 H BUN Creatinine Glucose POC Glucose Calcium Phosphorus Magnesium Alkaline Phosphatase Total Protein Albumin Crossmatch See Detail 08/12/18 08/12/18 08/13/18 15:00 15:00 06:02 WBC 1.8 L* RBC 3.51 L Hgb Hct MCHC Lymph % (Auto) [place] % (Auto) Lymph # [place] # Seg Neutrophils % Seg Neuts % (Manual) 81.0 H 93.0 H Lymphocytes % (Manual) 3.0 L Seg Neutrophils # 8.4 H Seg Neutrophils # Man 1.5 L 8.6 H Lymphocytes # (Manual) 0.3 L 0.3 L POC Sodium Sodium Potassium 3.0 L D Chloride Carbon Dioxide 21 L POC BUN BUN 21 H Creatinine 0.4 L Glucose 117 H POC Glucose Calcium 6.1 L D Phosphorus Magnesium Alkaline Phosphatase 23 L Total Protein 2.6 L D Albumin 1.7 L Crossmatch 08/13/18 08/14/18 08/14/18 06:02 06:50 06:50 WBC 13.1 H RBC 3.12 L Hgb 9.5 L Hct 28.4 L D MCHC Lymph % (Auto) [place] % (Auto) Lymph # [place] # Seg Neutrophils % Seg Neuts % (Manual) 98.0 H Lymphocytes % (Manual) 2.0 L Seg Neutrophils # Seg Neutrophils # Man 12.8 H Lymphocytes # (Manual) 0.3 L POC Sodium Sodium Potassium 3.3 L 2.3 L* D Chloride Carbon Dioxide 20 L 21 L POC BUN BUN 24 H Creatinine 0.4 L 0.3 L Glucose POC Glucose Calcium 7.0 L 7.1 L Phosphorus 1.60 L Magnesium 1.50 L Alkaline Phosphatase 24 L Total Protein 3.5 L D Albumin 1.8 L Crossmatch 08/15/18 08/15/18 08/16/18 05:00 05:00 00:03 WBC 13.9 H RBC 3.01 L Hgb 9.2 L Hct 27.4 L MCHC Lymph % (Auto) [place] % (Auto) Lymph # [place] # Seg Neutrophils % Seg Neuts % (Manual) 90.0 H Lymphocytes % (Manual) 7.0 L Seg Neutrophils # Seg Neutrophils # Man 12.5 H Lymphocytes # (Manual) 1.0 L POC Sodium Sodium Potassium 3.3 L D Chloride Carbon Dioxide 21 L POC BUN BUN Creatinine 0.2 L Glucose POC Glucose 118 H Calcium 7.4 L Phosphorus 2.10 L D Magnesium Alkaline Phosphatase Total Protein Albumin Crossmatch 08/16/18 08/16/18 08/16/18 05:39 06:43 15:39 WBC RBC Hgb Hct MCHC Lymph % (Auto) [place] % (Auto) Lymph # [place] # Seg Neutrophils % Seg Neuts % (Manual) Lymphocytes % (Manual) Seg Neutrophils # Seg Neutrophils # Man Lymphocytes # (Manual) POC Sodium Sodium Potassium 3.0 L 2.3 L* D Chloride 94.6 L Carbon Dioxide 37 H D POC BUN BUN 5 L 5 L Creatinine 0.2 L 0.2 L Glucose 151 H 154 H POC Glucose 146 H Calcium 7.1 L 7.4 L Phosphorus 1.70 L Magnesium 1.50 L Alkaline Phosphatase Total Protein Albumin Crossmatch 08/16/18 08/17/18 08/17/18 18:14 00:11 05:46 WBC RBC Hgb Hct MCHC Lymph % (Auto) [place] % (Auto) Lymph # [place] # Seg Neutrophils % Seg Neuts % (Manual) Lymphocytes % (Manual) Seg Neutrophils # Seg Neutrophils # Man Lymphocytes # (Manual) POC Sodium Sodium Potassium Chloride Carbon Dioxide 34 H POC BUN BUN 5 L Creatinine 0.2 L Glucose 141 H POC Glucose 148 H 178 H Calcium 6.8 L Phosphorus Magnesium Alkaline Phosphatase Total Protein Albumin Crossmatch 08/17/18 08/17/18 08/17/18 05:46 05:57 07:10 WBC RBC 2.97 L Hgb 8.9 L Hct 26.6 L MCHC Lymph % (Auto) 9.6 L [place] % (Auto) 12.7 H Lymph # 0.7 L [place] # 0.9 H Seg Neutrophils % 77.4 H Seg Neuts % (Manual) Lymphocytes % (Manual) Seg Neutrophils # Seg Neutrophils # Man Lymphocytes # (Manual) POC Sodium Sodium Potassium Chloride Carbon Dioxide POC BUN BUN Creatinine Glucose POC Glucose 158 H 142 H Calcium Phosphorus Magnesium Alkaline Phosphatase Total Protein Albumin Crossmatch 08/17/18 08/17/18 08/17/18 11:49 14:12 16:21 WBC RBC Hgb Hct MCHC Lymph % (Auto) [place] % (Auto) Lymph # [place] # Seg Neutrophils % Seg Neuts % (Manual) Lymphocytes % (Manual) Seg Neutrophils # Seg Neutrophils # Man Lymphocytes # (Manual) POC Sodium Sodium Potassium Chloride Carbon Dioxide POC BUN BUN Creatinine Glucose POC Glucose 142 H 133 H Calcium Phosphorus Magnesium Alkaline Phosphatase Total Protein Albumin Crossmatch See Detail 08/18/18 08/18/18 08/18/18 00:10 04:33 04:33 WBC RBC 3.57 L Hgb Hct MCHC 35 H Lymph % (Auto) 10.6 L [place] % (Auto) 10.4 H Lymph # 0.9 L [place] # 0.9 H Seg Neutrophils % 77.3 H Seg Neuts % (Manual) Lymphocytes % (Manual) Seg Neutrophils # Seg Neutrophils # Man Lymphocytes # (Manual) POC Sodium Sodium Potassium Chloride Carbon Dioxide POC BUN BUN Creatinine 0.2 L Glucose 119 H POC Glucose 123 H Calcium 8.0 L D Phosphorus Magnesium Alkaline Phosphatase Total Protein Albumin Crossmatch 08/18/18 08/18/18 08/18/18 06:42 13:38 22:00 WBC RBC Hgb Hct MCHC Lymph % (Auto) [place] % (Auto) Lymph # [place] # Seg Neutrophils % Seg Neuts % (Manual) Lymphocytes % (Manual) Seg Neutrophils # Seg Neutrophils # Man Lymphocytes # (Manual) POC Sodium Sodium Potassium Chloride Carbon Dioxide POC BUN BUN Creatinine Glucose POC Glucose 108 H 128 H 112 H Calcium Phosphorus Magnesium Alkaline Phosphatase Total Protein Albumin Crossmatch 08/19/18 08/19/18 06:33 09:18 WBC RBC Hgb Hct MCHC Lymph % (Auto) [place] % (Auto) Lymph # [place] # Seg Neutrophils % Seg Neuts % (Manual) Lymphocytes % (Manual) Seg Neutrophils # Seg Neutrophils # Man Lymphocytes # (Manual) POC Sodium Sodium Potassium Chloride Carbon Dioxide POC BUN BUN Creatinine 0.2 L Glucose 116 H POC Glucose 110 H Calcium 8.2 L Phosphorus Magnesium Alkaline Phosphatase Total Protein Albumin Crossmatch
[2018-08-19] MEDS ORDERED: TPN ADULT 1,800 ML IV SCH (20:00)
[2018-08-19] MEDS ORDERED: INTRALIPID 20% 250 ML IV SCH (20:00)
[2018-08-20 05:19] LABS: BUN/Creatinine Ratio 55; Blood Urea Nitrogen 11 mg/dL (7-17); Hemolysis Index 6
--- NOTE | 2018-08-20 08:42 | Progress Note ---
Assessment and Plan 63-year-old woman who presented with epigastric pain 1 day who was found to have recurrent SBO Past medical history of recurrent small bowel obstruction due to adhesions, history of appendectomy, hysterectomy and breast cancer that was treated with bilateral mastectomy Small bowel obstruction Conservative measures did not lead to resolution, -08/12 exploratory laparoscopy with lysis of adhesions, segmental small bowel resection with primary anastomosis, Severe malnutrition -Nutritional support Hypernatremia/dehydration -Improving Hypokalemia/hypomagnesemia/hypophosphatemia -Correct electrolytes as indicated Patient is clinically improving. Not requiring supplemental oxygen. Continue with incentive spirometry, VTE prophylaxis Will sign off, please call with any questions Subjective Date of service: 08/20/18 Interval history: Patient is seen today for: Acute small-bowel obstruction, status post resection; Abdominal pain, improved; Cardiomegaly; History of osteoporosis; [id number] protein-calorie malnutrition. Seen and examined at bedside; 24hour events reviewed; nursing and respiratory care staff consulted; no adverse overnight events reported to me; No acute respiratory distress.O2 saturation 98% on room air.Patient says abdominal pain better. Ambulatory, tolerating liquid diet Objective - Exam Narrative Exam: Gen: Not in acute distress, lying in bed,malnourished HEENT: Normocephalic, atraumatic Neck: supple, no JVD Heart: S1 and S2 reg, no murmurs, rubs or gallop Lungs: Clear, no crackles, no wheeze Abd: soft, non tender, mild distended, Bowel sounds present Ext:No edema, no clubbing, no cyanosis Neuro: Awake,alert, oriented x 3, moves all ext, non focal Psych:Normal mood Vital Signs - 12hr 08/19/18 08/20/18 21:16 02:45 Temperature 98.1 F Pulse Rate 70 83 Respiratory 20 Rate Blood Pressure 103/58 O2 Sat by Pulse 96 99 Oximetry Constitutional: no acute distress, alert Eyes: non-icteric Ascultation: Bilateral: diminished breath sounds Cardiovascular: regular rate and rhythm Gastrointestinal: hypoactive bowel sounds, soft Integumentary: normal Extremities: no cyanosis, no edema Neurologic: normal mental status, non-focal exam, pupils equal and round, CN II- XII normal Psychiatric: mood appropriate CBC and BMP: 08/21/18 08:09 08/21/18 08:09 Abnormal lab findings: Abnormal Labs 08/09/18 08/11/18 08/11/18 17:55 09:35 09:35 WBC RBC Hgb Hct MCHC Lymph % (Auto) [place] % (Auto) Lymph # [place] # Seg Neutrophils % Seg Neuts % (Manual) 84.0 H Lymphocytes % (Manual) 13.0 L Seg Neutrophils # Seg Neutrophils # Man Lymphocytes # (Manual) 1.1 L POC Sodium Sodium 146 H 146 H Potassium Chloride 109.0 H Carbon Dioxide POC BUN BUN 21 H 20 H Creatinine 0.4 L 0.4 L Glucose 130 H 103 H POC Glucose Calcium Phosphorus Magnesium Alkaline Phosphatase Total Protein Albumin Crossmatch 08/12/18 08/12/18 08/12/18 14:05 14:37 15:00 WBC 1.9 L* RBC Hgb Hct MCHC Lymph % (Auto) [place] % (Auto) Lymph # [place] # Seg Neutrophils % Seg Neuts % (Manual) 72.0 H Lymphocytes % (Manual) Seg Neutrophils # Seg Neutrophils # Man 1.4 L Lymphocytes # (Manual) 0.4 L POC Sodium 135 L Sodium Potassium Chloride Carbon Dioxide POC BUN 30 H BUN Creatinine Glucose POC Glucose Calcium Phosphorus Magnesium Alkaline Phosphatase Total Protein Albumin Crossmatch See Detail 08/12/18 08/12/18 08/13/18 15:00 15:00 06:02 WBC 1.8 L* RBC 3.51 L Hgb Hct MCHC Lymph % (Auto) [place] % (Auto) Lymph # [place] # Seg Neutrophils % Seg Neuts % (Manual) 81.0 H 93.0 H Lymphocytes % (Manual) 3.0 L Seg Neutrophils # 8.4 H Seg Neutrophils # Man 1.5 L 8.6 H Lymphocytes # (Manual) 0.3 L 0.3 L POC Sodium Sodium Potassium 3.0 L D Chloride Carbon Dioxide 21 L POC BUN BUN 21 H Creatinine 0.4 L Glucose 117 H POC Glucose Calcium 6.1 L D Phosphorus Magnesium Alkaline Phosphatase 23 L Total Protein 2.6 L D Albumin 1.7 L Crossmatch 08/13/18 08/14/18 08/14/18 06:02 06:50 06:50 WBC 13.1 H RBC 3.12 L Hgb 9.5 L Hct 28.4 L D MCHC Lymph % (Auto) [place] % (Auto) Lymph # [place] # Seg Neutrophils % Seg Neuts % (Manual) 98.0 H Lymphocytes % (Manual) 2.0 L Seg Neutrophils # Seg Neutrophils # Man 12.8 H Lymphocytes # (Manual) 0.3 L POC Sodium Sodium Potassium 3.3 L 2.3 L* D Chloride Carbon Dioxide 20 L 21 L POC BUN BUN 24 H Creatinine 0.4 L 0.3 L Glucose POC Glucose Calcium 7.0 L 7.1 L Phosphorus 1.60 L Magnesium 1.50 L Alkaline Phosphatase 24 L Total Protein 3.5 L D Albumin 1.8 L Crossmatch 08/15/18 08/15/18 08/16/18 05:00 05:00 00:03 WBC 13.9 H RBC 3.01 L Hgb 9.2 L Hct 27.4 L MCHC Lymph % (Auto) [place] % (Auto) Lymph # [place] # Seg Neutrophils % Seg Neuts % (Manual) 90.0 H Lymphocytes % (Manual) 7.0 L Seg Neutrophils # Seg Neutrophils # Man 12.5 H Lymphocytes # (Manual) 1.0 L POC Sodium Sodium Potassium 3.3 L D Chloride Carbon Dioxide 21 L POC BUN BUN Creatinine 0.2 L Glucose POC Glucose 118 H Calcium 7.4 L Phosphorus 2.10 L D Magnesium Alkaline Phosphatase Total Protein Albumin Crossmatch 08/16/18 08/16/18 08/16/18 05:39 06:43 15:39 WBC RBC Hgb Hct MCHC Lymph % (Auto) [place] % (Auto) Lymph # [place] # Seg Neutrophils % Seg Neuts % (Manual) Lymphocytes % (Manual) Seg Neutrophils # Seg Neutrophils # Man Lymphocytes # (Manual) POC Sodium Sodium Potassium 3.0 L 2.3 L* D Chloride 94.6 L Carbon Dioxide 37 H D POC BUN BUN 5 L 5 L Creatinine 0.2 L 0.2 L Glucose 151 H 154 H POC Glucose 146 H Calcium 7.1 L 7.4 L Phosphorus 1.70 L Magnesium 1.50 L Alkaline Phosphatase Total Protein Albumin Crossmatch 08/16/18 08/17/18 08/17/18 18:14 00:11 05:46 WBC RBC Hgb Hct MCHC Lymph % (Auto) [place] % (Auto) Lymph # [place] # Seg Neutrophils % Seg Neuts % (Manual) Lymphocytes % (Manual) Seg Neutrophils # Seg Neutrophils # Man Lymphocytes # (Manual) POC Sodium Sodium Potassium Chloride Carbon Dioxide 34 H POC BUN BUN 5 L Creatinine 0.2 L Glucose 141 H POC Glucose 148 H 178 H Calcium 6.8 L Phosphorus Magnesium Alkaline Phosphatase Total Protein Albumin Crossmatch 08/17/18 08/17/18 08/17/18 05:46 05:57 07:10 WBC RBC 2.97 L Hgb 8.9 L Hct 26.6 L MCHC Lymph % (Auto) 9.6 L [place] % (Auto) 12.7 H Lymph # 0.7 L [place] # 0.9 H Seg Neutrophils % 77.4 H Seg Neuts % (Manual) Lymphocytes % (Manual) Seg Neutrophils # Seg Neutrophils # Man Lymphocytes # (Manual) POC Sodium Sodium Potassium Chloride Carbon Dioxide POC BUN BUN Creatinine Glucose POC Glucose 158 H 142 H Calcium Phosphorus Magnesium Alkaline Phosphatase Total Protein Albumin Crossmatch 08/17/18 08/17/18 08/17/18 11:49 14:12 16:21 WBC RBC Hgb Hct MCHC Lymph % (Auto) [place] % (Auto) Lymph # [place] # Seg Neutrophils % Seg Neuts % (Manual) Lymphocytes % (Manual) Seg Neutrophils # Seg Neutrophils # Man Lymphocytes # (Manual) POC Sodium Sodium Potassium Chloride Carbon Dioxide POC BUN BUN Creatinine Glucose POC Glucose 142 H 133 H Calcium Phosphorus Magnesium Alkaline Phosphatase Total Protein Albumin Crossmatch See Detail 08/18/18 08/18/18 08/18/18 00:10 04:33 04:33 WBC RBC 3.57 L Hgb Hct MCHC 35 H Lymph % (Auto) 10.6 L [place] % (Auto) 10.4 H Lymph # 0.9 L [place] # 0.9 H Seg Neutrophils % 77.3 H Seg Neuts % (Manual) Lymphocytes % (Manual) Seg Neutrophils # Seg Neutrophils # Man Lymphocytes # (Manual) POC Sodium Sodium Potassium Chloride Carbon Dioxide POC BUN BUN Creatinine 0.2 L Glucose 119 H POC Glucose 123 H Calcium 8.0 L D Phosphorus Magnesium Alkaline Phosphatase Total Protein Albumin Crossmatch 08/18/18 08/18/18 08/18/18 06:42 13:38 22:00 WBC RBC Hgb Hct MCHC Lymph % (Auto) [place] % (Auto) Lymph # [place] # Seg Neutrophils % Seg Neuts % (Manual) Lymphocytes % (Manual) Seg Neutrophils # Seg Neutrophils # Man Lymphocytes # (Manual) POC Sodium Sodium Potassium Chloride Carbon Dioxide POC BUN BUN Creatinine Glucose POC Glucose 108 H 128 H 112 H Calcium Phosphorus Magnesium Alkaline Phosphatase Total Protein Albumin Crossmatch 08/19/18 08/19/18 08/20/18 06:33 09:18 04:26 WBC RBC Hgb Hct MCHC Lymph % (Auto) [place] % (Auto) Lymph # [place] # Seg Neutrophils % Seg Neuts % (Manual) Lymphocytes % (Manual) Seg Neutrophils # Seg Neutrophils # Man Lymphocytes # (Manual) POC Sodium Sodium Potassium Chloride Carbon Dioxide POC BUN BUN Creatinine 0.2 L 0.2 L Glucose 116 H 124 H POC Glucose 110 H Calcium 8.2 L 8.0 L Phosphorus Magnesium Alkaline Phosphatase Total Protein Albumin Crossmatch 08/20/18 06:36 WBC RBC Hgb Hct MCHC Lymph % (Auto) [place] % (Auto) Lymph # [place] # Seg Neutrophils % Seg Neuts % (Manual) Lymphocytes % (Manual) Seg Neutrophils # Seg Neutrophils # Man Lymphocytes # (Manual) POC Sodium Sodium Potassium Chloride Carbon Dioxide POC BUN BUN Creatinine Glucose POC Glucose 120 H Calcium Phosphorus Magnesium Alkaline Phosphatase Total Protein Albumin Crossmatch
[2018-08-20] MEDS: PEPCID IV SCH ×2 (09:41→22:37)
--- NOTE | 2018-08-20 11:47 | Progress Note ---
Assessment and Plan POD # 7 Pt feeling well. carlyle cl liq but c/o diarrhea. Abd flat, soft, non tender stable advance to full liq as carlyle monitor diarrhea begin to taper TPN in am if full liq carlyle Objective Vital Signs - 12hr 08/20/18 02:45 Temperature 98.1 F Pulse Rate 83 Respiratory 20 Rate Blood Pressure 103/58 O2 Sat by Pulse 99 Oximetry - Labs 08/18/18 04:33 08/20/18 04:26 Diabetes panel 08/20/18 Range/Units 04:26 Sodium 138 (137-145) mmol/L Potassium 4.0 (3.6-5.0) mmol/L Chloride 100.8 (98-107) mmol/L Carbon Dioxide 27 (22-30) mmol/L BUN 11 (7-17) mg/dL Creatinine 0.2 L (0.7-1.2) mg/dL Glucose 124 H (65-100) mg/dL Calcium 8.0 L (8.4-10.2) mg/dL Calcium panel 08/20/18 Range/Units 04:26 Calcium 8.0 L (8.4-10.2) mg/dL Phosphorus 3.80 (2.5-4.5) mg/dL Pituitary panel 08/20/18 Range/Units 04:26 Sodium 138 (137-145) mmol/L Potassium 4.0 (3.6-5.0) mmol/L Chloride 100.8 (98-107) mmol/L Carbon Dioxide 27 (22-30) mmol/L BUN 11 (7-17) mg/dL Creatinine 0.2 L (0.7-1.2) mg/dL Glucose 124 H (65-100) mg/dL Calcium 8.0 L (8.4-10.2) mg/dL Adrenal panel 08/20/18 Range/Units 04:26 Sodium 138 (137-145) mmol/L Potassium 4.0 (3.6-5.0) mmol/L Chloride 100.8 (98-107) mmol/L Carbon Dioxide 27 (22-30) mmol/L BUN 11 (7-17) mg/dL Creatinine 0.2 L (0.7-1.2) mg/dL Glucose 124 H (65-100) mg/dL Calcium 8.0 L (8.4-10.2) mg/dL
--- NOTE | 2018-08-20 15:09 | Progress Note ---
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 discontinued NG tube 08/18 - Advanced to full liquid today-discussed with Dr. Pineda Severe malnutrition cont TPN, sander setter consult appreciated Hypernatremia/dehydration Continue IV fluids Hypokalemia/hypomagnesemia/hypophosphatemia -repleted IV DVT prophylaxis with Lovenox History Interval history: Less abd pain Hospitalist Physical - Physical exam Narrative exam: Gen: Not in acute distress, lying in bed,malnourished HEENT: Normocephalic, atraumatic Neck: supple, no JVD Heart: S1 and S2 reg, no murmurs, rubs or gallop Lungs: Clear, no crackles, no wheeze Abd: soft, non tender, mild distended, Bowel sounds present Ext:No edema, no clubbing, no cyanosis Neuro: Awake,alert, oriented x 3, moves all ext, non focal Psych:Normal mood - Constitutional Vitals: Temp Pulse Resp BP Pulse Ox 98.1 F 83 20 103/58 99 08/20/18 02:45 08/20/18 02:45 08/20/18 02:45 08/20/18 02:45 08/20/18 02:45 Results - Labs CBC & Chem 7: 08/18/18 04:33 08/20/18 04:26 Labs: Laboratory Last Values WBC 8.3 K/mm3 (4.5-11.0) 08/18/18 04:33 RBC 3.57 M/mm3 (3.65-5.03) L 08/18/18 04:33 Hgb 11.1 gm/dl (10.1-14.3) 08/18/18 04:33 POC Hgb 14.3 (12-17) 08/12/18 14:37 Hct 32.1 % (30.3-42.9) 08/18/18 04:33 POC Hct 42 (38-51) 08/12/18 14:37 MCV 90 fl (79-97) 08/18/18 04:33 MCH 31 pg (28-32) 08/18/18 04:33 MCHC 35 % (30-34) H 08/18/18 04:33 RDW 13.8 % (13.2-15.2) 08/18/18 04:33 Plt Count 316 K/mm3 (140-440) 08/18/18 04:33 Lymph % (Auto) 10.6 % (13.4-35.0) L 08/18/18 04:33 [place] % (Auto) 10.4 % (0.0-7.3) H 08/18/18 04:33 Eos % (Auto) 1.6 % (0.0-4.3) 08/18/18 04:33 Baso % (Auto) 0.1 % (0.0-1.8) 08/18/18 04:33 Lymph # 0.9 K/mm3 (1.2-5.4) L 08/18/18 04:33 [place] # 0.9 K/mm3 (0.0-0.8) H 08/18/18 04:33 Eos # 0.1 K/mm3 (0.0-0.4) 08/18/18 04:33 Baso # 0.0 K/mm3 (0.0-0.1) 08/18/18 04:33 Add Manual Diff Complete 08/15/18 05:00 Total Counted 100 08/15/18 05:00 Seg Neutrophils % 77.3 % (40.0-70.0) H 08/18/18 04:33 Seg Neuts % (Manual) 90.0 % (40.0-70.0) H 08/15/18 05:00 0 % 08/15/18 05:00 7.0 % (13.4-35.0) L 08/15/18 05:00 Reactive Lymphs % (Man) 1.0 % 08/15/18 05:00 2.0 % (0.0-7.3) 08/15/18 05:00 0 % (0.0-4.3) 08/15/18 05:00 0 % (0.0-1.8) 08/15/18 05:00 0 % 08/15/18 05:00 0 % 08/15/18 05:00 0 % 08/15/18 05:00 0 % 08/15/18 05:00 Nucleated RBC % Not Reportable 08/15/18 05:00 Seg Neutrophils # 6.4 K/mm3 (1.8-7.7) 08/18/18 04:33 Seg Neutrophils # Man 12.5 K/mm3 (1.8-7.7) H 08/15/18 05:00 Band Neutrophils # 0.0 K/mm3 08/15/18 05:00 1.0 K/mm3 (1.2-5.4) L 08/15/18 05:00 Abs React Lymphs (Man) 0.1 K/mm3 08/15/18 05:00 0.3 K/mm3 (0.0-0.8) 08/15/18 05:00 0.0 K/mm3 (0.0-0.4) 08/15/18 05:00 0.0 K/mm3 (0.0-0.1) 08/15/18 05:00 0.0 K/mm3 08/15/18 05:00 0.0 K/mm3 08/15/18 05:00 0.0 K/mm3 08/15/18 05:00 Blast Cells # 0.0 K/mm3 08/15/18 05:00 WBC Morphology Not Reportable 08/15/18 05:00 Hypersegmented Neuts Not Reportable 08/15/18 05:00 Hyposegmented Neuts Not Reportable 08/15/18 05:00 Hypogranular Neuts Not Reportable 08/15/18 05:00 Not Reportable 08/15/18 05:00 Not Reportable 08/15/18 05:00 Not Reportable 08/15/18 05:00 Not Reportable 08/15/18 05:00 Not Reportable 08/15/18 05:00 Not Reportable 08/15/18 05:00 Consistent w auto 08/15/18 05:00 Not Reportable 08/15/18 05:00 Plt Clumps, EDTA Not Reportable 08/15/18 05:00 Not Reportable 08/15/18 05:00 Not Reportable 08/15/18 05:00 Not Reportable 08/15/18 05:00 Plt Morphology Comment Not Reportable 08/15/18 05:00 RBC Morphology Normal 08/15/18 05:00 Dimorphic RBCs Not Reportable 08/15/18 05:00 Not Reportable 08/15/18 05:00 Not Reportable 08/15/18 05:00 Not Reportable 08/15/18 05:00 Not Reportable 08/15/18 05:00 Not Reportable 08/15/18 05:00 Not Reportable 08/15/18 05:00 Not Reportable 08/15/18 05:00 Not Reportable 08/15/18 05:00 Not Reportable 08/15/18 05:00 Not Reportable 08/15/18 05:00 Not Reportable 08/15/18 05:00 Not Reportable 08/15/18 05:00 Not Reportable 08/15/18 05:00 Not Reportable 08/15/18 05:00 Not Reportable 08/15/18 05:00 Not Reportable 08/15/18 05:00 Not Reportable 08/15/18 05:00 Not Reportable 08/15/18 05:00 Not Reportable 08/15/18 05:00 Acanthocytes (Spur) Not Reportable 08/15/18 05:00 Rouleaux Not Reportable 08/15/18 05:00 Not Reportable 08/15/18 05:00 Not Reportable 08/15/18 05:00 Not Reportable 08/15/18 05:00 Not Reportable 08/15/18 05:00 Hem Pathologist Commnt No 08/15/18 05:00 POC Sodium 135 mmol/L (138-146) L 08/12/18 14:37 POC Chloride 105 (98-109) 08/12/18 14:37 Sodium 138 mmol/L (137-145) 08/20/18 04:26 Potassium 4.0 mmol/L (3.6-5.0) 08/20/18 04:26 Chloride 100.8 mmol/L (98-107) 08/20/18 04:26 Carbon Dioxide 27 mmol/L (22-30) 08/20/18 04:26 14 mmol/L 08/20/18 04:26 POC BUN 30 mg/dl (8-26) H 08/12/18 14:37 BUN 11 mg/dL (7-17) 08/20/18 04:26 0.2 mg/dL (0.7-1.2) L 08/20/18 04:26 Estimated GFR > 60 ml/min 08/20/18 04:26 55 % 08/20/18 04:26 Glucose 124 mg/dL (65-100) H 08/20/18 04:26 POC Glucose 124 (70-105) H 08/20/18 12:00 Calcium 8.0 mg/dL (8.4-10.2) L 08/20/18 04:26 Phosphorus 3.80 mg/dL (2.5-4.5) 08/20/18 04:26 Magnesium 2.00 mg/dL (1.7-2.3) 08/20/18 04:26 0.80 mg/dL (0.1-1.2) 08/13/18 06:02 AST 28 units/L (5-40) 08/13/18 06:02 ALT 13 units/L (7-56) 08/13/18 06:02 24 units/L (35-129) L 08/13/18 06:02 3.5 g/dL (6.3-8.2) L D 08/13/18 06:02 1.8 g/dL (3.9-5) L 08/13/18 06:02 1.1 % 08/13/18 06:02 Triglycerides 63 mg/dL (2-149) 08/18/18 04:33 22 units/L (13-60) 08/09/18 17:55 Yellow (Yellow) 08/14/18 10:58 Clear (Clear) 08/14/18 10:58 5.0 (5.0-7.0) 08/14/18 10:58 Ur Specific [place] 1.014 (1.003-1.030) 08/14/18 10:58 <15 mg/dl mg/dL (Negative) 08/14/18 10:58 Neg mg/dL (Negative) 08/14/18 10:58 80 mg/dL (Negative) 08/14/18 10:58 Mod (Negative) 08/14/18 10:58 Neg (Negative) 08/14/18 10:58 Neg (Negative) 08/14/18 10:58 < 2.0 mg/dL (<2.0) 08/14/18 10:58 Ur Leukocyte Esterase Tr (Negative) 08/14/18 10:58 5.0 /HPF (0.0-6.0) 08/14/18 10:58 7.0 /HPF (0.0-6.0) 08/14/18 10:58 1+ /HPF (Negative) 08/14/18 10:58 1+ /HPF 08/14/18 10:58 3+ /HPF 08/09/18 18:25 Blood Type O POSITIVE 08/17/18 14:12 Antibody Screen Negative 08/17/18 14:12 Crossmatch See Detail 08/17/18 14:12 Active Medications - Current Medications Current Medications: Generic Name Dose Route Start Last Admin Trade Name Freq PRN Reason Stop Dose Admin Acetaminophen 650 mg 08/09/18 23:07 Tylenol [place] Q4H PRN Fever >101 Acetaminophen/Hydrocodone Bitart 1 each 08/18/18 13:30 [place] 5/325 PO Q4H PRN Pain, Moderate (4-6) Famotidine 20 mg 08/10/18 15:00 08/20/18 09:41 Pepcid IV 20 mg BID SILVIANO Administration Hydromorphone HCl 0.5 mg 08/10/18 04:07 08/11/18 03:47 Dilaudid IV 0.5 mg Q4H PRN Administration Pain , Severe (7-10) Amino Acids/Electrolytes/Dextrose 1,800 mls @ 75 mls/hr 08/19/18 20:00 08/19/18 21:06 Tpn Adult IV 08/20/18 19:59 75 mls/hr DAILY@1999 [facility] Administration Protocol Amino Acids/Electrolytes/Dextrose 1,800 mls @ 75 mls/hr 08/20/18 20:00 Tpn Adult IV 08/21/18 19:59 DAILY@1999 [facility] Protocol Ondansetron HCl 4 mg 08/09/18 23:05 08/11/18 12:23 Zofran IV 4 mg Q8H PRN Administration Nausea And Vomiting Phenol 1 spray 08/10/18 13:38 08/13/18 14:18 Chloraseptic MM 1 spray PRN PRN Administration Sore Throat Nutrition/Malnutrition Assess - Dietary Evaluation Nutrition/Malnutrition Findings: Nutrition Notes Start: 08/10/18 16:30 Freq: Status: Active Protocol: Document 08/19/18 18:20 RM (Rec: 08/19/18 18:25 RM [id number]) Nutrition Notes Initial or Follow up Reassessment Other Pertinent Diagnosis Partial SBO, abdominal pain Current Diet TPN/PPN Labs/Tests Reviewed Pertinent Medications Reviewed Height 4 ft 8 in Weight 32.205 kg [place] Body Weight (kg) 36.36 BMI 15.9 Subjective/Other Information CPN day 5. Percent of energy/protein needs met: 37%/100% Burn Absent Trauma Absent #2 Nutrition Diagnosis Altered GI function Diagnosis Progress(for reassessment Continues documentation) #1 Nutrition Diagnosis Inadequate oral intake As Evidenced by Signs and Symptoms pt is NPO Is patient on ventilator? No Is Patient Ambulatory and/or Out of Bed Yes [facility] [ 949.065 NUTR.MSJOOB] Kcal/Kg value to use for calculation 40 Approximate Energy Requirements Using 1288 kcal/Kg Calculation Used for Recommendations Kcal/kg Additional Notes Pro needs 1.2-1.5g/k-50g/ day Fluid needs 1ml/kcal Nutrition Intervention Change Diet Order: Diet advancement when medically feasible Nutrition Support: PPN at 75 ml/hr: 8% Dextrose, 250 ml 20% lipid Kcal 1,170 Protein (gm) 40 Carbohydrates (gm) 150 Fat (gm) 50 Fluid (mL) 2,050 Goal #1 PPN to meet nutritional needs as best possible Anticipated Discharge Needs: unable to determine at this time Follow-Up By: 08/20/18 Additional Comments Follow for labs in am: BMP, Mag, Phos
[2018-08-20] MEDS ORDERED: TPN ADULT 1,800 ML IV SCH (20:00)
--- NOTE | 2018-08-21 07:41 | Progress Note ---
Assessment and Plan POD # 8 Pt feeling well without compl. diarrhea resolving. carlyle full liq without incident Abd soft, non tender labs pending surgically stable advance to solid diet may d/c in am from surg perspective if diet carlyle rto I wk Selected Entries 08/21/18 04:42 Temperature 98.7 F Pulse Rate 80 Respiratory 16 Rate Blood Pressure 113/58 Objective Vital Signs - 12hr 08/21/18 08/21/18 00:13 04:42 Temperature 98.5 F 98.7 F Pulse Rate 95 H 80 Respiratory 16 16 Rate Blood Pressure 111/64 113/58 O2 Sat by Pulse 97 98 Oximetry - Labs 08/18/18 04:33 08/20/18 04:26
[2018-08-21 08:27] LABS: Basophils # (Auto) 0.1 K/mm3 (0.0-0.1); Basophils % (Auto) 0.5 % (0.0-1.8); Eosinophils # (Auto) 0.1 K/mm3 (0.0-0.4); Eosinophils % (Auto) 1.1 % (0.0-4.3); Hematocrit 32.6 % (30.3-42.9); Hemoglobin 10.9 gm/dl (10.1-14.3); Lymphocytes # (Auto) 0.8 K/mm3 (1.2-5.4); Lymphocytes % (Auto) 5.7 % (13.4-35.0); Mean Corpuscular HGB Conc 33 % (30-34); Mean Corpuscular Volume 92 fl (79-97); Monocytes # (Auto) 1.4 K/mm3 (0.0-0.8); Monocytes % (Auto) 10.8 % (0.0-7.3); Platelet Count 624 K/mm3 (140-440); Red Blood Count 3.56 M/mm3 (3.65-5.03); Red Cell Distribution Width 14.3 % (13.2-15.2)
[2018-08-21 08:43] LABS: Alanine Aminotransferase 11 units/L (7-56); Albumin 2.8 g/dL (3.9-5); BUN/Creatinine Ratio 37; Blood Urea Nitrogen 11 mg/dL (7-17); Calcium 8.2 mg/dL (8.4-10.2); Hemolysis Index 11
[2018-08-21] MEDS: PEPCID IV SCH ×2 (10:01→21:22)
--- NOTE | 2018-08-21 10:36 | Progress Note ---
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 discontinued NG tube 08/18 -To start regular diet today.-discussed with Dr. Pineda Severe malnutrition weabn off TPN Hypernatremia/dehydration Continue IV fluids Hypokalemia/hypomagnesemia/hypophosphatemia -repleted IV DVT prophylaxis with Lovenox Poss dc home tomorrow History Interval history: Less abd pain feels better no vomiting Hospitalist Physical - Physical exam Narrative exam: Gen: Not in acute distress, lying in bed,malnourished HEENT: Normocephalic, atraumatic Neck: supple, no JVD Heart: S1 and S2 reg, no murmurs, rubs or gallop Lungs: Clear, no crackles, no wheeze Abd: soft, non tender, mild distended, Bowel sounds present Ext:No edema, no clubbing, no cyanosis Neuro: Awake,alert, oriented x 3, moves all ext, non focal Psych:Normal mood - Constitutional Vitals: Temp Pulse Resp BP Pulse Ox 98.5 F 97 H 18 110/63 100 08/21/18 07:41 08/21/18 07:41 08/21/18 07:41 08/21/18 07:41 08/21/18 07:41 Results - Labs CBC & Chem 7: 08/21/18 08:09 08/21/18 08:09 Labs: Laboratory Last Values WBC 13.2 K/mm3 (4.5-11.0) H 08/21/18 08:09 RBC 3.56 M/mm3 (3.65-5.03) L 08/21/18 08:09 Hgb 10.9 gm/dl (10.1-14.3) 08/21/18 08:09 POC Hgb 14.3 (12-17) 08/12/18 14:37 Hct 32.6 % (30.3-42.9) 08/21/18 08:09 POC Hct 42 (38-51) 08/12/18 14:37 MCV 92 fl (79-97) 08/21/18 08:09 MCH 31 pg (28-32) 08/21/18 08:09 MCHC 33 % (30-34) 08/21/18 08:09 RDW 14.3 % (13.2-15.2) 08/21/18 08:09 Plt Count 624 K/mm3 (140-440) H 08/21/18 08:09 Lymph % (Auto) 5.7 % (13.4-35.0) L 08/21/18 08:09 [place] % (Auto) 10.8 % (0.0-7.3) H 08/21/18 08:09 Eos % (Auto) 1.1 % (0.0-4.3) 08/21/18 08:09 Baso % (Auto) 0.5 % (0.0-1.8) 08/21/18 08:09 Lymph # 0.8 K/mm3 (1.2-5.4) L 08/21/18 08:09 [place] # 1.4 K/mm3 (0.0-0.8) H 08/21/18 08:09 Eos # 0.1 K/mm3 (0.0-0.4) 08/21/18 08:09 Baso # 0.1 K/mm3 (0.0-0.1) 08/21/18 08:09 Add Manual Diff Complete 08/15/18 05:00 Total Counted 100 08/15/18 05:00 Seg Neutrophils % 81.9 % (40.0-70.0) H 08/21/18 08:09 Seg Neuts % (Manual) 90.0 % (40.0-70.0) H 08/15/18 05:00 0 % 08/15/18 05:00 7.0 % (13.4-35.0) L 08/15/18 05:00 Reactive Lymphs % (Man) 1.0 % 08/15/18 05:00 2.0 % (0.0-7.3) 08/15/18 05:00 0 % (0.0-4.3) 08/15/18 05:00 0 % (0.0-1.8) 08/15/18 05:00 0 % 08/15/18 05:00 0 % 08/15/18 05:00 0 % 08/15/18 05:00 0 % 08/15/18 05:00 Nucleated RBC % Not Reportable 08/15/18 05:00 Seg Neutrophils # 10.8 K/mm3 (1.8-7.7) H 08/21/18 08:09 Seg Neutrophils # Man 12.5 K/mm3 (1.8-7.7) H 08/15/18 05:00 Band Neutrophils # 0.0 K/mm3 08/15/18 05:00 1.0 K/mm3 (1.2-5.4) L 08/15/18 05:00 Abs React Lymphs (Man) 0.1 K/mm3 08/15/18 05:00 0.3 K/mm3 (0.0-0.8) 08/15/18 05:00 0.0 K/mm3 (0.0-0.4) 08/15/18 05:00 0.0 K/mm3 (0.0-0.1) 08/15/18 05:00 0.0 K/mm3 08/15/18 05:00 0.0 K/mm3 08/15/18 05:00 0.0 K/mm3 08/15/18 05:00 Blast Cells # 0.0 K/mm3 08/15/18 05:00 WBC Morphology Not Reportable 08/15/18 05:00 Hypersegmented Neuts Not Reportable 08/15/18 05:00 Hyposegmented Neuts Not Reportable 08/15/18 05:00 Hypogranular Neuts Not Reportable 08/15/18 05:00 Not Reportable 08/15/18 05:00 Not Reportable 08/15/18 05:00 Not Reportable 08/15/18 05:00 Not Reportable 08/15/18 05:00 Not Reportable 08/15/18 05:00 Not Reportable 08/15/18 05:00 Consistent w auto 08/15/18 05:00 Not Reportable 08/15/18 05:00 Plt Clumps, EDTA Not Reportable 08/15/18 05:00 Not Reportable 08/15/18 05:00 Not Reportable 08/15/18 05:00 Not Reportable 08/15/18 05:00 Plt Morphology Comment Not Reportable 08/15/18 05:00 RBC Morphology Normal 08/15/18 05:00 Dimorphic RBCs Not Reportable 08/15/18 05:00 Not Reportable 08/15/18 05:00 Not Reportable 08/15/18 05:00 Not Reportable 08/15/18 05:00 Not Reportable 08/15/18 05:00 Not Reportable 08/15/18 05:00 Not Reportable 08/15/18 05:00 Not Reportable 08/15/18 05:00 Not Reportable 08/15/18 05:00 Not Reportable 08/15/18 05:00 Not Reportable 08/15/18 05:00 Not Reportable 08/15/18 05:00 Not Reportable 08/15/18 05:00 Not Reportable 08/15/18 05:00 Not Reportable 08/15/18 05:00 Not Reportable 08/15/18 05:00 Not Reportable 08/15/18 05:00 Not Reportable 08/15/18 05:00 Not Reportable 08/15/18 05:00 Not Reportable 08/15/18 05:00 Acanthocytes (Spur) Not Reportable 08/15/18 05:00 Rouleaux Not Reportable 08/15/18 05:00 Not Reportable 08/15/18 05:00 Not Reportable 08/15/18 05:00 Not Reportable 08/15/18 05:00 Not Reportable 08/15/18 05:00 Hem Pathologist Commnt No 08/15/18 05:00 POC Sodium 135 mmol/L (138-146) L 08/12/18 14:37 POC Chloride 105 (98-109) 08/12/18 14:37 Sodium 139 mmol/L (137-145) 08/21/18 08:09 Potassium 4.5 mmol/L (3.6-5.0) 08/21/18 08:09 Chloride 102.9 mmol/L (98-107) 08/21/18 08:09 Carbon Dioxide 28 mmol/L (22-30) 08/21/18 08:09 13 mmol/L 08/21/18 08:09 POC BUN 30 mg/dl (8-26) H 08/12/18 14:37 BUN 11 mg/dL (7-17) 08/21/18 08:09 0.3 mg/dL (0.7-1.2) L 08/21/18 08:09 Estimated GFR > 60 ml/min 08/21/18 08:09 37 % 08/21/18 08:09 Glucose 96 mg/dL (65-100) 08/21/18 08:09 POC Glucose 137 (70-105) H 08/21/18 06:11 Calcium 8.2 mg/dL (8.4-10.2) L 08/21/18 08:09 Phosphorus 3.20 mg/dL (2.5-4.5) 08/21/18 08:09 Magnesium 2.10 mg/dL (1.7-2.3) 08/21/18 08:09 0.50 mg/dL (0.1-1.2) 08/21/18 08:09 AST 13 units/L (5-40) 08/21/18 08:09 ALT 11 units/L (7-56) 08/21/18 08:09 48 units/L (35-129) 08/21/18 08:09 5.7 g/dL (6.3-8.2) L 08/21/18 08:09 2.8 g/dL (3.9-5) L 08/21/18 08:09 1.0 % 08/21/18 08:09 Triglycerides 63 mg/dL (2-149) 08/18/18 04:33 22 units/L (13-60) 08/09/18 17:55 Yellow (Yellow) 08/14/18 10:58 Clear (Clear) 08/14/18 10:58 5.0 (5.0-7.0) 08/14/18 10:58 Ur Specific [place] 1.014 (1.003-1.030) 08/14/18 10:58 <15 mg/dl mg/dL (Negative) 08/14/18 10:58 Neg mg/dL (Negative) 08/14/18 10:58 80 mg/dL (Negative) 08/14/18 10:58 Mod (Negative) 08/14/18 10:58 Neg (Negative) 08/14/18 10:58 Neg (Negative) 08/14/18 10:58 < 2.0 mg/dL (<2.0) 08/14/18 10:58 Ur Leukocyte Esterase Tr (Negative) 08/14/18 10:58 5.0 /HPF (0.0-6.0) 08/14/18 10:58 7.0 /HPF (0.0-6.0) 08/14/18 10:58 1+ /HPF (Negative) 08/14/18 10:58 1+ /HPF 08/14/18 10:58 3+ /HPF 08/09/18 18:25 Blood Type O POSITIVE 08/17/18 14:12 Antibody Screen Negative 08/17/18 14:12 Crossmatch See Detail 08/17/18 14:12 Active Medications - Current Medications Current Medications: Generic Name Dose Route Start Last Admin Trade Name Freq PRN Reason Stop Dose Admin Acetaminophen 650 mg 08/09/18 23:07 Tylenol [place] Q4H PRN Fever >101 Acetaminophen/Hydrocodone Bitart 1 each 08/18/18 13:30 [place] 5/325 PO Q4H PRN Pain, Moderate (4-6) Famotidine 20 mg 08/10/18 15:00 08/21/18 10:01 Pepcid IV 20 mg BID SILVIANO Administration Hydromorphone HCl 0.5 mg 08/10/18 04:07 08/11/18 03:47 Dilaudid IV 0.5 mg Q4H PRN Administration Pain , Severe (7-10) Amino Acids/Electrolytes/Dextrose 1,800 mls @ 75 mls/hr 08/20/18 20:00 21:17 Tpn Adult IV 08/21/18 19:59 75 mls/hr DAILY@2000 SILVIANO Administration Protocol Ondansetron HCl 4 mg 08/09/18 23:05 08/11/18 12:23 Zofran IV 4 mg Q8H PRN Administration Nausea And Vomiting Phenol 1 spray 08/10/18 13:38 08/13/18 14:18 Chloraseptic MM 1 spray PRN PRN Administration Sore Throat Nutrition/Malnutrition Assess - Dietary Evaluation Nutrition/Malnutrition Findings: Nutrition Notes Start: 08/10/18 16: 30 Freq: Status: Active Protocol: Document 08/20/18 17:06 RM (Rec: 08/20/18 17:10 [id number]) Nutrition Notes Initial or Follow up Reassessment Other Pertinent Diagnosis Partial SBO, abdominal pain Current Diet Ful liquid + CPN Labs/Tests K 4 Pertinent Medications Reviewed Height 4 ft 8 in Weight 32.205 kg [place] Body Weight (kg) 36.36 BMI 15.9 Subjective/Other Information CPN day 6. Pt stated that she ate most of her lunch but had only received clear liquids. Burn Absent Trauma Absent #2 Nutrition Diagnosis Altered GI function Diagnosis Progress(for reassessment Continues documentation) #1 Nutrition Diagnosis Inadequate oral intake Diagnosis Progress(for reassessment Continues documentation) Is patient on ventilator? No Is Patient Ambulatory and/or Out of Bed Yes REE-([facility]-ambulatory/OOB) [ 949.065 NUTR.MSJOOB] Kcal/Kg value to use for calculation 40 Approximate Energy Requirements Using 1288 kcal/Kg Calculation Used for Recommendations Kcal/kg Additional Notes Pro needs 1.2-1.5g/k-50g/ day Fluid needs 1ml/kcal Nutrition Intervention Change Diet Order: Diet advancement when medically feasible Nutrition Support: PPN at 75 ml/hr: 11% dextrose, MTE, MVI Kcal 840 Protein (gm) 40 Carbohydrates (gm) 200 Fat (gm) 0 Fluid (mL) 1,800 Fiber (gm) 0 Goal #1 PPN to meet nutritional needs as best possible Anticipated Discharge Needs: unable to determine at this time Follow-Up By: 08/21/18 Additional Comments Follow for labs in am: CMP, Mag, Phos
[2018-08-22] MEDS: PEPCID IV SCH ×2 (07:55→10:00)
[2018-08-22 11:55] VITALS: BP 100/46
--- NOTE | 2018-08-22 12:12 | Discharge Summary ---
Providers - Providers Date of Admission: 08/09/18 23:01 Date of discharge: 08/22/18 Attending physician: ISABELLA PEREZ 08/09/18 21:56 Consult to Physician [CONS] Urgent Comment: Dr. Cheatham spoke with Dr. Pineda @ [id number] Consulting Provider: EASTON PINEDA Physician Instructions: Reason For Exam: sbo 08/12/18 18:55 Consult to Physician [CONS] Routine Comment: Consulting Provider: IZABEL LEPE Physician Instructions: Reason For Exam: critical care management 08/13/18 12:50 Consult to Dietitian/Nutrition [CONS] Routine Physician Instructions: Reason For Exam: for TPN Reason for Consult: Write/Manage TPN/PPN 08/14/18 11:02 Physical Therapy Evaluation and Treat [CONS] Routine Comment: Reason For Exam: post op 08/14/18 11:07 Consult to Wound/ET Nurse [CONS] Routine Reason For Exam: wound eval 08/14/18 11:08 Consult to Wound/ET Nurse [CONS] Routine Reason For Exam: wound eval 08/15/18 07:24 Consult to Dietitian/Nutrition [CONS] Routine Physician Instructions: Dr. Jackson ordered shuttle bus driver to see pt today. Reason For Exam: Nutrition and K+ Supplement per Dr. Jackson. Reason for Consult: Write/Manage TPN/PPN Primary care physician: EASTON PINEDA Hospitalization Condition: Fair Hospital course: She is 63-year-old boat obstruction and hypertension presented with abdominal pain. He was seen and evaluated to the emergency department. CT abdomen and pelvis revealed small bowel obstruction. She was made nothing by mouth started on IV fluids and admitted. Patient evaluated by surgeon small bowel obstruction Conservative measures did not lead to resolution, -08/12 exploratory laparoscopy with lysis of adhesions, segmental small bowel resection with primary anastomosis, -08/13 started on TPN per GS, keep NPO, ngt to LIS -Discussed with Surgeon. discontinued NG tube 08/18 - advanced Severe malnutrition was on TPN but weaned off prior to discharge Hypernatremia/dehydration Continue IV fluids Hypokalemia/hypomagnesemia/hypophosphatemia -repleted IV She improved slowly, was weaned off TPN, diet advanced which she tolerated, so was subsequently discharged home on 08/21/2018 to follow as an outpatient. Total time spent on discharge, 38 minutes Disposition: DC/[place]-06 HOME UNDER HOME HLTH - Discharge Diagnoses (1) Hypokalemia Status: Acute (2) Internal hemorrhoids Status: Acute Comment: likely source of bleeding (3) Small bowel obstruction Status: Acute (4) Leukocytosis Status: Acute (5) Severe malnutrition Status: Acute (6) Hypernatremia Status: Acute (7) Dehydration Status: Acute Core Measure Documentation - Palliative Care Palliative Care/ Comfort Measures: Not Applicable - Core Measures Any of the following diagnoses?: none Exam - Constitutional Vitals: Temp Pulse Resp BP Pulse Ox 97.9 F 88 16 100/46 99 08/22/18 11:00 08/22/18 11:00 08/22/18 11:00 08/22/18 11:00 08/22/18 11:00 Plan Activity: no restrictions Diet: regular Additional Instructions: 1.Follow up with PCP in 1 week. 2.Follow up with Dr. Pineda in 1 week Follow up with: EASTON PINEDA MD [Primary Care Provider] - 7 Days
== END 2018-08-22 15:05 | disposition home health service (06) | DRG 329 ==
LOC: ED 17:30 → 3B-SURG 23:01 → CC1 08-12 14:32 → 3B-SURG 08-14 16:03
PROVIDERS: ADMIT Internal Medicine; ATTEND Internal Medicine
PROC: 0D9670Z Drainage of Stomach with Drainage Device, Via Natural or Artificial Opening (ICD-10-PCS; 2018-08-09)
PROC: 0DB80ZZ Excision of Small Intestine, Open Approach (ICD-10-PCS; principal; 2018-08-12)
PROC: 0DT80ZZ Resection of Small Intestine, Open Approach (ICD-10-PCS; 2018-08-12)
PROC: 02HV33Z Insertion of Infusion Device into Superior Vena Cava, Percutaneous Approach (ICD-10-PCS; 2018-08-12)
PROC: 3E0336Z Introduction of Nutritional Substance into Peripheral Vein, Percutaneous Approach (ICD-10-PCS; 2018-08-12)
PROC: 30233N1 Transfusion of Nonautologous Red Blood Cells into Peripheral Vein, Percutaneous Approach (ICD-10-PCS; 2018-08-17)
DX: K56.51 Intestinal adhesions [bands], with partial obstruction (principal); E43 Unspecified severe protein-calorie malnutrition; E87.0 Hyperosmolality and hypernatremia; Z68.1 Body mass index [BMI] 19.9 or less, adult; E87.6 Hypokalemia; E83.42 Hypomagnesemia; E83.39 Other disorders of phosphorus metabolism; E86.0 Dehydration; Z90.49 Acquired absence of other specified parts of digestive tract; Z90.710 Acquired absence of both cervix and uterus; Z90.13 Acquired absence of bilateral breasts and nipples; Z88.8 Allergy status to other drugs, medicaments and biological substances; Z85.3 Personal history of malignant neoplasm of breast
CPT/HCPCS: 36415; 71045; 74019; 74022; 74177; 80048; 80053; 81001; 82803; 82962; 83690; 83735; 84100; 84478; 85007; 85025; 86850; 86900; 86901; 86920; 87086; 88307; 94760; G0378; A4649; J0690; J1100; J1170; J1650; J1956; J2250; J2405; J2704; J2710; J3010; J3475; J3480; J7030; J7040; J7120; P9016; Q9967